=== PATIENT | female | born 1945 | race American Indian/Alaskan Native ===

== ENCOUNTER 2016-09-01 16:43 | Emergency (ER) | payer MEDICARE ==
[2016-09-01 17:04] VITALS: BP 150/70
--- NOTE | 2016-09-01 17:42 | Emergency Department Report ---
ED Extremity Problem HPI - General Chief complaint: Extremity Problem,Nontraumatic Stated complaint: BLEEDING FROM FISTULA Time Seen by Provider: 09/01/16 17:26 Source: patient, EMS Mode of arrival: Stretcher Limitations: Other - History of Present Illness Initial comments: Pt is a 71 yr old F with ESRD presenting from dialysis for bleeding RUE fistula for > 1 hr. As per dialysis sheet, patient had full dialysis treatment today with 3L taken off, but had prolonged bleeding thereafter. Pt sent to the ED for further evaluation. Currently patient has a dry gauze over the RUE. Otherwise no other complaints. Pt gets dialysed MWF - Related Data Allergies Allergy/AdvReac Type Severity Reaction Status Date / Time No Known Allergies Allergy Unverified 09/01/16 17:05 ED Review of Systems ROS: Stated complaint: BLEEDING FROM FISTULA Other details as noted in HPI Comment: All other systems reviewed and negative ED Past Medical Hx - Past Medical History Previous Medical History?: Yes Hx Hypertension: Yes Hx Renal Disease: Yes (Dialysis M/W/F) - Surgical History Additional Surgical History: ALESIA - Social History Smoking Status: Never Smoker Substance Use Type: None ED Physical Exam - General Limitations: Other General appearance: alert, in no apparent distress - Head Head exam: Present: atraumatic, normocephalic - Eye Eye exam: Present: normal appearance - ENT ENT exam: Present: mucous membranes moist - Neck Neck exam: Present: normal inspection - Respiratory Respiratory exam: Present: normal lung sounds bilaterally. Absent: respiratory distress - Cardiovascular Cardiovascular Exam: Present: regular rate, normal rhythm. Absent: systolic murmur, diastolic murmur, rubs, gallop - GI/Abdominal GI/Abdominal exam: Present: soft, normal bowel sounds - Extremities Exam Extremities exam: Present: full ROM, other (RUE AV fistula, intact with palpable thrill, dry gauze with no bleeding over the AV fistula). Absent: tenderness - Back Exam Back exam: Present: normal inspection - Neurological Exam Neurological exam: Present: alert, oriented X3 - Psychiatric Psychiatric exam: Present: normal affect, normal mood - Skin Skin exam: Present: warm, dry, intact, normal color. Absent: rash ED Course Vital Signs 09/01/16 16:52 Temperature 98 F Pulse Rate 66 Respiratory 22 Rate Blood Pressure 150/70 O2 Sat by Pulse 100 Oximetry ED Medical Decision Making - Medical Decision Making After evaluation, patient has dry gauze and no bleeding of her RUE AV fistula Pt stable for d/c home Critical care attestation.: If time is entered above; I have spent that time in minutes in the direct care of this critically ill patient, excluding procedure time. ED Disposition Clinical Impression: Hemorrhage of arteriovenous fistula Disposition: - TO HOME OR SELFCARE Is pt being admited?: No Condition: Stable Instructions: Acute Wound Care (ED) Additional Instructions: Bleeding AV fistula has hemostased
== END 2016-09-01 19:30 | disposition home or self-care (01) ==
LOC: ED 16:43
DX: T82.838A Hemorrhage due to vascular prosthetic devices, implants and grafts, initial encounter (principal); I12.0 Hypertensive chronic kidney disease with stage 5 chronic kidney disease or end stage renal disease; N18.6 End stage renal disease
CPT/HCPCS: 99283

== ENCOUNTER 2016-09-06 09:55 | Inpatient (IN) | payer MEDICARE ==
[~2016-09-06 09:55] MED LIST: SODIUM BICARBONATE IV ONE
[2016-09-06] MEDS ORDERED: NACL 0.9% 500 ML 500 ML IV ONE ×5 (10:34→20:11)
[2016-09-06] MEDS ORDERED: KETALAR IV ONE (10:35)
[2016-09-06] MEDS ORDERED: D50W (25GM) IV ONE (10:36)
[2016-09-06] MEDS ORDERED: VASELINE LIP THERAPY TP PRN (10:37)
[2016-09-06] MEDS ORDERED: ARTIFICIAL TEARS OPHTH OINT OU PRN (10:37)
[2016-09-06] MEDS ORDERED: SODIUM BICARBONATE IV ONE ×3 (10:39→14:53)
[2016-09-06] MEDS ORDERED: DIPRIVAN 10 MG/ML 1,000 MG/100 ML BOTTLE IV ONE (10:39)
[2016-09-06] MEDS ORDERED: CALCIUM GLUCONATE 1,000 MG in NACL 0.9% 100 ML IV ONE ×2 (11:00→14:53)
[2016-09-06] MEDS ORDERED: NACL 0.9% 500 ML IV SCH (11:00)
[2016-09-06] MEDS ORDERED: ZOSYN/NS 4.5GM/100ML 4.5 GM/100 ML VIAL IV ONE ×2 (11:07→21:00)
[2016-09-06 11:10] LABS: Mean Corpuscular HGB Conc 30 % (30-34); Mean Corpuscular Hemoglobin 27 pg (28-32); Mean Corpuscular Volume 90 fl (79-97); Platelet Count 167 K/mm3 (140-440); Red Blood Count 1.66 M/mm3 (3.65-5.03); White Blood Count 15.1 K/mm3 (4.5-11.0)
[2016-09-06 11:18] LABS: Hematocrit 14.9 % (30.3-42.9); Hemoglobin 4.5 gm/dl (10.1-14.3); Red Cell Distribution Width 23.3 % (13.2-15.2)
--- NOTE | 2016-09-06 11:20 | Admit Criteria Form ---
Admission Criteria Documentation: GENERAL ADMISSION CRITERIA (Place 'X' for any and all applicable criteria): Admission is indicated for ANY ONE of the following: [X ]I. Hemodynamic instability as indicated by ANY ONE of the following(1)(2 )(3)(4)(5): [ ]a) Vital sign abnormality not readily corrected by appropriate treatment within 12 to 24 hours indicated by ANY ONE of the following: [ ]i) Hypotension [ ]ii) Symptomatic Tachycardia unresponsive to treatment (eg , analgesia, fluids, sedation as indicated) [ ]iii) Orthostatic vital sign changes unresponsive to treatment (eg, fluids) [ X]b) Vital sign abnormality that is severe indicated by ANY ONE of the following: [X ]i) Inadequate perfusion indicated by ANY ONE of the following: [ X]1) Lactic acidosis (greater than 2 mmol/L) [ ]2) New abnormal capillary refill (greater than 3 seconds) [ ]3) Other metabolic acidosis (arterial pH less than 7.35) not otherwise explained [ ]4) Reduced urine output [ X]5) Altered mental status [ ]6) Myocardial Ischemia [ ]v) Mean arterial pressure[A] less than 60 mm Hg [ ]vi) Mean arterial pressure[A] less than 70 mm Hg after 30 minutes of appropriate treatment (eg, fluid resuscitation) [ ]vii) IV inotropic or vasopressor medication required to maintain adequate blood pressure or perfusion [ ]viii) Sustained heart rate greater than 120 beats per minute in adult or child 6 years or older[B]] [ ]II. Hypertension requiring inpatient treatment as indicated by ANY ONE of the following(6)(7)(8): [ ]a) SBP greater than 220 mm Hg or DBP greater than 120 mm Hg despite treatment [ ]b) SBP greater than 140 mm Hg or DBP greater than 100 mm Hg with evidence of acute end organ damage as indicated by ANY ONE of the following: [ ]i) Encephalopathy [ ]ii) Acute renal failure as indicated by new onset of ANY ONE of the following(9)(10)(11)(12)(13): [ ]1) A 3-fold rise in serum creatinine from baseline [ ]2) Serum creatinine greater than 4 mg/dL ( 354 micromoles/L) with acute rise greater than 0.5 mg/dL (44.2 micromoles/L) [ ]3) Reduction of more than 75% in estimated glomerular filtration rate from baseline [ ]4) Estimated glomerular filtration rate less than 35 mL/min/1.73m2 (0.59 mL/sec/1.73m2) in child up to 18 years of age [ ]5) Cessation of urine output indicated by ALL of the following: [ ]A. Adequate volume status [ ]B. Inadequate urine output as indicated by ANY ONE of the following: [ ]a. Urine output less than 0.3 mL/kg/hr for 24 hours [ ]b. Anuria (urine output less than 0.1 mL/kg/hr) for 12 hours [ ]iii) Aortic dissection [ ]iv) Myocardial ischemia [ ]v) Left ventricular heart failure [ ]vi) Retinal hemorrhage [ ]vii) Other significant finding [ ]c) Hypertension in child requiring inpatient treatment as indicated by ALL of the following(14)(15)(16): [ ]i) Outpatient treatment not effective, not available, or not appropriate [ ]ii) SBP or DBP greater than 95th percentile for age [ ]iii) Evidence of acute end organ damage as indicated by ANY ONE of the following: [ ]1) Altered mental status [ ]2) Acute renal failure as indicated by new onset of ANY ONE of the following(9)(10)(11)(12)(13): [ ]A. A 3-fold rise in serum creatinine from baseline [ ]B. Serum creatinine greater than 4 mg/dL (354 micromoles/L) with acute rise greater than 0.5 mg/dL (44.2 micromoles/L) [ ]C. Reduction of more than 75% in estimated glomerular filtration rate from baseline [ ]D. Estimated glomerular filtration rate less than 35 mL/min/1.73m2 (0.59 mL/sec/1.73m2)in child up to 18 years of age [ ]E. Cessation of urine output indicated by ALL of the following: [ ]a. Adequate volume status [ ]b. Inadequate urine output as indicated by ANY ONE of the following: [ ]1) Urine output less than 0.3 mL/kg/hr for 24 hours [ ]2) Anuria (urine output less than 0.1 mL/kg/hr) for 12 hours [ ]3) Severe headache [ ]4) Visual disturbance [ ]5) Retinal hemorrhage [ ]6) Other significant finding [ ]III. Acute cardiac or peripheral ischemia as indicated by ANY ONE of the following: [ ]a) Acute coronary syndrome(17)(18) [ ]b) Acute peripheral ischemia (eg, pulseless, cool, mottled, or cyanotic extremity)(19) [ ]IV. Cardiac arrhythmias or findings of immediate concern indicated by ANY ONE of the following(20)(21): [ ]a) Heart rhythms that are inherently dangerous or unstable indicated by ANY ONE of the following(22)(23)(24): [ ]i) Resuscitated ventricular fibrillation or cardiac arrest [ ]ii) Ventricular escape rhythm [ ]iii) Sustained ventricular tachycardia (30 seconds or more of ventricular rhythm at greater than 100 beats per minute) [ ]iv) Nonsustained ventricular tachycardia and ANY ONE of the following: [ ]1) Suspected cardiac ischemia as cause or consequence of ventricular tachycardia [ ]2) In setting of acute myocarditis [ ]b) Unstable cardiac conduction defects indicated by ANY ONE of the following(24)(25)(26): [ ]i) Type II second-degree atrioventricular block [ ]ii) Third-degree atrioventricular block [ ]iii) New-onset left bundle branch block with suspected myocardial ischemia [ ]c) Any heart rhythm and ANY ONE of the following(22)(23)(27)(28)( 29): [ ] i) Continuous long-term ECG monitoring needed (eg, initiation of drug requiring monitoring for more than 24 hours) [ ] ii) Patient has automatic implanted cardioverter defibrillator that is repeatedly firing, malfunctioning, or in need of immediate adjustment of settings beyond the scope of ambulatory or observation care. [ ]d) Heart rhythms of concern due to ANY ONE of the following: [ ]i) Hypotension [ ]ii) Respiratory distress [ ]iii) Association with other significant symptoms (eg, bradycardia with syncope or ongoing dizziness, supraventricular tachycardia with chest pain) (27)(28) (30) [ ] V. Severe heart failure as indicated by ANY ONE of the following ( 31)(32): [ ]a) Respiratory distress [ ]b) Hypotension [ ]c) Anasarca (refractory to outpatient therapy) [ ]d) Cardiac arrhythmias of immediate concern [ ]e) Myocardial ischemia [ ]. Respiratory abnormalities, including ANY ONE of the following(33)(34) (35)(36): [ ]a) Respiratory rate greater than 30 breaths per minute unresponsive to treatment [A] [ ]b) New saturation of arterial oxygen less than 90% [ ]c) New partial pressure of carbon dioxide greater than 44 mm Hg ( 5.9 kPa) [ ]d) Supplemental oxygen or respiratory treatments needed that are new or not performable at other levels of care [ ]e) New-onset cyanosis [ ]f) Inability to protect airway [ ]g) Chronic lung disease with severe deterioration (not responsive to emergency and observation care treatment as appropriate) as indicated by ANY ONE of the following(34)(36 ): [ ]i) SaO2 5% below baseline in patient with chronic hypoxemia [ ]ii) New requirement for supplemental oxygen to keep SaO2 at baseline or acceptable level [ ]iii) Required supplemental oxygen performable only in acute inpatient setting [ ]iv) Severe airflow or ventilation abnormalities [ ]v) Previously mobile patient unable to walk between rooms [ ]vi Inability to eat or sleep due to dyspnea [ ]vii) Rapid rate of exacerbation onset [ ]viii) Altered mental status ]VII. Severe airflow or ventilation abnormalities (not responsive to emergency and observation care treatment as appropriate) as indicated by ANY ONE of the following(33)(34)(35)(37): [ ]a) PCO2 greater than 42 mm Hg (5.6 kPa) and pH less than 7.35 (new ) [ ]b) Documented PCO2 increased more than 5 mm Hg (0.7 kPa) from disease baseline [ ]c) Airflow measurements [B] less than 60% of previous best or predicted (eg, peak expiratory flow rate less than 300 L/minute) despite intensive emergent treatment [C] [ ]d) Required respiratory treatments that are performable only in acute inpatient setting [ ]VIII. Impending or actual respiratory arrest ( Also use Respiratory Failure GRG for severe respiratory disease and long-term mechanical ventilation patients) [ ]IX. Neurologic abnormalities, including ANY ONE of the following: [ ]a) New findings that suggest ANY ONE of the following: [ ]i) HELP DESK INTERN infection(38) [ ]ii) Cerebral bleeding, ischemia, or vasospasm(39)(40) [ ]iii) Increased intracranial pressure, hydrocephalus, or cerebral edema(41)(42)(43) [ ]iv) Spinal cord injury(44) [ ]b) Uncontrolled seizures(45) [ ]c) New-onset coma (eg, Maggie coma scale score less than 9) or unexplained abnormal mental status (eg, [place] coma scale score less than 14) [D](41)(46)(47) [ ]X. New-onset severe neurologic findings requiring inpatient care; examples include(42)(48)(49): [ ]a) Papilledema [ ]b) Cerebral edema [ ]c) Mass effect on CT scan [ ]XI. Suspected acute intra-abdominal process with peritoneal signs, abdominal mass, or similar findings (50)(51)(52) [ ]XII. Severe physiologic disorder remaining after emergency or observation level care (as appropriate) as indicated by ANY ONE of the following (53): [ ]a) Significant dehydration [ ]b) Diabetic ketoacidosis [ ]c) Hyperglycemic hyperosmolar state (eg, osmolality greater than 320 mOsm/kg (mmol/kg) [ ]d) Hypoglycemia [ ]e) Other (new) acid-base disorder with pH less than 7.35 or greater than 7.5(54) [ ]f) Thyroid storm (55) [ ]g) Myxedema coma (55) [ ]XIII. Abdominal abnormalities with ANY ONE of the following(56)(57): [ ]a) Absent bowel sounds with complete ileus [ ]b) Signs of intestinal obstruction or peritonitis [E] [ ]c) Nausea and vomiting that cannot be controlled with outpatient or observation care [ ]XIV. Acute renal failure as indicated by new onset of ANY ONE of the following(9)(10)(11)(12)(13): [ ]a) A 3-fold rise in serum creatinine from baseline [ ]b) Serum creatinine greater than 4 mg/dL (354 micromoles/L) with acute rise greater than 0.5 mg/dL (44.2 micromoles/L) [ ]c) Reduction of more than 75% in estimated glomerular filtration rate from baseline [ ]d) Estimated glomerular filtration rate less than 35 mL/min/ 1.73m2 (0.59 mL/sec/1.73m2) in child up to 18 years of age [ ]e) Cessation of urine output indicated by ALL of the following: [ ]i) Adequate volume status [ ]ii) Inadequate urine output as indicated by ANY ONE of the following: [ ]1) Urine output less than 0.3 mL/kg/hr for 24 hours [ ]2) Anuria (urine output less than 0.1 mL/kg/hr) for 12 hours [ ]XV. Significant uremic complications as indicated by ANY ONE of the following(58)(59)(60): [ ]a) Outpatient therapy is ineffective or not feasible for ANY ONE of the following: [ ]i) Severe heart failure [ ]ii) Severehypertension [ ]iii) Pleural effusion [ ]iv) Pericarditis or pericardial effusion [ ]b) Cardiac arrhythmias of immediate concern [ ]c) Intractable nausea or vomiting [ ]d) Recurrent seizures [ ]e) Encephalopathy [ ]f) Bleeding abnormalities (eg, platelet dysfunction) with active (eg, gastrointestinal) bleeding [ ]g) Dialysis indicated before long-term access or ambulatory arrangements can be made [ ]h) Significant metabolic or electrolyte abnormalities (eg, severe acidosis or hyperkalemia) [ ]XVI. High fever or other high-risk infection situation as indicated by ANY ONE of the following(61)(62)(63)(64): [ ]a) Outpatient and observation care antimicrobial treatment unavailable, not effective, or not appropriate [ ]b) Documented bacteremia [ ]c) Temperature greater than 40.5 degrees C (104.9 degrees F) ( oral) [ ]d) Temperature greater than 39.5 degrees C (103.1 degrees F) ( oral) or less than 36 degrees C (96.8 degrees F) (rectal) that does not respond to e treatment and observation care [ ] XVII. Temperature less than 95 degrees F (35 degrees C)(rectal)(65) [ ] XVIII. Severe nutritional abnormalities as indicated by ALL of the following (66)(67): [ ]a) Inability to tolerate or establish sufficient oral or other enteral nutrition in outpatient setting [ ]b) Parenteral nutrition regimen need that must be implemented on inpatient basis [ ] XIX. Severe electrolyte abnormalities indicated by ALL of the following(68) (69)(70): [ ]a) Electrolytes and associated findings are not as expected for patient baseline or acceptable treatment effects. [ ]b) Severe abnormalities indicated by ANY ONE of the following: [ ]i) Sodium less than 130 mEq/L (mmol/L) (new) [ ]ii)Sodium less than 135 mEq/L (mmol/L) with ANY ONE of the following: [ ]1) Uncorrectable (to near normal or chronic baseline) after trial of outpatient and emergency treatment [ ]2) Altered mental status [ ]3) Seizures [ ]4) Severe medical etiology requiring inpatient management (eg, heart failure, hypovolemia) [ ]iii) Sodium greater than 155 mEq/L (mmol/L) [ ]iv) Sodium greater than 150 mEq/L (mmol/L) with ANY ONE of the following: [ ]1) Uncorrectable (to near normal or chronic baseline) with outpatient and emergency treatment [ ]2) Altered mental status [ ]3) Seizures [ ]4) Severe medical etiology (eg, hypovolemia, diabetes insipidus) [ ]v) Potassium less than 2.5 mEq/L (mmol/L) despite outpatient and emergency treatment [ ]vi) Potassium less than 3 mEq/L (mmol/L) with ANY ONE of the following: [ ]1) Weakness [ ]2) Cardiac abnormality (eg, arrhythmia, conduction disturbance) [ ]3) Cardiac ischemia [ ]4) Ileus [ ]5) Ongoing medical cause requiring inpatient management (eg, acute renal wasting or SIADH) [ ]6) Other severe symptoms [ ]vii) Potassium greater than 6.5 mEq/L (mmol/L) [ ]viii) Potassium greater than 5 mEq/L (mmol/L) with ANY ONE of the following: [ ]1) Uncorrectable (to near normal or chronic baseline) with outpatient and emergency treatment [ ]2) Severe ECG findings [F] [ ]3) Acute worsening of renal failure (creatinine greater than 2.5 mg/dL (221 micromoles/L) or significant elevation for age and size) [ ]4) Severe weakness [ ]5) Severe medical etiology (eg, hemolysis, infection, drug overdose) [ ]ix) Calcium less than 7 mg/dL (1.75 mmol/L) despite outpatient and emergency treatment (72) [ ]x) Calcium less than 8 mg/dL (2 mmol/L) with significant symptoms or findings; examples include(72): [ ]1) Altered mental status [ ]2) Muscle spasms [ ]3) Seizures [ ]4) Breathing difficulty [ ]5) Cardiac abnormality (eg, arrhythmia or conduction disturbance) [ ]xi) Calcium greater than 14 mg/dL (3.5 mmol/L)(72) [ ]xii) Calcium greater than 12 mg/dL (3 mmol/L) with ANY ONE of the following(72): [ ]1) Uncorrectable (to near normal or chronic baseline) with outpatient and emergency treatment [ ]2) Significant dehydration or hypovolemia as indicated by ALL of the following(70)(73)(74): [ ]A. Not resolved with initial treatments [ ]B. Clinically significant dehydration as indicated by ANY ONE of the following: [ ]a. Vomiting refractory to outpatient treatment (ie, precluding oral rehydration) [ ]b. Inability to drink [ ]c. Hypernatremia or other electrolyte abnormality unable to be corrected with outpatient and emergency treatment [ ]d. Failure to remain hydrated with outpatient therapy [ ]e. Reduced urine output [ ]f. Hypotension [ ]g. Serious cause for dehydration requiring acute hospitalization (eg, bowel obstruction, increased intracranial pressure, infectious cause) [ ]h. Child with ANY ONE of the following(75): [ ]1) Severe abdominal tenderness [ ]2) Adequate care not available at home [ ]3) Severe dehydration ( greater than 9% loss of body weight) [ ]4) Significant symptoms or findings; examples include: [ ]A. Altered mental status [ ]B. Cardiac abnormality (eg, arrhythmia, conduction disturbance) [ ]C. Malignant etiology requiring inpatient treatment [ ]xiii) Phosphorus less than 1 mg/dL (0.32 mmol/L) [ ]xiv) Phosphorus less than 1.5 mg/dL (0.48 mmol/L) with ANY ONE of the following: [ ]1) Patient unresponsive to outpatient and emergency treatment [ ]2) Significant symptoms or findings; examples include: [ ]A. Weakness [ ]B. Altered mental status [ ]C. Breathing difficulty [ ]D. Seizures [ ]E. Rhabdomyolysis [ ]xv) Phosphorus greater than 10 mg/dL (3.2 mmol/L) [ ]xvi) Phosphorus greater than 4.5 mg/dL (1.45 mmol/L) (new) with ANY ONE of the following: [ ]1) Severe medical etiology (eg, crush injury, acute renal failure) [ ]2) Associated hypocalcemia with significant findings; examples include: [ ]A. Neurologic symptoms [ ]B. Altered mental status [ ]C. Muscle spasms [ ]D. Seizures [ ]E. Breathing difficulty [ ]F. Cardiac abnormality (eg, arrhythmia, conduction disturbance) [ ]xvii) Magnesium less than 1 mg/dL (0.41 mmol/L) [ ]xviii) Magnesium less than 1.5 mg/dL (0.62 mmol/L) with ANY ONE of the following: [ ]1) Patient unresponsive to outpatient and emergency treatment [ ]2) Associated hypocalcemia with significant findings; examples include: [ ]A. Altered mental status [ ]B. Muscle spasms [ ]C. Seizures [ ]D. Breathing difficulty [ ]E. Cardiac abnormality (eg, arrhythmia , conduction disturbance) [ ]3) Associated hypokalemia (potassium less than 3 mEq/L (mmol/L)) with risk of arrhythmia [ ]xix) Magnesium greater than 4 mEq/L (2 mmol/L) [ ]xx) Magnesium greater than 2.5 mEq/L (1.25 mmol/L) with significant symptoms or findings; examples include: [ ]1) Weakness [ ]2) Altered mental status [ ]3) Cardiac abnormality (eg, arrhythmia, conduction disturbance) [ ]4) Breathing difficulty [ ]5) Severe medical etiology (eg, renal failure, hypovolemia) [ ]xxi) Uric acid greater than 20 mg/dL (1190 micromoles/L)(76) [ ]xxii) Uric acid greater than 8 mg/dL (476 micromoles/L) with significant symptoms or findings of tumor lysis syndrome; examples include(76): [ ]1) Creatinine greater than 1.5 times upper limit of normal [ ]2) Cardiac abnormality (eg, arrhythmia, conduction disturbance) [ ]3) Seizure [ ]XX. Acute blood loss causing significant abnormality as indicated by ANY ONE of the following(77)(78): [ ]a) Hemoglobin less than 10 g/dL (100 g/L) (not baseline) [ ]b) Hematocrit less than 30% (0.30) (not baseline) [ ]c) Repeat hematocrit decreased more than 2% (0.02) [ ]d) Uncontrolled bleeding [X ]XXI. Severe anemia indicated by ANY ONE of the following(78)(79): [ X]a) Altered mental status [ ]b) Chest pain [ ]c) Exertional dyspnea [ ]d) Syncope [ ]e) Other findings suggesting inadequate perfusion [ ]f) Treatment with transfusion or volume replacement is ineffective at resolving ANY ONE of the following [G]: [ ]i) Tachycardia for age [ ]ii) Orthostatic vital sign changes as indicated by ANY ONE of the following(80): [ ]1) Fall in SBP of 20 mm Hg or more 1 to 3 minutes after patient sits or stands from recumbent position [ ]2) Fall in DBP of 10 mm Hg or more 1 to 3 minutes after patient sits or stands from recumbent position [ ]XXII. High-risk low platelet count as indicated by ANY ONE of the following( 81)(82): [ ]a) Severe or life-threatening bleeding (eg, intracranial, major gastrointestinal, or extensive mucosal bleeding), with any reduced platelet count [ ]b) Platelet count less than 20,000/mm3 (20 x109/L) with any active bleeding [ ]c) Platelet count less than 10,000/mm3 (10 x109/L) with minor purpura or petechiae [ ]d) Platelet count less than 5000/mm3 (5 x109/L) [ ]e) Low platelet count with hemolytic anemia [ ]XXIII. Disseminated intravascular coagulation(77)(83) [ ]XXIV. Severe adverse drug or systemic toxin reaction requiring inpatient treatment; examples include(84)(85): [ ]a) Serotonin syndrome(86) [ ]b) Neuroleptic malignant syndrome(86) [ ]c) Cholinergic syndrome with severe symptoms (eg, bronchorrhea, weakness, mental status changes, seizures) [ ]d) Sympathetic syndrome with severe symptoms (eg, seizures, mental status changes, cardiac dysrhythmias) [ ]e) Anticholinergic syndrome [ ]XXV. Severe pain requiring acute inpatient management as indicated by ALL of the following (87)(88)(89): [ ]a) Continuous or frequent (eg, every 2 to 4 hours) parenteral analgesics required [H] [ ]b) Rapid improvement expected from treatment or acute intervention (eg, surgery, anesthesia procedure) [ ]XXVI.Severe behavioral health issues judged unmanageable at a lower level of care (eg, residential) in a patient who is ANY ONE of the following(91) [ ]a) Acutely suicidal [ ]b) A danger to self (eg, self-mutilating or suicidal behavior) [ ]c) A danger to others (eg, assaultive or homicidal behavior) [ ]d) Incapacitated because of grave disability (eg, inability to provide for self at lower level of care) (92) [ ]XXVII. Inpatient monitoring needed; examples include(1)(3)(87)(93)(94)(95)(96 ): [ ]a) Vital signs, neurologic signs, or vascular checks more frequently than every 4 hours [ ]b) Cardiac or respiratory monitoring beyond the scope (eg, over 24 hours) of observation care [ ]c) Pulmonary artery catheter monitoring [ ]d) Suspected compartment syndrome(97) (98) [ ]e) Cerebral bleeding, hydrocephalus, or vasospasm monitoring [ ]f) Increased intracranial pressure or cerebral edema monitoring [ ]g) monitoring [ ]XXVIII. Treatment requiring inpatient care; examples include: [ ]a) IV fluid to replace significant ongoing losses (greater than 3 L/m2 per day)(53) [ ]b) High concentration oxygen (greater than 40%)(33)(99)(100) [ ]c) Frequent respiratory therapy (more frequently than every 4 hours) to maintain airflow rates greater than 60% of baseline(33)(99)(100) [ ]d) Epidural analgesia(87) [ ]e) IV anticoagulation, vasoactive, or antiarrhythmic medication(19 )(23) [ ]f) Acute thrombolytics (generally require 24 hours of observation )(101)(102) [ ]XXIX. Emergency procedures needed; examples include: [ ]a) Emergency inpatient surgery [ ]b) Temporary pacemaker placement(103) [ ]c) Chest tube placement with active evacuation (eg, suction, drainage)(104) [ ]d) Emergent cardioversion(105) [ ]e) Emergent cardiac or vascular procedures (eg, cardiac catheterization, angioplasty) (17)(18) [ ]f) Emergent dialysis access placement and institution(10)(106) [ ]g) Emergent pericardiocentesis(107) [ ]h) Emergent plasmapheresis or leukapheresis(83) [ ]i) Emergent tracheostomy The original [employer] content created by [employer] has been revised. The portions of the content which have been revised are identified through the use of italic text or in bold, and [employer] has neither reviewed nor approved the modified material. All other unmodified content is copyright [employer]. Please see references footnoted in the original [employer] edition 2016 Admission Criteria Met: Yes
[2016-09-06] MEDS ORDERED: VANCOMYCIN 1,500 MG in NACL 0.9% 500 ML 500 ML IV ONE (11:30)
[2016-09-06 11:32] LABS: Magnesium 2.2 mg/dL (1.7-2.3); Phosphorous 5.2 mg/dL (2.5-4.5)
[2016-09-06 11:33] LABS: Albumin 2.8 g/dL (3.9-5); Albumin/Globulin Ratio 1.1 %; BUN/Creatinine Ratio 10.48; Bilirubin,Total 0.8 mg/dL (0.1-1.2); Calcium 8.7 mg/dL (8.4-10.2); Potassium 6.4 mmol/L (3.6-5.0); Total Protein 5.3 g/dL (6.3-8.2)
--- NOTE | 2016-09-06 11:44 | XRay Report ---
Supine chest: Tube placement. An endotracheal tube tip is located approximately 2 cm above the doe. The heart is questionably enlarged it could be accentuated by positioning. A bipolar pacemaker is present with intact wires. Sternotomy wires are present. There is no vascular congestion. The left hemidiaphragm is now well-visualized. No prior exams for comparison. Impression: Well-positioned endotracheal tube. Poorly visualized left hemidiaphragm. The possibility of a process of the left base cannot be excluded.
[2016-09-06 11:45] LABS: INR 5.24 (0.87-1.13)
[2016-09-06] MEDS ORDERED: PROTONIX IV ONE (11:53)
[2016-09-06 11:59] LABS: Anisocytosis 2+; Basophils % (Manual) 0 % (0.0-1.8); Blastocytes % (Manual) 0 %; Eosinophils % (Manual) 0 % (0.0-4.3)
[2016-09-06 12:00] LABS: Elliptocytes 1+; Ovalocytes 1+; Polychromasia Few
[2016-09-06] MEDS ORDERED: VANCOMYCIN PHARMACY TO DOSE IV SCH (12:00)
[2016-09-06 12:01] LABS: Diff Status Complete; Poikilocytosis Few; Tear Drop Cells Few
[2016-09-06 12:29] LABS: ISTAT Base Excess 2; ISTAT HCO3 25.7; ISTAT PCO2 33.9 (35-45); ISTAT PH 7.488 (7.35-7.45); ISTAT PO2 408 (80-105); ISTAT SO2 100; ISTAT TCO2 27
[2016-09-06] MEDS ORDERED: NACL 0.9% 500 ML 500 ML ONE ×2 (12:50→13:13)
--- NOTE | 2016-09-06 13:02 | Emergency Department Report ---
ED General Adult HPI - General Chief complaint: Altered Mental Status Stated complaint: AMS Time Seen by Provider: 09/06/16 11:05 Source: patient, EMS Mode of arrival: Stretcher Limitations: Altered Mental Status - History of Present Illness Initial comments: Patient presents to the emergency department obtunded with shallow respirations. Her pulse oximetry on a nonrebreather mask is 100%. However she does not really respond much to a sternal rub. She requires elective intubation. A 12-lead EKG was performed which showed a paced rhythm with an extremely wide QRS complex (paced). The patient was sent from [facility] who told the medics that they "do not know when the last time the patient was dialyzed". After speaking with Dr. Felix her last dialysis was on 09/03 successfully accomplished at that time. In any case little information is available from the [facility]. The young man arrived to I presume may be a sign or grandson who states he sees the patient every day. He told me that the patient appeared very weak yesterday. There is some question as to whether GI bleeding was observed at the [facility]. We did not receive notification of this however. Shortly after intubation, it was noted that the patient had a melanotic stool. -: unknown Severity scale (0 -10): 0 - Related Data Allergies Allergy/AdvReac Type Severity Reaction Status Date / Time No Known Allergies Allergy Verified 09/06/16 10:32 ED Review of Systems ROS: Stated complaint: AMS Other details as noted in HPI Comment: Unobtainable due to pts medical conditions ED Past Medical Hx - Past Medical History Previous Medical History?: Yes Hx Hypertension: Yes Hx Renal Disease: Yes (Dialysis M/W/F) Additional medical history: peripheral vascular disease. dementia. pacepaker. +ppd - Surgical History Additional Surgical History: pacemaker - Social History Smoking Status: Unknown if ever smoked Substance Use Type: None Other Social History: long term resident ED Physical Exam - General Limitations: Altered Mental Status General appearance: obtunded, other (shallow respirations) - Head Head exam: Present: atraumatic - Eye Eye exam: Present: PERRL. Absent: scleral icterus - ENT ENT exam: Present: mucous membranes dry - Neck Neck exam: Present: normal inspection, other (distended EJ on the left). Absent : tenderness, meningismus - Respiratory Respiratory exam: Present: decreased breath sounds - Cardiovascular Cardiovascular Exam: Present: regular rate, tachycardia - GI/Abdominal GI/Abdominal exam: Present: soft. Absent: distended, tenderness, guarding, rebound, rigid - Rectal Rectal exam: Present: black stool (/melanotic stool) - Extremities Exam Extremities exam: Present: normal inspection - Back Exam Back exam: Present: normal inspection - Neurological Exam Neurological exam: Present: altered, other (Limited exam secondary to obtunded state) - Skin Skin exam: Present: warm, dry, intact, normal color. Absent: rash ED Course Vital Signs 09/06/16 09/06/16 09/06/16 09:55 10:00 10:10 Temperature Pulse Rate 112 H 110 H Respiratory 19 20 Rate Blood Pressure 166/87 166/87 153/95 O2 Sat by Pulse 100 100 Oximetry 09/06/16 09/06/16 09/06/16 10:20 10:30 10:33 Temperature Pulse Rate 83 78 72 Respiratory 20 21 Rate Blood Pressure 153/95 152/47 159/54 O2 Sat by Pulse 91 100 100 Oximetry 09/06/16 09/06/16 09/06/16 10:40 10:50 11:00 Temperature Pulse Rate 72 71 71 Respiratory 27 H 14 16 Rate Blood Pressure 107/49 107/49 107/49 O2 Sat by Pulse 100 100 100 Oximetry 09/06/16 09/06/16 09/06/16 11:10 11:20 11:30 Temperature Pulse Rate 82 69 70 Respiratory 18 22 18 Rate Blood Pressure 159/54 159/54 159/54 O2 Sat by Pulse 85 100 Oximetry 09/06/16 09/06/16 09/06/16 11:42 11:51 12:00 Temperature Pulse Rate 72 72 72 Respiratory 22 20 22 Rate Blood Pressure 107/49 159/54 140/62 O2 Sat by Pulse Oximetry 09/06/16 09/06/16 09/06/16 12:02 12:11 12:21 Temperature Pulse Rate 71 71 Respiratory 18 20 18 Rate Blood Pressure 140/62 138/54 O2 Sat by Pulse 96 Oximetry 09/06/16 09/06/16 09/06/16 12:30 12:41 12:44 Temperature 97.6 F Pulse Rate 69 70 Respiratory 18 19 Rate Blood Pressure 122/51 122/51 O2 Sat by Pulse Oximetry 09/06/16 12:51 Temperature Pulse Rate 75 Respiratory 18 Rate Blood Pressure 129/56 O2 Sat by Pulse Oximetry - Reevaluation(s) Reevaluation #1: RSI and elective intubation was performed. The patient was given 2 A of bicarbonate 1 amp of D50 for of insulin one of calcium gluconate empirically as above as described. He did appear that her QRS complex was diminishing in duration. Her blood pressure was well maintained. Her pulse oximetry was well maintained throughout. The long line sheath was placed in her left EJ with a double Y adapter. Patient was found to have a coagulopathy and low hemoglobin. Blood products and FFP were ordered. A PICC line consult was ordered. I spoke to Dr. Field who will be the hospitalist in charge of this patient. I did give a brief report to Dr. Barrett. I spoke to Dr. Felix inflated pad buffer in detail about her plan of care. She stated that she would dialyze the patient when it was clinically safe. She recommended that we transfuse the patient first and not during dialysis. She is also aware of the coagulopathy and a metabolic profile. Dr. Field has seen the patient and assumed care. I'm told the ICU as a ready bed. 09/06/16 13:23 Reevaluation #2: Patient with significant lactic acidosis was given Zosyn and vancomycin. No obvious source yet. 09/06/16 13:27 - EJ/Peripheral Line Neck L Time Out Performed: No Indications: nurses unable to establis Size: 18 Dressing Placed: Tegaderm, tape Patient Tolerated Procedure: well Additional Comments: Blood drawn and sent to the lab. - Intubation Time Out Performed: Yes Sedative: Ketamine Paralytic: Rocuronium Laryngoscope: Cara Size: 4 ET Tube Size: 7.5 Tube Secured Depth (cm): 24 Tube Secured Location: lips Tube Placement Confirmation: visualized tube passing t, equal breath sounds bilat, no breath sounds over epi, confirmation by capnometr Patient Tolerated Procedure: well Intubation Complications: none ED Medical Decision Making - Lab Data Result diagrams: 09/06/16 10:34 09/06/16 Unknown Laboratory Results - last 24 hr 09/06/16 09/06/16 09/06/16 10:34 10:34 12:05 WBC 15.1 H RBC 1.66 L Hgb 4.5 L* Hct 14.9 L* MCV 90 MCH 27 L MCHC 30 RDW 23.3 H Plt Count 167 Add Manual Diff Complete Total Counted 100 Seg Neuts % (Manual) 95.0 H Band Neutrophils % 0 Lymphocytes % (Manual) 2.0 L Reactive Lymphs % (Man) 0 Monocytes % (Manual) 3.0 Eosinophils % (Manual) 0 Basophils % (Manual) 0 Metamyelocytes % 0 Myelocytes % 0 Promyelocytes % 0 Blast Cells % 0 Nucleated RBC % Not Reportable Seg Neutrophils # Man 14.3 H Band Neutrophils # 0.0 Lymphocytes # (Manual) 0.3 L Abs React Lymphs (Man) 0.0 Monocytes # (Manual) 0.5 Eosinophils # (Manual) 0.0 Basophils # (Manual) 0.0 Metamyelocytes # 0.0 Myelocytes # 0.0 Promyelocytes # 0.0 Blast Cells # 0.0 WBC Morphology Not Reportable Hypersegmented Neuts Not Reportable Hyposegmented Neuts Not Reportable Hypogranular Neuts Not Reportable Smudge Cells Not Reportable Toxic Granulation Not Reportable Toxic Vacuolation Not Reportable Dohle Bodies Not Reportable Pelger-Huet Anomaly Not Reportable Juan Rods Not Reportable Platelet Estimate Appears normal Clumped Platelets Not Reportable Plt Clumps, EDTA Not Reportable Large Platelets Not Reportable Giant Platelets Not Reportable Platelet Satelliting Not Reportable Plt Morphology Comment Not Reportable RBC Morphology Not Reportable Dimorphic RBCs Not Reportable Polychromasia Few Hypochromasia Not Reportable Poikilocytosis Few Anisocytosis 2+ Microcytosis Not Reportable Macrocytosis Not Reportable Spherocytes Not Reportable Pappenheimer Bodies Not Reportable Sickle Cells Not Reportable Target Cells Not Reportable Tear Drop Cells Few Ovalocytes 1+ Helmet Cells Not Reportable Dominguez-White Shield Bodies Not Reportable Silva Rings Not Reportable Bernabe Cells Not Reportable Bite Cells Not Reportable Crenated Cell Not Reportable Elliptocytes 1+ Acanthocytes (Spur) Not Reportable Rouleaux Not Reportable Hemoglobin C Crystals Not Reportable Schistocytes Not Reportable Malaria parasites Not Reportable Yair Bodies Not Reportable Hem Pathologist Commnt No PT 48.8 H INR 5.24 H* POC ABG pH 7.488 H POC ABG pCO2 33.9 L POC ABG pO2 408 H POC ABG HCO3 25.7 POC ABG Total CO2 27 POC ABG O2 Sat 100 POC ABG Base Excess 2 VBG pH FiO2 100 Sodium Potassium Chloride Carbon Dioxide Anion Gap BUN Creatinine Estimated GFR BUN/Creatinine Ratio Glucose Lactic Acid Calcium Phosphorus Magnesium Total Bilirubin AST ALT Alkaline Phosphatase Ammonia Total Creatine Kinase CK-MB (CK-2) CK-MB (CK-2) Rel Index Troponin T NT-Pro-B Natriuret Pep Total Protein Albumin Albumin/Globulin Ratio Triglycerides Cholesterol LDL Cholesterol Direct HDL Cholesterol Cholesterol/HDL Ratio Blood Type Antibody Screen JOSEFA Antibody Screen Crossmatch 09/06/16 09/06/16 09/06/16 12:08 Unknown Unknown WBC RBC Hgb Hct MCV MCH MCHC RDW Plt Count Add Manual Diff Total Counted Seg Neuts % (Manual) Band Neutrophils % Lymphocytes % (Manual) Reactive Lymphs % (Man) Monocytes % (Manual) Eosinophils % (Manual) Basophils % (Manual) Metamyelocytes % Myelocytes % Promyelocytes % Blast Cells % Nucleated RBC % Seg Neutrophils # Man Band Neutrophils # Lymphocytes # (Manual) Abs React Lymphs (Man) Monocytes # (Manual) Eosinophils # (Manual) Basophils # (Manual) Metamyelocytes # Myelocytes # Promyelocytes # Blast Cells # WBC Morphology Hypersegmented Neuts Hyposegmented Neuts Hypogranular Neuts Smudge Cells Toxic Granulation Toxic Vacuolation Dohle Bodies Pelger-Huet Anomaly Juan Rods Platelet Estimate Clumped Platelets Plt Clumps, EDTA Large Platelets Giant Platelets Platelet Satelliting Plt Morphology Comment RBC Morphology Dimorphic RBCs Polychromasia Hypochromasia Poikilocytosis Anisocytosis Microcytosis Macrocytosis Spherocytes Pappenheimer Bodies Sickle Cells Target Cells Tear Drop Cells Ovalocytes Helmet Cells Dominguez-White Shield Bodies Silva Rings [place] Cells Bite Cells Crenated Cell Elliptocytes Acanthocytes (Spur) Rouleaux Hemoglobin C Crystals Schistocytes Malaria parasites Yair Bodies Hem Pathologist Commnt PT INR POC ABG pH POC ABG pCO2 POC ABG pO2 POC ABG HCO3 POC ABG Total CO2 POC ABG O2 Sat POC ABG Base Excess VBG pH FiO2 Sodium 140 Potassium 6.4 H* Chloride 93.0 L Carbon Dioxide 21 L Anion Gap 32 BUN 109 H Creatinine 10.4 H Estimated GFR 4 BUN/Creatinine Ratio 10.48 Glucose 197 H Lactic Acid 6.20 H* Calcium 8.7 Phosphorus Magnesium Total Bilirubin 0.80 AST 26 ALT 14 Alkaline Phosphatase 102 Ammonia Total Creatine Kinase CK-MB (CK-2) CK-MB (CK-2) Rel Index Troponin T NT-Pro-B Natriuret Pep Total Protein 5.3 L Albumin 2.8 L Albumin/Globulin Ratio 1.1 Triglycerides Cholesterol LDL Cholesterol Direct HDL Cholesterol Cholesterol/HDL Ratio Blood Type A POSITIVE Antibody Screen TNR JOSEFA Antibody Screen Negative Crossmatch See Detail 09/06/16 09/06/16 09/06/16 Unknown Unknown Unknown WBC RBC Hgb Hct MCV MCH MCHC RDW Plt Count Add Manual Diff Total Counted Seg Neuts % (Manual) Band Neutrophils % Lymphocytes % (Manual) Reactive Lymphs % (Man) Monocytes % (Manual) Eosinophils % (Manual) Basophils % (Manual) Metamyelocytes % Myelocytes % Promyelocytes % Blast Cells % Nucleated RBC % Seg Neutrophils # Man Band Neutrophils # Lymphocytes # (Manual) Abs React Lymphs (Man) Monocytes # (Manual) Eosinophils # (Manual) Basophils # (Manual) Metamyelocytes # Myelocytes # Promyelocytes # Blast Cells # WBC Morphology Hypersegmented Neuts Hyposegmented Neuts Hypogranular Neuts Smudge Cells Toxic Granulation Toxic Vacuolation Dohle Bodies Pelger-Huet Anomaly Juan Rods Platelet Estimate Clumped Platelets Plt Clumps, EDTA Large Platelets Giant Platelets Platelet Satelliting Plt Morphology Comment RBC Morphology Dimorphic RBCs Polychromasia Hypochromasia Poikilocytosis Anisocytosis Microcytosis Macrocytosis Spherocytes Pappenheimer Bodies Sickle Cells Target Cells Tear Drop Cells Ovalocytes Helmet Cells Dominguez-White Shield Bodies Silva Rings [place] Cells Bite Cells Crenated Cell Elliptocytes Acanthocytes (Spur) Rouleaux Hemoglobin C Crystals Schistocytes Malaria parasites Yair Bodies Hem Pathologist Commnt PT INR POC ABG pH POC ABG pCO2 POC ABG pO2 POC ABG HCO3 POC ABG Total CO2 POC ABG O2 Sat POC ABG Base Excess VBG pH 7.418 FiO2 Sodium Potassium Chloride Carbon Dioxide Anion Gap BUN Creatinine Estimated GFR BUN/Creatinine Ratio Glucose Lactic Acid Calcium Phosphorus 5.20 H Magnesium 2.20 Total Bilirubin AST ALT Alkaline Phosphatase Ammonia 102.0 H Total Creatine Kinase 40 CK-MB (CK-2) 3.0 CK-MB (CK-2) Rel Index 7.5 H Troponin T 0.210 H* NT-Pro-B Natriuret Pep 73103 H Total Protein Albumin Albumin/Globulin Ratio Triglycerides 38 Cholesterol 37 L LDL Cholesterol Direct 14 L HDL Cholesterol 16 L Cholesterol/HDL Ratio 2.31 Blood Type Antibody Screen JOSEFA Antibody Screen Crossmatch - EKG Data -: EKG Interpreted by Me - EKG Data Paced rhythm at more than 100. Wide complex suggest effects of hyperkalemia. 09/06/16 13:26 - Radiology Data interpreted by me: Cardiomegaly and venous congestion. Critical Care Time: Yes Critical care time in (mins) excluding proc time.: 60 Critical care attestation.: If time is entered above; I have spent that time in minutes in the direct care of this critically ill patient, excluding procedure time. ED Disposition Clinical Impression: Lactic acidosis, Uremia, End stage renal disease on dialysis, Hyperkalemia, Severe anemia Sepsis Qualifiers: Sepsis type: sepsis due to unspecified organism Qualified Code(s): A41.9 - Sepsis, unspecified organism GI bleeding Qualifiers: GI bleed type/associated pathology: melena Qualified Code(s): K92.1 - Melena Disposition: -09 OP ADMIT IP TO THIS HOSP Is pt being admited?: Yes Does the pt Need Aspirin: No (medically contraindicated) Condition: Stable Time of Disposition: 13:29
[2016-09-06 13:45] LABS: BUN/Creatinine Ratio 10.38; Calcium 8.7 mg/dL (8.4-10.2); Chloride 95.6 mmol/L (98-107)
[2016-09-06 13:48] LABS: Magnesium 2.3 mg/dL (1.7-2.3); Potassium 6.4 mmol/L (3.6-5.0)
[2016-09-06] MEDS ORDERED: ZEMURON IV ONE (13:58)
[2016-09-06] MEDS ORDERED: KETALAR ONE (13:58)
[2016-09-06] MEDS ORDERED: ATROPINE 0.1% (CARDIAC) ONE (13:58)
[2016-09-06] MEDS ORDERED: NACL 0.9% 100 ML IV PRN (15:21)
[2016-09-06 16:33] LABS: BUN/Creatinine Ratio 10.99; Calcium 8.8 mg/dL (8.4-10.2); Chloride 95.9 mmol/L (98-107)
[2016-09-06 16:36] LABS: Potassium 6.7 mmol/L (3.6-5.0)
--- NOTE | 2016-09-06 18:57 | Consultation ---
History of Present Illness - Reason for Consult Consult date: 09/06/16 end stage renal disease, hyperkalemia - History of Present Illness History obtained from medical records. Family members are not present at bedside. Patient presented to the emergency department obtunded with shallow respirations. Her pulse oximetry on a nonrebreather mask was 100%. However she did not respond much to a sternal rub. She was intubated in the ED. A 12-lead EKG was performed which showed a paced rhythm with an extremely wide QRS complex (paced). The patient was sent from [facility] who told the medics that they "do not know when the last time the patient was dialyzed". Per family, the patient appeared very weak yesterday. There is some question as to whether GI bleeding was observed at the correction. Patient was noted to have a melanotic stool in the ED. Past History Past Medical History: atrial fib, ESRD, hyperlipidemia Past Surgical History: Other (AV access placement) Social history: other (Resides in SNF) Family history: other (Noncontributory) Medications and Allergies Allergies Allergy/AdvReac Type Severity Reaction Status Date / Time No Known Allergies Allergy Verified 09/06/16 10:32 Home Medications Medication Instructions Recorded Confirmed Last Taken Type Acetaminophen [Tylenol] 650 mg PO Q6HR PRN 09/06/16 09/06/16 Unknown History Amiodarone [Cordarone 200 MG TAB] 200 mg PO BID 09/06/16 09/06/16 Unknown History Apixaban [Eliquis] 5 mg PO Q12H 09/06/16 09/06/16 Unknown History Ascorbic Acid [Vitamin C] 500 mg PO QDAY 09/06/16 09/06/16 Unknown History AtorvaSTATin [Lipitor] 40 mg PO QHS 09/06/16 09/06/16 Unknown History Docusate Sodium [Colace] 100 mg PO DAILY 09/06/16 09/06/16 Unknown History Fluticasone/Vilanterol [Breo 1 each IH DAILY 09/06/16 09/06/16 Unknown History Ellipta 100-25 Mcg INH] HYDROcodone/APAP 5-325 [[place] 1 each PO Q6HR PRN 09/06/16 09/06/16 Unknown History 5/325] Midodrine [Proamatine] 10 mg PO 3XW 09/06/16 09/06/16 Unknown History Sevelamer Carbonate [Renvela] 1,600 mg PO TIDWM 09/06/16 09/06/16 Unknown History Vit B Cmplx 3/FA/Vit C/Biotin 1 each PO DAILY 09/06/16 09/06/16 Unknown History [Nephro-Isaac Rx Tablet] Active Meds: Active Medications Hydrophilic Ointment (Vaseline Lip Therapy) 1 applic TP Q2HR PRN PRN Reason: Dry Lips Sodium Chloride (Nacl 0.9%) 100 mls @ 999 mls/hr IV BHUMI PRN PRN Reason: Hypotension Multi-Ingred Cream/Lotion/Oil/Oint (Artificial Tears Ophth Oint) 1 applic OU Q4HR PRN PRN Reason: Dry Eye(s) Sodium Chloride (Nacl 0.9% 500 Ml) 1 ml IV DIRECT YFN Vancomycin HCl (Vancomycin Pharmacy To Dose) 1 each IV PKCONSULT YFN PRN Reason: Protocol Review of Systems ROS unobtainable: due to endotracheal tube Exam - Vital Signs Vital signs: Vital Signs BP 166/87 09/06/16 09:55 - General Appearance General appearance: sedated on ventilator, intubated EENT: ATNC Respiratory: Other (coarse anterior breath sounds) Heart: regular, S1S2 Gastrointestinal: Present: other (soft). Absent: distended Integumentary: no rash Musculoskeletal: Present: other (no edema) Results - Lab Results 09/06/16 10:34 09/06/16 Unknown Most recent lab results Calcium 8.7 mg/dL (8.4-10.2) 09/06/16 Unknown Phosphorus 5.20 mg/dL (2.5-4.5) H 09/06/16 Unknown Magnesium 2.20 mg/dL (1.7-2.3) 09/06/16 Unknown Assessment and Plan Impression: * End stage renal disease on HD MWF * Severe anemia secondary to ABL * GI bleed * Hyperkalemia * Lactic acidosis * Acute respiratory failure - on mechanical ventilation * Coagulopathy * Chronic anticoagulation - Eliquis 5mg BID * Atrial fibrillation Plan: * Hemodialysis today - dialysis coordinated with pRBC/FFP transfusion due to severe anemia * UF as tolerated * Will repeat lactic acid, BMP and Hb and INR * Will consult GI waiter/waitress second class * Vent management per critical care/pulmonary * Pressors prn MAP>64 * Dose medications for renal function
[2016-09-06 19:25] LABS: Hemoglobin 6.3 gm/dl (10.1-14.3)
[2016-09-06 19:30] LABS: Hematocrit 19.3 % (30.3-42.9)
[2016-09-06 19:48] LABS: BUN/Creatinine Ratio 10.71; Calcium 8.4 mg/dL (8.4-10.2); Potassium 3.3 mmol/L (3.6-5.0)
[2016-09-06] MEDS ORDERED: PROTONIX 80 MG in NACL 0.9% 100 ML IV SCH (21:00)
[2016-09-06] MEDS ORDERED: SUBLIMAZE IV PRN (23:38)
[2016-09-07 00:50] LABS: INR 2.96 (0.87-1.13)
--- NOTE | 2016-09-07 01:55 | History and Physical Report ---
History of Present Illness Date of examination: 09/06/16 Date of admission: 09/06/16 12:19 Chief complaint: 09/06/16 History of present illness: [place]AMP[place]: 71 year old AAF sent from [facility] for resp distress.Shallow resp at the time of arrival in ED.Last known HD not known.Melanotic stools in ED.No fever or chills.Family unable to tell when the last HD was there.Patient was intubated in the ED by Dr Arauz. Review of Systems ROS: Stated complaint: AMS Other details as noted in HPI Comment: Unobtainable due to pts medical conditions Past Medical Hx - Past Medical History Previous Medical History?: Yes Hx Hypertension: Yes Hx Renal Disease: Yes (Dialysis M/W/F) Additional medical history: peripheral vascular disease. dementia. pacemaker. +ppd - Surgical History Additional Surgical History: pacemaker - Social History Smoking Status: Unknown if ever smoked Substance Use Type: None Other Social History: detention resident Fam Hx HTN Past History Past Medical History: atrial fib, ESRD, hyperlipidemia Past Surgical History: Other (AV access placement) Social history: other (Resides in SNF) Family history: other (Noncontributory) Medications and Allergies Allergies Allergy/AdvReac Type Severity Reaction Status Date / Time No Known Allergies Allergy Verified 09/06/16 10:32 Home Medications Medication Instructions Recorded Confirmed Last Taken Type Acetaminophen [Tylenol] 650 mg PO Q6HR PRN 09/06/16 09/06/16 Unknown History Amiodarone [Cordarone 200 MG TAB] 200 mg PO BID 09/06/16 09/06/16 Unknown History Apixaban [Eliquis] 5 mg PO Q12H 09/06/16 09/06/16 Unknown History Ascorbic Acid [Vitamin C] 500 mg PO QDAY 09/06/16 09/06/16 Unknown History AtorvaSTATin [Lipitor] 40 mg PO QHS 09/06/16 09/06/16 Unknown History Docusate Sodium [Colace] 100 mg PO DAILY 09/06/16 09/06/16 Unknown History Fluticasone/Vilanterol [Breo 1 each IH DAILY 09/06/16 09/06/16 Unknown History Ellipta 100-25 Mcg INH] HYDROcodone/APAP 5-325 [[place] 1 each PO Q6HR PRN 09/06/16 09/06/16 Unknown History 5/325] Midodrine [Proamatine] 10 mg PO 3XW 09/06/16 09/06/16 Unknown History Sevelamer Carbonate [Renvela] 1,600 mg PO TIDWM 09/06/16 09/06/16 Unknown History Vit B Cmplx 3/FA/Vit C/Biotin 1 each PO DAILY 09/06/16 09/06/16 Unknown History [Nephro-Isaac Rx Tablet] Active Meds: Active Medications Fentanyl (Sublimaze) 50 mcg IV Q2H PRN PRN Reason: Analgesia Hydrophilic Ointment (Vaseline Lip Therapy) 1 applic TP Q2HR PRN PRN Reason: Dry Lips Sodium Chloride (Nacl 0.9%) 100 mls @ 999 mls/hr IV BHUMI PRN PRN Reason: Hypotension Pantoprazole Sodium 80 mg/ (Sodium Chloride) 100 mls @ 10 mls/hr IV DIRECT YFN PRN Reason: 8 MG/HR Last Admin: 09/07/16 00:47 Dose: 8 mg/hr, 10 mls/hr Multi-Ingred Cream/Lotion/Oil/Oint (Artificial Tears Ophth Oint) 1 applic OU Q4HR PRN PRN Reason: Dry Eye(s) Sodium Chloride (Nacl 0.9% 500 Ml) 1 ml IV DIRECT YFN Vancomycin HCl (Vancomycin Pharmacy To Dose) 1 each IV PKCONSULT YFN PRN Reason: Protocol Review of Systems All systems: negative Exam - Physical Exam Narrative exam: Intubated and on Vent - Constitutional Vitals: Temp Pulse Resp BP Pulse Ox 98.4 F 70 18 119/51 100 09/07/16 01:00 09/07/16 01:00 09/07/16 01:00 09/07/16 01:00 09/07/16 01:00 General appearance: Present: severe distress - EENT Eyes: Present: PERRL - Neck Neck: Present: supple, normal ROM - Respiratory Respiratory effort: labored Respiratory: negative: diminished, rhonchi - Cardiovascular Heart rate: 80 Rhythm: other (P) - Extremities Extremities: no ischemia, pulses intact - Neurologic Neurologic: other - Allied Health Allied health notes reviewed: nursing Results - Labs CBC & Chem 7: 09/06/16 19:06 09/06/16 Unknown Labs: Laboratory Last Values WBC 15.1 K/mm3 (4.5-11.0) H 09/06/16 10:34 RBC 1.66 M/mm3 (3.65-5.03) L 09/06/16 10:34 Hgb 6.3 gm/dl (10.1-14.3) L 09/06/16 19:06 Hct 19.3 % (30.3-42.9) L* 09/06/16 19:06 MCV 90 fl (79-97) 09/06/16 10:34 MCH 27 pg (28-32) L 09/06/16 10:34 MCHC 30 % (30-34) 09/06/16 10:34 RDW 23.3 % (13.2-15.2) H 09/06/16 10:34 Plt Count 167 K/mm3 (140-440) 09/06/16 10:34 Add Manual Diff Complete 09/06/16 10:34 Total Counted 100 09/06/16 10:34 Seg Neuts % (Manual) 95.0 % (40.0-70.0) H 09/06/16 10:34 Band Neutrophils % 0 % 09/06/16 10:34 Lymphocytes % (Manual) 2.0 % (13.4-35.0) L 09/06/16 10:34 Reactive Lymphs % (Man) 0 % 09/06/16 10:34 Monocytes % (Manual) 3.0 % (0.0-7.3) 09/06/16 10:34 Eosinophils % (Manual) 0 % (0.0-4.3) 09/06/16 10:34 Basophils % (Manual) 0 % (0.0-1.8) 09/06/16 10:34 Metamyelocytes % 0 % 09/06/16 10:34 Myelocytes % 0 % 09/06/16 10:34 Promyelocytes % 0 % 09/06/16 10:34 Blast Cells % 0 % 09/06/16 10:34 Nucleated RBC % Not Reportable 09/06/16 10:34 Seg Neutrophils # Man 14.3 K/mm3 (1.8-7.7) H 09/06/16 10:34 Band Neutrophils # 0.0 K/mm3 09/06/16 10:34 Lymphocytes # (Manual) 0.3 K/mm3 (1.2-5.4) L 09/06/16 10:34 Abs React Lymphs (Man) 0.0 K/mm3 09/06/16 10:34 Monocytes # (Manual) 0.5 K/mm3 (0.0-0.8) 09/06/16 10:34 Eosinophils # (Manual) 0.0 K/mm3 (0.0-0.4) 09/06/16 10:34 Basophils # (Manual) 0.0 K/mm3 (0.0-0.1) 09/06/16 10:34 Metamyelocytes # 0.0 K/mm3 09/06/16 10:34 Myelocytes # 0.0 K/mm3 09/06/16 10:34 Promyelocytes # 0.0 K/mm3 09/06/16 10:34 Blast Cells # 0.0 K/mm3 09/06/16 10:34 WBC Morphology Not Reportable 09/06/16 10:34 Hypersegmented Neuts Not Reportable 09/06/16 10:34 Hyposegmented Neuts Not Reportable 09/06/16 10:34 Hypogranular Neuts Not Reportable 09/06/16 10:34 Smudge Cells Not Reportable 09/06/16 10:34 Toxic Granulation Not Reportable 09/06/16 10:34 Toxic Vacuolation Not Reportable 09/06/16 10:34 Dohle Bodies Not Reportable 09/06/16 10:34 Pelger-Huet Anomaly Not Reportable 09/06/16 10:34 Juan Rods Not Reportable 09/06/16 10:34 Platelet Estimate Appears normal 09/06/16 10:34 Clumped Platelets Not Reportable 09/06/16 10:34 Plt Clumps, EDTA Not Reportable 09/06/16 10:34 Large Platelets Not Reportable 09/06/16 10:34 Giant Platelets Not Reportable 09/06/16 10:34 Platelet Satelliting Not Reportable 09/06/16 10:34 Plt Morphology Comment Not Reportable 09/06/16 10:34 RBC Morphology Not Reportable 09/06/16 10:34 Dimorphic RBCs Not Reportable 09/06/16 10:34 Polychromasia Few 09/06/16 10:34 Hypochromasia Not Reportable 09/06/16 10:34 Poikilocytosis Few 09/06/16 10:34 Anisocytosis 2+ 09/06/16 10:34 Microcytosis Not Reportable 09/06/16 10:34 Macrocytosis Not Reportable 09/06/16 10:34 Spherocytes Not Reportable 09/06/16 10:34 Pappenheimer Bodies Not Reportable 09/06/16 10:34 Sickle Cells Not Reportable 09/06/16 10:34 Target Cells Not Reportable 09/06/16 10:34 Tear Drop Cells Few 09/06/16 10:34 Ovalocytes 1+ 09/06/16 10:34 Helmet Cells Not Reportable 09/06/16 10:34 [place] Bodies Not Reportable 09/06/16 10:34 [place] Rings Not Reportable 09/06/16 10:34 Bernabe Cells Not Reportable 09/06/16 10:34 Bite Cells Not Reportable 09/06/16 10:34 Crenated Cell Not Reportable 09/06/16 10:34 Elliptocytes 1+ 09/06/16 10:34 Acanthocytes (Spur) Not Reportable 09/06/16 10:34 Rouleaux Not Reportable 09/06/16 10:34 Hemoglobin C Crystals Not Reportable 09/06/16 10:34 Schistocytes Not Reportable 09/06/16 10:34 Malaria parasites Not Reportable 09/06/16 10:34 Yair Bodies Not Reportable 09/06/16 10:34 Hem Pathologist Commnt No 09/06/16 10:34 PT 31.0 Sec. (12.2-14.9) H 09/07/16 00:13 INR 2.96 (0.87-1.13) H 09/07/16 00:13 POC ABG pH 7.488 (7.35-7.45) H 09/06/16 12:05 POC ABG pCO2 33.9 (35-45) L 09/06/16 12:05 POC ABG pO2 408 (80-105) H 09/06/16 12:05 POC ABG HCO3 25.7 09/06/16 12:05 POC ABG Total CO2 27 09/06/16 12:05 POC ABG O2 Sat 100 09/06/16 12:05 POC ABG Base Excess 2 09/06/16 12:05 VBG pH 7.418 (7.320-7.420) 09/06/16 Unknown FiO2 100 % 09/06/16 12:05 Sodium 140 mmol/L (137-145) 09/06/16 Unknown Potassium 6.4 mmol/L (3.6-5.0) H* 09/06/16 Unknown Chloride 93.0 mmol/L (98-107) L 09/06/16 Unknown Carbon Dioxide 21 mmol/L (22-30) L 09/06/16 Unknown Anion Gap 32 mmol/L 09/06/16 Unknown BUN 109 mg/dL (7-17) H 09/06/16 Unknown Creatinine 10.4 mg/dL (0.7-1.2) H 09/06/16 Unknown Estimated GFR 4 ml/min 09/06/16 Unknown BUN/Creatinine Ratio 10.48 % 09/06/16 Unknown Glucose 197 mg/dL (65-100) H 09/06/16 Unknown Lactic Acid 6.20 mmol/L (0.7-2.0) H* 09/06/16 Unknown Calcium 8.7 mg/dL (8.4-10.2) 09/06/16 Unknown Phosphorus 5.20 mg/dL (2.5-4.5) H 09/06/16 Unknown Magnesium 2.20 mg/dL (1.7-2.3) 09/06/16 Unknown Total Bilirubin 0.80 mg/dL (0.1-1.2) 09/06/16 Unknown AST 26 units/L (5-40) 09/06/16 Unknown ALT 14 units/L (7-56) 09/06/16 Unknown Alkaline Phosphatase 102 units/L (35-129) 09/06/16 Unknown Ammonia 102.0 umol/L (25-60) H 09/06/16 Unknown Total Creatine Kinase 40 units/L (30-135) 09/06/16 Unknown CK-MB (CK-2) 3.0 ng/mL (0.0-4.0) 09/06/16 Unknown CK-MB (CK-2) Rel Index 7.5 (0-4) H 09/06/16 Unknown Troponin T 0.210 ng/mL (0.00-0.029) H* 09/06/16 Unknown NT-Pro-B Natriuret Pep 46178 pg/mL (0-900) H 09/06/16 Unknown Total Protein 5.3 g/dL (6.3-8.2) L 09/06/16 Unknown Albumin 2.8 g/dL (3.9-5) L 09/06/16 Unknown Albumin/Globulin Ratio 1.1 % 09/06/16 Unknown Triglycerides 38 mg/dL (2-149) 09/06/16 Unknown Cholesterol 37 mg/dL (50-199) L 09/06/16 Unknown LDL Cholesterol Direct 14 mg/dL (50-130) L 09/06/16 Unknown HDL Cholesterol 16 mg/dL (40-59) L 09/06/16 Unknown Cholesterol/HDL Ratio 2.31 % 09/06/16 Unknown Blood Type A POSITIVE 09/06/16 12:08 Antibody Screen TNR 09/06/16 12:08 JOSEFA Antibody Screen Negative 09/06/16 12:08 Crossmatch See Detail 09/06/16 12:08 - Imaging and Cardiology EKG: report reviewed (Paced rhythm) Chest x-ray: report reviewed Assessment and Plan Assessment and plan: Critical care statement:The high probability of a clinically significant sudden or life threatening deterioration of cardio resp system reqquired my full and direct attention ,intervention and personal management.The aggregatecritical care time was 40 minutes.The time is in addition time spent performing reported procedures,but includes the following ! Data interpretation and review 2 Patienr assessment and monitoring of vital signs 3 Documentation 4 Medication orders and management Advance Directives: Yes (Full code) VTE prophylaxis?: Chemical Plan of care discussed with patient/family: Yes - Patient Problems (1) Acute respiratory failure Current Visit: Yes Status: Acute Qualifiers: Respiratory failure complication: hypoxia Qualified Code(s): J96.01 - Acute respiratory failure with hypoxia Plan to address problem: Cont vent support.Duonebs and broad spectrum abx for sepsis in the form of Zosyn (2) Sepsis Current Visit: Yes Status: Acute Qualifiers: Sepsis type: sepsis due to unspecified organism Qualified Code(s): A41.9 - Sepsis, unspecified organism Plan to address problem: On IV Zosyn and IV vancomycin (3) Hyperkalemia Current Visit: Yes Status: Acute Plan to address problem: Needs emergent HD for low k [place] (4) Lactic acidosis Current Visit: Yes Status: Acute Plan to address problem: Poss sec to Sepsis.Started on Zosyn (5) Severe anemia Current Visit: Yes Status: Acute Plan to address problem: Sec to GI bleed Transfuse 2 units of PRBC (6) Metabolic acidosis Current Visit: Yes Status: Acute (7) End stage renal disease on dialysis Current Visit: Yes Status: Chronic Plan to address problem: Needs reg HD and emergent HD now (8) HTN (hypertension) Current Visit: Yes Status: Chronic Qualifiers: Hypertension type: H Plan to address problem: Anti hypertensives as necessary (9) T2DM (type 2 diabetes mellitus) Current Visit: Yes Status: Chronic Qualifiers: Diabetes mellitus complication status: D Diabetes mellitus complication detail: with chronic kidney disease Diabetic retinopathy severity: D Proliferative retinopathy type: P Diabetes mellitus macular edema: D Diabetes mellitus buttermaker insulin use: D Laterality: L Chronic kidney disease stage: C Plan to address problem: Coverage for now (10) DVT prophylaxis Current Visit: Yes Status: Acute Plan to address problem: SCD"s for now
[2016-09-07] MEDS ORDERED: ZOSYN/NS 2.25 GM/50ML 2.25 GM/50 ML BAG IV SCH (06:00)
[2016-09-07] MEDS: NOVOLOG SUB-Q SCH ×4 (06:06→18:09)
[2016-09-07 06:31] LABS: ISTAT Base Excess 7; ISTAT HCO3 29.1; ISTAT PCO2 31.7 (35-45); ISTAT PO2 183 (80-105); ISTAT SO2 100; ISTAT TCO2 30
[2016-09-07] MEDS ORDERED: VERSED ONE (07:51)
[2016-09-07] MEDS ORDERED: AMIDATE IV ONE (07:51)
--- NOTE | 2016-09-07 07:53 | Anesthesia Consultation ---
Anesthesia Consult and Med Hx Date of service: 09/07/16 - Pulmonary Exam CTA: Yes - Cardiac Exam Cardiac Exam: RRR Anesthetic Concerns: Paced rhythm - Cardiovascular System Hx Hypertension: Yes Hx Heart Attack/AMI: Yes Hx Cardia Arrhythmia: Yes Hx Pacemaker: Yes Hx Peripheral Vascular Disease: Yes - Central Nervous System CVA: Yes - Endocrine Hx Renal Disease: Yes (Dialysis M/W/F) - Hematic Hx Anemia: Yes (GI bleed)
--- NOTE | 2016-09-07 07:53 | Anesthesia Day of Surgery ---
Anesthesia Day of Surgery - Day of Surgery Patient Examined: Yes Patient H&P Reviewed: Yes Patient is NPO: Yes
[2016-09-07] MEDS ORDERED: NACL 0.9% 1000 ML 1,000 ML ONE (07:56)
--- NOTE | 2016-09-07 08:08 | Consultation ---
History of Present Illness - Reason for Consult Consult date: 09/07/16 GI bleed - History of Present Illness 71 yo BF admitted from [place] with change in mental status. Found to be profoundly anemic, and was intubated for obtundation. After intubation, pt apparently had a melenic BM, and since then, has passed maroon stool several times. Pt currently intubated and unable to give hx. This is obtained from chart and from pt's son, Eleazar Graff. Pt has CABG/CHF, arrhythmia, and is on Plavix per son, but Eliquis per [place] medication records. Pt has DM, HTN, ESRD and has been on HD x 5 yrs. She moved here from [place] 1 month ago because she was not feeling well, and was taken to [place]. Son states she was on too many abx and these were stopped at [place], and she was sent to [place]. He is unaware of abd pain, N/V. He is unaware of any hx of GI bleed, but seems to recall possible ulcer in stomach. No known hx of liver disease or malignancy. Pt has been given pRBC here, as well as FFP for elevated INR. Past History Past Medical History: atrial fib, arrhythmia (on Eliquis or Plavix), diabetes, ESRD (x 5 yrs on HD), hypertension, hyperlipidemia Past Surgical History: CABG, Other (AV access placement, pacemaker) Social history: other (Resides in SNF). denies: smoking, alcohol abuse Family history: other (Noncontributory) Medications and Allergies Allergies Allergy/AdvReac Type Severity Reaction Status Date / Time No Known Allergies Allergy Verified 09/06/16 10:32 Home Medications Medication Instructions Recorded Confirmed Last Taken Type Acetaminophen [Tylenol] 650 mg PO Q6HR PRN 09/06/16 09/06/16 Unknown History Amiodarone [Cordarone 200 MG TAB] 200 mg PO BID 09/06/16 09/06/16 Unknown History Apixaban [Eliquis] 5 mg PO Q12H 09/06/16 09/06/16 Unknown History Ascorbic Acid [Vitamin C] 500 mg PO QDAY 09/06/16 09/06/16 Unknown History AtorvaSTATin [Lipitor] 40 mg PO QHS 09/06/16 09/06/16 Unknown History Docusate Sodium [Colace] 100 mg PO DAILY 09/06/16 09/06/16 Unknown History Fluticasone/Vilanterol [Breo 1 each IH DAILY 09/06/16 09/06/16 Unknown History Ellipta 100-25 Mcg INH] HYDROcodone/APAP 5-325 [[place] 1 each PO Q6HR PRN 09/06/16 09/06/16 Unknown History 5/325] Midodrine [Proamatine] 10 mg PO 3XW 09/06/16 09/06/16 Unknown History Sevelamer Carbonate [Renvela] 1,600 mg PO TIDWM 09/06/16 09/06/16 Unknown History Vit B Cmplx 3/FA/Vit C/Biotin 1 each PO DAILY 09/06/16 09/06/16 Unknown History [Nephro-Isaac Rx Tablet] Active Meds: Active Medications Fentanyl (Sublimaze) 50 mcg IV Q2H PRN PRN Reason: Analgesia Hydrophilic Ointment (Vaseline Lip Therapy) 1 applic TP Q2HR PRN PRN Reason: Dry Lips Sodium Chloride (Nacl 0.9%) 100 mls @ 999 mls/hr IV BHUMI PRN PRN Reason: Hypotension Pantoprazole Sodium 80 mg/ (Sodium Chloride) 100 mls @ 10 mls/hr IV DIRECT YFN PRN Reason: 8 MG/HR Last Admin: 09/07/16 00:47 Dose: 8 mg/hr, 10 mls/hr Piperacillin Sod/Tazobactam Sod (Zosyn/Ns 2.25 Gm/50ml) 2.25 gm in 50 mls @ 100 mls/hr IV Q8HR YFN PRN Reason: Protocol Last Admin: 09/07/16 06:07 Dose: 100 mls/hr Insulin Aspart (Novolog) 0 units SUB-Q Q6HR YFN PRN Reason: Protocol Last Admin: 09/07/16 06:07 Dose: Not Given Multi-Ingred Cream/Lotion/Oil/Oint (Artificial Tears Ophth Oint) 1 applic OU Q4HR PRN PRN Reason: Dry Eye(s) Sodium Chloride (Nacl 0.9% 500 Ml) 1 ml IV DIRECT YFN Vancomycin HCl (Vancomycin Pharmacy To Dose) 1 each IV PKCONSULT YFN PRN Reason: Protocol Exam - Constitutional Vitals: Temp Pulse Resp BP Pulse Ox 98.5 F 70 18 111/44 100 09/07/16 05:30 09/07/16 07:00 09/07/16 07:00 09/07/16 07:00 09/07/16 07:00 General appearance: Present: no acute distress, other (intubated) - EENT Eyes: Present: PERRL, EOM intact - Respiratory Respiratory: bilateral: CTA (Anteriorly) - Cardiovascular Rhythm: other (paced rhythm) - Extremities Extremities: No edema Extremity abnormal: other (diabetic foot ulcers with blackening of areas on feet ) - Abdominal General gastrointestinal: Present: soft, non-tender, normal bowel sounds Results - Labs CBC & Chem 7: 09/06/16 19:06 09/06/16 Unknown Labs: Abnormal lab results 09/06/16 09/06/16 09/06/16 Range/Units 12:51 12:51 15:57 Hgb (10.1-14.3) gm/dl Hct (30.3-42.9) % PT (12.2-14.9) Sec. INR (0.87-1.13) POC ABG pH (7.35-7.45) POC ABG pCO2 (35-45) POC ABG pO2 (80-105) Potassium 6.4 H* 6.7 H* (3.6-5.0) mmol/L Chloride 95.9 L (98-107) mmol/L Carbon Dioxide 21 L 19 L (22-30) mmol/L BUN 109 H 111 H (7-17) mg/dL Creatinine 10.5 H 10.1 H (0.7-1.2) mg/dL Glucose 133 H 178 H (65-100) mg/dL POC Glucose (70-105) Lactic Acid (0.7-2.0) mmol/L Phosphorus (2.5-4.5) mg/dL Ammonia (25-60) umol/L CK-MB (CK-2) Rel Index (0-4) Troponin T (0.00-0.029) ng/mL NT-Pro-B Natriuret Pep 89956 H (0-900) pg/mL Total Protein (6.3-8.2) g/dL Albumin (3.9-5) g/dL Cholesterol (50-199) mg/dL LDL Cholesterol Direct (50-130) mg/dL HDL Cholesterol (40-59) mg/dL 09/06/16 09/06/16 09/06/16 Range/Units 15:57 19:06 19:06 Hgb 6.3 L (10.1-14.3) gm/dl Hct 19.3 L* (30.3-42.9) % PT (12.2-14.9) Sec. INR (0.87-1.13) POC ABG pH (7.35-7.45) POC ABG pCO2 (35-45) POC ABG pO2 (80-105) Potassium 3.3 L D (3.6-5.0) mmol/L Chloride 96.0 L (98-107) mmol/L Carbon Dioxide (22-30) mmol/L BUN 30 H (7-17) mg/dL Creatinine 2.8 H D (0.7-1.2) mg/dL Glucose 154 H (65-100) mg/dL POC Glucose (70-105) Lactic Acid 2.80 H* (0.7-2.0) mmol/L Phosphorus (2.5-4.5) mg/dL Ammonia (25-60) umol/L CK-MB (CK-2) Rel Index (0-4) Troponin T (0.00-0.029) ng/mL NT-Pro-B Natriuret Pep (0-900) pg/mL Total Protein (6.3-8.2) g/dL Albumin (3.9-5) g/dL Cholesterol (50-199) mg/dL LDL Cholesterol Direct (50-130) mg/dL HDL Cholesterol (40-59) mg/dL 09/06/16 09/06/16 09/06/16 Range/Units Unknown Unknown Unknown Hgb (10.1-14.3) gm/dl Hct (30.3-42.9) % PT (12.2-14.9) Sec. INR (0.87-1.13) POC ABG pH (7.35-7.45) POC ABG pCO2 (35-45) POC ABG pO2 (80-105) Potassium 6.4 H* (3.6-5.0) mmol/L Chloride 93.0 L (98-107) mmol/L Carbon Dioxide 21 L (22-30) mmol/L BUN 109 H (7-17) mg/dL Creatinine 10.4 H (0.7-1.2) mg/dL Glucose 197 H (65-100) mg/dL POC Glucose (70-105) Lactic Acid 6.20 H* (0.7-2.0) mmol/L Phosphorus 5.20 H (2.5-4.5) mg/dL Ammonia (25-60) umol/L CK-MB (CK-2) Rel Index 7.5 H (0-4) Troponin T 0.210 H* (0.00-0.029) ng/mL NT-Pro-B Natriuret Pep 40294 H (0-900) pg/mL Total Protein 5.3 L (6.3-8.2) g/dL Albumin 2.8 L (3.9-5) g/dL Cholesterol 37 L (50-199) mg/dL LDL Cholesterol Direct 14 L (50-130) mg/dL HDL Cholesterol 16 L (40-59) mg/dL 09/06/16 09/07/16 09/07/16 Range/Units Unknown 00:13 05:30 Hgb (10.1-14.3) gm/dl Hct (30.3-42.9) % PT 31.0 H (12.2-14.9) Sec. INR 2.96 H (0.87-1.13) POC ABG pH 7.570 H (7.35-7.45) POC ABG pCO2 31.7 L (35-45) POC ABG pO2 183 H (80-105) Potassium (3.6-5.0) mmol/L Chloride (98-107) mmol/L Carbon Dioxide (22-30) mmol/L BUN (7-17) mg/dL Creatinine (0.7-1.2) mg/dL Glucose (65-100) mg/dL POC Glucose (70-105) Lactic Acid (0.7-2.0) mmol/L Phosphorus (2.5-4.5) mg/dL Ammonia 102.0 H (25-60) umol/L CK-MB (CK-2) Rel Index (0-4) Troponin T (0.00-0.029) ng/mL NT-Pro-B Natriuret Pep (0-900) pg/mL Total Protein (6.3-8.2) g/dL Albumin (3.9-5) g/dL Cholesterol (50-199) mg/dL LDL Cholesterol Direct (50-130) mg/dL HDL Cholesterol (40-59) mg/dL 09/07/16 Range/Units 05:50 Hgb (10.1-14.3) gm/dl Hct (30.3-42.9) % PT (12.2-14.9) Sec. INR (0.87-1.13) POC ABG pH (7.35-7.45) POC ABG pCO2 (35-45) POC ABG pO2 (80-105) Potassium (3.6-5.0) mmol/L Chloride (98-107) mmol/L Carbon Dioxide (22-30) mmol/L BUN (7-17) mg/dL Creatinine (0.7-1.2) mg/dL Glucose (65-100) mg/dL POC Glucose 149 H (70-105) Lactic Acid (0.7-2.0) mmol/L Phosphorus (2.5-4.5) mg/dL Ammonia (25-60) umol/L CK-MB (CK-2) Rel Index (0-4) Troponin T (0.00-0.029) ng/mL NT-Pro-B Natriuret Pep (0-900) pg/mL Total Protein (6.3-8.2) g/dL Albumin (3.9-5) g/dL Cholesterol (50-199) mg/dL LDL Cholesterol Direct (50-130) mg/dL HDL Cholesterol (40-59) mg/dL Assessment and Plan 1. GI bleed - etiology unclear. Pt came in profoundly anemic. She is on anticoagulation of some sort, likely Eliquis, which was probably last taken 09/06. However, will do EGD now to look for UGI source of bleeding, and if present , will clip or treat. If this is negative, depending on frequency of BM and aggressiveness of bleed, will consider CTA, IR evaluation, or colonoscopy. - empiric PPI - hematologic support with blood products - urgent EGD.
--- NOTE | 2016-09-07 08:30 | Post Operative Note ---
Pre-op diagnosis: GI Bleed Post-op diagnosis: other (Normal EGD, no bleeding source) Findings: 1. Normal EGD, no bleeding source identified. Procedure: EGD Anesthesia: MAC Surgeon: JENNI LAURA Estimated blood loss: none Pathology: none Condition: stable Disposition: ICU (Support with hematologic products, and stay off Eliquis and other blood thinners. Will monitor for further studies.)
--- NOTE | 2016-09-07 08:54 | XRay Report ---
AP CHEST: HISTORY: Followup respiratory failure The endotracheal tube remains in good position. There is mild cardiomegaly, borderline pulmonary venous congestion and small left pleural effusion. There is poor aeration of the left lung base which probably represents atelectatic changes. The remainder the lungs are clear. Thoracic surgery changes and pacemaker device are noted. IMPRESSION: Mild CHF. No significant change since yesterday's exam.
--- NOTE | 2016-09-07 09:51 | Consultation ---
History of Present Illness Consult date: 09/07/16 Requesting physician: CHING BASILIO Reason for consult: hypoxemia History of present illness: 71 y/o female, altered in ED and electively intubated, found to be severely anemic with HgB of 4.5. patient also found to be in renal failure with elevated lactic acid and elevated BNP. Patient is currently intubated, not on sedation so not able to provide any further information. Scoped by PELON this am. Normal so PPI drip stopped and started on IV pepcid. Patient also had coagulopathy on admission with INR of greater than 5. Patient underwent HD on yesterday. Miminal volume removed and electrolytes did improve, however K is elevated again this am and BUN is back greater than 100. Past History Past Medical History: atrial fib, arrhythmia (on Eliquis or Plavix), diabetes, ESRD (x 5 yrs on HD), hypertension, hyperlipidemia Past Surgical History: CABG, Other (AV access placement, pacemaker) Social history: other (Resides in SNF). denies: smoking, alcohol abuse Family history: other (Noncontributory) Medications and Allergies Allergies Allergy/AdvReac Type Severity Reaction Status Date / Time No Known Allergies Allergy Verified 09/06/16 10:32 Home Medications Medication Instructions Recorded Confirmed Last Taken Type Acetaminophen [Tylenol] 650 mg PO Q6HR PRN 09/06/16 09/06/16 Unknown History Amiodarone [Cordarone 200 MG TAB] 200 mg PO BID 09/06/16 09/06/16 Unknown History Apixaban [Eliquis] 5 mg PO Q12H 09/06/16 09/06/16 Unknown History Ascorbic Acid [Vitamin C] 500 mg PO QDAY 09/06/16 09/06/16 Unknown History AtorvaSTATin [Lipitor] 40 mg PO QHS 09/06/16 09/06/16 Unknown History Docusate Sodium [Colace] 100 mg PO DAILY 09/06/16 09/06/16 Unknown History Fluticasone/Vilanterol [Breo 1 each IH DAILY 09/06/16 09/06/16 Unknown History Ellipta 100-25 Mcg INH] HYDROcodone/APAP 5-325 [[place] 1 each PO Q6HR PRN 09/06/16 09/06/16 Unknown History 5/325] Midodrine [Proamatine] 10 mg PO 3XW 09/06/16 09/06/16 Unknown History Sevelamer Carbonate [Renvela] 1,600 mg PO TIDWM 09/06/16 09/06/16 Unknown History Vit B Cmplx 3/FA/Vit C/Biotin 1 each PO DAILY 09/06/16 09/06/16 Unknown History [Nephro-Isaac Rx Tablet] Active Meds: Active Medications Famotidine (Pepcid) 20 mg IV DAILY YFN Fentanyl (Sublimaze) 50 mcg IV Q2H PRN PRN Reason: Analgesia Hydrophilic Ointment (Vaseline Lip Therapy) 1 applic TP Q2HR PRN PRN Reason: Dry Lips Sodium Chloride (Nacl 0.9%) 100 mls @ 999 mls/hr IV BHUMI PRN PRN Reason: Hypotension Insulin Aspart (Novolog) 0 units SUB-Q Q6HR YFN PRN Reason: Protocol Last Admin: 09/07/16 06:07 Dose: Not Given Multi-Ingred Cream/Lotion/Oil/Oint (Artificial Tears Ophth Oint) 1 applic OU Q4HR PRN PRN Reason: Dry Eye(s) Sodium Chloride (Nacl 0.9% 500 Ml) 1 ml IV DIRECT YFN Vancomycin HCl (Vancomycin Pharmacy To Dose) 1 each IV PKCONSULT YFN PRN Reason: Protocol Review of Systems ROS unobtainable: due to endotracheal tube, due to mental status Physical Examination Vital signs: Vital Signs BP 166/87 09/06/16 09:55 General appearance: comatose, other (orally intubated and critically ill on vent ) ENT: other (orally intubated) Neck: supple Ascultation: Bilateral: clear (anteriorly) Percussion: Bilateral: not dull Cardiovascular: regular rate and rhythm Gastrointestinal: normoactive bowel sounds unable to assess Results - Laboratory Findings CBC and BMP: 09/06/16 19:06 09/06/16 Unknown ABG POC ABG pH 7.570 (7.35-7.45) H 09/07/16 05:30 POC ABG pCO2 31.7 (35-45) L 09/07/16 05:30 POC ABG pO2 183 (80-105) H 09/07/16 05:30 POC ABG HCO3 29.1 09/07/16 05:30 POC ABG Total CO2 30 09/07/16 05:30 POC ABG O2 Sat 100 09/07/16 05:30 PT/INR, D-dimer PT 31.0 Sec. (12.2-14.9) H 09/07/16 00:13 INR 2.96 (0.87-1.13) H 09/07/16 00:13 Abnormal lab findings: Abnormal Labs 09/06/16 09/06/16 09/06/16 12:51 12:51 15:57 Hgb Hct PT INR POC ABG pH POC ABG pCO2 POC ABG pO2 Potassium 6.4 H* 6.7 H* Chloride 95.9 L Carbon Dioxide 21 L 19 L BUN 109 H 111 H Creatinine 10.5 H 10.1 H Glucose 133 H 178 H POC Glucose Lactic Acid Phosphorus Ammonia CK-MB (CK-2) Rel Index Troponin T NT-Pro-B Natriuret Pep 53467 H Total Protein Albumin Cholesterol LDL Cholesterol Direct HDL Cholesterol 09/06/16 09/06/16 09/06/16 15:57 19:06 19:06 Hgb 6.3 L Hct 19.3 L* PT INR POC ABG pH POC ABG pCO2 POC ABG pO2 Potassium 3.3 L D Chloride 96.0 L Carbon Dioxide BUN 30 H Creatinine 2.8 H D Glucose 154 H POC Glucose Lactic Acid 2.80 H* Phosphorus Ammonia CK-MB (CK-2) Rel Index Troponin T NT-Pro-B Natriuret Pep Total Protein Albumin Cholesterol LDL Cholesterol Direct HDL Cholesterol 09/06/16 09/06/16 09/06/16 Unknown Unknown Unknown Hgb Hct PT INR POC ABG pH POC ABG pCO2 POC ABG pO2 Potassium 6.4 H* Chloride 93.0 L Carbon Dioxide 21 L BUN 109 H Creatinine 10.4 H Glucose 197 H POC Glucose Lactic Acid 6.20 H* Phosphorus 5.20 H Ammonia CK-MB (CK-2) Rel Index 7.5 H Troponin T 0.210 H* NT-Pro-B Natriuret Pep 52263 H Total Protein 5.3 L Albumin 2.8 L Cholesterol 37 L LDL Cholesterol Direct 14 L HDL Cholesterol 16 L 09/06/16 09/07/16 09/07/16 Unknown 00:13 05:30 Hgb Hct PT 31.0 H INR 2.96 H POC ABG pH 7.570 H POC ABG pCO2 31.7 L POC ABG pO2 183 H Potassium Chloride Carbon Dioxide BUN Creatinine Glucose POC Glucose Lactic Acid Phosphorus Ammonia 102.0 H CK-MB (CK-2) Rel Index Troponin T NT-Pro-B Natriuret Pep Total Protein Albumin Cholesterol LDL Cholesterol Direct HDL Cholesterol 09/07/16 05:50 Hgb Hct PT INR POC ABG pH POC ABG pCO2 POC ABG pO2 Potassium Chloride Carbon Dioxide BUN Creatinine Glucose POC Glucose 149 H Lactic Acid Phosphorus Ammonia CK-MB (CK-2) Rel Index Troponin T NT-Pro-B Natriuret Pep Total Protein Albumin Cholesterol LDL Cholesterol Direct HDL Cholesterol - Diagnostic Findings Chest x-ray: image reviewed (cardiomegaly with atelectasis vs infiltrate in the left base. Mild pulmonary edema/venous congestion) Assessment and Plan 71 y/o female with severe anemia, etiology unknown, coagulopathy, renal failure and acute respiratory failure with altered sensorium and GPC's in pairs. 1. Follow up repeat H/H 2. Suggest checking repeat CBC to follow up white blood cell count 3. Continue vancomycin for now given recent blood culture results. Will stop zosyn 4. HD per renal, follow up BMP for this am. Lab having a hard time with blood draws. 5. Likely will need more blood, maybe this can be given with HD 6. If possible, repeat INR, may need more FFP 7. Will give cryo after 6th unit of blood 8. Decreased RR to 14. Patient with respiratory alkalosis. Also pulling very small tidal volumes. Will have RT check cuff on ET tube 9. Overall prognosis is guarded. Stopped all sedative medications. CCT 31 minutes.
[2016-09-07] MEDS: PEPCID IV SCH (10:47)
[2016-09-07 11:06] LABS: Hemoglobin 8.5 gm/dl (10.1-14.3); Mean Corpuscular HGB Conc 33 % (30-34); Mean Corpuscular Hemoglobin 30 pg (28-32); Mean Corpuscular Volume 92 fl (79-97); Platelet Count 148 K/mm3 (140-440); Red Blood Count 2.83 M/mm3 (3.65-5.03); Red Cell Distribution Width 17.5 % (13.2-15.2); White Blood Count 25.7 K/mm3 (4.5-11.0)
[2016-09-07 11:19] LABS: INR 1.69 (0.87-1.13)
[2016-09-07 11:30] LABS: BUN/Creatinine Ratio 9.64; Calcium 8.5 mg/dL (8.4-10.2); Chloride 98.4 mmol/L (98-107); Potassium 4.2 mmol/L (3.6-5.0)
[2016-09-07 11:46] LABS: Basophils % (Manual) 0 % (0.0-1.8); Blastocytes % (Manual) 0 %; Eosinophils % (Manual) 0 % (0.0-4.3)
[2016-09-07 11:47] LABS: Anisocytosis 2+; Elliptocytes 1+; Ovalocytes 1+; Poikilocytosis Few; Polychromasia Few; Tear Drop Cells Few
[2016-09-07 11:48] LABS: Microcytosis Few
[2016-09-07 11:51] LABS: Diff Status Complete; Platelet Estimate Consistent w Auto
--- NOTE | 2016-09-07 12:20 | Procedure Note ---
Date of procedure: 09/07/16 (Emergent) Pre-op diagnosis: Sepsis Post-op diagnosis: same Procedure: Right IJ Central Line placement. Surgeon: ELVIN GARZA (Requested to place central line for hypotension. Reviewed chart and labs. INR 1.69, Plts 143. Safe site Right IJ. Discussed emergent need with family. ) Pathology: none Condition: critical
--- NOTE | 2016-09-07 13:09 | Progress Note ---
Assessment and Plan Impression: * End stage renal disease on HD MWF * Severe anemia secondary to ABL * GI bleed * Hyperkalemia - resolved * Lactic acidosis - resolved * Acute respiratory failure - on mechanical ventilation * Coagulopathy * Chronic anticoagulation - Eliquis 5mg BID * Atrial fibrillation Plan: * Hemodialysis MWF. UF as tolerated * GI findings/recommendations noted * Transfuse pRBC prn * Vent management per critical care/pulmonary * Pressors prn MAP>64 * Dose medications for renal function Subjective Date of service: 09/07/16 Interval history: Patient is s/p EGD this am Objective - Vital Signs Vital signs: Vital Signs - 12hr 09/07/16 09/07/16 09/07/16 01:11 01:21 01:30 Temperature 98.5 F Pulse Rate 70 70 70 Pulse Rate [ From Monitor] Respiratory 21 17 17 Rate Blood Pressure 119/51 119/51 127/53 O2 Sat by Pulse 100 100 Oximetry 09/07/16 09/07/16 09/07/16 01:41 01:50 02:00 Temperature Pulse Rate 70 70 70 Pulse Rate [ From Monitor] Respiratory 14 11 L 16 Rate Blood Pressure 127/53 132/60 O2 Sat by Pulse 100 100 100 Oximetry 09/07/16 09/07/16 09/07/16 02:10 02:20 02:28 Temperature 98.6 F Pulse Rate 70 70 70 Pulse Rate [ From Monitor] Respiratory 15 22 20 Rate Blood Pressure 132/60 127/53 115/56 O2 Sat by Pulse 100 98 Oximetry 09/07/16 09/07/16 09/07/16 02:30 02:40 02:45 Temperature 98.5 F Pulse Rate 70 70 70 Pulse Rate [ From Monitor] Respiratory 18 18 20 Rate Blood Pressure 111/46 111/46 111/46 O2 Sat by Pulse Oximetry 09/07/16 09/07/16 09/07/16 02:50 03:00 03:10 Temperature Pulse Rate 70 70 70 Pulse Rate [ From Monitor] Respiratory 17 18 16 Rate Blood Pressure 111/46 115/48 115/48 O2 Sat by Pulse Oximetry 09/07/16 09/07/16 09/07/16 03:20 03:30 03:40 Temperature 98.5 F Pulse Rate 70 70 70 Pulse Rate [ From Monitor] Respiratory 17 18 18 Rate Blood Pressure 115/48 111/45 111/45 O2 Sat by Pulse 100 99 100 Oximetry 09/07/16 09/07/16 09/07/16 03:46 03:50 04:00 Temperature 98.4 F 98.6 F Pulse Rate 70 70 Pulse Rate [ From Monitor] Respiratory 18 19 Rate Blood Pressure 111/45 104/47 O2 Sat by Pulse 100 99 Oximetry 09/07/16 09/07/16 09/07/16 04:10 04:20 04:30 Temperature 98.4 F Pulse Rate 70 70 70 Pulse Rate [ From Monitor] Respiratory 17 18 18 Rate Blood Pressure 104/47 104/47 116/50 O2 Sat by Pulse 100 100 100 Oximetry 09/07/16 09/07/16 09/07/16 04:40 04:49 04:50 Temperature Pulse Rate 70 70 Pulse Rate [ From Monitor] Respiratory 17 16 18 Rate Blood Pressure 116/50 116/50 O2 Sat by Pulse 99 100 99 Oximetry 09/07/16 09/07/16 09/07/16 05:00 05:10 05:20 Temperature 98.5 F Pulse Rate 70 70 70 Pulse Rate [ From Monitor] Respiratory 19 19 20 Rate Blood Pressure 116/50 119/49 119/49 O2 Sat by Pulse 100 98 100 Oximetry 09/07/16 09/07/16 09/07/16 05:24 05:30 05:40 Temperature 98.5 F Pulse Rate 70 70 70 Pulse Rate [ From Monitor] Respiratory 19 22 Rate Blood Pressure 119/49 126/53 126/53 O2 Sat by Pulse 100 100 100 Oximetry 09/07/16 09/07/16 09/07/16 05:50 06:00 06:10 Temperature Pulse Rate 70 70 70 Pulse Rate [ From Monitor] Respiratory 19 18 18 Rate Blood Pressure 126/53 116/48 116/48 O2 Sat by Pulse Oximetry 09/07/16 09/07/16 09/07/16 06:20 06:30 06:40 Temperature Pulse Rate 70 70 70 Pulse Rate [ From Monitor] Respiratory 16 19 20 Rate Blood Pressure 116/48 116/48 111/44 O2 Sat by Pulse 98 Oximetry 09/07/16 09/07/16 09/07/16 06:50 07:00 07:10 Temperature Pulse Rate 70 70 70 Pulse Rate [ From Monitor] Respiratory 12 18 18 Rate Blood Pressure 111/44 111/44 130/66 O2 Sat by Pulse 100 100 Oximetry 09/07/16 09/07/16 09/07/16 07:20 07:30 07:40 Temperature Pulse Rate 70 70 69 Pulse Rate [ From Monitor] Respiratory 20 18 18 Rate Blood Pressure 130/66 130/66 135/61 O2 Sat by Pulse 100 100 95 Oximetry 09/07/16 09/07/16 09/07/16 07:50 08:00 08:05 Temperature 98.0 F 98.0 F Pulse Rate 70 70 70 Pulse Rate [ 70 From Monitor] Respiratory 18 19 19 Rate Blood Pressure 135/61 135/61 134/59 O2 Sat by Pulse 99 100 Oximetry 09/07/16 09/07/16 09/07/16 08:10 08:20 08:30 Temperature Pulse Rate 70 69 70 Pulse Rate [ From Monitor] Respiratory 21 18 17 Rate Blood Pressure 137/64 143/61 142/57 O2 Sat by Pulse 100 100 100 Oximetry 09/07/16 09/07/16 09/07/16 08:40 08:41 08:50 Temperature Pulse Rate 70 70 70 Pulse Rate [ From Monitor] Respiratory 18 18 19 Rate Blood Pressure 137/58 137/58 126/60 O2 Sat by Pulse 99 99 Oximetry 09/07/16 09/07/16 09/07/16 08:56 09:00 09:10 Temperature 97.6 F Pulse Rate 70 77 73 Pulse Rate [ From Monitor] Respiratory 18 17 18 Rate Blood Pressure 126/60 126/60 132/63 O2 Sat by Pulse 99 91 Oximetry 09/07/16 09/07/16 09/07/16 09:14 09:20 09:30 Temperature 98.0 F Pulse Rate 70 70 70 Pulse Rate [ From Monitor] Respiratory 17 17 18 Rate Blood Pressure 142/57 104/43 104/49 O2 Sat by Pulse 100 100 Oximetry 09/07/16 09/07/16 09/07/16 09:40 09:50 10:00 Temperature Pulse Rate 70 70 70 Pulse Rate [ From Monitor] Respiratory 18 14 14 Rate Blood Pressure 104/49 96/47 109/44 O2 Sat by Pulse 100 96 Oximetry 09/07/16 09/07/16 09/07/16 10:10 10:20 10:30 Temperature Pulse Rate 70 70 70 Pulse Rate [ From Monitor] Respiratory 17 16 15 Rate Blood Pressure 109/44 118/46 108/43 O2 Sat by Pulse 99 99 99 Oximetry 09/07/16 09/07/16 09/07/16 10:39 10:40 10:50 Temperature Pulse Rate 72 70 70 Pulse Rate [ From Monitor] Respiratory 14 14 Rate Blood Pressure 108/43 96/47 103/47 O2 Sat by Pulse 100 98 100 Oximetry - General Appearance General appearance: well-developed, intubated EENT: ATNC Respiratory: Present: Clear to Ascultation Cardiology: regular, S1S2 Gastrointestinal: normal (soft), no distended Integumentary: no rash Musculoskeletal: other (no edema) Psychiatric: cooperative - Lab 09/07/16 11:02 09/07/16 11:02 Most recent lab results Calcium 8.5 mg/dL (8.4-10.2) 09/07/16 11:02 Phosphorus 5.20 mg/dL (2.5-4.5) H 09/06/16 Unknown Magnesium 2.20 mg/dL (1.7-2.3) 09/06/16 Unknown
--- NOTE | 2016-09-07 13:56 | XRay Report ---
AP CHEST: HISTORY: Central line placement A right IJ venous catheter has been inserted which terminates near the cavoatrial junction. No pneumothorax is demonstrated. The remainder of the examination is unchanged since earlier today at 0216 hours. IMPRESSION: Right IJ central line as described. No pneumothorax.
[2016-09-07] MEDS: LEVOPHED DRIP 4 MG/NS 250 ML 4 MG/250 ML BAG IV SCH ×3 (14:30→22:00)
--- NOTE | 2016-09-07 15:22 | Progress Note ---
Assessment and Plan Assessment and plan: Acute respiratory failure Septic shock Severe anemia secondary GI bleed Hyperkalemia Lactic acidosis End-stage around is on hemodialysis Diabetes mellitus type 2 - Patient is intubated and on mechanical ventilation - Patient is on pressors - She was transfused with 4 units of blood and last hemoglobin is 8.2 - EGD was done, no active bleeding - Nephrology consulted and patient gets hemodialysis - Hyperkalemia resolved - Sliding-scale insulin - INR is 1.69 Prognosis is very poor DVT Prophylaxis - SCD Disposition - Continue inpatient care. History Interval history: Patient was seen and evaluated this morning, comatose, intubated and on mechanical ventilation, on pressors. Hospitalist Physical - Physical exam Narrative exam: patient is comatose, intubated on mechanical ventilation. The patient appeared well nourished and normally developed. Vital signs as documented. Head exam is unremarkable. No scleral icterus . Neck is without jugular venous distension, thyromegaly, or carotid bruits. Lungs are clear to auscultation. Cardiac exam reveals regular rate and Rhythm. Abdominal exam reveals normal bowel sounds, no masses, no organomegaly and no aortic enlargement. Extremities are nonedematous and both femoral and pedal pulses are normal. [employer]OTECTION PROFESSIONAL: comatose. - Constitutional Vitals: Temp Pulse Resp BP Pulse Ox 98.0 F 70 14 90/48 100 09/07/16 09:14 09/07/16 14:00 09/07/16 10:50 09/07/16 14:00 09/07/16 14:00 General appearance: Present: no acute distress, other (intubated) Results - Labs CBC & Chem 7: 09/07/16 11:02 09/07/16 11:02 Labs: Laboratory Last Values WBC 25.7 K/mm3 (4.5-11.0) H 09/07/16 11:02 RBC 2.83 M/mm3 (3.65-5.03) L 09/07/16 11:02 Hgb 8.5 gm/dl (10.1-14.3) L 09/07/16 11:02 Hct 26.0 % (30.3-42.9) L D 09/07/16 11:02 MCV 92 fl (79-97) 09/07/16 11:02 MCH 30 pg (28-32) 09/07/16 11:02 MCHC 33 % (30-34) 09/07/16 11:02 RDW 17.5 % (13.2-15.2) H 09/07/16 11:02 Plt Count 148 K/mm3 (140-440) 09/07/16 11:02 Add Manual Diff Complete 09/07/16 11:02 Total Counted 200 09/07/16 11:02 Seg Neutrophils % Pipe Fitter 09/07/16 11:02 Seg Neuts % (Manual) 96.0 % (40.0-70.0) H 09/07/16 11:02 Band Neutrophils % 1.0 % 09/07/16 11:02 Lymphocytes % (Manual) 2.0 % (13.4-35.0) L 09/07/16 11:02 Reactive Lymphs % (Man) 0 % 09/07/16 11:02 Monocytes % (Manual) 1.0 % (0.0-7.3) 09/07/16 11:02 Eosinophils % (Manual) 0 % (0.0-4.3) 09/07/16 11:02 Basophils % (Manual) 0 % (0.0-1.8) 09/07/16 11:02 Metamyelocytes % 0 % 09/07/16 11:02 Myelocytes % 0 % 09/07/16 11:02 Promyelocytes % 0 % 09/07/16 11:02 Blast Cells % 0 % 09/07/16 11:02 Nucleated RBC % 1.0 % (0.0-0.9) H 09/07/16 11:02 Seg Neutrophils # Man 24.7 K/mm3 (1.8-7.7) H 09/07/16 11:02 Band Neutrophils # 0.3 K/mm3 09/07/16 11:02 Lymphocytes # (Manual) 0.5 K/mm3 (1.2-5.4) L 09/07/16 11:02 Abs React Lymphs (Man) 0.0 K/mm3 09/07/16 11:02 Monocytes # (Manual) 0.3 K/mm3 (0.0-0.8) 09/07/16 11:02 Eosinophils # (Manual) 0.0 K/mm3 (0.0-0.4) 09/07/16 11:02 Basophils # (Manual) 0.0 K/mm3 (0.0-0.1) 09/07/16 11:02 Metamyelocytes # 0.0 K/mm3 09/07/16 11:02 Myelocytes # 0.0 K/mm3 09/07/16 11:02 Promyelocytes # 0.0 K/mm3 09/07/16 11:02 Blast Cells # 0.0 K/mm3 09/07/16 11:02 WBC Morphology Not Reportable 09/07/16 11:02 Hypersegmented Neuts Not Reportable 09/07/16 11:02 Hyposegmented Neuts Not Reportable 09/07/16 11:02 Hypogranular Neuts Not Reportable 09/07/16 11:02 Smudge Cells Not Reportable 09/07/16 11:02 Toxic Granulation Not Reportable 09/07/16 11:02 Toxic Vacuolation Not Reportable 09/07/16 11:02 Dohle Bodies Not Reportable 09/07/16 11:02 Pelger-Huet Anomaly Not Reportable 09/07/16 11:02 Juan Rods Not Reportable 09/07/16 11:02 Platelet Estimate Consistent w auto 09/07/16 11:02 Clumped Platelets Not Reportable 09/07/16 11:02 Plt Clumps, EDTA Not Reportable 09/07/16 11:02 Large Platelets Not Reportable 09/07/16 11:02 Giant Platelets Not Reportable 09/07/16 11:02 Platelet Satelliting Not Reportable 09/07/16 11:02 Plt Morphology Comment Not Reportable 09/07/16 11:02 RBC Morphology Not Reportable 09/07/16 11:02 Dimorphic RBCs Not Reportable 09/07/16 11:02 Polychromasia Few 09/07/16 11:02 Hypochromasia Not Reportable 09/07/16 11:02 Poikilocytosis Few 09/07/16 11:02 Anisocytosis 2+ 09/07/16 11:02 Microcytosis Few 09/07/16 11:02 Macrocytosis Not Reportable 09/07/16 11:02 Spherocytes Not Reportable 09/07/16 11:02 Pappenheimer Bodies Not Reportable 09/07/16 11:02 Sickle Cells Not Reportable 09/07/16 11:02 Target Cells Not Reportable 09/07/16 11:02 Tear Drop Cells Few 09/07/16 11:02 Ovalocytes 1+ 09/07/16 11:02 Helmet Cells Not Reportable 09/07/16 11:02 [place] Bodies Not Reportable 09/07/16 11:02 Mooers Rings Not Reportable 09/07/16 11:02 Gipsy Cells Not Reportable 09/07/16 11:02 Bite Cells Not Reportable 09/07/16 11:02 Crenated Cell Not Reportable 09/07/16 11:02 Elliptocytes 1+ 09/07/16 11:02 Acanthocytes (Spur) Not Reportable 09/07/16 11:02 Rouleaux Not Reportable 09/07/16 11:02 Hemoglobin C Crystals Not Reportable 09/07/16 11:02 Schistocytes Not Reportable 09/07/16 11:02 Malaria parasites Not Reportable 09/07/16 11:02 Yair Bodies Not Reportable 09/07/16 11:02 Hem Pathologist Commnt No 09/07/16 11:02 PT 19.9 Sec. (12.2-14.9) H 09/07/16 11:02 INR 1.69 (0.87-1.13) H 09/07/16 11:02 POC ABG pH 7.570 (7.35-7.45) H 09/07/16 05:30 POC ABG pCO2 31.7 (35-45) L 09/07/16 05:30 POC ABG pO2 183 (80-105) H 09/07/16 05:30 POC ABG HCO3 29.1 09/07/16 05:30 POC ABG Total CO2 30 09/07/16 05:30 POC ABG O2 Sat 100 09/07/16 05:30 POC ABG Base Excess 7 09/07/16 05:30 VBG pH 7.418 (7.320-7.420) 09/06/16 Unknown FiO2 35 % 09/07/16 05:30 Sodium 142 mmol/L (137-145) 09/07/16 11:02 Potassium 4.2 mmol/L (3.6-5.0) D 09/07/16 11:02 Chloride 98.4 mmol/L (98-107) 09/07/16 11:02 Carbon Dioxide 26 mmol/L (22-30) 09/07/16 11:02 Anion Gap 22 mmol/L 09/07/16 11:02 BUN 54 mg/dL (7-17) H 09/07/16 11:02 Creatinine 5.6 mg/dL (0.7-1.2) H D 09/07/16 11:02 Estimated GFR 9 ml/min 09/07/16 11:02 BUN/Creatinine Ratio 9.64 % 09/07/16 11:02 Glucose 138 mg/dL (65-100) H 09/07/16 11:02 POC Glucose 149 (70-105) H 09/07/16 14:02 Lactic Acid 6.20 mmol/L (0.7-2.0) H* 09/06/16 Unknown Calcium 8.5 mg/dL (8.4-10.2) 09/07/16 11:02 Phosphorus 5.20 mg/dL (2.5-4.5) H 09/06/16 Unknown Magnesium 2.20 mg/dL (1.7-2.3) 09/06/16 Unknown Total Bilirubin 0.80 mg/dL (0.1-1.2) 09/06/16 Unknown AST 26 units/L (5-40) 09/06/16 Unknown ALT 14 units/L (7-56) 09/06/16 Unknown Alkaline Phosphatase 102 units/L (35-129) 09/06/16 Unknown Ammonia 102.0 umol/L (25-60) H 09/06/16 Unknown Total Creatine Kinase 40 units/L (30-135) 09/06/16 Unknown CK-MB (CK-2) 3.0 ng/mL (0.0-4.0) 09/06/16 Unknown CK-MB (CK-2) Rel Index 7.5 (0-4) H 09/06/16 Unknown Troponin T 0.210 ng/mL (0.00-0.029) H* 09/06/16 Unknown NT-Pro-B Natriuret Pep 99892 pg/mL (0-900) H 09/06/16 Unknown Total Protein 5.3 g/dL (6.3-8.2) L 09/06/16 Unknown Albumin 2.8 g/dL (3.9-5) L 09/06/16 Unknown Albumin/Globulin Ratio 1.1 % 09/06/16 Unknown Triglycerides 38 mg/dL (2-149) 09/06/16 Unknown Cholesterol 37 mg/dL (50-199) L 09/06/16 Unknown LDL Cholesterol Direct 14 mg/dL (50-130) L 09/06/16 Unknown HDL Cholesterol 16 mg/dL (40-59) L 09/06/16 Unknown Cholesterol/HDL Ratio 2.31 % 09/06/16 Unknown Blood Type A POSITIVE 09/06/16 12:08 Antibody Screen TNR 09/06/16 12:08 JOSEFA Antibody Screen Negative 09/06/16 12:08 Crossmatch See Detail 09/06/16 12:08
--- NOTE | 2016-09-07 16:22 | Post Anesthesia Evaluation ---
- Post Anesthesia Evaluation Patient Participated: No Airway Patent: Yes Stable Respiratory Function: Yes Nausea/Vomiting: No Temp > 96.8F: Yes Pain Manageable: Yes Adequeate Hydration: Yes Anesthesia Complications: No Block Receding Appropriately: Not Applicable Patient on Ventilator: Yes
[2016-09-08] MEDS: NOVOLOG SUB-Q SCH ×3 (00:44→18:41)
[2016-09-08 06:27] LABS: ISTAT Base Excess 4; ISTAT HCO3 26.9; ISTAT PCO2 32.2 (35-45); ISTAT PO2 105 (80-105); ISTAT SO2 99; ISTAT TCO2 28
[2016-09-08 08:01] LABS: Hematocrit 25.9 % (30.3-42.9); Hemoglobin 8.3 gm/dl (10.1-14.3); Mean Corpuscular HGB Conc 32 % (30-34); Mean Corpuscular Hemoglobin 30 pg (28-32); Mean Corpuscular Volume 93 fl (79-97); Platelet Count 139 K/mm3 (140-440); Red Blood Count 2.79 M/mm3 (3.65-5.03)
[2016-09-08 08:11] LABS: White Blood Count 26.6 K/mm3 (4.5-11.0)
--- NOTE | 2016-09-08 08:17 | XRay Report ---
AP CHEST :09/08/16 CLINICAL: Intubated.Follow up respiratory failure. COMPARISON:The previous day. FINDINGS: The endotracheal tube is in satisfactory position. Right IJ catheter tip remains in the distal SVC. The heart is large and remains shifted to the left. Mild central vascular congestion. Some clearing of the left lung base since the last exam. The upper lung gifford and right base are clear. Median sternotomy wires. No pneumothorax. IMPRESSION: Left lower lobe atelectasis with slight improvement.Cardiomegaly but no cardiac decompensation.
[2016-09-08 08:30] LABS: Albumin 2.7 g/dL (3.9-5); Albumin/Globulin Ratio 1.1 %; BUN/Creatinine Ratio 9.7; Bilirubin,Total 1.1 mg/dL (0.1-1.2); Calcium 8.6 mg/dL (8.4-10.2); Chloride 100.4 mmol/L (98-107); Potassium 4.3 mmol/L (3.6-5.0); Total Protein 5.2 g/dL (6.3-8.2)
--- NOTE | 2016-09-08 08:33 | Progress Note ---
Assessment and Plan Impression: * End stage renal disease on HD MWF * Severe anemia secondary to ABL * GI bleed * Hyperkalemia - resolved * Lactic acidosis - resolved * Acute respiratory failure - on mechanical ventilation * Coagulopathy * Chronic anticoagulation - Eliquis 5mg BID as outpatient * Atrial fibrillation Plan: * Hemodialysis MWF. UF as tolerated * GI findings/recommendations noted * Transfuse pRBC prn * Vent management per critical care/pulmonary * Pressors prn MAP>64 * Dose medications for renal function Subjective Date of service: 09/08/16 Interval history: No acute events overnight. Objective - Vital Signs Vital signs: Vital Signs - 12hr 09/07/16 09/07/16 09/07/16 20:40 20:50 21:00 Temperature Pulse Rate 70 70 70 Pulse Rate [ From Monitor] Respiratory 15 14 14 Rate Blood Pressure 114/46 107/45 108/45 O2 Sat by Pulse 100 100 100 Oximetry 09/07/16 09/07/16 09/07/16 21:10 21:20 21:30 Temperature Pulse Rate 70 70 70 Pulse Rate [ From Monitor] Respiratory 19 15 15 Rate Blood Pressure 108/45 105/43 105/43 O2 Sat by Pulse 98 100 100 Oximetry 09/07/16 09/07/16 09/07/16 21:40 21:50 22:00 Temperature Pulse Rate 70 70 77 Pulse Rate [ From Monitor] Respiratory 14 16 16 Rate Blood Pressure 103/42 102/42 116/50 O2 Sat by Pulse 98 100 100 Oximetry 09/07/16 09/07/16 09/07/16 22:10 22:20 22:30 Temperature Pulse Rate 70 70 70 Pulse Rate [ From Monitor] Respiratory 16 12 11 L Rate Blood Pressure 116/50 112/44 113/45 O2 Sat by Pulse 100 100 100 Oximetry 09/07/16 09/07/16 09/07/16 22:40 22:50 23:00 Temperature Pulse Rate 69 70 70 Pulse Rate [ From Monitor] Respiratory 11 L 18 11 L Rate Blood Pressure 113/45 113/45 113/45 O2 Sat by Pulse 100 100 100 Oximetry 09/07/16 09/07/16 09/07/16 23:10 23:20 23:30 Temperature Pulse Rate 70 70 70 Pulse Rate [ From Monitor] Respiratory 15 9 L 22 Rate Blood Pressure 107/44 112/41 107/43 O2 Sat by Pulse 100 100 100 Oximetry 09/07/16 09/07/16 09/07/16 23:40 23:50 23:54 Temperature Pulse Rate 70 70 70 Pulse Rate [ From Monitor] Respiratory 15 11 L 14 Rate Blood Pressure 107/43 114/44 114/44 O2 Sat by Pulse 100 100 100 Oximetry 09/08/16 09/08/16 09/08/16 00:00 00:10 00:20 Temperature 99.3 F Pulse Rate 70 70 70 Pulse Rate [ 70 From Monitor] Respiratory 14 17 14 Rate Blood Pressure 114/44 106/43 116/47 O2 Sat by Pulse 100 100 100 Oximetry 09/08/16 09/08/16 09/08/16 00:21 00:30 00:40 Temperature Pulse Rate 70 70 70 Pulse Rate [ From Monitor] Respiratory 14 14 Rate Blood Pressure 106/43 116/47 116/45 O2 Sat by Pulse 100 100 100 Oximetry 09/08/16 09/08/16 09/08/16 00:50 01:00 01:10 Temperature Pulse Rate 71 70 70 Pulse Rate [ From Monitor] Respiratory 14 14 15 Rate Blood Pressure 109/46 109/46 109/45 O2 Sat by Pulse 100 100 100 Oximetry 09/08/16 09/08/16 09/08/16 01:20 01:30 01:40 Temperature Pulse Rate 70 71 70 Pulse Rate [ From Monitor] Respiratory 14 14 15 Rate Blood Pressure 102/45 95/44 95/44 O2 Sat by Pulse 100 100 100 Oximetry 09/08/16 09/08/16 09/08/16 01:50 02:00 02:10 Temperature Pulse Rate 70 70 70 Pulse Rate [ From Monitor] Respiratory 15 16 17 Rate Blood Pressure 117/48 117/48 120/54 O2 Sat by Pulse 100 99 100 Oximetry 09/08/16 09/08/16 09/08/16 02:20 02:30 02:40 Temperature Pulse Rate 70 71 70 Pulse Rate [ From Monitor] Respiratory 17 20 14 Rate Blood Pressure 134/56 134/56 130/51 O2 Sat by Pulse 97 99 96 Oximetry 09/08/16 09/08/16 09/08/16 02:50 03:00 03:10 Temperature Pulse Rate 70 70 71 Pulse Rate [ From Monitor] Respiratory 14 14 14 Rate Blood Pressure 131/53 131/53 134/52 O2 Sat by Pulse 96 94 92 Oximetry 09/08/16 09/08/16 09/08/16 03:20 03:30 03:40 Temperature Pulse Rate 70 70 70 Pulse Rate [ From Monitor] Respiratory 14 17 17 Rate Blood Pressure 138/54 138/54 136/56 O2 Sat by Pulse 95 97 97 Oximetry 09/08/16 09/08/16 09/08/16 03:50 04:00 04:10 Temperature 98.4 F Pulse Rate 70 69 70 Pulse Rate [ 70 From Monitor] Respiratory 14 15 15 Rate Blood Pressure 136/57 136/57 135/58 O2 Sat by Pulse 97 95 99 Oximetry 09/08/16 09/08/16 09/08/16 04:20 04:30 04:40 Temperature Pulse Rate 70 70 70 Pulse Rate [ From Monitor] Respiratory 14 14 14 Rate Blood Pressure 126/53 136/57 128/52 O2 Sat by Pulse 99 98 99 Oximetry 09/08/16 09/08/16 09/08/16 04:50 05:00 05:10 Temperature Pulse Rate 70 70 70 Pulse Rate [ From Monitor] Respiratory 21 17 14 Rate Blood Pressure 112/61 137/62 137/62 O2 Sat by Pulse 100 100 100 Oximetry 09/08/16 09/08/16 09/08/16 05:20 05:30 05:38 Temperature 130 F H Pulse Rate 70 70 Pulse Rate [ From Monitor] Respiratory 15 14 Rate Blood Pressure 142/58 142/58 O2 Sat by Pulse 100 100 Oximetry 09/08/16 09/08/16 09/08/16 05:40 05:50 06:00 Temperature Pulse Rate 70 72 70 Pulse Rate [ From Monitor] Respiratory 14 14 17 Rate Blood Pressure 146/64 152/58 146/64 O2 Sat by Pulse 97 99 100 Oximetry 09/08/16 09/08/16 09/08/16 06:10 06:20 06:30 Temperature Pulse Rate 70 71 69 Pulse Rate [ From Monitor] Respiratory 17 11 L 16 Rate Blood Pressure 142/58 146/65 146/65 O2 Sat by Pulse 100 90 99 Oximetry 09/08/16 08:00 Temperature 97.4 F L Pulse Rate Pulse Rate [ From Monitor] Respiratory Rate Blood Pressure O2 Sat by Pulse Oximetry - General Appearance General appearance: sedated on ventilator, intubated EENT: ATNC Respiratory: Present: Clear to Ascultation Cardiology: regular, S1S2 Gastrointestinal: no distended Integumentary: no rash Psychiatric: cooperative - Lab 09/08/16 07:35 09/08/16 07:35 Most recent lab results Calcium 8.6 mg/dL (8.4-10.2) 09/08/16 07:35 Phosphorus 5.20 mg/dL (2.5-4.5) H 09/06/16 Unknown Magnesium 2.20 mg/dL (1.7-2.3) 09/06/16 Unknown
[2016-09-08 09:17] LABS: Basophils % (Manual) 0 % (0.0-1.8); Blastocytes % (Manual) 0 %; Eosinophils % (Manual) 0 % (0.0-4.3)
[2016-09-08 09:18] LABS: Acanthocytes 1+; Anisocytosis 2+; Elliptocytes 1+; Hypochromasia 1+; Ovalocytes 1+; Poikilocytosis 1+; Polychromasia 1+; Stomatocytes Few
[2016-09-08 09:21] LABS: Diff Status Complete; Schistocytes Rare
--- NOTE | 2016-09-08 09:26 | Progress Note ---
Assessment and Plan 71 y/o female with severe anemia, etiology unknown, coagulopathy, renal failure and acute respiratory failure with altered sensorium and GPC's in pairs. 1. H/H appears stable now. 2. WBC elevated, no fever. Currently on abx. 3. Coag negative staph, still on Vanc, however given this result, will likely stop this as well. 4. HD per renal 5. Hold on any further transfusions for now. Transfuse if less than 7 6. INR is better, no further ffp needed 7. no cryo needed 8. Still alkalotic, will decrease TV as patient is breathing over the decrease rate from yesterday. 9. Overall prognosis is guarded. More alert today, will attempt PSV trial later. CCT 31 minutes. Subjective Date of service: 09/08/16 Interval history: No acute events overnight. NO family at bedside. More awake today. Follows some commands. Objective Vital Signs - 12hr 09/07/16 09/07/16 09/07/16 21:20 21:30 21:40 Temperature Pulse Rate 70 70 70 Pulse Rate [ From Monitor] Respiratory 15 15 14 Rate Blood Pressure 105/43 105/43 103/42 O2 Sat by Pulse 100 100 98 Oximetry 09/07/16 09/07/16 09/07/16 21:50 22:00 22:10 Temperature Pulse Rate 70 77 70 Pulse Rate [ From Monitor] Respiratory 16 16 16 Rate Blood Pressure 102/42 116/50 116/50 O2 Sat by Pulse 100 100 100 Oximetry 09/07/16 09/07/16 09/07/16 22:20 22:30 22:40 Temperature Pulse Rate 70 70 69 Pulse Rate [ From Monitor] Respiratory 12 11 L 11 L Rate Blood Pressure 112/44 113/45 113/45 O2 Sat by Pulse 100 100 100 Oximetry 09/07/16 09/07/16 09/07/16 22:50 23:00 23:10 Temperature Pulse Rate 70 70 70 Pulse Rate [ From Monitor] Respiratory 18 11 L 15 Rate Blood Pressure 113/45 113/45 107/44 O2 Sat by Pulse 100 100 100 Oximetry 09/07/16 09/07/16 09/07/16 23:20 23:30 23:40 Temperature Pulse Rate 70 70 70 Pulse Rate [ From Monitor] Respiratory 9 L 22 15 Rate Blood Pressure 112/41 107/43 107/43 O2 Sat by Pulse 100 100 100 Oximetry 09/07/16 09/07/16 09/08/16 23:50 23:54 00:00 Temperature 99.3 F Pulse Rate 70 70 70 Pulse Rate [ From Monitor] Respiratory 11 L 14 14 Rate Blood Pressure 114/44 114/44 114/44 O2 Sat by Pulse 100 100 100 Oximetry 09/08/16 09/08/16 09/08/16 00:10 00:20 00:21 Temperature Pulse Rate 70 70 70 Pulse Rate [ 70 From Monitor] Respiratory 17 14 Rate Blood Pressure 106/43 116/47 106/43 O2 Sat by Pulse 100 100 100 Oximetry 09/08/16 09/08/16 09/08/16 00:30 00:40 00:50 Temperature Pulse Rate 70 70 71 Pulse Rate [ From Monitor] Respiratory 14 14 14 Rate Blood Pressure 116/47 116/45 109/46 O2 Sat by Pulse 100 100 100 Oximetry 09/08/16 09/08/16 09/08/16 01:00 01:10 01:20 Temperature Pulse Rate 70 70 70 Pulse Rate [ From Monitor] Respiratory 14 15 14 Rate Blood Pressure 109/46 109/45 102/45 O2 Sat by Pulse 100 100 100 Oximetry 09/08/16 09/08/16 09/08/16 01:30 01:40 01:50 Temperature Pulse Rate 71 70 70 Pulse Rate [ From Monitor] Respiratory 14 15 15 Rate Blood Pressure 95/44 95/44 117/48 O2 Sat by Pulse 100 100 100 Oximetry 09/08/16 09/08/16 09/08/16 02:00 02:10 02:20 Temperature Pulse Rate 70 70 70 Pulse Rate [ From Monitor] Respiratory 16 17 17 Rate Blood Pressure 117/48 120/54 134/56 O2 Sat by Pulse 99 100 97 Oximetry 09/08/16 09/08/16 09/08/16 02:30 02:40 02:50 Temperature Pulse Rate 71 70 70 Pulse Rate [ From Monitor] Respiratory 20 14 14 Rate Blood Pressure 134/56 130/51 131/53 O2 Sat by Pulse 99 96 96 Oximetry 09/08/16 09/08/16 09/08/16 03:00 03:10 03:20 Temperature Pulse Rate 70 71 70 Pulse Rate [ From Monitor] Respiratory 14 14 14 Rate Blood Pressure 131/53 134/52 138/54 O2 Sat by Pulse 94 92 95 Oximetry 09/08/16 09/08/16 09/08/16 03:30 03:40 03:50 Temperature Pulse Rate 70 70 70 Pulse Rate [ From Monitor] Respiratory 17 17 14 Rate Blood Pressure 138/54 136/56 136/57 O2 Sat by Pulse 97 97 97 Oximetry 09/08/16 09/08/16 09/08/16 04:00 04:10 04:20 Temperature 98.4 F Pulse Rate 69 70 70 Pulse Rate [ 70 From Monitor] Respiratory 15 15 14 Rate Blood Pressure 136/57 135/58 126/53 O2 Sat by Pulse 95 99 99 Oximetry 09/08/16 09/08/16 09/08/16 04:30 04:40 04:50 Temperature Pulse Rate 70 70 70 Pulse Rate [ From Monitor] Respiratory 14 14 21 Rate Blood Pressure 136/57 128/52 112/61 O2 Sat by Pulse 98 99 100 Oximetry 09/08/16 09/08/16 09/08/16 05:00 05:10 05:20 Temperature Pulse Rate 70 70 70 Pulse Rate [ From Monitor] Respiratory 17 14 15 Rate Blood Pressure 137/62 137/62 142/58 O2 Sat by Pulse 100 100 100 Oximetry 09/08/16 09/08/16 09/08/16 05:30 05:38 05:40 Temperature 130 F H Pulse Rate 70 70 Pulse Rate [ From Monitor] Respiratory 14 14 Rate Blood Pressure 142/58 146/64 O2 Sat by Pulse 100 97 Oximetry 09/08/16 09/08/16 09/08/16 05:50 06:00 06:10 Temperature Pulse Rate 72 70 70 Pulse Rate [ From Monitor] Respiratory 14 17 17 Rate Blood Pressure 152/58 146/64 142/58 O2 Sat by Pulse 99 100 100 Oximetry 09/08/16 09/08/16 09/08/16 06:20 06:30 06:45 Temperature Pulse Rate 71 69 70 Pulse Rate [ From Monitor] Respiratory 11 L 16 14 Rate Blood Pressure 146/65 146/65 133/54 O2 Sat by Pulse 90 99 100 Oximetry 09/08/16 09/08/16 09/08/16 07:00 07:15 07:30 Temperature Pulse Rate 70 70 70 Pulse Rate [ From Monitor] Respiratory 16 16 16 Rate Blood Pressure 133/54 127/52 127/52 O2 Sat by Pulse 97 100 98 Oximetry 09/08/16 09/08/16 09/08/16 07:45 08:00 08:15 Temperature 97.4 F L Pulse Rate 70 70 70 Pulse Rate [ From Monitor] Respiratory 15 14 15 Rate Blood Pressure 124/51 124/51 132/56 O2 Sat by Pulse 100 97 98 Oximetry 09/08/16 09/08/16 09/08/16 08:30 08:45 09:00 Temperature Pulse Rate 70 70 70 Pulse Rate [ From Monitor] Respiratory 14 14 15 Rate Blood Pressure 132/56 138/56 138/56 O2 Sat by Pulse 100 98 100 Oximetry Constitutional: alert, other (orally intubated and critically ill on vent) ENT: other (orally intubated) Neck: supple Ascultation: Bilateral: clear (anteriorly) Percussion: Bilateral: not dull Cardiovascular: regular rate and rhythm Gastrointestinal: normoactive bowel sounds Neurologic: unable to assess CBC and BMP: 09/08/16 07:35 09/08/16 07:35 ABG, PT/INR, D-dimer: ABG POC ABG pH 7.530 (7.35-7.45) H 09/08/16 05:19 POC ABG pCO2 32.2 (35-45) L 09/08/16 05:19 POC ABG pO2 105 (80-105) 09/08/16 05:19 POC ABG HCO3 26.9 09/08/16 05:19 POC ABG Total CO2 28 09/08/16 05:19 POC ABG O2 Sat 99 09/08/16 05:19 PT/INR, D-dimer PT 19.9 Sec. (12.2-14.9) H 09/07/16 11:02 INR 1.69 (0.87-1.13) H 09/07/16 11:02 Abnormal lab findings: Abnormal Labs 09/06/16 09/06/16 09/06/16 12:51 12:51 15:57 WBC RBC Hgb Hct RDW Plt Count Seg Neuts % (Manual) Lymphocytes % (Manual) Nucleated RBC % Seg Neutrophils # Man Lymphocytes # (Manual) PT INR POC ABG pH POC ABG pCO2 POC ABG pO2 Potassium 6.4 H* 6.7 H* Chloride 95.9 L Carbon Dioxide 21 L 19 L BUN 109 H 111 H Creatinine 10.5 H 10.1 H Glucose 133 H 178 H POC Glucose Lactic Acid Phosphorus Ammonia CK-MB (CK-2) Rel Index Troponin T NT-Pro-B Natriuret Pep 53650 H Total Protein Albumin Cholesterol LDL Cholesterol Direct HDL Cholesterol 09/06/16 09/06/16 09/06/16 15:57 19:06 19:06 WBC RBC Hgb 6.3 L Hct 19.3 L* RDW Plt Count Seg Neuts % (Manual) Lymphocytes % (Manual) Nucleated RBC % Seg Neutrophils # Man Lymphocytes # (Manual) PT INR POC ABG pH POC ABG pCO2 POC ABG pO2 Potassium 3.3 L D Chloride 96.0 L Carbon Dioxide BUN 30 H Creatinine 2.8 H D Glucose 154 H POC Glucose Lactic Acid 2.80 H* Phosphorus Ammonia CK-MB (CK-2) Rel Index Troponin T NT-Pro-B Natriuret Pep Total Protein Albumin Cholesterol LDL Cholesterol Direct HDL Cholesterol 09/06/16 09/06/16 09/06/16 Unknown Unknown Unknown WBC RBC Hgb Hct RDW Plt Count Seg Neuts % (Manual) Lymphocytes % (Manual) Nucleated RBC % Seg Neutrophils # Man Lymphocytes # (Manual) PT INR POC ABG pH POC ABG pCO2 POC ABG pO2 Potassium 6.4 H* Chloride 93.0 L Carbon Dioxide 21 L BUN 109 H Creatinine 10.4 H Glucose 197 H POC Glucose Lactic Acid 6.20 H* Phosphorus 5.20 H Ammonia CK-MB (CK-2) Rel Index 7.5 H Troponin T 0.210 H* NT-Pro-B Natriuret Pep 93167 H Total Protein 5.3 L Albumin 2.8 L Cholesterol 37 L LDL Cholesterol Direct 14 L HDL Cholesterol 16 L 09/06/16 09/07/16 09/07/16 Unknown 00:13 05:30 WBC RBC Hgb Hct RDW Plt Count Seg Neuts % (Manual) Lymphocytes % (Manual) Nucleated RBC % Seg Neutrophils # Man Lymphocytes # (Manual) PT 31.0 H INR 2.96 H POC ABG pH 7.570 H POC ABG pCO2 31.7 L POC ABG pO2 183 H Potassium Chloride Carbon Dioxide BUN Creatinine Glucose POC Glucose Lactic Acid Phosphorus Ammonia 102.0 H CK-MB (CK-2) Rel Index Troponin T NT-Pro-B Natriuret Pep Total Protein Albumin Cholesterol LDL Cholesterol Direct HDL Cholesterol 09/07/16 09/07/16 09/07/16 05:50 11:02 11:02 WBC 25.7 H RBC 2.83 L Hgb 8.5 L Hct 26.0 L D RDW 17.5 H Plt Count Seg Neuts % (Manual) 96.0 H Lymphocytes % (Manual) 2.0 L Nucleated RBC % 1.0 H Seg Neutrophils # Man 24.7 H Lymphocytes # (Manual) 0.5 L PT INR POC ABG pH POC ABG pCO2 POC ABG pO2 Potassium Chloride Carbon Dioxide BUN 54 H Creatinine 5.6 H D Glucose 138 H POC Glucose 149 H Lactic Acid Phosphorus Ammonia CK-MB (CK-2) Rel Index Troponin T NT-Pro-B Natriuret Pep Total Protein Albumin Cholesterol LDL Cholesterol Direct HDL Cholesterol 09/07/16 09/07/16 09/07/16 11:02 14:02 17:01 WBC RBC Hgb Hct RDW Plt Count Seg Neuts % (Manual) Lymphocytes % (Manual) Nucleated RBC % Seg Neutrophils # Man Lymphocytes # (Manual) PT 19.9 H INR 1.69 H POC ABG pH POC ABG pCO2 POC ABG pO2 Potassium Chloride Carbon Dioxide BUN Creatinine Glucose POC Glucose 149 H Lactic Acid Phosphorus Ammonia CK-MB (CK-2) Rel Index Troponin T 0.190 H* NT-Pro-B Natriuret Pep Total Protein Albumin Cholesterol LDL Cholesterol Direct HDL Cholesterol 09/07/16 09/07/16 09/08/16 17:50 23:50 05:19 WBC RBC Hgb Hct RDW Plt Count Seg Neuts % (Manual) Lymphocytes % (Manual) Nucleated RBC % Seg Neutrophils # Man Lymphocytes # (Manual) PT INR POC ABG pH 7.530 H POC ABG pCO2 32.2 L POC ABG pO2 Potassium Chloride Carbon Dioxide BUN Creatinine Glucose POC Glucose 126 H 128 H Lactic Acid Phosphorus Ammonia CK-MB (CK-2) Rel Index Troponin T NT-Pro-B Natriuret Pep Total Protein Albumin Cholesterol LDL Cholesterol Direct HDL Cholesterol 09/08/16 09/08/16 09/08/16 05:25 07:35 07:35 WBC 26.6 H RBC 2.79 L Hgb 8.3 L Hct 25.9 L RDW 18.0 H Plt Count 139 L Seg Neuts % (Manual) Lymphocytes % (Manual) Nucleated RBC % Seg Neutrophils # Man Lymphocytes # (Manual) PT INR POC ABG pH POC ABG pCO2 POC ABG pO2 Potassium Chloride Carbon Dioxide BUN 65 H Creatinine 6.7 H Glucose 120 H POC Glucose 130 H Lactic Acid Phosphorus Ammonia CK-MB (CK-2) Rel Index Troponin T NT-Pro-B Natriuret Pep Total Protein 5.2 L Albumin 2.7 L Cholesterol LDL Cholesterol Direct HDL Cholesterol
--- NOTE | 2016-09-08 10:15 | Gastroenterology Progress Note ---
Assessment and Plan 1. GI bleed -etiology unclear, pt profoundly anemic on admission, was on anticoagulation at home -s/p EGD- negative for source of bleeding -HGB 8.3 today- stable -no active signs of bleeding overnight or this morning per nursing -continue to monitor H&H and transfuse as needed -hold blood thinning medications -continue PPI -no recommendations for a colonoscopy at this time until pt is clinically stable , currently on levophed and intubated, unless overt bleeding develops -will follow Subjective Date of service: 09/08/16 Principal diagnosis: GI bleed Interval history: Patient intubated. No acute distress. No signs of active bleeding overnight or this morning per nursing. Objective - Constitutional Vitals: Temp Pulse Resp BP Pulse Ox 97.4 F L 70 16 112/46 98 09/08/16 08:00 09/08/16 10:00 09/08/16 10:00 09/08/16 09:47 09/08/16 09:47 General appearance: mild distress, other (intubated) - Neck Neck: supple - Respiratory Respiratory: bilateral: CTA (anterior) - Cardiovascular Rhythm: regular Heart Sounds: Present: S1 & S2 - Extremities Extremities: No edema - Gastrointestinal General gastrointestinal: Present: soft, non-distended, normal bowel sounds - Integumentary Integumentary: Present: warm, dry - Labs CBC & Chem 7: 09/08/16 07:35 09/08/16 07:35 Labs: Laboratory Results - last 24 hr 09/07/16 09/07/16 09/07/16 11:02 11:02 11:02 WBC 25.7 H RBC 2.83 L Hgb 8.5 L Hct 26.0 L D MCV 92 MCH 30 MCHC 33 RDW 17.5 H Plt Count 148 Add Manual Diff Complete Total Counted 200 Seg Neutrophils % Director Of Grants Seg Neuts % (Manual) 96.0 H Band Neutrophils % 1.0 Lymphocytes % (Manual) 2.0 L Reactive Lymphs % (Man) 0 Monocytes % (Manual) 1.0 Eosinophils % (Manual) 0 Basophils % (Manual) 0 Metamyelocytes % 0 Myelocytes % 0 Promyelocytes % 0 Blast Cells % 0 Nucleated RBC % 1.0 H Seg Neutrophils # Man 24.7 H Band Neutrophils # 0.3 Lymphocytes # (Manual) 0.5 L Abs React Lymphs (Man) 0.0 Monocytes # (Manual) 0.3 Eosinophils # (Manual) 0.0 Basophils # (Manual) 0.0 Metamyelocytes # 0.0 Myelocytes # 0.0 Promyelocytes # 0.0 Blast Cells # 0.0 WBC Morphology Not Reportable Hypersegmented Neuts Not Reportable Hyposegmented Neuts Not Reportable Hypogranular Neuts Not Reportable Smudge Cells Not Reportable Toxic Granulation Not Reportable Toxic Vacuolation Not Reportable Dohle Bodies Not Reportable Pelger-Huet Anomaly Not Reportable Juan Rods Not Reportable Platelet Estimate Consistent w auto Clumped Platelets Not Reportable Plt Clumps, EDTA Not Reportable Large Platelets Not Reportable Giant Platelets Not Reportable Platelet Satelliting Not Reportable Plt Morphology Comment Not Reportable RBC Morphology Not Reportable Dimorphic RBCs Not Reportable Polychromasia Few Hypochromasia Not Reportable Poikilocytosis Few Anisocytosis 2+ Microcytosis Few Macrocytosis Not Reportable Spherocytes Not Reportable Pappenheimer Bodies Not Reportable Sickle Cells Not Reportable Target Cells Not Reportable Tear Drop Cells Few Ovalocytes 1+ Stomatocytes Helmet Cells Not Reportable Dominguez-Fidelis Bodies Not Reportable Zearing Rings Not Reportable [place] Cells Not Reportable Bite Cells Not Reportable Crenated Cell Not Reportable Elliptocytes 1+ Acanthocytes (Spur) Not Reportable Rouleaux Not Reportable Hemoglobin C Crystals Not Reportable Schistocytes Not Reportable Malaria parasites Not Reportable Yair Bodies Not Reportable Hem Pathologist Commnt No PT 19.9 H INR 1.69 H POC ABG pH POC ABG pCO2 POC ABG pO2 POC ABG HCO3 POC ABG Total CO2 POC ABG O2 Sat POC ABG Base Excess FiO2 Sodium 142 Potassium 4.2 D Chloride 98.4 Carbon Dioxide 26 Anion Gap 22 BUN 54 H Creatinine 5.6 H D Estimated GFR 9 BUN/Creatinine Ratio 9.64 Glucose 138 H POC Glucose Lactic Acid Calcium 8.5 Total Bilirubin AST ALT Alkaline Phosphatase Troponin T Total Protein Albumin Albumin/Globulin Ratio Random Vancomycin 09/07/16 09/07/16 09/07/16 14:02 17:01 17:01 WBC RBC Hgb Hct MCV MCH MCHC RDW Plt Count Add Manual Diff Total Counted Seg Neutrophils % Seg Neuts % (Manual) Band Neutrophils % Lymphocytes % (Manual) Reactive Lymphs % (Man) Monocytes % (Manual) Eosinophils % (Manual) Basophils % (Manual) Metamyelocytes % Myelocytes % Promyelocytes % Blast Cells % Nucleated RBC % Seg Neutrophils # Man Band Neutrophils # Lymphocytes # (Manual) Abs React Lymphs (Man) Monocytes # (Manual) Eosinophils # (Manual) Basophils # (Manual) Metamyelocytes # Myelocytes # Promyelocytes # Blast Cells # WBC Morphology Hypersegmented Neuts Hyposegmented Neuts Hypogranular Neuts Smudge Cells Toxic Granulation Toxic Vacuolation Dohle Bodies Pelger-Huet Anomaly Juan Rods Platelet Estimate Clumped Platelets Plt Clumps, EDTA Large Platelets Giant Platelets Platelet Satelliting Plt Morphology Comment RBC Morphology Dimorphic RBCs Polychromasia Hypochromasia Poikilocytosis Anisocytosis Microcytosis Macrocytosis Spherocytes Pappenheimer Bodies Sickle Cells Target Cells Tear Drop Cells Ovalocytes Stomatocytes Helmet Cells Dominguez-Fidelis Bodies Zearing Rings [place] Cells Bite Cells Crenated Cell Elliptocytes Acanthocytes (Spur) Rouleaux Hemoglobin C Crystals Schistocytes Malaria parasites Yair Bodies Hem Pathologist Commnt PT INR POC ABG pH POC ABG pCO2 POC ABG pO2 POC ABG HCO3 POC ABG Total CO2 POC ABG O2 Sat POC ABG Base Excess FiO2 Sodium Potassium Chloride Carbon Dioxide Anion Gap BUN Creatinine Estimated GFR BUN/Creatinine Ratio Glucose POC Glucose 149 H Lactic Acid 1.00 Calcium Total Bilirubin AST ALT Alkaline Phosphatase Troponin T 0.190 H* Total Protein Albumin Albumin/Globulin Ratio Random Vancomycin 09/07/16 09/07/16 09/08/16 17:50 23:50 05:19 WBC RBC Hgb Hct MCV MCH MCHC RDW Plt Count Add Manual Diff Total Counted Seg Neutrophils % Seg Neuts % (Manual) Band Neutrophils % Lymphocytes % (Manual) Reactive Lymphs % (Man) Monocytes % (Manual) Eosinophils % (Manual) Basophils % (Manual) Metamyelocytes % Myelocytes % Promyelocytes % Blast Cells % Nucleated RBC % Seg Neutrophils # Man Band Neutrophils # Lymphocytes # (Manual) Abs React Lymphs (Man) Monocytes # (Manual) Eosinophils # (Manual) Basophils # (Manual) Metamyelocytes # Myelocytes # Promyelocytes # Blast Cells # WBC Morphology Hypersegmented Neuts Hyposegmented Neuts Hypogranular Neuts Smudge Cells Toxic Granulation Toxic Vacuolation Dohle Bodies Pelger-Huet Anomaly Juan Rods Platelet Estimate Clumped Platelets Plt Clumps, EDTA Large Platelets Giant Platelets Platelet Satelliting Plt Morphology Comment RBC Morphology Dimorphic RBCs Polychromasia Hypochromasia Poikilocytosis Anisocytosis Microcytosis Macrocytosis Spherocytes Pappenheimer Bodies Sickle Cells Target Cells Tear Drop Cells Ovalocytes Stomatocytes Helmet Cells Dominguez-Fidelis Bodies Zearing Rings [place] Cells Bite Cells Crenated Cell Elliptocytes Acanthocytes (Spur) Rouleaux Hemoglobin C Crystals Schistocytes Malaria parasites Yair Bodies Hem Pathologist Commnt PT INR POC ABG pH 7.530 H POC ABG pCO2 32.2 L POC ABG pO2 105 POC ABG HCO3 26.9 POC ABG Total CO2 28 POC ABG O2 Sat 99 POC ABG Base Excess 4 FiO2 25 Sodium Potassium Chloride Carbon Dioxide Anion Gap BUN Creatinine Estimated GFR BUN/Creatinine Ratio Glucose POC Glucose 126 H 128 H Lactic Acid Calcium Total Bilirubin AST ALT Alkaline Phosphatase Troponin T Total Protein Albumin Albumin/Globulin Ratio Random Vancomycin 09/08/16 09/08/16 09/08/16 05:25 07:35 07:35 WBC 26.6 H RBC 2.79 L Hgb 8.3 L Hct 25.9 L MCV 93 MCH 30 MCHC 32 RDW 18.0 H Plt Count 139 L Add Manual Diff Complete Total Counted 100 Seg Neutrophils % Director Of [employer] Seg Neuts % (Manual) 93.0 H Band Neutrophils % 0 Lymphocytes % (Manual) 5.0 L Reactive Lymphs % (Man) 0 Monocytes % (Manual) 2.0 Eosinophils % (Manual) 0 Basophils % (Manual) 0 Metamyelocytes % 0 Myelocytes % 0 Promyelocytes % 0 Blast Cells % 0 Nucleated RBC % Not Reportable Seg Neutrophils # Man 24.7 H Band Neutrophils # 0.0 Lymphocytes # (Manual) 1.3 Abs React Lymphs (Man) 0.0 Monocytes # (Manual) 0.5 Eosinophils # (Manual) 0.0 Basophils # (Manual) 0.0 Metamyelocytes # 0.0 Myelocytes # 0.0 Promyelocytes # 0.0 Blast Cells # 0.0 WBC Morphology Not Reportable Hypersegmented Neuts Not Reportable Hyposegmented Neuts Not Reportable Hypogranular Neuts Not Reportable Smudge Cells Not Reportable Toxic Granulation Not Reportable Toxic Vacuolation Not Reportable Dohle Bodies Not Reportable Pelger-Huet Anomaly Not Reportable Juan Rods Not Reportable Platelet Estimate Appears normal Clumped Platelets Not Reportable Plt Clumps, EDTA Not Reportable Large Platelets Not Reportable Giant Platelets Not Reportable Platelet Satelliting Not Reportable Plt Morphology Comment Not Reportable RBC Morphology Not Reportable Dimorphic RBCs Not Reportable Polychromasia 1+ Hypochromasia 1+ Poikilocytosis 1+ Anisocytosis 2+ Microcytosis Not Reportable Macrocytosis Not Reportable Spherocytes Not Reportable Pappenheimer Bodies Not Reportable Sickle Cells Not Reportable Target Cells Not Reportable Tear Drop Cells Not Reportable Ovalocytes 1+ Stomatocytes Few Helmet Cells Not Reportable Dominguez-Fidelis Bodies Not Reportable Zearing Rings Not Reportable Bernabe Cells Not Reportable Bite Cells Not Reportable Crenated Cell Not Reportable Elliptocytes 1+ Acanthocytes (Spur) 1+ Rouleaux Not Reportable Hemoglobin C Crystals Not Reportable Schistocytes Rare Malaria parasites Not Reportable Yair Bodies Not Reportable Hem Pathologist Commnt No PT INR POC ABG pH POC ABG pCO2 POC ABG pO2 POC ABG HCO3 POC ABG Total CO2 POC ABG O2 Sat POC ABG Base Excess FiO2 Sodium Potassium Chloride Carbon Dioxide Anion Gap BUN Creatinine Estimated GFR BUN/Creatinine Ratio Glucose POC Glucose 130 H Lactic Acid Calcium Total Bilirubin AST ALT Alkaline Phosphatase Troponin T Total Protein Albumin Albumin/Globulin Ratio Random Vancomycin 10.9 09/08/16 07:35 WBC RBC Hgb Hct MCV MCH MCHC RDW Plt Count Add Manual Diff Total Counted Seg Neutrophils % Seg Neuts % (Manual) Band Neutrophils % Lymphocytes % (Manual) Reactive Lymphs % (Man) Monocytes % (Manual) Eosinophils % (Manual) Basophils % (Manual) Metamyelocytes % Myelocytes % Promyelocytes % Blast Cells % Nucleated RBC % Seg Neutrophils # Man Band Neutrophils # Lymphocytes # (Manual) Abs React Lymphs (Man) Monocytes # (Manual) Eosinophils # (Manual) Basophils # (Manual) Metamyelocytes # Myelocytes # Promyelocytes # Blast Cells # WBC Morphology Hypersegmented Neuts Hyposegmented Neuts Hypogranular Neuts Smudge Cells Toxic Granulation Toxic Vacuolation Dohle Bodies Pelger-Huet Anomaly Juan Rods Platelet Estimate Clumped Platelets Plt Clumps, EDTA Large Platelets Giant Platelets Platelet Satelliting Plt Morphology Comment RBC Morphology Dimorphic RBCs Polychromasia Hypochromasia Poikilocytosis Anisocytosis Microcytosis Macrocytosis Spherocytes Pappenheimer Bodies Sickle Cells Target Cells Tear Drop Cells Ovalocytes Stomatocytes Helmet Cells Dominguez-Fidelis Bodies Zearing Rings [place] Cells Bite Cells Crenated Cell Elliptocytes Acanthocytes (Spur) Rouleaux Hemoglobin C Crystals Schistocytes Malaria parasites Yair Bodies Hem Pathologist Commnt PT INR POC ABG pH POC ABG pCO2 POC ABG pO2 POC ABG HCO3 POC ABG Total CO2 POC ABG O2 Sat POC ABG Base Excess FiO2 Sodium 144 Potassium 4.3 Chloride 100.4 Carbon Dioxide 25 Anion Gap 23 BUN 65 H Creatinine 6.7 H Estimated GFR 7 BUN/Creatinine Ratio 9.70 Glucose 120 H POC Glucose Lactic Acid Calcium 8.6 Total Bilirubin 1.10 AST 25 ALT 15 Alkaline Phosphatase 77 Troponin T Total Protein 5.2 L Albumin 2.7 L Albumin/Globulin Ratio 1.1 Random Vancomycin
[2016-09-08] MEDS ORDERED: SODIUM BICARBONATE FEEDTUBE PRN (10:56)
[2016-09-08] MEDS ORDERED: PANCREAZE DR 10,500 UNIT FEEDTUBE PRN (10:56)
[2016-09-08] MEDS ORDERED: SIMPLE SYRUP FEEDTUBE PRN (10:56)
[2016-09-08] MEDS: PEPCID IV SCH (15:21)
--- NOTE | 2016-09-08 15:42 | Progress Note ---
Assessment and Plan Assessment and plan: Acute respiratory failure Septic shock Severe anemia secondary GI bleed Hyperkalemia Lactic acidosis End-stage around is on hemodialysis Diabetes mellitus type 2 - Patient is intubated and on mechanical ventilation - Patient is on pressors - She was transfused with 4 units of blood and last hemoglobin is 8.3 - EGD was done, no active bleeding - Nephrology consulted and patient gets hemodialysis - Hyperkalemia resolved - Sliding-scale insulin - INR trended down Prognosis: improving Likely will be extubated tomorrow DVT Prophylaxis - SCD Disposition - ContinueICU care The high probability of a clinically significant, sudden or life threatening deterioration of the [CV, Neurology, reneal] system(s) required my full and direct attention, intervention and personal management. The aggregate critical care time was [31] minutes. This time is in addition to time spent performing reported procedures but includes the following: [x] Data Review and interpretation [x] Patient assessment and monitoring of vital signs [x] Documentation [x] Medication orders and management. History Interval history: Patient was seen and evaluated this morning, she is awake and open her eyes, intubated and on mechanical ventilation. Hospitalist Physical - Physical exam Narrative exam: patient is awake and able to open her eyes, Intubated. The patient appeared well nourished and normally developed. Vital signs as documented. Head exam is unremarkable. No scleral icterus . Neck is without jugular venous distension, thyromegaly, or carotid bruits. Lungs are clear to auscultation. Cardiac exam reveals regular rate and Rhythm. Abdominal exam reveals normal bowel sounds, no masses, no organomegaly and no aortic enlargement. Extremities are nonedematous and both femoral and pedal pulses are normal. CLAIMS ADJUSTER: Alert. - Constitutional Vitals: Temp Pulse Resp BP Pulse Ox 98.2 F 70 16 93/38 99 09/08/16 14:32 09/08/16 14:32 09/08/16 14:32 09/08/16 14:32 09/08/16 14:32 General appearance: Present: no acute distress, other (intubated) Results - Labs CBC & Chem 7: 09/08/16 07:35 09/08/16 07:35 Labs: Laboratory Last Values WBC 26.6 K/mm3 (4.5-11.0) H 09/08/16 07:35 RBC 2.79 M/mm3 (3.65-5.03) L 09/08/16 07:35 Hgb 8.3 gm/dl (10.1-14.3) L 09/08/16 07:35 Hct 25.9 % (30.3-42.9) L 09/08/16 07:35 MCV 93 fl (79-97) 09/08/16 07:35 MCH 30 pg (28-32) 09/08/16 07:35 MCHC 32 % (30-34) 09/08/16 07:35 RDW 18.0 % (13.2-15.2) H 09/08/16 07:35 Plt Count 139 K/mm3 (140-440) L 09/08/16 07:35 Add Manual Diff Complete 09/08/16 07:35 Total Counted 100 09/08/16 07:35 Seg Neutrophils % Liturgical Music Director 09/08/16 07:35 Seg Neuts % (Manual) 93.0 % (40.0-70.0) H 09/08/16 07:35 Band Neutrophils % 0 % 09/08/16 07:35 Lymphocytes % (Manual) 5.0 % (13.4-35.0) L 09/08/16 07:35 Reactive Lymphs % (Man) 0 % 09/08/16 07:35 Monocytes % (Manual) 2.0 % (0.0-7.3) 09/08/16 07:35 Eosinophils % (Manual) 0 % (0.0-4.3) 09/08/16 07:35 Basophils % (Manual) 0 % (0.0-1.8) 09/08/16 07:35 Metamyelocytes % 0 % 09/08/16 07:35 Myelocytes % 0 % 09/08/16 07:35 Promyelocytes % 0 % 09/08/16 07:35 Blast Cells % 0 % 09/08/16 07:35 Nucleated RBC % Not Reportable 09/08/16 07:35 Seg Neutrophils # Man 24.7 K/mm3 (1.8-7.7) H 09/08/16 07:35 Band Neutrophils # 0.0 K/mm3 09/08/16 07:35 Lymphocytes # (Manual) 1.3 K/mm3 (1.2-5.4) 09/08/16 07:35 Abs React Lymphs (Man) 0.0 K/mm3 09/08/16 07:35 Monocytes # (Manual) 0.5 K/mm3 (0.0-0.8) 09/08/16 07:35 Eosinophils # (Manual) 0.0 K/mm3 (0.0-0.4) 09/08/16 07:35 Basophils # (Manual) 0.0 K/mm3 (0.0-0.1) 09/08/16 07:35 Metamyelocytes # 0.0 K/mm3 09/08/16 07:35 Myelocytes # 0.0 K/mm3 09/08/16 07:35 Promyelocytes # 0.0 K/mm3 09/08/16 07:35 Blast Cells # 0.0 K/mm3 09/08/16 07:35 WBC Morphology Not Reportable 09/08/16 07:35 Hypersegmented Neuts Not Reportable 09/08/16 07:35 Hyposegmented Neuts Not Reportable 09/08/16 07:35 Hypogranular Neuts Not Reportable 09/08/16 07:35 Smudge Cells Not Reportable 09/08/16 07:35 Toxic Granulation Not Reportable 09/08/16 07:35 Toxic Vacuolation Not Reportable 09/08/16 07:35 Dohle Bodies Not Reportable 09/08/16 07:35 Pelger-Huet Anomaly Not Reportable 09/08/16 07:35 Juan Rods Not Reportable 09/08/16 07:35 Platelet Estimate Appears normal 09/08/16 07:35 Clumped Platelets Not Reportable 09/08/16 07:35 Plt Clumps, EDTA Not Reportable 09/08/16 07:35 Large Platelets Not Reportable 09/08/16 07:35 Giant Platelets Not Reportable 09/08/16 07:35 Platelet Satelliting Not Reportable 09/08/16 07:35 Plt Morphology Comment Not Reportable 09/08/16 07:35 RBC Morphology Not Reportable 09/08/16 07:35 Dimorphic RBCs Not Reportable 09/08/16 07:35 Polychromasia 1+ 09/08/16 07:35 Hypochromasia 1+ 09/08/16 07:35 Poikilocytosis 1+ 09/08/16 07:35 Anisocytosis 2+ 09/08/16 07:35 Microcytosis Not Reportable 09/08/16 07:35 Macrocytosis Not Reportable 09/08/16 07:35 Spherocytes Not Reportable 09/08/16 07:35 Pappenheimer Bodies Not Reportable 09/08/16 07:35 Sickle Cells Not Reportable 09/08/16 07:35 Target Cells Not Reportable 09/08/16 07:35 Tear Drop Cells Not Reportable 09/08/16 07:35 Ovalocytes 1+ 09/08/16 07:35 Stomatocytes Few 09/08/16 07:35 Helmet Cells Not Reportable 09/08/16 07:35 Dominguez-[place]cher-[place] Bodies Not Reportable 09/08/16 07:35 [place] Rings Not Reportable 09/08/16 07:35 Bernabe Cells Not Reportable 09/08/16 07:35 Bite Cells Not Reportable 09/08/16 07:35 Crenated Cell Not Reportable 09/08/16 07:35 Elliptocytes 1+ 09/08/16 07:35 Acanthocytes (Spur) 1+ 09/08/16 07:35 Rouleaux Not Reportable 09/08/16 07:35 Hemoglobin C Crystals Not Reportable 09/08/16 07:35 Schistocytes Rare 09/08/16 07:35 Malaria parasites Not Reportable 09/08/16 07:35 Yair Bodies Not Reportable 09/08/16 07:35 Hem Pathologist Commnt No 09/08/16 07:35 PT 19.9 Sec. (12.2-14.9) H 09/07/16 11:02 INR 1.69 (0.87-1.13) H 09/07/16 11:02 POC ABG pH 7.530 (7.35-7.45) H 09/08/16 05:19 POC ABG pCO2 32.2 (35-45) L 09/08/16 05:19 POC ABG pO2 105 (80-105) 09/08/16 05:19 POC ABG HCO3 26.9 09/08/16 05:19 POC ABG Total CO2 28 09/08/16 05:19 POC ABG O2 Sat 99 09/08/16 05:19 POC ABG Base Excess 4 09/08/16 05:19 VBG pH 7.418 (7.320-7.420) 09/06/16 Unknown FiO2 25 % 09/08/16 05:19 Sodium 144 mmol/L (137-145) 09/08/16 07:35 Potassium 4.3 mmol/L (3.6-5.0) 09/08/16 07:35 Chloride 100.4 mmol/L (98-107) 09/08/16 07:35 Carbon Dioxide 25 mmol/L (22-30) 09/08/16 07:35 Anion Gap 23 mmol/L 09/08/16 07:35 BUN 65 mg/dL (7-17) H 09/08/16 07:35 Creatinine 6.7 mg/dL (0.7-1.2) H 09/08/16 07:35 Estimated GFR 7 ml/min 09/08/16 07:35 BUN/Creatinine Ratio 9.70 % 09/08/16 07:35 Glucose 120 mg/dL (65-100) H 09/08/16 07:35 POC Glucose 130 (70-105) H 09/08/16 05:25 Lactic Acid 1.00 mmol/L (0.7-2.0) 09/07/16 17:01 Calcium 8.6 mg/dL (8.4-10.2) 09/08/16 07:35 Phosphorus 5.20 mg/dL (2.5-4.5) H 09/06/16 Unknown Magnesium 2.20 mg/dL (1.7-2.3) 09/06/16 Unknown Total Bilirubin 1.10 mg/dL (0.1-1.2) 09/08/16 07:35 AST 25 units/L (5-40) 09/08/16 07:35 ALT 15 units/L (7-56) 09/08/16 07:35 Alkaline Phosphatase 77 units/L (35-129) 09/08/16 07:35 Ammonia 102.0 umol/L (25-60) H 09/06/16 Unknown Total Creatine Kinase 40 units/L (30-135) 09/06/16 Unknown CK-MB (CK-2) 3.0 ng/mL (0.0-4.0) 09/06/16 Unknown CK-MB (CK-2) Rel Index 7.5 (0-4) H 09/06/16 Unknown Troponin T 0.190 ng/mL (0.00-0.029) H* 09/07/16 17:01 NT-Pro-B Natriuret Pep 43951 pg/mL (0-900) H 09/06/16 Unknown Total Protein 5.2 g/dL (6.3-8.2) L 09/08/16 07:35 Albumin 2.7 g/dL (3.9-5) L 09/08/16 07:35 Albumin/Globulin Ratio 1.1 % 09/08/16 07:35 Triglycerides 38 mg/dL (2-149) 09/06/16 Unknown Cholesterol 37 mg/dL (50-199) L 09/06/16 Unknown LDL Cholesterol Direct 14 mg/dL (50-130) L 09/06/16 Unknown HDL Cholesterol 16 mg/dL (40-59) L 09/06/16 Unknown Cholesterol/HDL Ratio 2.31 % 09/06/16 Unknown Random Vancomycin 10.9 ug/mL (0-40.0) 09/08/16 07:35 Blood Type A POSITIVE 09/06/16 12:08 Antibody Screen TNR 09/06/16 12:08 JOSEFA Antibody Screen Negative 09/06/16 12:08 Crossmatch See Detail 09/06/16 12:08
--- NOTE | 2016-09-08 17:22 | XRay Report ---
FINAL REPORT PROCEDURE: XR ABDOMEN 1V AP TECHNIQUE: AP supine portable radiograph of the abdomen was obtained at 09/08/2016 20:35 (T) . HISTORY: Dobhoff placement. COMPARISON: No prior studies are available for comparison. FINDINGS: Bowel gas pattern: Mildly prominent scattered loops of bowel, not well evaluated on this exam. Masses or calcifications: Moderate mitral annular calcification. Bony structures: Mild degenerative changes of the spine. Other: Enteric tube tip overlies expected location of the distal stomach. Presumed central venous catheter tip in the SVC. Cardiomegaly. Dual-chamber pacer. Epicardial pacing wires. Sternotomy. Mild perihilar and left retrocardiac opacity and possible small left pleural effusion. Atherosclerosis, best seen in the left upper quadrant. IMPRESSION: Enteric tube tip overlies expected location of the distal stomach. Mildly prominent scattered loops of bowel, consider ileus. Limited evaluation on this examination. Consider attention on followup radiographs if there is continued clinical concern. Cardiomegaly. Dual-chamber pacer. Presumed central venous catheter. Perihilar and left retrocardiac opacity with small left pleural effusion, consider correlation with recent chest radiograph.
[2016-09-08] MEDS: NORCO 5/325 PO PRN (18:40)
[2016-09-09] MEDS: LEVOPHED DRIP 4 MG/NS 250 ML 4 MG/250 ML BAG IV SCH (01:34)
[2016-09-09 05:49] LABS: ISTAT Base Excess 8; ISTAT HCO3 30.7; ISTAT PCO2 34.2 (35-45); ISTAT PO2 91 (80-105); ISTAT SO2 98; ISTAT TCO2 32
[2016-09-09] MEDS: NOVOLOG SUB-Q SCH ×5 (06:05→18:12)
[2016-09-09 06:07] LABS: Hematocrit 24.6 % (30.3-42.9); Hemoglobin 7.8 gm/dl (10.1-14.3); Mean Corpuscular HGB Conc 32 % (30-34); Mean Corpuscular Hemoglobin 29 pg (28-32); Mean Corpuscular Volume 92 fl (79-97); Platelet Count 118 K/mm3 (140-440); Red Blood Count 2.66 M/mm3 (3.65-5.03); Red Cell Distribution Width 19.1 % (13.2-15.2)
[2016-09-09 06:08] LABS: White Blood Count 22.3 K/mm3 (4.5-11.0)
[2016-09-09 06:21] LABS: BUN/Creatinine Ratio 7.9; Chloride 98.2 mmol/L (98-107); Potassium 3.2 mmol/L (3.6-5.0)
[2016-09-09 06:49] LABS: Basophils % (Manual) 0 % (0.0-1.8); Blastocytes % (Manual) 0 %; Eosinophils % (Manual) 0 % (0.0-4.3)
[2016-09-09 06:50] LABS: Anisocytosis 1+; Diff Status Complete; Hypochromasia 1+; Platelet Estimate Consistent w Auto; Polychromasia 1+; Schistocytes Rare
--- NOTE | 2016-09-09 07:36 | XRay Report ---
Single view chest: Compared to 09/08/16. History: Followup of respiratory failure. Findings: Cardiomegaly. Stable support system. Stable pacemaker. Mild pulmonary venous congestion predominantly right lung. Right CP angle normal. Left CP angle obscured by heart. Impression: Probable early CHF cannot be excluded
[2016-09-09] MEDS: PEPCID PO SCH (10:26)
--- NOTE | 2016-09-09 10:30 | Progress Note ---
Subjective Principal diagnosis: GI bleed Interval history: Patient was seen today for follow-up on multiple renal related issues Events noted,she is currently on maintenance hemodialysis Tuesday and Tuesday No acute distress Vitals labs intake output medications reviewed Social history: Reviewed Family history: Reviewed Physical examination Vitals: Reviewed HEENT: Oral mucosa moist Neck: Supple no JVD Chest: Clear to auscultation no crackles Heart: Regular rate and rhythm S1 and S2 heard Abdomen: Soft nontender bowel sounds present Extremity: Mild edema dry skin Dermatology; dry skin Psychiatry: No evidence of agitation or aggression Assessment and plan; End-stage renal disease patient is currently on maintenance hemodialysis, p currently being dialyzed on Tuesday and Tuesday she will receive her hemodialysis treatment tomorrow Hyperkalemia appears to have corrected patient may require higher dialysis bath Secondary hyperparathyroidism to follow Severe anemia resulting from blood loss due to GI bleed to monitor and follow, no active signs of bleeding per GI on proton pump inhibitor Current hemoglobin 7.8 She is hemodynamically stable Respiratory failure currently on mechanical ventilation Coagulopathy in a patient who has been on anticoagulation Atrial fibrillation, being followed by primary team Elevated white cell count/currently being followed by ICU team Periodically monitor renal related labs We'll continue to follow and make recommendation from renal standpoin Objective - Vital Signs Vital signs: Vital Signs - 12hr 09/08/16 09/08/16 09/08/16 22:30 22:45 23:00 Temperature Pulse Rate 70 70 70 Pulse Rate [ From Monitor] Respiratory 14 14 14 Rate Blood Pressure 112/47 115/48 119/49 O2 Sat by Pulse 100 100 100 Oximetry 09/08/16 09/08/16 09/08/16 23:15 23:30 23:45 Temperature Pulse Rate 69 70 70 Pulse Rate [ From Monitor] Respiratory 14 14 14 Rate Blood Pressure 119/51 122/49 114/48 O2 Sat by Pulse 100 100 100 Oximetry 09/08/16 09/08/16 09/09/16 23:48 23:59 00:00 Temperature 98.7 F Pulse Rate 70 70 Pulse Rate [ From Monitor] Respiratory 14 Rate Blood Pressure 122/49 111/49 O2 Sat by Pulse 100 100 Oximetry 09/09/16 09/09/16 09/09/16 00:15 00:30 00:45 Temperature Pulse Rate 70 70 70 Pulse Rate [ From Monitor] Respiratory 14 14 14 Rate Blood Pressure 118/48 118/48 120/50 O2 Sat by Pulse 100 100 100 Oximetry 09/09/16 09/09/16 09/09/16 01:00 01:15 01:31 Temperature Pulse Rate 70 70 70 Pulse Rate [ From Monitor] Respiratory 14 14 14 Rate Blood Pressure 113/46 123/51 112/58 O2 Sat by Pulse 100 100 97 Oximetry 09/09/16 09/09/16 09/09/16 01:45 02:00 02:15 Temperature Pulse Rate 70 70 70 Pulse Rate [ From Monitor] Respiratory 14 14 14 Rate Blood Pressure 122/50 123/53 122/49 O2 Sat by Pulse 100 100 100 Oximetry 09/09/16 09/09/16 09/09/16 02:30 02:45 03:00 Temperature Pulse Rate 69 70 70 Pulse Rate [ From Monitor] Respiratory 14 14 16 Rate Blood Pressure 122/47 125/48 127/49 O2 Sat by Pulse 100 100 100 Oximetry 09/09/16 09/09/16 09/09/16 03:15 03:30 03:45 Temperature Pulse Rate 69 69 70 Pulse Rate [ From Monitor] Respiratory 14 16 16 Rate Blood Pressure 106/49 104/50 124/48 O2 Sat by Pulse 100 100 100 Oximetry 09/09/16 09/09/16 09/09/16 03:47 04:00 04:01 Temperature 99.1 F Pulse Rate 70 70 Pulse Rate [ From Monitor] Respiratory 19 Rate Blood Pressure 104/50 124/48 O2 Sat by Pulse 100 100 Oximetry 09/09/16 09/09/16 09/09/16 04:15 04:31 04:45 Temperature Pulse Rate 69 69 70 Pulse Rate [ From Monitor] Respiratory 18 19 17 Rate Blood Pressure 124/48 124/48 153/37 O2 Sat by Pulse 100 100 Oximetry 09/09/16 09/09/16 09/09/16 05:00 05:01 05:15 Temperature Pulse Rate 70 70 70 Pulse Rate [ From Monitor] Respiratory 17 14 Rate Blood Pressure 144/81 144/81 O2 Sat by Pulse 94 98 Oximetry 09/09/16 09/09/16 09/09/16 05:31 05:45 06:01 Temperature Pulse Rate 70 70 70 Pulse Rate [ From Monitor] Respiratory 17 14 13 Rate Blood Pressure 149/41 149/41 130/44 O2 Sat by Pulse 100 100 100 Oximetry 09/09/16 09/09/16 09/09/16 06:15 06:30 06:45 Temperature Pulse Rate 70 70 70 Pulse Rate [ From Monitor] Respiratory 14 14 14 Rate Blood Pressure 130/44 132/43 126/48 O2 Sat by Pulse 100 100 100 Oximetry 09/09/16 09/09/16 09/09/16 07:01 07:15 07:30 Temperature Pulse Rate 70 70 70 Pulse Rate [ From Monitor] Respiratory 14 14 19 Rate Blood Pressure 129/54 129/54 111/40 O2 Sat by Pulse 99 100 100 Oximetry 09/09/16 09/09/16 09/09/16 07:45 08:00 08:15 Temperature 98.4 F Pulse Rate 70 70 70 Pulse Rate [ 70 From Monitor] Respiratory 14 14 14 Rate Blood Pressure 112/40 114/45 114/45 O2 Sat by Pulse 100 100 100 Oximetry 09/09/16 09/09/16 09/09/16 08:30 08:39 08:45 Temperature Pulse Rate 70 70 70 Pulse Rate [ From Monitor] Respiratory 14 16 17 Rate Blood Pressure 121/45 121/45 121/45 O2 Sat by Pulse 100 100 100 Oximetry 09/09/16 09/09/16 09/09/16 09:01 09:15 09:30 Temperature Pulse Rate 70 70 70 Pulse Rate [ From Monitor] Respiratory 16 17 19 Rate Blood Pressure 123/48 123/48 115/46 O2 Sat by Pulse 100 100 100 Oximetry 09/09/16 09/09/16 09:45 10:00 Temperature Pulse Rate 70 70 Pulse Rate [ From Monitor] Respiratory 19 19 Rate Blood Pressure 115/46 126/45 O2 Sat by Pulse 100 100 Oximetry - Lab 09/10/16 10:09 09/10/16 03:00 Most recent lab results Calcium 8.0 mg/dL (8.4-10.2) L 09/09/16 05:30 Phosphorus 5.20 mg/dL (2.5-4.5) H 09/06/16 Unknown Magnesium 2.20 mg/dL (1.7-2.3) 09/06/16 Unknown
--- NOTE | 2016-09-09 10:55 | Progress Note ---
Assessment and Plan 71 y/o female with severe anemia, etiology unknown, coagulopathy, renal failure and acute respiratory failure with altered sensorium and GPC's in pairs. 1. H/H appears stable now. Concern is about platelets. Recheck again tomorrow. No active signs of bleeding. If lower may need to check HIT. Likely getting heparin with HD 2. WBC elevated, trending down. Still no fever. Off all abx therapy. Will continue to monitor. May need differential on CBC 3. HD per renal, likely tomorrow 4. Hold on any further transfusions for now. Transfuse if less than 7 5. Still alkalotic, will decrease TV as patient is breathing over the decrease rate from yesterday. 6. Overall prognosis is guarded. More alert today, currently on PSV trial and tolerating. Will obtain blood gas and reevaluate. CCT 31 minutes. Subjective Date of service: 09/09/16 Principal diagnosis: GI bleed Interval history: More awake today. Able to lift head up off bed. No family currently at bedside. Currently on PSV 12/09 and tolerating. CXR is stable and clear. Platelets dropping but Hemoglobin is stable Objective Vital Signs - 12hr 09/08/16 09/08/16 09/08/16 23:00 23:15 23:30 Temperature Pulse Rate 70 69 70 Pulse Rate [ From Monitor] Respiratory 14 14 14 Rate Blood Pressure 119/49 119/51 122/49 O2 Sat by Pulse 100 100 100 Oximetry 09/08/16 09/08/16 09/08/16 23:45 23:48 23:59 Temperature 98.7 F Pulse Rate 70 70 Pulse Rate [ From Monitor] Respiratory 14 Rate Blood Pressure 114/48 122/49 O2 Sat by Pulse 100 100 Oximetry 09/09/16 09/09/16 09/09/16 00:00 00:15 00:30 Temperature Pulse Rate 70 70 70 Pulse Rate [ From Monitor] Respiratory 14 14 14 Rate Blood Pressure 111/49 118/48 118/48 O2 Sat by Pulse 100 100 100 Oximetry 09/09/16 09/09/16 09/09/16 00:45 01:00 01:15 Temperature Pulse Rate 70 70 70 Pulse Rate [ From Monitor] Respiratory 14 14 14 Rate Blood Pressure 120/50 113/46 123/51 O2 Sat by Pulse 100 100 100 Oximetry 09/09/16 09/09/16 09/09/16 01:31 01:45 02:00 Temperature Pulse Rate 70 70 70 Pulse Rate [ From Monitor] Respiratory 14 14 14 Rate Blood Pressure 112/58 122/50 123/53 O2 Sat by Pulse 97 100 100 Oximetry 09/09/16 09/09/16 09/09/16 02:15 02:30 02:45 Temperature Pulse Rate 70 69 70 Pulse Rate [ From Monitor] Respiratory 14 14 14 Rate Blood Pressure 122/49 122/47 125/48 O2 Sat by Pulse 100 100 100 Oximetry 09/09/16 09/09/16 09/09/16 03:00 03:15 03:30 Temperature Pulse Rate 70 69 69 Pulse Rate [ From Monitor] Respiratory 16 14 16 Rate Blood Pressure 127/49 106/49 104/50 O2 Sat by Pulse 100 100 100 Oximetry 09/09/16 09/09/16 09/09/16 03:45 03:47 04:00 Temperature 99.1 F Pulse Rate 70 70 Pulse Rate [ From Monitor] Respiratory 16 Rate Blood Pressure 124/48 104/50 O2 Sat by Pulse 100 100 100 Oximetry 09/09/16 09/09/16 09/09/16 04:01 04:15 04:31 Temperature Pulse Rate 70 69 69 Pulse Rate [ From Monitor] Respiratory 19 18 19 Rate Blood Pressure 124/48 124/48 124/48 O2 Sat by Pulse 100 Oximetry 09/09/16 09/09/16 09/09/16 04:45 05:00 05:01 Temperature Pulse Rate 70 70 70 Pulse Rate [ From Monitor] Respiratory 17 17 Rate Blood Pressure 153/37 144/81 O2 Sat by Pulse 100 94 Oximetry 09/09/16 09/09/16 09/09/16 05:15 05:31 05:45 Temperature Pulse Rate 70 70 70 Pulse Rate [ From Monitor] Respiratory 14 17 14 Rate Blood Pressure 144/81 149/41 149/41 O2 Sat by Pulse 98 100 100 Oximetry 09/09/16 09/09/16 09/09/16 06:01 06:15 06:30 Temperature Pulse Rate 70 70 70 Pulse Rate [ From Monitor] Respiratory 13 14 14 Rate Blood Pressure 130/44 130/44 132/43 O2 Sat by Pulse 100 100 100 Oximetry 09/09/16 09/09/16 09/09/16 06:45 07:01 07:15 Temperature Pulse Rate 70 70 70 Pulse Rate [ From Monitor] Respiratory 14 14 14 Rate Blood Pressure 126/48 129/54 129/54 O2 Sat by Pulse 100 99 100 Oximetry 09/09/16 09/09/16 09/09/16 07:30 07:45 08:00 Temperature 98.4 F Pulse Rate 70 70 70 Pulse Rate [ 70 From Monitor] Respiratory 19 14 14 Rate Blood Pressure 111/40 112/40 114/45 O2 Sat by Pulse 100 100 100 Oximetry 09/09/16 09/09/16 09/09/16 08:15 08:30 08:39 Temperature Pulse Rate 70 70 70 Pulse Rate [ From Monitor] Respiratory 14 14 16 Rate Blood Pressure 114/45 121/45 121/45 O2 Sat by Pulse 100 100 100 Oximetry 09/09/16 09/09/16 09/09/16 08:45 09:01 09:15 Temperature Pulse Rate 70 70 70 Pulse Rate [ From Monitor] Respiratory 17 16 17 Rate Blood Pressure 121/45 123/48 123/48 O2 Sat by Pulse 100 100 100 Oximetry 09/09/16 09/09/16 09/09/16 09:30 09:45 10:00 Temperature Pulse Rate 70 70 70 Pulse Rate [ From Monitor] Respiratory 19 19 19 Rate Blood Pressure 115/46 115/46 126/45 O2 Sat by Pulse 100 100 100 Oximetry Constitutional: alert, other (orally intubated and critically ill on vent) ENT: other (orally intubated) Neck: supple Ascultation: Bilateral: clear (anteriorly) Percussion: Bilateral: not dull Cardiovascular: regular rate and rhythm, other (100% paced at this moment ) Gastrointestinal: normoactive bowel sounds Neurologic: non-focal exam Psychiatric: mood appropriate CBC and BMP: 09/09/16 05:30 09/09/16 05:30 ABG, PT/INR, D-dimer: ABG POC ABG pH 7.560 (7.35-7.45) H 09/09/16 05:28 POC ABG pCO2 34.2 (35-45) L 09/09/16 05:28 POC ABG pO2 91 (80-105) 09/09/16 05:28 POC ABG HCO3 30.7 09/09/16 05:28 POC ABG Total CO2 32 09/09/16 05:28 POC ABG O2 Sat 98 09/09/16 05:28 PT/INR, D-dimer PT 19.9 Sec. (12.2-14.9) H 09/07/16 11:02 INR 1.69 (0.87-1.13) H 09/07/16 11:02 Abnormal lab findings: Abnormal Labs 09/06/16 09/06/16 09/06/16 12:51 12:51 15:57 WBC RBC Hgb Hct RDW Plt Count Seg Neuts % (Manual) Lymphocytes % (Manual) Nucleated RBC % Seg Neutrophils # Man Lymphocytes # (Manual) Monocytes # (Manual) PT INR POC ABG pH POC ABG pCO2 POC ABG pO2 Potassium 6.4 H* 6.7 H* Chloride 95.9 L Carbon Dioxide 21 L 19 L BUN 109 H 111 H Creatinine 10.5 H 10.1 H Glucose 133 H 178 H POC Glucose Lactic Acid Calcium Phosphorus Ammonia CK-MB (CK-2) Rel Index Troponin T NT-Pro-B Natriuret Pep 02301 H Total Protein Albumin Cholesterol LDL Cholesterol Direct HDL Cholesterol 09/06/16 09/06/16 09/06/16 15:57 19:06 19:06 WBC RBC Hgb 6.3 L Hct 19.3 L* RDW Plt Count Seg Neuts % (Manual) Lymphocytes % (Manual) Nucleated RBC % Seg Neutrophils # Man Lymphocytes # (Manual) Monocytes # (Manual) PT INR POC ABG pH POC ABG pCO2 POC ABG pO2 Potassium 3.3 L D Chloride 96.0 L Carbon Dioxide BUN 30 H Creatinine 2.8 H D Glucose 154 H POC Glucose Lactic Acid 2.80 H* Calcium Phosphorus Ammonia CK-MB (CK-2) Rel Index Troponin T NT-Pro-B Natriuret Pep Total Protein Albumin Cholesterol LDL Cholesterol Direct HDL Cholesterol 09/06/16 09/06/16 09/06/16 Unknown Unknown Unknown WBC RBC Hgb Hct RDW Plt Count Seg Neuts % (Manual) Lymphocytes % (Manual) Nucleated RBC % Seg Neutrophils # Man Lymphocytes # (Manual) Monocytes # (Manual) PT INR POC ABG pH POC ABG pCO2 POC ABG pO2 Potassium 6.4 H* Chloride 93.0 L Carbon Dioxide 21 L BUN 109 H Creatinine 10.4 H Glucose 197 H POC Glucose Lactic Acid 6.20 H* Calcium Phosphorus 5.20 H Ammonia CK-MB (CK-2) Rel Index 7.5 H Troponin T 0.210 H* NT-Pro-B Natriuret Pep 88811 H Total Protein 5.3 L Albumin 2.8 L Cholesterol 37 L LDL Cholesterol Direct 14 L HDL Cholesterol 16 L 09/06/16 09/07/16 09/07/16 Unknown 00:13 05:30 WBC RBC Hgb Hct RDW Plt Count Seg Neuts % (Manual) Lymphocytes % (Manual) Nucleated RBC % Seg Neutrophils # Man Lymphocytes # (Manual) Monocytes # (Manual) PT 31.0 H INR 2.96 H POC ABG pH 7.570 H POC ABG pCO2 31.7 L POC ABG pO2 183 H Potassium Chloride Carbon Dioxide BUN Creatinine Glucose POC Glucose Lactic Acid Calcium Phosphorus Ammonia 102.0 H CK-MB (CK-2) Rel Index Troponin T NT-Pro-B Natriuret Pep Total Protein Albumin Cholesterol LDL Cholesterol Direct HDL Cholesterol 09/07/16 09/07/16 09/07/16 05:50 11:02 11:02 WBC 25.7 H RBC 2.83 L Hgb 8.5 L Hct 26.0 L D RDW 17.5 H Plt Count Seg Neuts % (Manual) 96.0 H Lymphocytes % (Manual) 2.0 L Nucleated RBC % 1.0 H Seg Neutrophils # Man 24.7 H Lymphocytes # (Manual) 0.5 L Monocytes # (Manual) PT INR POC ABG pH POC ABG pCO2 POC ABG pO2 Potassium Chloride Carbon Dioxide BUN 54 H Creatinine 5.6 H D Glucose 138 H POC Glucose 149 H Lactic Acid Calcium Phosphorus Ammonia CK-MB (CK-2) Rel Index Troponin T NT-Pro-B Natriuret Pep Total Protein Albumin Cholesterol LDL Cholesterol Direct HDL Cholesterol 09/07/16 09/07/16 09/07/16 11:02 14:02 17:01 WBC RBC Hgb Hct RDW Plt Count Seg Neuts % (Manual) Lymphocytes % (Manual) Nucleated RBC % Seg Neutrophils # Man Lymphocytes # (Manual) Monocytes # (Manual) PT 19.9 H INR 1.69 H POC ABG pH POC ABG pCO2 POC ABG pO2 Potassium Chloride Carbon Dioxide BUN Creatinine Glucose POC Glucose 149 H Lactic Acid Calcium Phosphorus Ammonia CK-MB (CK-2) Rel Index Troponin T 0.190 H* NT-Pro-B Natriuret Pep Total Protein Albumin Cholesterol LDL Cholesterol Direct HDL Cholesterol 09/07/16 09/07/16 09/08/16 17:50 23:50 05:19 WBC RBC Hgb Hct RDW Plt Count Seg Neuts % (Manual) Lymphocytes % (Manual) Nucleated RBC % Seg Neutrophils # Man Lymphocytes # (Manual) Monocytes # (Manual) PT INR POC ABG pH 7.530 H POC ABG pCO2 32.2 L POC ABG pO2 Potassium Chloride Carbon Dioxide BUN Creatinine Glucose POC Glucose 126 H 128 H Lactic Acid Calcium Phosphorus Ammonia CK-MB (CK-2) Rel Index Troponin T NT-Pro-B Natriuret Pep Total Protein Albumin Cholesterol LDL Cholesterol Direct HDL Cholesterol 09/08/16 09/08/16 09/08/16 05:25 07:35 07:35 WBC 26.6 H RBC 2.79 L Hgb 8.3 L Hct 25.9 L RDW 18.0 H Plt Count 139 L Seg Neuts % (Manual) 93.0 H Lymphocytes % (Manual) 5.0 L Nucleated RBC % Seg Neutrophils # Man 24.7 H Lymphocytes # (Manual) Monocytes # (Manual) PT INR POC ABG pH POC ABG pCO2 POC ABG pO2 Potassium Chloride Carbon Dioxide BUN 65 H Creatinine 6.7 H Glucose 120 H POC Glucose 130 H Lactic Acid Calcium Phosphorus Ammonia CK-MB (CK-2) Rel Index Troponin T NT-Pro-B Natriuret Pep Total Protein 5.2 L Albumin 2.7 L Cholesterol LDL Cholesterol Direct HDL Cholesterol 09/08/16 09/08/16 09/09/16 11:47 18:10 05:27 WBC RBC Hgb Hct RDW Plt Count Seg Neuts % (Manual) Lymphocytes % (Manual) Nucleated RBC % Seg Neutrophils # Man Lymphocytes # (Manual) Monocytes # (Manual) PT INR POC ABG pH POC ABG pCO2 POC ABG pO2 Potassium Chloride Carbon Dioxide BUN Creatinine Glucose POC Glucose 141 H 139 H 152 H Lactic Acid Calcium Phosphorus Ammonia CK-MB (CK-2) Rel Index Troponin T NT-Pro-B Natriuret Pep Total Protein Albumin Cholesterol LDL Cholesterol Direct HDL Cholesterol 09/09/16 09/09/16 09/09/16 05:28 05:30 05:30 WBC 22.3 H RBC 2.66 L Hgb 7.8 L Hct 24.6 L RDW 19.1 H Plt Count 118 L Seg Neuts % (Manual) 89.0 H Lymphocytes % (Manual) 5.0 L Nucleated RBC % Seg Neutrophils # Man 19.8 H Lymphocytes # (Manual) 1.1 L Monocytes # (Manual) 1.3 H PT INR POC ABG pH 7.560 H POC ABG pCO2 34.2 L POC ABG pO2 Potassium 3.2 L D Chloride Carbon Dioxide BUN 34 H Creatinine 4.3 H Glucose 144 H POC Glucose Lactic Acid Calcium 8.0 L Phosphorus Ammonia CK-MB (CK-2) Rel Index Troponin T NT-Pro-B Natriuret Pep Total Protein Albumin Cholesterol LDL Cholesterol Direct HDL Cholesterol
[2016-09-09] MEDS: NORCO 5/325 PO PRN ×2 (12:17→15:54)
[2016-09-09 15:39] LABS: ISTAT Base Excess 8; ISTAT HCO3 30.2; ISTAT PCO2 32.1 (35-45); ISTAT PH 7.582 (7.35-7.45); ISTAT PO2 42 (80-105); ISTAT SO2 85; ISTAT TCO2 31
[2016-09-09 15:39] LABS: ISTAT Base Excess 9; ISTAT HCO3 31.9; ISTAT PCO2 37.1 (35-45); ISTAT PH 7.543 (7.35-7.45); ISTAT PO2 105 (80-105); ISTAT SO2 99; ISTAT TCO2 33
--- NOTE | 2016-09-09 15:42 | Consultation ---
History of Present Illness - Reason for Consult Consult date: 09/09/16 - History of Present Illness This patient is 71-year-old -Israeli female that was admitted via the from [facility] due to respiratory distress. She was noted to have melena with a H&H of 4.5/14.9. She was intubated and transferred to the vertical care unit. A GI consult was placed. EGD did not reveal active bleeding. She was hypotensive requiring blood pressure support with a levophed drip. During routine physical exam she was noted to have gangrenous changes to her right great toe, and a vascular surgery consult has been requested to further evaluate. The Patient is currently intubated in the intensive care unit. She is able to nod her head yes or no to questions, but unable to provide an adequate medical history. Therefore the history has been taken from the medical record and supplemented by family members at the bedside. She apparently has had wounds to her feet with some discomfort prior to this admission, but it's unclear how long and to what degree. Past History Past Medical History: atrial fib, arrhythmia (on Eliquis or Plavix), diabetes, ESRD (x 5 yrs on HD), hypertension, hyperlipidemia Past Surgical History: CABG, Other (right upper arm AV access placement, pacemaker) Social history: other (Resides in SNF). denies: smoking, alcohol abuse Family history: other (Noncontributory) Medications and Allergies Allergies Allergy/AdvReac Type Severity Reaction Status Date / Time No Known Allergies Allergy Verified 09/06/16 10:32 Home Medications Medication Instructions Recorded Confirmed Last Taken Type Acetaminophen [Tylenol] 650 mg PO Q6HR PRN 09/06/16 09/06/16 Unknown History Amiodarone [Cordarone 200 MG TAB] 200 mg PO BID 09/06/16 09/06/16 Unknown History Apixaban [Eliquis] 5 mg PO Q12H 09/06/16 09/06/16 Unknown History Ascorbic Acid [Vitamin C] 500 mg PO QDAY 09/06/16 09/06/16 Unknown History AtorvaSTATin [Lipitor] 40 mg PO QHS 09/06/16 09/06/16 Unknown History Docusate Sodium [Colace] 100 mg PO DAILY 09/06/16 09/06/16 Unknown History Fluticasone/Vilanterol [Breo 1 each IH DAILY 09/06/16 09/06/16 Unknown History Ellipta 100-25 Mcg INH] HYDROcodone/APAP 5-325 [Lindsey 1 each PO Q6HR PRN 09/06/16 09/06/16 Unknown History 5/325] Midodrine [Proamatine] 10 mg PO 3XW 09/06/16 09/06/16 Unknown History Sevelamer Carbonate [Renvela] 1,600 mg PO TIDWM 09/06/16 09/06/16 Unknown History Vit B Cmplx 3/FA/Vit C/Biotin 1 each PO DAILY 09/06/16 09/06/16 Unknown History [Nephro-Isaac Rx Tablet] Active Meds: Active Medications Acetaminophen/Hydrocodone Bitart (Lindsey 5/325) 1 each PO Q4H PRN PRN Reason: Pain, Moderate (4-6) Last Admin: 09/09/16 12:17 Dose: 1 each Lipase/Protease/Amylase (Pancreaze Dr 10,500 Unit) 1 each FEEDTUBE PRN PRN PRN Reason: For Clogged Feeding Tube Famotidine (Pepcid) 20 mg PO DAILY YFN Last Admin: 09/09/16 10:26 Dose: 20 mg Hydrophilic Ointment (Vaseline Lip Therapy) 1 applic TP Q2HR PRN PRN Reason: Dry Lips Sodium Chloride (Nacl 0.9%) 100 mls @ 999 mls/hr IV BHUMI PRN PRN Reason: Hypotension Norepinephrine (Levophed Drip 4 Mg/Ns 250 Ml) 4 mg in 250 mls @ 7.5 mls/hr IV TITR YFN; 2 MCG/MIN PRN Reason: Protocol Last Titration: 09/09/16 07:46 Dose: 0 mcg/min, 0 mls/hr Insulin Aspart (Novolog) 0 units SUB-Q Q6HR YFN PRN Reason: Protocol Last Admin: 09/09/16 12:16 Dose: 2 units Multi-Ingred Cream/Lotion/Oil/Oint (Artificial Tears Ophth Oint) 1 applic OU Q4HR PRN PRN Reason: Dry Eye(s) Simple Syrup (Simple Syrup) 15 ml FEEDTUBE PRN PRN PRN Reason: Hypoglycemia Simple Syrup (Simple Syrup) 30 ml FEEDTUBE PRN PRN PRN Reason: Hypoglycemia Sodium Bicarbonate (Sodium Bicarbonate) 325 mg FEEDTUBE PRN PRN PRN Reason: For Clogged Feeding Tube Sodium Chloride (Nacl 0.9% 500 Ml) 1 ml IV DIRECT YFN Review of Systems All systems: negative Exam - Constitutional Vitals: Temp Pulse Resp BP Pulse Ox 97.2 F L 70 20 106/39 100 09/09/16 12:00 09/09/16 14:00 09/09/16 14:00 09/09/16 14:00 09/09/16 14:00 General appearance: Present: no acute distress - EENT Eyes: Present: EOM intact ENT: hearing intact - Neck Neck: Present: supple - Respiratory Respiratory effort: normal - Extremities Extremities: abnormal (she clearly has a dry gangrenous right first toe with necrotic skin, the second and third toes are dark. The left foot has a small ulceration in the distal tip of the first and second toes there is no erythema or redness) Extremity abnormal: pulses diminished (nonpalpable pedal pulses bilaterally, monophasic dorsalis pedis pulse bilaterally, ) - Psychiatric Psychiatric: appropriate mood/affect, cooperative Results - Labs CBC & Chem 7: 09/09/16 05:30 09/09/16 05:30 Labs: Abnormal lab results 09/08/16 09/08/16 09/09/16 Range/Units 11:47 18:10 05:27 WBC (4.5-11.0) K/mm3 RBC (3.65-5.03) M/mm3 Hgb (10.1-14.3) gm/dl Hct (30.3-42.9) % RDW (13.2-15.2) % Plt Count (140-440) K/mm3 Seg Neuts % (Manual) (40.0-70.0) % Lymphocytes % (Manual) (13.4-35.0) % Seg Neutrophils # Man (1.8-7.7) K/mm3 Lymphocytes # (Manual) (1.2-5.4) K/mm3 Monocytes # (Manual) (0.0-0.8) K/mm3 POC ABG pH (7.35-7.45) POC ABG pCO2 (35-45) Potassium (3.6-5.0) mmol/L BUN (7-17) mg/dL Creatinine (0.7-1.2) mg/dL Glucose (65-100) mg/dL POC Glucose 141 H 139 H 152 H (70-105) Calcium (8.4-10.2) mg/dL 09/09/16 09/09/16 09/09/16 Range/Units 05:28 05:30 05:30 WBC 22.3 H (4.5-11.0) K/mm3 RBC 2.66 L (3.65-5.03) M/mm3 Hgb 7.8 L (10.1-14.3) gm/dl Hct 24.6 L (30.3-42.9) % RDW 19.1 H (13.2-15.2) % Plt Count 118 L (140-440) K/mm3 Seg Neuts % (Manual) 89.0 H (40.0-70.0) % Lymphocytes % (Manual) 5.0 L (13.4-35.0) % Seg Neutrophils # Man 19.8 H (1.8-7.7) K/mm3 Lymphocytes # (Manual) 1.1 L (1.2-5.4) K/mm3 Monocytes # (Manual) 1.3 H (0.0-0.8) K/mm3 POC ABG pH 7.560 H (7.35-7.45) POC ABG pCO2 34.2 L (35-45) Potassium 3.2 L D (3.6-5.0) mmol/L BUN 34 H (7-17) mg/dL Creatinine 4.3 H (0.7-1.2) mg/dL Glucose 144 H (65-100) mg/dL POC Glucose (70-105) Calcium 8.0 L (8.4-10.2) mg/dL 09/09/16 Range/Units 12:01 WBC (4.5-11.0) K/mm3 RBC (3.65-5.03) M/mm3 Hgb (10.1-14.3) gm/dl Hct (30.3-42.9) % RDW (13.2-15.2) % Plt Count (140-440) K/mm3 Seg Neuts % (Manual) (40.0-70.0) % Lymphocytes % (Manual) (13.4-35.0) % Seg Neutrophils # Man (1.8-7.7) K/mm3 Lymphocytes # (Manual) (1.2-5.4) K/mm3 Monocytes # (Manual) (0.0-0.8) K/mm3 POC ABG pH (7.35-7.45) POC ABG pCO2 (35-45) Potassium (3.6-5.0) mmol/L BUN (7-17) mg/dL Creatinine (0.7-1.2) mg/dL Glucose (65-100) mg/dL POC Glucose 178 H (70-105) Calcium (8.4-10.2) mg/dL Assessment and Plan This patient was admitted with respiratory arrest. She was subsequently intubated. She was noted to have melena. EGD was negative for active bleeding. She was hypotensive in the intensive care unit requiring vasopressor support. She appears to have underlying peripheral vascular disease and gangrenous changes to her right great toe. The digital arterial flow certainly to be compromised given the vasopressor use earlier in this admission. She is currently off Levophed with a systolic blood pressure reportedly 106. Agree with the ET nurse consultation. At this point I would paint the gangrenous toe and digital ulcerations with Betadine to decrease the chances of wound infection. Once her condition stabilizes, and she is extubated, we could consider angiography and possible revascularization to the right lower extremity (in preparation for toe amputation). The first toe does not appear to be salvageable. However, I suspect she does not have adequate blood flow to heal distal wounds. We will check an arterial duplex. - Patient Problems (1) Atherosclerosis of [place] arteries of the extremities with gangrene Current Visit: Yes Status: Acute Qualifiers: Peripheral atherosclerosis location: P Laterality: L (2) Acute blood loss anemia Current Visit: Yes Status: Acute (3) GI bleeding Current Visit: Yes Status: Acute Qualifiers: GI bleed type/associated pathology: melena Gastritis type: G Qualified Code(s): K92.1 - Melena (4) End stage renal disease on dialysis Current Visit: Yes Status: Chronic
--- NOTE | 2016-09-09 16:06 | Progress Note ---
Assessment and Plan Assessment and plan: Acute respiratory failure Septic shock Severe anemia secondary GI bleed Hyperkalemia Lactic acidosis End-stage around is on hemodialysis Diabetes mellitus type 2 Thrombocytopenia - Patient is intubated and on mechanical ventilation - Patient is off pressors now - She was transfused with 4 units of blood and last hemoglobin is stable - will check platelet and further drop will check for HIT antibody - EGD was done, no active bleeding - Nephrology consulted and patient gets hemodialysis - Hyperkalemia resolved - Sliding-scale insulin - INR trended down Prognosis: improving Likely will be extubated tomorrow DVT Prophylaxis - SCD Disposition - ContinueICU care The high probability of a clinically significant, sudden or life threatening deterioration of the [CV, Neurology, reneal] system(s) required my full and direct attention, intervention and personal management. The aggregate critical care time was [31] minutes. This time is in addition to time spent performing reported procedures but includes the following: [x] Data Review and interpretation [x] Patient assessment and monitoring of vital signs [x] Documentation [x] Medication orders and management. History Interval history: Patient was seen and evaluated this morning, she is awake and open her eyes, intubated and on mechanical ventilation. Hospitalist Physical - Physical exam Narrative exam: patient is awake and able to open her eyes, Intubated. The patient appeared well nourished and normally developed. Vital signs as documented. Head exam is unremarkable. No scleral icterus . Neck is without jugular venous distension, thyromegaly, or carotid bruits. Lungs are clear to auscultation. Cardiac exam reveals regular rate and Rhythm. Abdominal exam reveals normal bowel sounds, no masses, no organomegaly and no aortic enlargement. Extremities are nonedematous and both femoral and pedal pulses are normal. ATTORNEY LAW CLERK: Alert. - Constitutional Vitals: Temp Pulse Resp BP Pulse Ox 97.2 F L 70 20 106/39 100 09/09/16 12:00 09/09/16 14:00 09/09/16 14:00 09/09/16 14:09/09/16 14:00 General appearance: Present: no acute distress Results - Labs CBC & Chem 7: 09/09/16 05:30 09/09/16 05:30 Labs: Laboratory Last Values WBC 22.3 K/mm3 (4.5-11.0) H 09/09/16 05:30 RBC 2.66 M/mm3 (3.65-5.03) L 09/09/16 05:30 Hgb 7.8 gm/dl (10.1-14.3) L 09/09/16 05:30 Hct 24.6 % (30.3-42.9) L 09/09/16 05:30 MCV 92 fl (79-97) 09/09/16 05:30 MCH 29 pg (28-32) 09/09/16 05:30 MCHC 32 % (30-34) 09/09/16 05:30 RDW 19.1 % (13.2-15.2) H 09/09/16 05:30 Plt Count 118 K/mm3 (140-440) L 09/09/16 05:30 Add Manual Diff Complete 09/09/16 05:30 Total Counted 100 09/09/16 05:30 Seg Neutrophils % Crew Clerk 09/09/16 05:30 Seg Neuts % (Manual) 89.0 % (40.0-70.0) H 09/09/16 05:30 Band Neutrophils % 0 % 09/09/16 05:30 Lymphocytes % (Manual) 5.0 % (13.4-35.0) L 09/09/16 05:30 Reactive Lymphs % (Man) 0 % 09/09/16 05:30 Monocytes % (Manual) 6.0 % (0.0-7.3) 09/09/16 05:30 Eosinophils % (Manual) 0 % (0.0-4.3) 09/09/16 05:30 Basophils % (Manual) 0 % (0.0-1.8) 09/09/16 05:30 Metamyelocytes % 0 % 09/09/16 05:30 Myelocytes % 0 % 09/09/16 05:30 Promyelocytes % 0 % 09/09/16 05:30 Blast Cells % 0 % 09/09/16 05:30 Nucleated RBC % Not Reportable 09/09/16 05:30 Seg Neutrophils # Man 19.8 K/mm3 (1.8-7.7) H 09/09/16 05:30 Band Neutrophils # 0.0 K/mm3 09/09/16 05:30 Lymphocytes # (Manual) 1.1 K/mm3 (1.2-5.4) L 09/09/16 05:30 Abs React Lymphs (Man) 0.0 K/mm3 09/09/16 05:30 Monocytes # (Manual) 1.3 K/mm3 (0.0-0.8) H 09/09/16 05:30 Eosinophils # (Manual) 0.0 K/mm3 (0.0-0.4) 09/09/16 05:30 Basophils # (Manual) 0.0 K/mm3 (0.0-0.1) 09/09/16 05:30 Metamyelocytes # 0.0 K/mm3 09/09/16 05:30 Myelocytes # 0.0 K/mm3 09/09/16 05:30 Promyelocytes # 0.0 K/mm3 09/09/16 05:30 Blast Cells # 0.0 K/mm3 09/09/16 05:30 WBC Morphology Not Reportable 09/09/16 05:30 Hypersegmented Neuts Not Reportable 09/09/16 05:30 Hyposegmented Neuts Not Reportable 09/09/16 05:30 Hypogranular Neuts Not Reportable 09/09/16 05:30 Smudge Cells Not Reportable 09/09/16 05:30 Toxic Granulation Not Reportable 09/09/16 05:30 Toxic Vacuolation Not Reportable 09/09/16 05:30 Dohle Bodies Not Reportable 09/09/16 05:30 Pelger-Huet Anomaly Not Reportable 09/09/16 05:30 Juan Rods Not Reportable 09/09/16 05:30 Platelet Estimate Consistent w auto 09/09/16 05:30 Clumped Platelets Not Reportable 09/09/16 05:30 Plt Clumps, EDTA Not Reportable 09/09/16 05:30 Large Platelets Not Reportable 09/09/16 05:30 Giant Platelets Not Reportable 09/09/16 05:30 Platelet Satelliting Not Reportable 09/09/16 05:30 Plt Morphology Comment Not Reportable 09/09/16 05:30 RBC Morphology Not Reportable 09/09/16 05:30 Dimorphic RBCs Not Reportable 09/09/16 05:30 Polychromasia 1+ 09/09/16 05:30 Hypochromasia 1+ 09/09/16 05:30 Poikilocytosis Not Reportable 09/09/16 05:30 Anisocytosis 1+ 09/09/16 05:30 Microcytosis Not Reportable 09/09/16 05:30 Macrocytosis Not Reportable 09/09/16 05:30 Spherocytes Not Reportable 09/09/16 05:30 Pappenheimer Bodies Not Reportable 09/09/16 05:30 Sickle Cells Not Reportable 09/09/16 05:30 Target Cells Not Reportable 09/09/16 05:30 Tear Drop Cells Not Reportable 09/09/16 05:30 Ovalocytes Not Reportable 09/09/16 05:30 Stomatocytes Few 09/08/16 07:35 Helmet Cells Not Reportable 09/09/16 05:30 Domniguez-[place] Bodies Not Reportable 09/09/16 05:30 [place] Rings Not Reportable 09/09/16 05:30 Bernabe Cells Not Reportable 09/09/16 05:30 Bite Cells Not Reportable 09/09/16 05:30 Crenated Cell Not Reportable 09/09/16 05:30 Elliptocytes Not Reportable 09/09/16 05:30 Acanthocytes (Spur) Not Reportable 09/09/16 05:30 Rouleaux Not Reportable 09/09/16 05:30 Hemoglobin C Crystals Not Reportable 09/09/16 05:30 Schistocytes Rare 09/09/16 05:30 Malaria parasites Not Reportable 09/09/16 05:30 Yair Bodies Not Reportable 09/09/16 05:30 Hem Pathologist Commnt No 09/09/16 05:30 PT 19.9 Sec. (12.2-14.9) H 09/07/16 11:02 INR 1.69 (0.87-1.13) H 09/07/16 11:02 POC ABG pH 7.543 (7.35-7.45) H 09/09/16 15:30 POC ABG pCO2 37.1 (35-45) 09/09/16 15:30 POC ABG pO2 105 (80-105) 09/09/16 15:30 POC ABG HCO3 31.9 09/09/16 15:30 POC ABG Total CO2 33 09/09/16 15:30 POC ABG O2 Sat 99 09/09/16 15:30 POC ABG Base Excess 9 09/09/16 15:30 VBG pH 7.418 (7.320-7.420) 09/06/16 Unknown FiO2 25 % 09/09/16 15:30 Sodium 141 mmol/L (137-145) 09/09/16 05:30 Potassium 3.2 mmol/L (3.6-5.0) L D 09/09/16 05:30 Chloride 98.2 mmol/L (98-107) 09/09/16 05:30 Carbon Dioxide 30 mmol/L (22-30) 09/09/16 05:30 Anion Gap 16 mmol/L 09/09/16 05:30 BUN 34 mg/dL (7-17) H 09/09/16 05:30 Creatinine 4.3 mg/dL (0.7-1.2) H 09/09/16 05:30 Estimated GFR 12 ml/min 09/09/16 05:30 BUN/Creatinine Ratio 7.90 % 09/09/16 05:30 Glucose 144 mg/dL (65-100) H 09/09/16 05:30 POC Glucose 178 (70-105) H 09/09/16 12:01 Lactic Acid 1.00 mmol/L (0.7-2.0) 09/07/16 17:01 Calcium 8.0 mg/dL (8.4-10.2) L 09/09/16 05:30 Phosphorus 5.20 mg/dL (2.5-4.5) H 09/06/16 Unknown Magnesium 2.20 mg/dL (1.7-2.3) 09/06/16 Unknown Total Bilirubin 1.10 mg/dL (0.1-1.2) 09/08/16 07:35 AST 25 units/L (5-40) 09/08/16 07:35 ALT 15 units/L (7-56) 09/08/16 07:35 Alkaline Phosphatase 77 units/L (35-129) 09/08/16 07:35 Ammonia 102.0 umol/L (25-60) H 09/06/16 Unknown Total Creatine Kinase 40 units/L (30-135) 09/06/16 Unknown CK-MB (CK-2) 3.0 ng/mL (0.0-4.0) 09/06/16 Unknown CK-MB (CK-2) Rel Index 7.5 (0-4) H 09/06/16 Unknown Troponin T 0.190 ng/mL (0.00-0.029) H* 09/07/16 17:01 NT-Pro-B Natriuret Pep 51624 pg/mL (0-900) H 09/06/16 Unknown Total Protein 5.2 g/dL (6.3-8.2) L 09/08/16 07:35 Albumin 2.7 g/dL (3.9-5) L 09/08/16 07:35 Albumin/Globulin Ratio 1.1 % 09/08/16 07:35 Triglycerides 38 mg/dL (2-149) 09/06/16 Unknown Cholesterol 37 mg/dL (50-199) L 09/06/16 Unknown LDL Cholesterol Direct 14 mg/dL (50-130) L 09/06/16 Unknown HDL Cholesterol 16 mg/dL (40-59) L 09/06/16 Unknown Cholesterol/HDL Ratio 2.31 % 09/06/16 Unknown Random Vancomycin 10.9 ug/mL (0-40.0) 09/08/16 07:35 Blood Type A POSITIVE 09/06/16 12:08 Antibody Screen TNR 09/06/16 12:08 JOSEFA Antibody Screen Negative 09/06/16 12:08 Crossmatch See Detail 09/06/16 12:08 Thrombocytopenia
--- NOTE | 2016-09-09 18:50 | Progress Note ---
Assessment and Plan 1. GI bleed - etiology unclear. EGD negative. No further bleeding. She is now off Eliquis. Once off ventilator, will get more history, and then decide re : colonoscopy and timing. - empiric PPI - hematologic support with blood products Subjective Date of service: 09/09/16 Principal diagnosis: GI bleed Interval history: Pt intubated. Awake and alert. Denies abd pain. NO further GI bleed. Objective - Constitutional Vitals: Vital Signs - 12hr 09/09/16 09/09/16 09/09/16 07:01 07:15 07:30 Temperature Pulse Rate 70 70 70 Pulse Rate [ From Monitor] Respiratory 14 14 19 Rate Blood Pressure 129/54 129/54 111/40 O2 Sat by Pulse 99 100 100 Oximetry 09/09/16 09/09/16 09/09/16 07:45 08:00 08:15 Temperature 98.4 F Pulse Rate 70 70 70 Pulse Rate [ 70 From Monitor] Respiratory 14 14 14 Rate Blood Pressure 112/40 114/45 114/45 O2 Sat by Pulse 100 100 100 Oximetry 09/09/16 09/09/16 09/09/16 08:30 08:39 08:45 Temperature Pulse Rate 70 70 70 Pulse Rate [ From Monitor] Respiratory 14 16 17 Rate Blood Pressure 121/45 121/45 121/45 O2 Sat by Pulse 100 100 100 Oximetry 09/09/16 09/09/16 09/09/16 09:01 09:15 09:30 Temperature Pulse Rate 70 70 70 Pulse Rate [ From Monitor] Respiratory 16 17 19 Rate Blood Pressure 123/48 123/48 115/46 O2 Sat by Pulse 100 100 100 Oximetry 09/09/16 09/09/16 09/09/16 09:45 10:00 10:15 Temperature Pulse Rate 70 70 70 Pulse Rate [ From Monitor] Respiratory 19 19 20 Rate Blood Pressure 115/46 126/45 126/45 O2 Sat by Pulse 100 100 100 Oximetry 09/09/16 09/09/16 09/09/16 10:30 10:45 11:00 Temperature Pulse Rate 70 70 70 Pulse Rate [ From Monitor] Respiratory 17 18 16 Rate Blood Pressure 122/45 122/45 132/47 O2 Sat by Pulse 100 100 100 Oximetry 09/09/16 09/09/16 09/09/16 11:15 11:30 11:45 Temperature Pulse Rate 70 70 70 Pulse Rate [ From Monitor] Respiratory 16 14 19 Rate Blood Pressure 132/47 123/42 132/47 O2 Sat by Pulse 100 100 100 Oximetry 09/09/16 09/09/16 09/09/16 12:00 12:14 12:15 Temperature 97.2 F L Pulse Rate 70 70 70 Pulse Rate [ From Monitor] Respiratory 18 19 19 Rate Blood Pressure 118/43 118/43 123/42 O2 Sat by Pulse 100 97 100 Oximetry 09/09/16 09/09/16 09/09/16 12:30 12:45 13:01 Temperature Pulse Rate 70 70 70 Pulse Rate [ From Monitor] Respiratory 19 18 17 Rate Blood Pressure 123/43 123/43 105/36 O2 Sat by Pulse 100 100 100 Oximetry 09/09/16 09/09/16 09/09/16 13:15 13:30 13:45 Temperature Pulse Rate 70 70 70 Pulse Rate [ From Monitor] Respiratory 13 22 19 Rate Blood Pressure 105/36 104/39 104/39 O2 Sat by Pulse 100 100 100 Oximetry 09/09/16 09/09/16 09/09/16 14:00 14:15 14:30 Temperature Pulse Rate 70 70 70 Pulse Rate [ From Monitor] Respiratory 20 21 20 Rate Blood Pressure 106/39 106/39 105/41 O2 Sat by Pulse 100 100 100 Oximetry 09/09/16 09/09/16 09/09/16 14:45 15:00 15:15 Temperature Pulse Rate 70 70 70 Pulse Rate [ From Monitor] Respiratory 19 19 14 Rate Blood Pressure 105/41 119/50 119/50 O2 Sat by Pulse 100 98 99 Oximetry 09/09/16 09/09/16 09/09/16 15:31 15:45 16:00 Temperature 98.5 F Pulse Rate 72 70 70 Pulse Rate [ From Monitor] Respiratory 20 20 19 Rate Blood Pressure 84/41 84/41 110/44 O2 Sat by Pulse 100 100 Oximetry 09/09/16 09/09/16 09/09/16 16:15 16:30 16:45 Temperature Pulse Rate 70 70 70 Pulse Rate [ From Monitor] Respiratory 19 16 19 Rate Blood Pressure 110/44 121/48 110/44 O2 Sat by Pulse 99 99 Oximetry 09/09/16 09/09/16 09/09/16 17:01 17:15 17:30 Temperature Pulse Rate 69 70 70 Pulse Rate [ From Monitor] Respiratory 18 19 19 Rate Blood Pressure 103/38 103/38 121/47 O2 Sat by Pulse 99 98 100 Oximetry 09/09/16 09/09/16 17:45 18:00 Temperature Pulse Rate 70 70 Pulse Rate [ From Monitor] Respiratory 19 19 Rate Blood Pressure 121/47 108/41 O2 Sat by Pulse 100 100 Oximetry General appearance: Present: no acute distress, other (intubated) - EENT Eyes: PERRL, EOM intact ENT: hearing intact - Gastrointestinal General gastrointestinal: Present: soft, non-tender - Labs CBC & Chem 7: 09/09/16 05:30 09/09/16 05:30 Labs: Abnormal lab results 09/08/16 09/08/16 09/09/16 Range/Units 11:47 18:10 05:27 WBC (4.5-11.0) K/mm3 RBC (3.65-5.03) M/mm3 Hgb (10.1-14.3) gm/dl Hct (30.3-42.9) % RDW (13.2-15.2) % Plt Count (140-440) K/mm3 Seg Neuts % (Manual) (40.0-70.0) % Lymphocytes % (Manual) (13.4-35.0) % Seg Neutrophils # Man (1.8-7.7) K/mm3 Lymphocytes # (Manual) (1.2-5.4) K/mm3 Monocytes # (Manual) (0.0-0.8) K/mm3 POC ABG pH (7.35-7.45) POC ABG pCO2 (35-45) POC ABG pO2 (80-105) Potassium (3.6-5.0) mmol/L BUN (7-17) mg/dL Creatinine (0.7-1.2) mg/dL Glucose (65-100) mg/dL POC Glucose 141 H 139 H 152 H (70-105) Calcium (8.4-10.2) mg/dL 09/09/16 09/09/16 09/09/16 Range/Units 05:28 05:30 05:30 WBC 22.3 H (4.5-11.0) K/mm3 RBC 2.66 L (3.65-5.03) M/mm3 Hgb 7.8 L (10.1-14.3) gm/dl Hct 24.6 L (30.3-42.9) % RDW 19.1 H (13.2-15.2) % Plt Count 118 L (140-440) K/mm3 Seg Neuts % (Manual) 89.0 H (40.0-70.0) % Lymphocytes % (Manual) 5.0 L (13.4-35.0) % Seg Neutrophils # Man 19.8 H (1.8-7.7) K/mm3 Lymphocytes # (Manual) 1.1 L (1.2-5.4) K/mm3 Monocytes # (Manual) 1.3 H (0.0-0.8) K/mm3 POC ABG pH 7.560 H (7.35-7.45) POC ABG pCO2 34.2 L (35-45) POC ABG pO2 (80-105) Potassium 3.2 L D (3.6-5.0) mmol/L BUN 34 H (7-17) mg/dL Creatinine 4.3 H (0.7-1.2) mg/dL Glucose 144 H (65-100) mg/dL POC Glucose (70-105) Calcium 8.0 L (8.4-10.2) mg/dL 09/09/16 09/09/16 09/09/16 Range/Units 12:01 14:56 15:30 WBC (4.5-11.0) K/mm3 RBC (3.65-5.03) M/mm3 Hgb (10.1-14.3) gm/dl Hct (30.3-42.9) % RDW (13.2-15.2) % Plt Count (140-440) K/mm3 Seg Neuts % (Manual) (40.0-70.0) % Lymphocytes % (Manual) (13.4-35.0) % Seg Neutrophils # Man (1.8-7.7) K/mm3 Lymphocytes # (Manual) (1.2-5.4) K/mm3 Monocytes # (Manual) (0.0-0.8) K/mm3 POC ABG pH 7.582 H 7.543 H (7.35-7.45) POC ABG pCO2 32.1 L (35-45) POC ABG pO2 42 L (80-105) Potassium (3.6-5.0) mmol/L BUN (7-17) mg/dL Creatinine (0.7-1.2) mg/dL Glucose (65-100) mg/dL POC Glucose 178 H (70-105) Calcium (8.4-10.2) mg/dL 09/09/16 Range/Units 18:08 WBC (4.5-11.0) K/mm3 RBC (3.65-5.03) M/mm3 Hgb (10.1-14.3) gm/dl Hct (30.3-42.9) % RDW (13.2-15.2) % Plt Count (140-440) K/mm3 Seg Neuts % (Manual) (40.0-70.0) % Lymphocytes % (Manual) (13.4-35.0) % Seg Neutrophils # Man (1.8-7.7) K/mm3 Lymphocytes # (Manual) (1.2-5.4) K/mm3 Monocytes # (Manual) (0.0-0.8) K/mm3 POC ABG pH (7.35-7.45) POC ABG pCO2 (35-45) POC ABG pO2 (80-105) Potassium (3.6-5.0) mmol/L BUN (7-17) mg/dL Creatinine (0.7-1.2) mg/dL Glucose (65-100) mg/dL POC Glucose 147 H (70-105) Calcium (8.4-10.2) mg/dL
[2016-09-10] MEDS: NOVOLOG SUB-Q SCH ×4 (01:07→18:18)
[2016-09-10 03:25] LABS: Basophils % (Auto) 0.3 % (0.0-1.8); Eosinophils % (Auto) 0.4 % (0.0-4.3); Hematocrit 25.4 % (30.3-42.9); Mean Corpuscular HGB Conc 31 % (30-34); Mean Corpuscular Hemoglobin 29 pg (28-32); Mean Corpuscular Volume 93 fl (79-97); Red Blood Count 2.73 M/mm3 (3.65-5.03); White Blood Count 19.9 K/mm3 (4.5-11.0)
[2016-09-10 03:32] LABS: Platelet Count 89 K/mm3 (140-440)
[2016-09-10 03:40] LABS: BUN/Creatinine Ratio 7.79; Calcium 8.5 mg/dL (8.4-10.2); Chloride 95.9 mmol/L (98-107); Potassium 3.4 mmol/L (3.6-5.0)
[2016-09-10 04:55] LABS: ISTAT Base Excess 7; ISTAT HCO3 30.2; ISTAT PCO2 36.9 (35-45); ISTAT PH 7.521 (7.35-7.45); ISTAT PO2 101 (80-105); ISTAT SO2 98; ISTAT TCO2 31
--- NOTE | 2016-09-10 07:14 | Vascular Lab Report ---
LOWER EXTREMITY ARTERIAL DUPLEX: REASON FOR EXAM: Peripheral arterial disease with gangrene. COMMENTS ON THE RIGHT: Monophasic waveforms are seen proximally. Monophasic waveforms are seen distally. No significant velocity gradients are identified. No focal significant plaque is identified. Findings are consistent with abnormal perfusion COMMENTS ON THE LEFT: Monophasic waveforms are seen proximally. Monophasic waveforms are seen distally. No significant velocity gradients are identified. No focal significant plaque is identified. Findings are consistent with abnormal perfusion. IMPRESSION: RIGHT: The study is consistent with inflow disease.. LEFT:The study is consistent with inflow disease. Clinical correlation recommended.
--- NOTE | 2016-09-10 07:39 | XRay Report ---
Single view chest: Compared to 09/09/16. History: Followup of respiratory failure. Findings: Cardiomegaly. Stable support system. No consolidation, pneumothorax. Left lower lobe obscured by the large heart. Probable left pleural effusion. Impression: Cardiomegaly. Probable left pleural effusion.
--- NOTE | 2016-09-10 09:55 | Gastroenterology Progress Note ---
<BHARAT WASHBURN - Last Filed: 09/10/16 09:55> Assessment and Plan 1. GI bleed -etiology unclear, pt profoundly anemic on admission, was on anticoagulation at home -s/p EGD- negative for source of bleeding -HGB 8.0 today- stable -large BMx1 overnight with maroon stool per nursing- currently hemodynamically stable -continue to monitor H&H and transfuse as needed -continue to hold blood thinning medications -continue PPI -matt consider scheduling for a colonoscopy after discussing with hospitalist and family -will follow Subjective Date of service: 09/10/16 Principal diagnosis: GI bleed Interval history: Patient opens eyes to stimulation, intubated. No acute distress. Nursing reports large BM x 1 overnight with maroon stool. Objective - Constitutional Vitals: Temp Pulse Resp BP Pulse Ox 99.1 F 70 15 96/37 100 09/10/16 08:00 09/10/16 09:01 09/10/16 09:01 09/10/16 09:01 09/10/16 09:01 General appearance: no acute distress, other (intubated) - Respiratory Respiratory: bilateral: CTA (anterior) - Cardiovascular Rhythm: regular Heart Sounds: Present: S1 & S2 - Extremities Extremity abnormal: other (dressing and sequential hose on lazara lower ext) - Gastrointestinal General gastrointestinal: Present: soft, non-distended, normal bowel sounds - Integumentary Integumentary: Present: warm, dry - Labs CBC & Chem 7: 09/10/16 03:00 09/10/16 03:00 Labs: Laboratory Results - last 24 hr 09/09/16 09/09/16 09/09/16 12:01 14:56 15:30 WBC RBC Hgb Hct MCV MCH MCHC RDW Plt Count Lymph % (Auto) [place] % (Auto) Eos % (Auto) Baso % (Auto) Lymph # [place] # Eos # Baso # Seg Neutrophils % Seg Neutrophils # POC ABG pH 7.582 H 7.543 H POC ABG pCO2 32.1 L 37.1 POC ABG pO2 42 L 105 POC ABG HCO3 30.2 31.9 POC ABG Total CO2 31 33 POC ABG O2 Sat 85 99 POC ABG Base Excess 8 9 FiO2 25 25 Sodium Potassium Chloride Carbon Dioxide Anion Gap BUN Creatinine Estimated GFR BUN/Creatinine Ratio Glucose POC Glucose 178 H Calcium 09/09/16 09/09/16 09/10/16 18:08 23:36 03:00 WBC 19.9 H RBC 2.73 L Hgb 8.0 L Hct 25.4 L MCV 93 MCH 29 MCHC 31 RDW 19.0 H Plt Count 89 L Lymph % (Auto) 4.9 L [place] % (Auto) 5.5 Eos % (Auto) 0.4 Baso % (Auto) 0.3 Lymph # 1.0 L [place] # 1.1 H Eos # 0.1 Baso # 0.1 Seg Neutrophils % 88.9 H Seg Neutrophils # 17.7 H POC ABG pH POC ABG pCO2 POC ABG pO2 POC ABG HCO3 POC ABG Total CO2 POC ABG O2 Sat POC ABG Base Excess FiO2 Sodium Potassium Chloride Carbon Dioxide Anion Gap BUN Creatinine Estimated GFR BUN/Creatinine Ratio Glucose POC Glucose 147 H 173 H Calcium 09/10/16 09/10/16 09/10/16 03:00 04:29 05:47 WBC RBC Hgb Hct MCV MCH MCHC RDW Plt Count Lymph % (Auto) [place] % (Auto) Eos % (Auto) Baso % (Auto) Lymph # [place] # Eos # Baso # Seg Neutrophils % Seg Neutrophils # POC ABG pH 7.521 H POC ABG pCO2 36.9 POC ABG pO2 101 POC ABG HCO3 30.2 POC ABG Total CO2 31 POC ABG O2 Sat 98 POC ABG Base Excess 7 FiO2 35 Sodium 139 Potassium 3.4 L Chloride 95.9 L Carbon Dioxide 28 Anion Gap 19 BUN 46 H Creatinine 5.9 H Estimated GFR 9 BUN/Creatinine Ratio 7.79 Glucose 96 POC Glucose 72 Calcium 8.5 <JENNI LAURA R - Last Filed: 09/10/16 15:25> Assessment and Plan Rectal exam done by me shows light YELLOW stool, no evidence of dot GI bleed. Therefore, pt could NOT have had a recent maroon stool within the last 12 hrs. If more blood noted, look for /MICROBIOLOGY TECHNICIAN source, or possible ext hemorrhoids - though none appreciated. Objective - Constitutional Vitals: Temp Pulse Resp BP Pulse Ox 98.1 F 70 15 107/38 99 09/10/16 13:31 09/10/16 15:14 09/10/16 15:14 09/10/16 15:14 09/10/16 15:14 - Labs CBC & Chem 7: 09/10/16 10:09 09/10/16 03:00 Labs: Laboratory Results - last 24 hr 09/09/16 09/09/16 09/09/16 14:56 15:30 18:08 WBC RBC Hgb Hct MCV MCH MCHC RDW Plt Count Lymph % (Auto) [place] % (Auto) Eos % (Auto) Baso % (Auto) Lymph # [place] # Eos # Baso # Seg Neutrophils % Seg Neutrophils # POC ABG pH 7.582 H 7.543 H POC ABG pCO2 32.1 L 37.1 POC ABG pO2 42 L 105 POC ABG HCO3 30.2 31.9 POC ABG Total CO2 31 33 POC ABG O2 Sat 85 99 POC ABG Base Excess 8 9 FiO2 25 25 Sodium Potassium Chloride Carbon Dioxide Anion Gap BUN Creatinine Estimated GFR BUN/Creatinine Ratio Glucose POC Glucose 147 H Calcium 09/09/16 09/10/16 09/10/16 23:36 03:00 03:00 WBC 19.9 H RBC 2.73 L Hgb 8.0 L Hct 25.4 L MCV 93 MCH 29 MCHC 31 RDW 19.0 H Plt Count 89 L Lymph % (Auto) 4.9 L [place] % (Auto) 5.5 Eos % (Auto) 0.4 Baso % (Auto) 0.3 Lymph # 1.0 L [place] # 1.1 H Eos # 0.1 Baso # 0.1 Seg Neutrophils % 88.9 H Seg Neutrophils # 17.7 H POC ABG pH POC ABG pCO2 POC ABG pO2 POC ABG HCO3 POC ABG Total CO2 POC ABG O2 Sat POC ABG Base Excess FiO2 Sodium 139 Potassium 3.4 L Chloride 95.9 L Carbon Dioxide 28 Anion Gap 19 BUN 46 H Creatinine 5.9 H Estimated GFR 9 BUN/Creatinine Ratio 7.79 Glucose 96 POC Glucose 173 H Calcium 8.5 09/10/16 09/10/16 09/10/16 04:29 05:47 10:00 WBC 7.1 RBC 2.55 L Hgb 7.6 L Hct 23.7 L MCV 93 MCH 30 MCHC 32 RDW 18.9 H Plt Count 84 L Lymph % (Auto) [place] % (Auto) Eos % (Auto) Baso % (Auto) Lymph # [place] # Eos # Baso # Seg Neutrophils % Seg Neutrophils # POC ABG pH 7.521 H POC ABG pCO2 36.9 POC ABG pO2 101 POC ABG HCO3 30.2 POC ABG Total CO2 31 POC ABG O2 Sat 98 POC ABG Base Excess 7 FiO2 35 Sodium Potassium Chloride Carbon Dioxide Anion Gap BUN Creatinine Estimated GFR BUN/Creatinine Ratio Glucose POC Glucose 72 Calcium 09/10/16 09/10/16 10:09 12:06 WBC RBC Hgb 7.7 L Hct 23.4 L MCV MCH MCHC RDW Plt Count Lymph % (Auto) [place] % (Auto) Eos % (Auto) Baso % (Auto) Lymph # [place] # Eos # Baso # Seg Neutrophils % Seg Neutrophils # POC ABG pH POC ABG pCO2 POC ABG pO2 POC ABG HCO3 POC ABG Total CO2 POC ABG O2 Sat POC ABG Base Excess FiO2 Sodium Potassium Chloride Carbon Dioxide Anion Gap BUN Creatinine Estimated GFR BUN/Creatinine Ratio Glucose POC Glucose 112 H Calcium
--- NOTE | 2016-09-10 09:58 | Progress Note ---
Assessment and Plan 71 y/o female with severe anemia, etiology unknown, coagulopathy, renal failure and acute respiratory failure with altered sensorium and GPC's in pairs. 1. H/H appears stable now. Concern is about platelets. Recheck again tomorrow. No active signs of bleeding. If lower may need to check HIT. Likely getting heparin with HD 2. WBC elevated, trending down. Still no fever. Off all abx therapy. Will continue to monitor. May need differential on CBC 3. HD per renal, likely tomorrow 4. Hold on any further transfusions for now. Transfuse if less than 7 5. Still alkalotic, will decrease TV as patient is breathing over the decrease rate from yesterday. 6. Overall prognosis is guarded. More alert today, currently on PSV trial and tolerating. Will obtain blood gas and reevaluate. CCT 31 minutes. Subjective Date of service: 09/10/16 Principal diagnosis: GI bleed Interval history: No acute events overnight. Awake but still somewhat sleepy. I think the patient is scheduled for HD today. H/H is stable Objective Vital Signs - 12hr 09/09/16 09/09/16 09/09/16 22:00 22:31 23:01 Temperature Pulse Rate 70 70 70 Pulse Rate [ From Monitor] Respiratory 14 14 16 Rate Blood Pressure 120/51 155/52 115/49 O2 Sat by Pulse 97 96 Oximetry 09/09/16 09/09/16 09/10/16 23:30 23:57 00:00 Temperature 98.8 F Pulse Rate 70 70 Pulse Rate [ 70 From Monitor] Respiratory 15 14 Rate Blood Pressure 125/54 118/46 O2 Sat by Pulse 91 97 Oximetry 09/10/16 09/10/16 09/10/16 00:01 00:31 01:00 Temperature Pulse Rate 70 72 70 Pulse Rate [ From Monitor] Respiratory 16 15 21 Rate Blood Pressure 125/54 118/46 130/58 O2 Sat by Pulse 93 99 Oximetry 09/10/16 09/10/16 09/10/16 01:30 02:00 02:30 Temperature Pulse Rate 70 70 69 Pulse Rate [ From Monitor] Respiratory 16 14 17 Rate Blood Pressure 123/51 109/48 112/48 O2 Sat by Pulse 97 100 48 L Oximetry 09/10/16 09/10/16 09/10/16 03:01 03:30 04:00 Temperature 99.9 F H Pulse Rate 70 70 70 Pulse Rate [ 70 From Monitor] Respiratory 16 14 15 Rate Blood Pressure 98/53 111/45 104/41 O2 Sat by Pulse 100 92 100 Oximetry 09/10/16 09/10/16 09/10/16 04:29 04:30 05:00 Temperature Pulse Rate 70 72 69 Pulse Rate [ From Monitor] Respiratory 14 14 Rate Blood Pressure 111/45 97/44 105/58 O2 Sat by Pulse 100 98 100 Oximetry 09/10/16 09/10/16 09/10/16 05:30 06:00 06:30 Temperature Pulse Rate 69 70 71 Pulse Rate [ From Monitor] Respiratory 14 15 21 Rate Blood Pressure 93/37 93/41 105/48 O2 Sat by Pulse 100 100 100 Oximetry 09/10/16 09/10/16 09/10/16 07:00 07:30 07:51 Temperature Pulse Rate 70 70 70 Pulse Rate [ From Monitor] Respiratory 14 15 Rate Blood Pressure 108/42 104/37 104/37 O2 Sat by Pulse 100 100 100 Oximetry 09/10/16 09/10/16 09/10/16 07:56 08:00 08:31 Temperature 99.1 F Pulse Rate 70 70 70 Pulse Rate [ 70 From Monitor] Respiratory 17 21 Rate Blood Pressure 104/37 102/42 102/42 O2 Sat by Pulse 100 100 99 Oximetry 09/10/16 09:01 Temperature Pulse Rate 70 Pulse Rate [ From Monitor] Respiratory 15 Rate Blood Pressure 96/37 O2 Sat by Pulse 100 Oximetry Constitutional: alert, other (orally intubated and critically ill on vent) ENT: other (orally intubated) Neck: supple Ascultation: Bilateral: clear (anteriorly) Percussion: Bilateral: not dull Cardiovascular: regular rate and rhythm, other (100% paced at this moment ) Gastrointestinal: normoactive bowel sounds Neurologic: non-focal exam Psychiatric: mood appropriate CBC and BMP: 09/10/16 03:00 09/10/16 03:00 ABG, PT/INR, D-dimer: ABG POC ABG pH 7.521 (7.35-7.45) H 09/10/16 04:29 POC ABG pCO2 36.9 (35-45) 09/10/16 04:29 POC ABG pO2 101 (80-105) 09/10/16 04:29 POC ABG HCO3 30.2 09/10/16 04:29 POC ABG Total CO2 31 09/10/16 04:29 POC ABG O2 Sat 98 09/10/16 04:29 PT/INR, D-dimer PT 19.9 Sec. (12.2-14.9) H 09/07/16 11:02 INR 1.69 (0.87-1.13) H 09/07/16 11:02 Abnormal lab findings: Abnormal Labs 09/06/16 09/06/16 09/06/16 12:51 12:51 15:57 WBC RBC Hgb Hct RDW Plt Count Lymph % (Auto) Lymph # [place] # Seg Neutrophils % Seg Neuts % (Manual) Lymphocytes % (Manual) Nucleated RBC % Seg Neutrophils # Seg Neutrophils # Man Lymphocytes # (Manual) Monocytes # (Manual) PT INR POC ABG pH POC ABG pCO2 POC ABG pO2 Potassium 6.4 H* 6.7 H* Chloride 95.9 L Carbon Dioxide 21 L 19 L BUN 109 H 111 H Creatinine 10.5 H 10.1 H Glucose 133 H 178 H POC Glucose Lactic Acid Calcium Phosphorus Ammonia CK-MB (CK-2) Rel Index Troponin T NT-Pro-B Natriuret Pep 68852 H Total Protein Albumin Cholesterol LDL Cholesterol Direct HDL Cholesterol 09/06/16 09/06/16 09/06/16 15:57 19:06 19:06 WBC RBC Hgb 6.3 L Hct 19.3 L* RDW Plt Count Lymph % (Auto) Lymph # [place] # Seg Neutrophils % Seg Neuts % (Manual) Lymphocytes % (Manual) Nucleated RBC % Seg Neutrophils # Seg Neutrophils # Man Lymphocytes # (Manual) Monocytes # (Manual) PT INR POC ABG pH POC ABG pCO2 POC ABG pO2 Potassium 3.3 L D Chloride 96.0 L Carbon Dioxide BUN 30 H Creatinine 2.8 H D Glucose 154 H POC Glucose Lactic Acid 2.80 H* Calcium Phosphorus Ammonia CK-MB (CK-2) Rel Index Troponin T NT-Pro-B Natriuret Pep Total Protein Albumin Cholesterol LDL Cholesterol Direct HDL Cholesterol 09/06/16 09/06/16 09/06/16 Unknown Unknown Unknown WBC RBC Hgb Hct RDW Plt Count Lymph % (Auto) Lymph # [place] # Seg Neutrophils % Seg Neuts % (Manual) Lymphocytes % (Manual) Nucleated RBC % Seg Neutrophils # Seg Neutrophils # Man Lymphocytes # (Manual) Monocytes # (Manual) PT INR POC ABG pH POC ABG pCO2 POC ABG pO2 Potassium 6.4 H* Chloride 93.0 L Carbon Dioxide 21 L BUN 109 H Creatinine 10.4 H Glucose 197 H POC Glucose Lactic Acid 6.20 H* Calcium Phosphorus 5.20 H Ammonia CK-MB (CK-2) Rel Index 7.5 H Troponin T 0.210 H* NT-Pro-B Natriuret Pep 65291 H Total Protein 5.3 L Albumin 2.8 L Cholesterol 37 L LDL Cholesterol Direct 14 L HDL Cholesterol 16 L 09/06/16 09/07/16 09/07/16 Unknown 00:13 05:30 WBC RBC Hgb Hct RDW Plt Count Lymph % (Auto) Lymph # [place] # Seg Neutrophils % Seg Neuts % (Manual) Lymphocytes % (Manual) Nucleated RBC % Seg Neutrophils # Seg Neutrophils # Man Lymphocytes # (Manual) Monocytes # (Manual) PT 31.0 H INR 2.96 H POC ABG pH 7.570 H POC ABG pCO2 31.7 L POC ABG pO2 183 H Potassium Chloride Carbon Dioxide BUN Creatinine Glucose POC Glucose Lactic Acid Calcium Phosphorus Ammonia 102.0 H CK-MB (CK-2) Rel Index Troponin T NT-Pro-B Natriuret Pep Total Protein Albumin Cholesterol LDL Cholesterol Direct HDL Cholesterol 09/07/16 09/07/16 09/07/16 05:50 11:02 11:02 WBC 25.7 H RBC 2.83 L Hgb 8.5 L Hct 26.0 L D RDW 17.5 H Plt Count Lymph % (Auto) Lymph # [place] # Seg Neutrophils % Seg Neuts % (Manual) 96.0 H Lymphocytes % (Manual) 2.0 L Nucleated RBC % 1.0 H Seg Neutrophils # Seg Neutrophils # Man 24.7 H Lymphocytes # (Manual) 0.5 L Monocytes # (Manual) PT INR POC ABG pH POC ABG pCO2 POC ABG pO2 Potassium Chloride Carbon Dioxide BUN 54 H Creatinine 5.6 H D Glucose 138 H POC Glucose 149 H Lactic Acid Calcium Phosphorus Ammonia CK-MB (CK-2) Rel Index Troponin T NT-Pro-B Natriuret Pep Total Protein Albumin Cholesterol LDL Cholesterol Direct HDL Cholesterol 09/07/16 09/07/16 09/07/16 11:02 14:02 17:01 WBC RBC Hgb Hct RDW Plt Count Lymph % (Auto) Lymph # [place] # Seg Neutrophils % Seg Neuts % (Manual) Lymphocytes % (Manual) Nucleated RBC % Seg Neutrophils # Seg Neutrophils # Man Lymphocytes # (Manual) Monocytes # (Manual) PT 19.9 H INR 1.69 H POC ABG pH POC ABG pCO2 POC ABG pO2 Potassium Chloride Carbon Dioxide BUN Creatinine Glucose POC Glucose 149 H Lactic Acid Calcium Phosphorus Ammonia CK-MB (CK-2) Rel Index Troponin T 0.190 H* NT-Pro-B Natriuret Pep Total Protein Albumin Cholesterol LDL Cholesterol Direct HDL Cholesterol 09/07/16 09/07/16 09/08/16 17:50 23:50 05:19 WBC RBC Hgb Hct RDW Plt Count Lymph % (Auto) Lymph # [place] # Seg Neutrophils % Seg Neuts % (Manual) Lymphocytes % (Manual) Nucleated RBC % Seg Neutrophils # Seg Neutrophils # Man Lymphocytes # (Manual) Monocytes # (Manual) PT INR POC ABG pH 7.530 H POC ABG pCO2 32.2 L POC ABG pO2 Potassium Chloride Carbon Dioxide BUN Creatinine Glucose POC Glucose 126 H 128 H Lactic Acid Calcium Phosphorus Ammonia CK-MB (CK-2) Rel Index Troponin T NT-Pro-B Natriuret Pep Total Protein Albumin Cholesterol LDL Cholesterol Direct HDL Cholesterol 09/08/16 09/08/16 09/08/16 05:25 07:35 07:35 WBC 26.6 H RBC 2.79 L Hgb 8.3 L Hct 25.9 L RDW 18.0 H Plt Count 139 L Lymph % (Auto) Lymph # [place] # Seg Neutrophils % Seg Neuts % (Manual) 93.0 H Lymphocytes % (Manual) 5.0 L Nucleated RBC % Seg Neutrophils # Seg Neutrophils # Man 24.7 H Lymphocytes # (Manual) Monocytes # (Manual) PT INR POC ABG pH POC ABG pCO2 POC ABG pO2 Potassium Chloride Carbon Dioxide BUN 65 H Creatinine 6.7 H Glucose 120 H POC Glucose 130 H Lactic Acid Calcium Phosphorus Ammonia CK-MB (CK-2) Rel Index Troponin T NT-Pro-B Natriuret Pep Total Protein 5.2 L Albumin 2.7 L Cholesterol LDL Cholesterol Direct HDL Cholesterol 09/08/16 09/08/16 09/09/16 11:47 18:10 05:27 WBC RBC Hgb Hct RDW Plt Count Lymph % (Auto) Lymph # [place] # Seg Neutrophils % Seg Neuts % (Manual) Lymphocytes % (Manual) Nucleated RBC % Seg Neutrophils # Seg Neutrophils # Man Lymphocytes # (Manual) Monocytes # (Manual) PT INR POC ABG pH POC ABG pCO2 POC ABG pO2 Potassium Chloride Carbon Dioxide BUN Creatinine Glucose POC Glucose 141 H 139 H 152 H Lactic Acid Calcium Phosphorus Ammonia CK-MB (CK-2) Rel Index Troponin T NT-Pro-B Natriuret Pep Total Protein Albumin Cholesterol LDL Cholesterol Direct HDL Cholesterol 09/09/16 09/09/16 09/09/16 05:28 05:30 05:30 WBC 22.3 H RBC 2.66 L Hgb 7.8 L Hct 24.6 L RDW 19.1 H Plt Count 118 L Lymph % (Auto) Lymph # [place] # Seg Neutrophils % Seg Neuts % (Manual) 89.0 H Lymphocytes % (Manual) 5.0 L Nucleated RBC % Seg Neutrophils # Seg Neutrophils # Man 19.8 H Lymphocytes # (Manual) 1.1 L Monocytes # (Manual) 1.3 H PT INR POC ABG pH 7.560 H POC ABG pCO2 34.2 L POC ABG pO2 Potassium 3.2 L D Chloride Carbon Dioxide BUN 34 H Creatinine 4.3 H Glucose 144 H POC Glucose Lactic Acid Calcium 8.0 L Phosphorus Ammonia CK-MB (CK-2) Rel Index Troponin T NT-Pro-B Natriuret Pep Total Protein Albumin Cholesterol LDL Cholesterol Direct HDL Cholesterol 09/09/16 09/09/16 09/09/16 12:01 14:56 15:30 WBC RBC Hgb Hct RDW Plt Count Lymph % (Auto) Lymph # [place] # Seg Neutrophils % Seg Neuts % (Manual) Lymphocytes % (Manual) Nucleated RBC % Seg Neutrophils # Seg Neutrophils # Man Lymphocytes # (Manual) Monocytes # (Manual) PT INR POC ABG pH 7.582 H 7.543 H POC ABG pCO2 32.1 L POC ABG pO2 42 L Potassium Chloride Carbon Dioxide BUN Creatinine Glucose POC Glucose 178 H Lactic Acid Calcium Phosphorus Ammonia CK-MB (CK-2) Rel Index Troponin T NT-Pro-B Natriuret Pep Total Protein Albumin Cholesterol LDL Cholesterol Direct HDL Cholesterol 09/09/16 09/09/16 09/10/16 18:08 23:36 03:00 WBC 19.9 H RBC 2.73 L Hgb 8.0 L Hct 25.4 L RDW 19.0 H Plt Count 89 L Lymph % (Auto) 4.9 L Lymph # 1.0 L [place] # 1.1 H Seg Neutrophils % 88.9 H Seg Neuts % (Manual) Lymphocytes % (Manual) Nucleated RBC % Seg Neutrophils # 17.7 H Seg Neutrophils # Man Lymphocytes # (Manual) Monocytes # (Manual) PT INR POC ABG pH POC ABG pCO2 POC ABG pO2 Potassium Chloride Carbon Dioxide BUN Creatinine Glucose POC Glucose 147 H 173 H Lactic Acid Calcium Phosphorus Ammonia CK-MB (CK-2) Rel Index Troponin T NT-Pro-B Natriuret Pep Total Protein Albumin Cholesterol LDL Cholesterol Direct HDL Cholesterol 09/10/16 09/10/16 03:00 04:29 WBC RBC Hgb Hct RDW Plt Count Lymph % (Auto) Lymph # [place] # Seg Neutrophils % Seg Neuts % (Manual) Lymphocytes % (Manual) Nucleated RBC % Seg Neutrophils # Seg Neutrophils # Man Lymphocytes # (Manual) Monocytes # (Manual) PT INR POC ABG pH 7.521 H POC ABG pCO2 POC ABG pO2 Potassium 3.4 L Chloride 95.9 L Carbon Dioxide BUN 46 H Creatinine 5.9 H Glucose POC Glucose Lactic Acid Calcium Phosphorus Ammonia CK-MB (CK-2) Rel Index Troponin T NT-Pro-B Natriuret Pep Total Protein Albumin Cholesterol LDL Cholesterol Direct HDL Cholesterol Chest x-ray: image reviewed (cardiomegaly with possible small effusion)
[2016-09-10 10:42] LABS: Hematocrit 23.4 % (30.3-42.9); Hemoglobin 7.7 gm/dl (10.1-14.3)
[2016-09-10 11:33] LABS: Hematocrit 23.7 % (30.3-42.9); Hemoglobin 7.6 gm/dl (10.1-14.3); Mean Corpuscular HGB Conc 32 % (30-34); Mean Corpuscular Hemoglobin 30 pg (28-32); Mean Corpuscular Volume 93 fl (79-97); Platelet Count 84 K/mm3 (140-440); Red Blood Count 2.55 M/mm3 (3.65-5.03); Red Cell Distribution Width 18.9 % (13.2-15.2); White Blood Count 7.1 K/mm3 (4.5-11.0)
--- NOTE | 2016-09-10 11:44 | Progress Note ---
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 Diabetes mellitus type 2 Thrombocytopenia - Patient is intubated and on pressure support - Blood pressure is holding now - She was transfused with 4 units of blood and last hemoglobin is 7.7 - HIT workup, held heparin products - EGD was done, no active bleeding,Patient has maroon colored stool over night and GI may do colonoscopy - Nephrology consulted and patient gets hemodialysis - Hyperkalemia resolved - Sliding-scale insulin - INR trended down Prognosis: Guarded DVT Prophylaxis - SCD Disposition - Continue ICU care The high probability of a clinically significant, sudden or life threatening deterioration of the [CV, Neurology, reneal] system(s) required my full and direct attention, intervention and personal management. The aggregate critical care time was [31] minutes. This time is in addition to time spent performing reported procedures but includes the following: [x] Data Review and interpretation [x] Patient assessment and monitoring of vital signs [x] Documentation [x] Medication orders and management. History Interval history: Patient was seen and evaluated this morning, she is awake and open her eyes, intubated and on CPAP Hospitalist Physical - Physical exam Narrative exam: patient is awake and able to open her eyes, Intubated and on pressure support The patient appeared well nourished and normally developed. Vital signs as documented. Head exam is unremarkable. No scleral icterus . Neck is without jugular venous distension, thyromegaly, or carotid bruits. Lungs are clear to auscultation. Cardiac exam reveals regular rate and Rhythm. Abdominal exam reveals normal bowel sounds, no masses, no organomegaly and no aortic enlargement. 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 RHEOLOGIST: Alert. - Constitutional Vitals: Temp Pulse Resp BP Pulse Ox 99.1 F 70 19 101/44 100 09/10/16 09:45 09/10/16 11:30 09/10/16 11:00 09/10/16 11:30 09/10/16 11:00 General appearance: Present: no acute distress, other (intubated) Results - Labs CBC & Chem 7: 09/10/16 10:09 09/10/16 03:00 Labs: Laboratory Last Values WBC 7.1 K/mm3 (4.5-11.0) 09/10/16 10:00 RBC 2.55 M/mm3 (3.65-5.03) L 09/10/16 10:00 Hgb 7.7 gm/dl (10.1-14.3) L 09/10/16 10:09 Hct 23.4 % (30.3-42.9) L 09/10/16 10:09 MCV 93 fl (79-97) 09/10/16 10:00 MCH 30 pg (28-32) 09/10/16 10:00 MCHC 32 % (30-34) 09/10/16 10:00 RDW 18.9 % (13.2-15.2) H 09/10/16 10:00 Plt Count 84 K/mm3 (140-440) L 09/10/16 10:00 Lymph % (Auto) 4.9 % (13.4-35.0) L 09/10/16 03:00 [place] % (Auto) 5.5 % (0.0-7.3) 09/10/16 03:00 Eos % (Auto) 0.4 % (0.0-4.3) 09/10/16 03:00 Baso % (Auto) 0.3 % (0.0-1.8) 09/10/16 03:00 Lymph # 1.0 K/mm3 (1.2-5.4) L 09/10/16 03:00 [place] # 1.1 K/mm3 (0.0-0.8) H 09/10/16 03:00 Eos # 0.1 K/mm3 (0.0-0.4) 09/10/16 03:00 Baso # 0.1 K/mm3 (0.0-0.1) 09/10/16 03:00 Add Manual Diff Complete 09/09/16 05:30 Total Counted 100 09/09/16 05:30 Seg Neutrophils % 88.9 % (40.0-70.0) H 09/10/16 03:00 Seg Neuts % (Manual) 89.0 % (40.0-70.0) H 09/09/16 05:30 Band Neutrophils % 0 % 09/09/16 05:30 Lymphocytes % (Manual) 5.0 % (13.4-35.0) L 09/09/16 05:30 Reactive Lymphs % (Man) 0 % 09/09/16 05:30 Monocytes % (Manual) 6.0 % (0.0-7.3) 09/09/16 05:30 Eosinophils % (Manual) 0 % (0.0-4.3) 09/09/16 05:30 Basophils % (Manual) 0 % (0.0-1.8) 09/09/16 05:30 Metamyelocytes % 0 % 09/09/16 05:30 Myelocytes % 0 % 09/09/16 05:30 Promyelocytes % 0 % 09/09/16 05:30 Blast Cells % 0 % 09/09/16 05:30 Nucleated RBC % Not Reportable 09/09/16 05:30 Seg Neutrophils # 17.7 K/mm3 (1.8-7.7) H 09/10/16 03:00 Seg Neutrophils # Man 19.8 K/mm3 (1.8-7.7) H 09/09/16 05:30 Band Neutrophils # 0.0 K/mm3 09/09/16 05:30 Lymphocytes # (Manual) 1.1 K/mm3 (1.2-5.4) L 09/09/16 05:30 Abs React Lymphs (Man) 0.0 K/mm3 09/09/16 05:30 Monocytes # (Manual) 1.3 K/mm3 (0.0-0.8) H 09/09/16 05:30 Eosinophils # (Manual) 0.0 K/mm3 (0.0-0.4) 09/09/16 05:30 Basophils # (Manual) 0.0 K/mm3 (0.0-0.1) 09/09/16 05:30 Metamyelocytes # 0.0 K/mm3 09/09/16 05:30 Myelocytes # 0.0 K/mm3 09/09/16 05:30 Promyelocytes # 0.0 K/mm3 09/09/16 05:30 Blast Cells # 0.0 K/mm3 09/09/16 05:30 WBC Morphology Not Reportable 09/09/16 05:30 Hypersegmented Neuts Not Reportable 09/09/16 05:30 Hyposegmented Neuts Not Reportable 09/09/16 05:30 Hypogranular Neuts Not Reportable 09/09/16 05:30 Smudge Cells Not Reportable 09/09/16 05:30 Toxic Granulation Not Reportable 09/09/16 05:30 Toxic Vacuolation Not Reportable 09/09/16 05:30 Dohle Bodies Not Reportable 09/09/16 05:30 Pelger-Huet Anomaly Not Reportable 09/09/16 05:30 Juan Rods Not Reportable 09/09/16 05:30 Platelet Estimate Consistent w auto 09/09/16 05:30 Clumped Platelets Not Reportable 09/09/16 05:30 Plt Clumps, EDTA Not Reportable 09/09/16 05:30 Large Platelets Not Reportable 09/09/16 05:30 Giant Platelets Not Reportable 09/09/16 05:30 Platelet Satelliting Not Reportable 09/09/16 05:30 Plt Morphology Comment Not Reportable 09/09/16 05:30 RBC Morphology Not Reportable 09/09/16 05:30 Dimorphic RBCs Not Reportable 09/09/16 05:30 Polychromasia 1+ 09/09/16 05:30 Hypochromasia 1+ 09/09/16 05:30 Poikilocytosis Not Reportable 09/09/16 05:30 Anisocytosis 1+ 09/09/16 05:30 Microcytosis Not Reportable 09/09/16 05:30 Macrocytosis Not Reportable 09/09/16 05:30 Spherocytes Not Reportable 09/09/16 05:30 Pappenheimer Bodies Not Reportable 09/09/16 05:30 Sickle Cells Not Reportable 09/09/16 05:30 Target Cells Not Reportable 09/09/16 05:30 Tear Drop Cells Not Reportable 09/09/16 05:30 Ovalocytes Not Reportable 09/09/16 05:30 Stomatocytes Few 09/08/16 07:35 Helmet Cells Not Reportable 09/09/16 05:30 [place] Bodies Not Reportable 09/09/16 05:30 [place] Rings Not Reportable 09/09/16 05:30 [place] Cells Not Reportable 09/09/16 05:30 Bite Cells Not Reportable 09/09/16 05:30 Crenated Cell Not Reportable 09/09/16 05:30 Elliptocytes Not Reportable 09/09/16 05:30 Acanthocytes (Spur) Not Reportable 09/09/16 05:30 Rouleaux Not Reportable 09/09/16 05:30 Hemoglobin C Crystals Not Reportable 09/09/16 05:30 Schistocytes Rare 09/09/16 05:30 Malaria parasites Not Reportable 09/09/16 05:30 Yair Bodies Not Reportable 09/09/16 05:30 Hem Pathologist Commnt No 09/09/16 05:30 PT 19.9 Sec. (12.2-14.9) H 09/07/16 11:02 INR 1.69 (0.87-1.13) H 09/07/16 11:02 POC ABG pH 7.521 (7.35-7.45) H 09/10/16 04:29 POC ABG pCO2 36.9 (35-45) 09/10/16 04:29 POC ABG pO2 101 (80-105) 09/10/16 04:29 POC ABG HCO3 30.2 09/10/16 04:29 POC ABG Total CO2 31 09/10/16 04:29 POC ABG O2 Sat 98 09/10/16 04:29 POC ABG Base Excess 7 09/10/16 04:29 VBG pH 7.418 (7.320-7.420) 09/06/16 Unknown FiO2 35 % 09/10/16 04:29 Sodium 139 mmol/L (137-145) 09/10/16 03:00 Potassium 3.4 mmol/L (3.6-5.0) L 09/10/16 03:00 Chloride 95.9 mmol/L (98-107) L 09/10/16 03:00 Carbon Dioxide 28 mmol/L (22-30) 09/10/16 03:00 Anion Gap 19 mmol/L 09/10/16 03:00 BUN 46 mg/dL (7-17) H 09/10/16 03:00 Creatinine 5.9 mg/dL (0.7-1.2) H 09/10/16 03:00 Estimated GFR 9 ml/min 09/10/16 03:00 BUN/Creatinine Ratio 7.79 % 09/10/16 03:00 Glucose 96 mg/dL (65-100) 09/10/16 03:00 POC Glucose 72 (70-105) 09/10/16 05:47 Lactic Acid 1.00 mmol/L (0.7-2.0) 09/07/16 17:01 Calcium 8.5 mg/dL (8.4-10.2) 09/10/16 03:00 Phosphorus 5.20 mg/dL (2.5-4.5) H 09/06/16 Unknown Magnesium 2.20 mg/dL (1.7-2.3) 09/06/16 Unknown Total Bilirubin 1.10 mg/dL (0.1-1.2) 09/08/16 07:35 AST 25 units/L (5-40) 09/08/16 07:35 ALT 15 units/L (7-56) 09/08/16 07:35 Alkaline Phosphatase 77 units/L (35-129) 09/08/16 07:35 Ammonia 102.0 umol/L (25-60) H 09/06/16 Unknown Total Creatine Kinase 40 units/L (30-135) 09/06/16 Unknown CK-MB (CK-2) 3.0 ng/mL (0.0-4.0) 09/06/16 Unknown CK-MB (CK-2) Rel Index 7.5 (0-4) H 09/06/16 Unknown Troponin T 0.190 ng/mL (0.00-0.029) H* 09/07/16 17:01 NT-Pro-B Natriuret Pep 61184 pg/mL (0-900) H 09/06/16 Unknown Total Protein 5.2 g/dL (6.3-8.2) L 09/08/16 07:35 Albumin 2.7 g/dL (3.9-5) L 09/08/16 07:35 Albumin/Globulin Ratio 1.1 % 09/08/16 07:35 Triglycerides 38 mg/dL (2-149) 09/06/16 Unknown Cholesterol 37 mg/dL (50-199) L 09/06/16 Unknown LDL Cholesterol Direct 14 mg/dL (50-130) L 09/06/16 Unknown HDL Cholesterol 16 mg/dL (40-59) L 09/06/16 Unknown Cholesterol/HDL Ratio 2.31 % 09/06/16 Unknown Random Vancomycin 10.9 ug/mL (0-40.0) 09/08/16 07:35 Blood Type A POSITIVE 09/06/16 12:08 Antibody Screen TNR 09/06/16 12:08 JOSEFA Antibody Screen Negative 09/06/16 12:08 Crossmatch See Detail 09/06/16 12:08
[2016-09-10] MEDS: PEPCID PO SCH (13:38)
[2016-09-10] MEDS: NORCO 5/325 PO PRN (14:41)
--- NOTE | 2016-09-10 22:30 | Progress Note ---
Subjective Principal diagnosis: GI bleed Interval history: Patient was seen today for follow-up on multiple renal related issues she was seen for evaluation around 745 Events noted No acute distress Vitals labs intake output medications reviewed Social history: Reviewed Family history: Reviewed Physical examination Vitals: Reviewed HEENT: Oral mucosa moist Neck: Supple no JVD Chest: Clear to auscultation no crackles Heart: Regular rate and rhythm S1 and S2 heard Abdomen: Soft nontender bowel sounds present Extremity: Mild edema dry skin Dermatology; dry skin Psychiatry: No evidence of agitation or aggression Assessment and plan; End-stage renal disease patient is currently on maintenance hemodialysis she will continue to dialyze on Tuesday schedule hyperkalemia has been corrected Secondary hyperparathyroidism to follow Severe anemia resulting from blood loss due to GI bleed to monitor and follow, no active signs of bleeding per GI on proton pump inhibitor Current hemoglobin 7.8/noted to have abnormal troponin She is hemodynamically stableWill follow in the morning Respiratory failure currently on mechanical ventilation Coagulopathy in a patient who has been on anticoagulation Atrial fibrillation, being followed by primary team Elevated white cell count/currently being followed by ICU team Periodically monitor renal related labs We'll continue to follow and make recommendation from renal standpoin Objective - Vital Signs Vital signs: Vital Signs - 12hr 09/10/16 09/10/16 09/10/16 10:30 10:45 11:00 Temperature Pulse Rate 70 70 69 Respiratory 18 19 Rate Blood Pressure 115/42 115/42 109/49 O2 Sat by Pulse 100 100 Oximetry O2 Sat by Pulse Oximetry [ Anterior Bilateral Throughout] 09/10/16 09/10/16 09/10/16 11:16 11:30 11:40 Temperature Pulse Rate 70 70 70 Respiratory 18 20 Rate Blood Pressure 109/49 113/39 113/39 O2 Sat by Pulse 99 98 Oximetry O2 Sat by Pulse Oximetry [ Anterior Bilateral Throughout] 09/10/16 09/10/16 09/10/16 11:45 12:00 12:15 Temperature 98.1 F Pulse Rate 70 69 70 Respiratory 18 Rate Blood Pressure 103/36 101/43 100/40 O2 Sat by Pulse 97 Oximetry O2 Sat by Pulse Oximetry [ Anterior Bilateral Throughout] 09/10/16 09/10/16 09/10/16 12:30 12:45 13:00 Temperature Pulse Rate 70 70 70 Respiratory 19 Rate Blood Pressure 102/43 116/47 102/43 O2 Sat by Pulse 94 Oximetry O2 Sat by Pulse Oximetry [ Anterior Bilateral Throughout] 09/10/16 09/10/16 09/10/16 13:01 13:30 13:31 Temperature 98.1 F Pulse Rate 70 70 70 Respiratory 24 20 19 Rate Blood Pressure 125/49 114/40 107/47 O2 Sat by Pulse 90 98 Oximetry O2 Sat by Pulse 100 Oximetry [ Anterior Bilateral Throughout] 09/10/16 09/10/16 09/10/16 14:00 14:30 15:00 Temperature Pulse Rate 70 70 70 Respiratory 18 17 16 Rate Blood Pressure 128/46 120/42 107/38 O2 Sat by Pulse 100 94 96 Oximetry O2 Sat by Pulse Oximetry [ Anterior Bilateral Throughout] 09/10/16 09/10/16 09/10/16 15:14 15:30 16:00 Temperature 99.0 F Pulse Rate 70 70 Respiratory 15 17 Rate Blood Pressure 107/38 97/38 O2 Sat by Pulse 99 100 Oximetry O2 Sat by Pulse Oximetry [ Anterior Bilateral Throughout] 09/10/16 09/10/16 09/10/16 16:01 16:30 17:00 Temperature Pulse Rate 70 70 70 Respiratory 20 22 20 Rate Blood Pressure 104/44 93/40 106/41 O2 Sat by Pulse 100 97 100 Oximetry O2 Sat by Pulse Oximetry [ Anterior Bilateral Throughout] 09/10/16 09/10/16 09/10/16 17:21 17:30 18:00 Temperature Pulse Rate 70 70 70 Respiratory 14 15 Rate Blood Pressure 106/41 121/48 124/43 O2 Sat by Pulse 100 Oximetry O2 Sat by Pulse Oximetry [ Anterior Bilateral Throughout] 09/10/16 09/10/16 20:00 21:10 Temperature 99.5 F Pulse Rate 70 Respiratory Rate Blood Pressure 127/43 O2 Sat by Pulse 98 Oximetry O2 Sat by Pulse Oximetry [ Anterior Bilateral Throughout] - Lab 09/10/16 10:09 09/10/16 03:00 Most recent lab results Calcium 8.5 mg/dL (8.4-10.2) 09/10/16 03:00 Phosphorus 5.20 mg/dL (2.5-4.5) H 09/06/16 Unknown Magnesium 2.20 mg/dL (1.7-2.3) 09/06/16 Unknown
[2016-09-11 05:45] LABS: ISTAT Base Excess 7; ISTAT HCO3 29.4; ISTAT PCO2 32.4 (35-45); ISTAT PH 7.565 (7.35-7.45); ISTAT PO2 126 (80-105); ISTAT SO2 99; ISTAT TCO2 30
[2016-09-11 07:16] LABS: Basophils % (Auto) 0.2 % (0.0-1.8); Eosinophils % (Auto) 1.1 % (0.0-4.3); Hematocrit 24.4 % (30.3-42.9); Hemoglobin 7.6 gm/dl (10.1-14.3); Mean Corpuscular HGB Conc 31 % (30-34); Mean Corpuscular Hemoglobin 29 pg (28-32); Mean Corpuscular Volume 94 fl (79-97); Red Blood Count 2.61 M/mm3 (3.65-5.03); Red Cell Distribution Width 18.4 % (13.2-15.2); White Blood Count 19.9 K/mm3 (4.5-11.0)
[2016-09-11 07:18] LABS: Platelet Count 97 K/mm3 (140-440)
[2016-09-11 07:38] LABS: BUN/Creatinine Ratio 7.61; Chloride 98.1 mmol/L (98-107); Potassium 3.3 mmol/L (3.6-5.0)
--- NOTE | 2016-09-11 08:53 | Gastroenterology Progress Note ---
Assessment and Plan GI: no signs bleeding overnight, h/h stable - recent EGD benign - consider colonoscopy if signs active bleeding - no changes at this time, will follow Subjective Date of service: 09/11/16 Principal diagnosis: GI bleed Interval history: - no GI issues including bleeding overnight per staff Objective - Constitutional Vitals: Temp Pulse Resp BP Pulse Ox 99.4 F 70 21 111/44 100 09/11/16 03:26 09/11/16 08:11 09/11/16 08:11 09/11/16 08:11 09/11/16 08:11 General appearance: no acute distress - Respiratory Respiratory: bilateral: CTA - Cardiovascular Rhythm: regular Heart Sounds: Present: S1 & S2 - Gastrointestinal General gastrointestinal: Present: soft, non-tender - Labs CBC & Chem 7: 09/11/16 07:07 09/11/16 07:07 Labs: Laboratory Results - last 24 hr 09/10/16 09/10/16 09/10/16 10:00 10:09 12:06 WBC 7.1 RBC 2.55 L Hgb 7.6 L 7.7 L Hct 23.7 L 23.4 L MCV 93 MCH 30 MCHC 32 RDW 18.9 H Plt Count 84 L Lymph % (Auto) [place] % (Auto) Eos % (Auto) Baso % (Auto) Lymph # [place] # Eos # Baso # Seg Neutrophils % Seg Neutrophils # POC ABG pH POC ABG pCO2 POC ABG pO2 POC ABG HCO3 POC ABG Total CO2 POC ABG O2 Sat POC ABG Base Excess FiO2 Sodium Potassium Chloride Carbon Dioxide Anion Gap BUN Creatinine Estimated GFR BUN/Creatinine Ratio Glucose POC Glucose 112 H Calcium 09/10/16 09/11/16 09/11/16 17:58 00:01 05:13 WBC RBC Hgb Hct MCV MCH MCHC RDW Plt Count Lymph % (Auto) [place] % (Auto) Eos % (Auto) Baso % (Auto) Lymph # [place] # Eos # Baso # Seg Neutrophils % Seg Neutrophils # POC ABG pH POC ABG pCO2 POC ABG pO2 POC ABG HCO3 POC ABG Total CO2 POC ABG O2 Sat POC ABG Base Excess FiO2 Sodium Potassium Chloride Carbon Dioxide Anion Gap BUN Creatinine Estimated GFR BUN/Creatinine Ratio Glucose POC Glucose 165 H 196 H 187 H Calcium 09/11/16 09/11/16 09/11/16 05:28 07:07 07:07 WBC 19.9 H RBC 2.61 L Hgb 7.6 L Hct 24.4 L MCV 94 MCH 29 MCHC 31 RDW 18.4 H Plt Count 97 L Lymph % (Auto) 4.8 L [place] % (Auto) 6.5 Eos % (Auto) 1.1 Baso % (Auto) 0.2 Lymph # 0.9 L [place] # 1.3 H Eos # 0.2 Baso # 0.0 Seg Neutrophils % 87.4 H Seg Neutrophils # 17.4 H POC ABG pH 7.565 H POC ABG pCO2 32.4 L POC ABG pO2 126 H POC ABG HCO3 29.4 POC ABG Total CO2 30 POC ABG O2 Sat 99 POC ABG Base Excess 7 FiO2 30 Sodium 138 Potassium 3.3 L Chloride 98.1 Carbon Dioxide 27 Anion Gap 16 BUN 32 H Creatinine 4.2 H Estimated GFR 13 BUN/Creatinine Ratio 7.61 Glucose 196 H POC Glucose Calcium 8.0 L
[2016-09-11] MEDS: NORCO 5/325 PO PRN ×2 (08:56→15:30)
[2016-09-11] MEDS: PEPCID PO SCH (09:00)
--- NOTE | 2016-09-11 09:50 | XRay Report ---
AP CHEST :09/11/16 01:55 CLINICAL: Intubated.Follow up respiratory failure. COMPARISON:09/10/16 FINDINGS: The endotracheal tube is in satisfactory position. The feeding tube is satisfactory. A right IJ catheter tip is in the distal SVC. Stable cardiomegaly. Increased central vascular congestion and increased bilateral perihilar hazy opacities. The pulmonary vessels are indistinct. Continued opacification of the left costophrenic angle with silhouetting of the left heart border and the left hemidiaphragm. No pneumothorax. IMPRESSION: CHF with increased bilateral perihilar pulmonary edema. Left pleural effusion and left basal atelectasis or airspace disease.
[2016-09-11] MEDS ORDERED: NACL 0.9% 100 ML IV PRN (11:15)
--- NOTE | 2016-09-11 11:15 | Progress Note ---
Subjective Principal diagnosis: GI bleed Interval history: Patient was seen today for follow-up on multiple renal related issues Patient did receive her dialysis treatment yesterday Vent dependent She does not appear to be in acute distress Vitals labs intake output medications reviewed Social history: Reviewed Family history: Reviewed Physical examination Vitals: Reviewed HEENT: Oral mucosa moist intubated Neck: Supple no JVD Chest: Clear to auscultation no crackles Heart: Regular rate and rhythm S1 and S2 heard Abdomen: Soft nontender bowel sounds present Extremity: Mild edema dry skin Dermatology; dry skin Psychiatry: No evidence of agitation or aggression Assessment and plan; End-stage renal disease patient is currently on maintenance hemodialysis, Continue with hemodialysis on Tuesday and Tuesday Would like to change her dialysis prescription, erythropoietin with hemodialysis Monitor dialysis related labs and adjust the potassium in the dialysis bath Hyperkalemia appears to have resolved Secondary hyperparathyroidism to follow Severe anemia resulting from blood loss due to GI bleed to monitor and follow, no active signs of bleeding per GI on proton pump inhibitor Current hemoglobin 7.6 potassium is 3.3, She is hemodynamically stable Respiratory failure currently on mechanical ventilation Coagulopathy in a patient who has been on anticoagulation Atrial fibrillation, being followed by primary team Periodically monitor renal related labs We'll continue to follow and make recommendation from renal standpoint Objective - Vital Signs Vital signs: Vital Signs - 12hr 09/10/16 09/10/16 09/11/16 23:31 23:47 00:00 Temperature 99.9 F H Pulse Rate 69 70 Respiratory 22 18 Rate Respiratory Rate [ Generalized] Blood Pressure 126/51 125/47 O2 Sat by Pulse 99 100 Oximetry 09/11/16 09/11/16 09/11/16 00:31 01:00 01:31 Temperature Pulse Rate 70 70 70 Respiratory 23 22 14 Rate Respiratory Rate [ Generalized] Blood Pressure 125/47 127/51 127/51 O2 Sat by Pulse 100 100 100 Oximetry 09/11/16 09/11/16 09/11/16 02:00 02:31 03:00 Temperature Pulse Rate 70 70 70 Respiratory 20 17 14 Rate Respiratory Rate [ Generalized] Blood Pressure 123/48 123/48 134/48 O2 Sat by Pulse 100 100 100 Oximetry 09/11/16 09/11/16 09/11/16 03:26 03:31 03:50 Temperature 99.4 F Pulse Rate 70 70 Respiratory 14 Rate Respiratory 15 Rate [ Generalized] Blood Pressure 134/48 O2 Sat by Pulse 100 Oximetry 09/11/16 09/11/16 09/11/16 04:01 04:31 04:33 Temperature Pulse Rate 77 70 70 Respiratory 14 17 Rate Respiratory Rate [ Generalized] Blood Pressure 130/49 130/49 130/49 O2 Sat by Pulse 99 100 100 Oximetry 09/11/16 09/11/16 09/11/16 05:01 05:31 06:01 Temperature Pulse Rate 69 69 70 Respiratory 15 25 H 22 Rate Respiratory Rate [ Generalized] Blood Pressure 106/34 106/34 119/38 O2 Sat by Pulse 100 100 100 Oximetry 09/11/16 09/11/16 09/11/16 06:31 07:00 07:31 Temperature Pulse Rate 70 70 69 Respiratory 18 16 19 Rate Respiratory Rate [ Generalized] Blood Pressure 119/38 117/46 117/46 O2 Sat by Pulse 100 98 100 Oximetry 09/11/16 09/11/16 09/11/16 08:00 08:11 08:31 Temperature 98.0 F Pulse Rate 70 70 70 Respiratory 15 21 19 Rate Respiratory Rate [ Generalized] Blood Pressure 111/44 111/44 111/44 O2 Sat by Pulse 100 100 100 Oximetry 09/11/16 09/11/16 09/11/16 09:00 09:31 10:00 Temperature Pulse Rate 70 69 70 Respiratory 18 15 17 Rate Respiratory Rate [ Generalized] Blood Pressure 105/42 111/44 128/51 O2 Sat by Pulse 100 100 100 Oximetry - Lab 09/11/16 07:07 09/11/16 07:07 Most recent lab results Calcium 8.0 mg/dL (8.4-10.2) L 09/11/16 07:07 Phosphorus 5.20 mg/dL (2.5-4.5) H 09/06/16 Unknown Magnesium 2.20 mg/dL (1.7-2.3) 09/06/16 Unknown
[2016-09-11] MEDS ORDERED: POTASSIUM CHLORIDE FEEDTUBE ONE (11:53)
--- NOTE | 2016-09-11 11:56 | Progress Note ---
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 Diabetes mellitus type 2 Thrombocytopenia Gangrene of bilateral feet - Vascular surgery was consulted and will do angiography once the patient is extubated and patient may need amputation - Patient is intubated and on pressure support - Blood pressure is holding now - She was transfused with 4 units of blood and last hemoglobin is 7.6 - HIT workup, held heparin products - EGD was done, no active bleeding,Patient has maroon colored stool over night and GI may do colonoscopy once extubated - Nephrology consulted and patient gets hemodialysis - Hyperkalemia resolved - Sliding-scale insulin - INR trended down Prognosis: Guarded DVT Prophylaxis - SCD Disposition - Continue ICU care The high probability of a clinically significant, sudden or life threatening deterioration of the [CV, Neurology, reneal] system(s) required my full and direct attention, intervention and personal management. The aggregate critical care time was [31] minutes. This time is in addition to time spent performing reported procedures but includes the following: [x] Data Review and interpretation [x] Patient assessment and monitoring of vital signs [x] Documentation [x] Medication orders and management. History Interval history: Patient was seen and evaluated this morning, she is awake and open her eyes, intubated and on pressure support. Hospitalist Physical - Physical exam Narrative exam: patient is awake and able to open her eyes, Intubated and on pressure support The patient appeared well nourished and normally developed. Vital signs as documented. Head exam is unremarkable. No scleral icterus . Neck is without jugular venous distension, thyromegaly, or carotid bruits. Lungs are clear to auscultation. Cardiac exam reveals regular rate and Rhythm. Abdominal exam reveals normal bowel sounds, no masses, no organomegaly and no aortic enlargement. 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 SECURITY AGENT: Alert. - Constitutional Vitals: Temp Pulse Resp BP Pulse Ox 98.0 F 70 17 128/51 100 09/11/16 08:00 09/11/16 10:00 09/11/16 10:00 09/11/16 10:09/11/16 10:00 General appearance: Present: no acute distress, other (intubated) Results - Labs CBC & Chem 7: 09/11/16 07:07 09/11/16 07:07 Labs: Laboratory Last Values WBC 19.9 K/mm3 (4.5-11.0) H 09/11/16 07:07 RBC 2.61 M/mm3 (3.65-5.03) L 09/11/16 07:07 Hgb 7.6 gm/dl (10.1-14.3) L 09/11/16 07:07 Hct 24.4 % (30.3-42.9) L 09/11/16 07:07 MCV 94 fl (79-97) 09/11/16 07:07 MCH 29 pg (28-32) 09/11/16 07:07 MCHC 31 % (30-34) 09/11/16 07:07 RDW 18.4 % (13.2-15.2) H 09/11/16 07:07 Plt Count 97 K/mm3 (140-440) L 09/11/16 07:07 Lymph % (Auto) 4.8 % (13.4-35.0) L 09/11/16 07:07 Day % (Auto) 6.5 % (0.0-7.3) 09/11/16 07:07 Eos % (Auto) 1.1 % (0.0-4.3) 09/11/16 07:07 Baso % (Auto) 0.2 % (0.0-1.8) 09/11/16 07:07 Lymph # 0.9 K/mm3 (1.2-5.4) L 09/11/16 07:07 Day # 1.3 K/mm3 (0.0-0.8) H 09/11/16 07:07 Eos # 0.2 K/mm3 (0.0-0.4) 09/11/16 07:07 Baso # 0.0 K/mm3 (0.0-0.1) 09/11/16 07:07 Add Manual Diff Complete 09/09/16 05:30 Total Counted 100 09/09/16 05:30 Seg Neutrophils % 87.4 % (40.0-70.0) H 09/11/16 07:07 Seg Neuts % (Manual) 89.0 % (40.0-70.0) H 09/09/16 05:30 Band Neutrophils % 0 % 09/09/16 05:30 Lymphocytes % (Manual) 5.0 % (13.4-35.0) L 09/09/16 05:30 Reactive Lymphs % (Man) 0 % 09/09/16 05:30 Monocytes % (Manual) 6.0 % (0.0-7.3) 09/09/16 05:30 Eosinophils % (Manual) 0 % (0.0-4.3) 09/09/16 05:30 Basophils % (Manual) 0 % (0.0-1.8) 09/09/16 05:30 Metamyelocytes % 0 % 09/09/16 05:30 Myelocytes % 0 % 09/09/16 05:30 Promyelocytes % 0 % 09/09/16 05:30 Blast Cells % 0 % 09/09/16 05:30 Nucleated RBC % Not Reportable 09/09/16 05:30 Seg Neutrophils # 17.4 K/mm3 (1.8-7.7) H 09/11/16 07:07 Seg Neutrophils # Man 19.8 K/mm3 (1.8-7.7) H 09/09/16 05:30 Band Neutrophils # 0.0 K/mm3 09/09/16 05:30 Lymphocytes # (Manual) 1.1 K/mm3 (1.2-5.4) L 09/09/16 05:30 Abs React Lymphs (Man) 0.0 K/mm3 09/09/16 05:30 Monocytes # (Manual) 1.3 K/mm3 (0.0-0.8) H 09/09/16 05:30 Eosinophils # (Manual) 0.0 K/mm3 (0.0-0.4) 09/09/16 05:30 Basophils # (Manual) 0.0 K/mm3 (0.0-0.1) 09/09/16 05:30 Metamyelocytes # 0.0 K/mm3 09/09/16 05:30 Myelocytes # 0.0 K/mm3 09/09/16 05:30 Promyelocytes # 0.0 K/mm3 09/09/16 05:30 Blast Cells # 0.0 K/mm3 09/09/16 05:30 WBC Morphology Not Reportable 09/09/16 05:30 Hypersegmented Neuts Not Reportable 09/09/16 05:30 Hyposegmented Neuts Not Reportable 09/09/16 05:30 Hypogranular Neuts Not Reportable 09/09/16 05:30 Smudge Cells Not Reportable 09/09/16 05:30 Toxic Granulation Not Reportable 09/09/16 05:30 Toxic Vacuolation Not Reportable 09/09/16 05:30 Dohle Bodies Not Reportable 09/09/16 05:30 Pelger-Huet Anomaly Not Reportable 09/09/16 05:30 Juan Rods Not Reportable 09/09/16 05:30 Platelet Estimate Consistent w auto 09/09/16 05:30 Clumped Platelets Not Reportable 09/09/16 05:30 Plt Clumps, EDTA Not Reportable 09/09/16 05:30 Large Platelets Not Reportable 09/09/16 05:30 Giant Platelets Not Reportable 09/09/16 05:30 Platelet Satelliting Not Reportable 09/09/16 05:30 Plt Morphology Comment Not Reportable 09/09/16 05:30 RBC Morphology Not Reportable 09/09/16 05:30 Dimorphic RBCs Not Reportable 09/09/16 05:30 Polychromasia 1+ 09/09/16 05:30 Hypochromasia 1+ 09/09/16 05:30 Poikilocytosis Not Reportable 09/09/16 05:30 Anisocytosis 1+ 09/09/16 05:30 Microcytosis Not Reportable 09/09/16 05:30 Macrocytosis Not Reportable 09/09/16 05:30 Spherocytes Not Reportable 09/09/16 05:30 Pappenheimer Bodies Not Reportable 09/09/16 05:30 Sickle Cells Not Reportable 09/09/16 05:30 Target Cells Not Reportable 09/09/16 05:30 Tear Drop Cells Not Reportable 09/09/16 05:30 Ovalocytes Not Reportable 09/09/16 05:30 Stomatocytes Few 09/08/16 07:35 Helmet Cells Not Reportable 09/09/16 05:30 [place] Bodies Not Reportable 09/09/16 05:30 [place] Rings Not Reportable 09/09/16 05:30 Bernabe Cells Not Reportable 09/09/16 05:30 Bite Cells Not Reportable 09/09/16 05:30 Crenated Cell Not Reportable 09/09/16 05:30 Elliptocytes Not Reportable 09/09/16 05:30 Acanthocytes (Spur) Not Reportable 09/09/16 05:30 Rouleaux Not Reportable 09/09/16 05:30 Hemoglobin C Crystals Not Reportable 09/09/16 05:30 Schistocytes Rare 09/09/16 05:30 Malaria parasites Not Reportable 09/09/16 05:30 Yair Bodies Not Reportable 09/09/16 05:30 Hem Pathologist Commnt No 09/09/16 05:30 PT 19.9 Sec. (12.2-14.9) H 09/07/16 11:02 INR 1.69 (0.87-1.13) H 09/07/16 11:02 POC ABG pH 7.565 (7.35-7.45) H 09/11/16 05:28 POC ABG pCO2 32.4 (35-45) L 09/11/16 05:28 POC ABG pO2 126 (80-105) H 09/11/16 05:28 POC ABG HCO3 29.4 09/11/16 05:28 POC ABG Total CO2 30 09/11/16 05:28 POC ABG O2 Sat 99 09/11/16 05:28 POC ABG Base Excess 7 09/11/16 05:28 VBG pH 7.418 (7.320-7.420) 09/06/16 Unknown FiO2 30 % 09/11/16 05:28 Sodium 138 mmol/L (137-145) 09/11/16 07:07 Potassium 3.3 mmol/L (3.6-5.0) L 09/11/16 07:07 Chloride 98.1 mmol/L (98-107) 09/11/16 07:07 Carbon Dioxide 27 mmol/L (22-30) 09/11/16 07:07 Anion Gap 16 mmol/L 09/11/16 07:07 BUN 32 mg/dL (7-17) H 09/11/16 07:07 Creatinine 4.2 mg/dL (0.7-1.2) H 09/11/16 07:07 Estimated GFR 13 ml/min 09/11/16 07:07 BUN/Creatinine Ratio 7.61 % 09/11/16 07:07 Glucose 196 mg/dL (65-100) H 09/11/16 07:07 POC Glucose 187 (70-105) H 09/11/16 05:13 Lactic Acid 1.00 mmol/L (0.7-2.0) 09/07/16 17:01 Calcium 8.0 mg/dL (8.4-10.2) L 09/11/16 07:07 Phosphorus 5.20 mg/dL (2.5-4.5) H 09/06/16 Unknown Magnesium 2.20 mg/dL (1.7-2.3) 09/06/16 Unknown Total Bilirubin 1.10 mg/dL (0.1-1.2) 09/08/16 07:35 AST 25 units/L (5-40) 09/08/16 07:35 ALT 15 units/L (7-56) 09/08/16 07:35 Alkaline Phosphatase 77 units/L (35-129) 09/08/16 07:35 Ammonia 102.0 umol/L (25-60) H 09/06/16 Unknown Total Creatine Kinase 40 units/L (30-135) 09/06/16 Unknown CK-MB (CK-2) 3.0 ng/mL (0.0-4.0) 09/06/16 Unknown CK-MB (CK-2) Rel Index 7.5 (0-4) H 09/06/16 Unknown Troponin T 0.190 ng/mL (0.00-0.029) H* 09/07/16 17:01 NT-Pro-B Natriuret Pep 79080 pg/mL (0-900) H 09/06/16 Unknown Total Protein 5.2 g/dL (6.3-8.2) L 09/08/16 07:35 Albumin 2.7 g/dL (3.9-5) L 09/08/16 07:35 Albumin/Globulin Ratio 1.1 % 09/08/16 07:35 Triglycerides 38 mg/dL (2-149) 09/06/16 Unknown Cholesterol 37 mg/dL (50-199) L 09/06/16 Unknown LDL Cholesterol Direct 14 mg/dL (50-130) L 09/06/16 Unknown HDL Cholesterol 16 mg/dL (40-59) L 09/06/16 Unknown Cholesterol/HDL Ratio 2.31 % 09/06/16 Unknown Random Vancomycin 10.9 ug/mL (0-40.0) 09/08/16 07:35 Blood Type A POSITIVE 09/06/16 12:08 Antibody Screen TNR 09/06/16 12:08 JOSEFA Antibody Screen Negative 09/06/16 12:08 Crossmatch See Detail 09/06/16 12:08
[2016-09-11] MEDS: NOVOLOG SUB-Q SCH ×2 (12:03→18:24)
--- NOTE | 2016-09-11 12:27 | Progress Note ---
Assessment and Plan 71 y/o female with severe anemia, etiology unknown, coagulopathy, renal failure and acute respiratory failure with altered sensorium and GPC's in pairs. 1. Platelets up. Not sure if Heparin was not used. Antibody was sent. Will monitor. 2. Hold on extubation today given strength. Continue PSV trials. 3. HD per renal 4. Hold on any further transfusions for now. Transfuse if less than 7 5. Still alkalotic, will decrease TV as patient is breathing over the decrease rate from yesterday. Despite change still alkalotic but stable 6. Overall prognosis is guarded. More alert today, currently on PSV trial and tolerating. CCT 31 minutes. Subjective Date of service: 09/11/16 Principal diagnosis: GI bleed Interval history: No acute events. HD yesterday but still with some pulmonary edema on CXR. Awake. Tolerating PSV. Objective Vital Signs - 12hr 09/11/16 09/11/16 09/11/16 00:31 01:00 01:31 Temperature Pulse Rate 70 70 70 Respiratory 23 22 14 Rate Respiratory Rate [ Generalized] Blood Pressure 125/47 127/51 127/51 O2 Sat by Pulse 100 100 100 Oximetry 09/11/16 09/11/16 09/11/16 02:00 02:31 03:00 Temperature Pulse Rate 70 70 70 Respiratory 20 17 14 Rate Respiratory Rate [ Generalized] Blood Pressure 123/48 123/48 134/48 O2 Sat by Pulse 100 100 100 Oximetry 09/11/16 09/11/16 09/11/16 03:26 03:31 03:50 Temperature 99.4 F Pulse Rate 70 70 Respiratory 14 Rate Respiratory 15 Rate [ Generalized] Blood Pressure 134/48 O2 Sat by Pulse 100 Oximetry 09/11/16 09/11/16 09/11/16 04:01 04:31 04:33 Temperature Pulse Rate 77 70 70 Respiratory 14 17 Rate Respiratory Rate [ Generalized] Blood Pressure 130/49 130/49 130/49 O2 Sat by Pulse 99 100 100 Oximetry 09/11/16 09/11/16 09/11/16 05:01 05:31 06:01 Temperature Pulse Rate 69 69 70 Respiratory 15 25 H 22 Rate Respiratory Rate [ Generalized] Blood Pressure 106/34 106/34 119/38 O2 Sat by Pulse 100 100 100 Oximetry 09/11/16 09/11/16 09/11/16 06:31 07:00 07:31 Temperature Pulse Rate 70 70 69 Respiratory 18 16 19 Rate Respiratory Rate [ Generalized] Blood Pressure 119/38 117/46 117/46 O2 Sat by Pulse 100 98 100 Oximetry 09/11/16 09/11/16 09/11/16 08:00 08:11 08:31 Temperature 98.0 F Pulse Rate 70 70 70 Respiratory 15 21 19 Rate Respiratory Rate [ Generalized] Blood Pressure 111/44 111/44 111/44 O2 Sat by Pulse 100 100 100 Oximetry 09/11/16 09/11/16 09/11/16 09:00 09:31 10:00 Temperature Pulse Rate 70 69 70 Respiratory 18 15 17 Rate Respiratory Rate [ Generalized] Blood Pressure 105/42 111/44 128/51 O2 Sat by Pulse 100 100 100 Oximetry 09/11/16 09/11/16 09/11/16 10:31 11:00 11:31 Temperature Pulse Rate 70 70 70 Respiratory 18 19 20 Rate Respiratory Rate [ Generalized] Blood Pressure 128/51 119/50 119/50 O2 Sat by Pulse 100 100 100 Oximetry Constitutional: alert, other (orally intubated and critically ill on vent) ENT: other (orally intubated) Neck: supple Ascultation: Bilateral: clear (anteriorly) Percussion: Bilateral: not dull Cardiovascular: regular rate and rhythm, other (100% paced at this moment ) Gastrointestinal: normoactive bowel sounds Neurologic: non-focal exam Psychiatric: mood appropriate CBC and BMP: 09/11/16 07:07 09/11/16 07:07 ABG, PT/INR, D-dimer: ABG POC ABG pH 7.565 (7.35-7.45) H 09/11/16 05:28 POC ABG pCO2 32.4 (35-45) L 09/11/16 05:28 POC ABG pO2 126 (80-105) H 09/11/16 05:28 POC ABG HCO3 29.4 09/11/16 05:28 POC ABG Total CO2 30 09/11/16 05:28 POC ABG O2 Sat 99 09/11/16 05:28 PT/INR, D-dimer PT 19.9 Sec. (12.2-14.9) H 09/07/16 11:02 INR 1.69 (0.87-1.13) H 09/07/16 11:02 Abnormal lab findings: Abnormal Labs 09/06/16 09/06/16 09/06/16 12:51 12:51 15:57 WBC RBC Hgb Hct RDW Plt Count Lymph % (Auto) Lymph # [place] # Seg Neutrophils % Seg Neuts % (Manual) Lymphocytes % (Manual) Nucleated RBC % Seg Neutrophils # Seg Neutrophils # Man Lymphocytes # (Manual) Monocytes # (Manual) PT INR POC ABG pH POC ABG pCO2 POC ABG pO2 Potassium 6.4 H* 6.7 H* Chloride 95.9 L Carbon Dioxide 21 L 19 L BUN 109 H 111 H Creatinine 10.5 H 10.1 H Glucose 133 H 178 H POC Glucose Lactic Acid Calcium Phosphorus Ammonia CK-MB (CK-2) Rel Index Troponin T NT-Pro-B Natriuret Pep 58644 H Total Protein Albumin Cholesterol LDL Cholesterol Direct HDL Cholesterol 09/06/16 09/06/16 09/06/16 15:57 19:06 19:06 WBC RBC Hgb 6.3 L Hct 19.3 L* RDW Plt Count Lymph % (Auto) Lymph # [place] # Seg Neutrophils % Seg Neuts % (Manual) Lymphocytes % (Manual) Nucleated RBC % Seg Neutrophils # Seg Neutrophils # Man Lymphocytes # (Manual) Monocytes # (Manual) PT INR POC ABG pH POC ABG pCO2 POC ABG pO2 Potassium 3.3 L D Chloride 96.0 L Carbon Dioxide BUN 30 H Creatinine 2.8 H D Glucose 154 H POC Glucose Lactic Acid 2.80 H* Calcium Phosphorus Ammonia CK-MB (CK-2) Rel Index Troponin T NT-Pro-B Natriuret Pep Total Protein Albumin Cholesterol LDL Cholesterol Direct HDL Cholesterol 09/06/16 09/06/16 09/06/16 Unknown Unknown Unknown WBC RBC Hgb Hct RDW Plt Count Lymph % (Auto) Lymph # [place] # Seg Neutrophils % Seg Neuts % (Manual) Lymphocytes % (Manual) Nucleated RBC % Seg Neutrophils # Seg Neutrophils # Man Lymphocytes # (Manual) Monocytes # (Manual) PT INR POC ABG pH POC ABG pCO2 POC ABG pO2 Potassium 6.4 H* Chloride 93.0 L Carbon Dioxide 21 L BUN 109 H Creatinine 10.4 H Glucose 197 H POC Glucose Lactic Acid 6.20 H* Calcium Phosphorus 5.20 H Ammonia CK-MB (CK-2) Rel Index 7.5 H Troponin T 0.210 H* NT-Pro-B Natriuret Pep 18390 H Total Protein 5.3 L Albumin 2.8 L Cholesterol 37 L LDL Cholesterol Direct 14 L HDL Cholesterol 16 L 09/06/16 09/07/16 09/07/16 Unknown 00:13 05:30 WBC RBC Hgb Hct RDW Plt Count Lymph % (Auto) Lymph # [place] # Seg Neutrophils % Seg Neuts % (Manual) Lymphocytes % (Manual) Nucleated RBC % Seg Neutrophils # Seg Neutrophils # Man Lymphocytes # (Manual) Monocytes # (Manual) PT 31.0 H INR 2.96 H POC ABG pH 7.570 H POC ABG pCO2 31.7 L POC ABG pO2 183 H Potassium Chloride Carbon Dioxide BUN Creatinine Glucose POC Glucose Lactic Acid Calcium Phosphorus Ammonia 102.0 H CK-MB (CK-2) Rel Index Troponin T NT-Pro-B Natriuret Pep Total Protein Albumin Cholesterol LDL Cholesterol Direct HDL Cholesterol 09/07/16 09/07/16 09/07/16 05:50 11:02 11:02 WBC 25.7 H RBC 2.83 L Hgb 8.5 L Hct 26.0 L D RDW 17.5 H Plt Count Lymph % (Auto) Lymph # [place] # Seg Neutrophils % Seg Neuts % (Manual) 96.0 H Lymphocytes % (Manual) 2.0 L Nucleated RBC % 1.0 H Seg Neutrophils # Seg Neutrophils # Man 24.7 H Lymphocytes # (Manual) 0.5 L Monocytes # (Manual) PT INR POC ABG pH POC ABG pCO2 POC ABG pO2 Potassium Chloride Carbon Dioxide BUN 54 H Creatinine 5.6 H D Glucose 138 H POC Glucose 149 H Lactic Acid Calcium Phosphorus Ammonia CK-MB (CK-2) Rel Index Troponin T NT-Pro-B Natriuret Pep Total Protein Albumin Cholesterol LDL Cholesterol Direct HDL Cholesterol 09/07/16 09/07/16 09/07/16 11:02 14:02 17:01 WBC RBC Hgb Hct RDW Plt Count Lymph % (Auto) Lymph # [place] # Seg Neutrophils % Seg Neuts % (Manual) Lymphocytes % (Manual) Nucleated RBC % Seg Neutrophils # Seg Neutrophils # Man Lymphocytes # (Manual) Monocytes # (Manual) PT 19.9 H INR 1.69 H POC ABG pH POC ABG pCO2 POC ABG pO2 Potassium Chloride Carbon Dioxide BUN Creatinine Glucose POC Glucose 149 H Lactic Acid Calcium Phosphorus Ammonia CK-MB (CK-2) Rel Index Troponin T 0.190 H* NT-Pro-B Natriuret Pep Total Protein Albumin Cholesterol LDL Cholesterol Direct HDL Cholesterol 09/07/16 09/07/16 09/08/16 17:50 23:50 05:19 WBC RBC Hgb Hct RDW Plt Count Lymph % (Auto) Lymph # [place] # Seg Neutrophils % Seg Neuts % (Manual) Lymphocytes % (Manual) Nucleated RBC % Seg Neutrophils # Seg Neutrophils # Man Lymphocytes # (Manual) Monocytes # (Manual) PT INR POC ABG pH 7.530 H POC ABG pCO2 32.2 L POC ABG pO2 Potassium Chloride Carbon Dioxide BUN Creatinine Glucose POC Glucose 126 H 128 H Lactic Acid Calcium Phosphorus Ammonia CK-MB (CK-2) Rel Index Troponin T NT-Pro-B Natriuret Pep Total Protein Albumin Cholesterol LDL Cholesterol Direct HDL Cholesterol 09/08/16 09/08/16 09/08/16 05:25 07:35 07:35 WBC 26.6 H RBC 2.79 L Hgb 8.3 L Hct 25.9 L RDW 18.0 H Plt Count 139 L Lymph % (Auto) Lymph # [place] # Seg Neutrophils % Seg Neuts % (Manual) 93.0 H Lymphocytes % (Manual) 5.0 L Nucleated RBC % Seg Neutrophils # Seg Neutrophils # Man 24.7 H Lymphocytes # (Manual) Monocytes # (Manual) PT INR POC ABG pH POC ABG pCO2 POC ABG pO2 Potassium Chloride Carbon Dioxide BUN 65 H Creatinine 6.7 H Glucose 120 H POC Glucose 130 H Lactic Acid Calcium Phosphorus Ammonia CK-MB (CK-2) Rel Index Troponin T NT-Pro-B Natriuret Pep Total Protein 5.2 L Albumin 2.7 L Cholesterol LDL Cholesterol Direct HDL Cholesterol 09/08/16 09/08/16 09/09/16 11:47 18:10 05:27 WBC RBC Hgb Hct RDW Plt Count Lymph % (Auto) Lymph # [place] # Seg Neutrophils % Seg Neuts % (Manual) Lymphocytes % (Manual) Nucleated RBC % Seg Neutrophils # Seg Neutrophils # Man Lymphocytes # (Manual) Monocytes # (Manual) PT INR POC ABG pH POC ABG pCO2 POC ABG pO2 Potassium Chloride Carbon Dioxide BUN Creatinine Glucose POC Glucose 141 H 139 H 152 H Lactic Acid Calcium Phosphorus Ammonia CK-MB (CK-2) Rel Index Troponin T NT-Pro-B Natriuret Pep Total Protein Albumin Cholesterol LDL Cholesterol Direct HDL Cholesterol 09/09/16 09/09/16 09/09/16 05:28 05:30 05:30 WBC 22.3 H RBC 2.66 L Hgb 7.8 L Hct 24.6 L RDW 19.1 H Plt Count 118 L Lymph % (Auto) Lymph # [place] # Seg Neutrophils % Seg Neuts % (Manual) 89.0 H Lymphocytes % (Manual) 5.0 L Nucleated RBC % Seg Neutrophils # Seg Neutrophils # Man 19.8 H Lymphocytes # (Manual) 1.1 L Monocytes # (Manual) 1.3 H PT INR POC ABG pH 7.560 H POC ABG pCO2 34.2 L POC ABG pO2 Potassium 3.2 L D Chloride Carbon Dioxide BUN 34 H Creatinine 4.3 H Glucose 144 H POC Glucose Lactic Acid Calcium 8.0 L Phosphorus Ammonia CK-MB (CK-2) Rel Index Troponin T NT-Pro-B Natriuret Pep Total Protein Albumin Cholesterol LDL Cholesterol Direct HDL Cholesterol 09/09/16 09/09/16 09/09/16 12:01 14:56 15:30 WBC RBC Hgb Hct RDW Plt Count Lymph % (Auto) Lymph # [place] # Seg Neutrophils % Seg Neuts % (Manual) Lymphocytes % (Manual) Nucleated RBC % Seg Neutrophils # Seg Neutrophils # Man Lymphocytes # (Manual) Monocytes # (Manual) PT INR POC ABG pH 7.582 H 7.543 H POC ABG pCO2 32.1 L POC ABG pO2 42 L Potassium Chloride Carbon Dioxide BUN Creatinine Glucose POC Glucose 178 H Lactic Acid Calcium Phosphorus Ammonia CK-MB (CK-2) Rel Index Troponin T NT-Pro-B Natriuret Pep Total Protein Albumin Cholesterol LDL Cholesterol Direct HDL Cholesterol 09/09/16 09/09/16 09/10/16 18:08 23:36 03:00 WBC 19.9 H RBC 2.73 L Hgb 8.0 L Hct 25.4 L RDW 19.0 H Plt Count 89 L Lymph % (Auto) 4.9 L Lymph # 1.0 L [place] # 1.1 H Seg Neutrophils % 88.9 H Seg Neuts % (Manual) Lymphocytes % (Manual) Nucleated RBC % Seg Neutrophils # 17.7 H Seg Neutrophils # Man Lymphocytes # (Manual) Monocytes # (Manual) PT INR POC ABG pH POC ABG pCO2 POC ABG pO2 Potassium Chloride Carbon Dioxide BUN Creatinine Glucose POC Glucose 147 H 173 H Lactic Acid Calcium Phosphorus Ammonia CK-MB (CK-2) Rel Index Troponin T NT-Pro-B Natriuret Pep Total Protein Albumin Cholesterol LDL Cholesterol Direct HDL Cholesterol 09/10/16 09/10/16 09/10/16 03:00 04:29 10:00 WBC RBC 2.55 L Hgb 7.6 L Hct 23.7 L RDW 18.9 H Plt Count 84 L Lymph % (Auto) Lymph # [place] # Seg Neutrophils % Seg Neuts % (Manual) Lymphocytes % (Manual) Nucleated RBC % Seg Neutrophils # Seg Neutrophils # Man Lymphocytes # (Manual) Monocytes # (Manual) PT INR POC ABG pH 7.521 H POC ABG pCO2 POC ABG pO2 Potassium 3.4 L Chloride 95.9 L Carbon Dioxide BUN 46 H Creatinine 5.9 H Glucose POC Glucose Lactic Acid Calcium Phosphorus Ammonia CK-MB (CK-2) Rel Index Troponin T NT-Pro-B Natriuret Pep Total Protein Albumin Cholesterol LDL Cholesterol Direct HDL Cholesterol 09/10/16 09/10/16 09/10/16 10:09 12:06 17:58 WBC RBC Hgb 7.7 L Hct 23.4 L RDW Plt Count Lymph % (Auto) Lymph # [place] # Seg Neutrophils % Seg Neuts % (Manual) Lymphocytes % (Manual) Nucleated RBC % Seg Neutrophils # Seg Neutrophils # Man Lymphocytes # (Manual) Monocytes # (Manual) PT INR POC ABG pH POC ABG pCO2 POC ABG pO2 Potassium Chloride Carbon Dioxide BUN Creatinine Glucose POC Glucose 112 H 165 H Lactic Acid Calcium Phosphorus Ammonia CK-MB (CK-2) Rel Index Troponin T NT-Pro-B Natriuret Pep Total Protein Albumin Cholesterol LDL Cholesterol Direct HDL Cholesterol 09/11/16 09/11/16 09/11/16 00:01 05:13 05:28 WBC RBC Hgb Hct RDW Plt Count Lymph % (Auto) Lymph # [place] # Seg Neutrophils % Seg Neuts % (Manual) Lymphocytes % (Manual) Nucleated RBC % Seg Neutrophils # Seg Neutrophils # Man Lymphocytes # (Manual) Monocytes # (Manual) PT INR POC ABG pH 7.565 H POC ABG pCO2 32.4 L POC ABG pO2 126 H Potassium Chloride Carbon Dioxide BUN Creatinine Glucose POC Glucose 196 H 187 H Lactic Acid Calcium Phosphorus Ammonia CK-MB (CK-2) Rel Index Troponin T NT-Pro-B Natriuret Pep Total Protein Albumin Cholesterol LDL Cholesterol Direct HDL Cholesterol 09/11/16 09/11/16 07:07 07:07 WBC 19.9 H RBC 2.61 L Hgb 7.6 L Hct 24.4 L RDW 18.4 H Plt Count 97 L Lymph % (Auto) 4.8 L Lymph # 0.9 L [place] # 1.3 H Seg Neutrophils % 87.4 H Seg Neuts % (Manual) Lymphocytes % (Manual) Nucleated RBC % Seg Neutrophils # 17.4 H Seg Neutrophils # Man Lymphocytes # (Manual) Monocytes # (Manual) PT INR POC ABG pH POC ABG pCO2 POC ABG pO2 Potassium 3.3 L Chloride Carbon Dioxide BUN 32 H Creatinine 4.2 H Glucose 196 H POC Glucose Lactic Acid Calcium 8.0 L Phosphorus Ammonia CK-MB (CK-2) Rel Index Troponin T NT-Pro-B Natriuret Pep Total Protein Albumin Cholesterol LDL Cholesterol Direct HDL Cholesterol
[2016-09-12] MEDS: NOVOLOG SUB-Q SCH ×7 (03:38→23:56)
[2016-09-12 04:32] LABS: ISTAT Base Excess 5; ISTAT HCO3 27.9; ISTAT PCO2 33.6 (35-45); ISTAT PH 7.527 (7.35-7.45); ISTAT PO2 128 (80-105); ISTAT SO2 99; ISTAT TCO2 29
[2016-09-12 06:52] LABS: Basophils % (Auto) 0.2 % (0.0-1.8); Eosinophils % (Auto) 1.3 % (0.0-4.3); Hematocrit 21.5 % (30.3-42.9); Hemoglobin 6.8 gm/dl (10.1-14.3); Mean Corpuscular HGB Conc 32 % (30-34); Mean Corpuscular Hemoglobin 29 pg (28-32); Mean Corpuscular Volume 92 fl (79-97); Platelet Count 101 K/mm3 (140-440); Red Blood Count 2.34 M/mm3 (3.65-5.03); Red Cell Distribution Width 18.4 % (13.2-15.2); White Blood Count 15.9 K/mm3 (4.5-11.0)
[2016-09-12 07:18] LABS: BUN/Creatinine Ratio 8.51; Calcium 7.8 mg/dL (8.4-10.2); Chloride 97.5 mmol/L (98-107)
[2016-09-12 07:24] LABS: Potassium 4.1 mmol/L (3.6-5.0)
[2016-09-12] MEDS ORDERED: NACL 0.9% 500 ML 500 ML IV ONE (09:26)
--- NOTE | 2016-09-12 09:32 | XRay Report ---
AP CHEST :09/12/16 CLINICAL: Intubated.Follow up respiratory failure. COMPARISON:09/11/16 FINDINGS: The endotracheal tube is in satisfactory position. The feeding tube tip is below the diaphragm and not imaged. Right IJ catheter tip is in the distal SVC and unchanged. Continued cardiomegaly with pacer leads in heart. Central vascular congestion and increased bilateral perihilar alveolar lung opacities. More diffuse opacification of the lung [place]. No pneumothorax. IMPRESSION: Worsened congestive heart failure with bilateral alveolar pulmonary edema.
--- NOTE | 2016-09-12 09:50 | Gastroenterology Progress Note ---
Assessment and Plan GI: no signs active bleeding but noted decrease h/h - previous negative EGD - transfuse and follow h/h - would consider colonoscopy especially when extubated but will defer at this time unless signs active bleed - will follow Subjective Date of service: 09/12/16 Principal diagnosis: GI bleed Interval history: - no active signs bleeding per staff Objective - Constitutional Vitals: Temp Pulse Resp BP Pulse Ox 100.6 F H 70 25 H 97/39 100 09/12/16 08:00 09/12/16 09:00 09/12/16 09:00 09/12/16 09:00 09/12/16 09:00 General appearance: no acute distress - Respiratory Respiratory: bilateral: CTA - Cardiovascular Rhythm: regular Heart Sounds: Present: S1 & S2 - Gastrointestinal General gastrointestinal: Present: soft, non-tender - Labs CBC & Chem 7: 09/12/16 06:00 09/12/16 06:00 Labs: Laboratory Results - last 24 hr 09/11/16 09/11/16 09/11/16 11:50 18:13 23:48 WBC RBC Hgb Hct MCV MCH MCHC RDW Plt Count Lymph % (Auto) [place] % (Auto) Eos % (Auto) Baso % (Auto) Lymph # [place] # Eos # Baso # Seg Neutrophils % Seg Neutrophils # POC ABG pH POC ABG pCO2 POC ABG pO2 POC ABG HCO3 POC ABG Total CO2 POC ABG O2 Sat POC ABG Base Excess FiO2 Sodium Potassium Chloride Carbon Dioxide Anion Gap BUN Creatinine Estimated GFR BUN/Creatinine Ratio Glucose POC Glucose 229 H 216 H 135 H Calcium 09/12/16 09/12/16 09/12/16 04:22 06:00 06:00 WBC 15.9 H RBC 2.34 L Hgb 6.8 L Hct 21.5 L MCV 92 MCH 29 MCHC 32 RDW 18.4 H Plt Count 101 L Lymph % (Auto) 5.6 L [place] % (Auto) 8.4 H Eos % (Auto) 1.3 Baso % (Auto) 0.2 Lymph # 0.9 L [place] # 1.3 H Eos # 0.2 Baso # 0.0 Seg Neutrophils % 84.5 H Seg Neutrophils # 13.5 H POC ABG pH 7.527 H POC ABG pCO2 33.6 L POC ABG pO2 128 H POC ABG HCO3 27.9 POC ABG Total CO2 29 POC ABG O2 Sat 99 POC ABG Base Excess 5 FiO2 30 Sodium 139 Potassium 4.1 D Chloride 97.5 L Carbon Dioxide 26 Anion Gap 20 BUN 46 H Creatinine 5.4 H Estimated GFR 9 BUN/Creatinine Ratio 8.51 Glucose 192 H POC Glucose Calcium 7.8 L
[2016-09-12] MEDS ORDERED: TYLENOL FEEDTUBE PRN (10:12)
[2016-09-12] MEDS: PEPCID PO SCH (10:23)
--- NOTE | 2016-09-12 10:35 | Progress Note ---
Subjective Principal diagnosis: GI bleed Interval history: Patient was seen today for follow-up on multiple renal related issues Patient continues to be dependent on ventilator she is getting tube feeding FiO2 is at 30% Events noted,she is currently on maintenance hemodialysis Tuesday and Tuesday No acute distress Vitals labs intake output medications reviewed Social history: Reviewed Family history: Reviewed Physical examination Vitals: Reviewed HEENT: Oral mucosa moistorally intubated has 2 feeding Neck: Supple no JVD Chest: Clear to auscultation no crackles Heart: Regular rate and rhythm S1 and S2 heard Abdomen: Soft nontender bowel sounds present Extremity: Mild edema dry skin Dermatology; dry skin Psychiatry: No evidence of agitation or aggression Assessment and plan; End-stage renal disease patient is currently on maintenance hemodialysis, dependent currently on Tuesday and Tuesday Judicious ultrafiltration with hemodialysis Close monitoring of labs Was hyperkalemic currently doing better GI bleed currently being followed by gastroenterology service may require more packed red blood cell transfusion Respiratory failure currently ventilator dependent Respiratory failure currently on mechanical ventilation Coagulopathy in a patient who has been on anticoagulation Atrial fibrillation, being followed by primary team Overall prognosis appears to be poor due to multiorgan failure high mortality risk in mild Periodically monitor renal related labs We'll continue to follow and make recommendation from renal standpoin Objective - Vital Signs Vital signs: Vital Signs - 12hr 09/11/16 09/11/16 09/11/16 22:47 23:01 23:09 Temperature Pulse Rate 74 69 70 Pulse Rate [ From Monitor] Pulse Rate [ Left Dorsalis Pedis] Pulse Rate [ Left Radial] Pulse Rate [ Popliteal] Pulse Rate [ Right Dorsalis Pedis] Pulse Rate [ Right Radial] Respiratory 15 17 15 Rate Blood Pressure 117/46 112/50 112/50 O2 Sat by Pulse 99 100 98 Oximetry 09/11/16 09/11/16 09/11/16 23:10 23:17 23:31 Temperature Pulse Rate 70 70 Pulse Rate [ 70 From Monitor] Pulse Rate [ 70 Left Dorsalis Pedis] Pulse Rate [ 70 Left Radial] Pulse Rate [ Popliteal] Pulse Rate [ 70 Right Dorsalis Pedis] Pulse Rate [ 70 Right Radial] Respiratory 18 18 Rate Blood Pressure 112/50 117/46 O2 Sat by Pulse 98 96 Oximetry 09/12/16 09/12/16 09/12/16 00:00 00:01 00:31 Temperature 98.8 F Pulse Rate 70 69 Pulse Rate [ From Monitor] Pulse Rate [ Left Dorsalis Pedis] Pulse Rate [ Left Radial] Pulse Rate [ Popliteal] Pulse Rate [ Right Dorsalis Pedis] Pulse Rate [ Right Radial] Respiratory 16 14 Rate Blood Pressure 121/51 121/51 O2 Sat by Pulse 97 94 Oximetry 09/12/16 09/12/16 09/12/16 01:01 01:31 02:01 Temperature Pulse Rate 70 70 71 Pulse Rate [ From Monitor] Pulse Rate [ Left Dorsalis Pedis] Pulse Rate [ Left Radial] Pulse Rate [ Popliteal] Pulse Rate [ Right Dorsalis Pedis] Pulse Rate [ Right Radial] Respiratory 15 15 17 Rate Blood Pressure 105/53 105/53 105/51 O2 Sat by Pulse 95 94 98 Oximetry 09/12/16 09/12/16 09/12/16 02:31 03:01 03:24 Temperature Pulse Rate 70 70 Pulse Rate [ 69 From Monitor] Pulse Rate [ Left Dorsalis Pedis] Pulse Rate [ 69 Left Radial] Pulse Rate [ 69 Popliteal] Pulse Rate [ 69 Right Dorsalis Pedis] Pulse Rate [ 69 Right Radial] Respiratory 16 15 17 Rate Blood Pressure 105/51 97/44 O2 Sat by Pulse 100 100 100 Oximetry 09/12/16 09/12/16 09/12/16 03:31 03:35 03:59 Temperature 98.3 F Pulse Rate 69 70 Pulse Rate [ From Monitor] Pulse Rate [ Left Dorsalis Pedis] Pulse Rate [ Left Radial] Pulse Rate [ Popliteal] Pulse Rate [ Right Dorsalis Pedis] Pulse Rate [ Right Radial] Respiratory 17 Rate Blood Pressure 97/44 97/44 O2 Sat by Pulse 100 100 Oximetry 09/12/16 09/12/16 09/12/16 04:00 04:31 05:00 Temperature 97.8 F Pulse Rate 70 70 69 Pulse Rate [ From Monitor] Pulse Rate [ Left Dorsalis Pedis] Pulse Rate [ Left Radial] Pulse Rate [ Popliteal] Pulse Rate [ Right Dorsalis Pedis] Pulse Rate [ Right Radial] Respiratory 14 15 15 Rate Blood Pressure 103/43 103/43 101/38 O2 Sat by Pulse 100 100 100 Oximetry 09/12/16 09/12/16 09/12/16 05:31 06:00 06:31 Temperature Pulse Rate 70 70 70 Pulse Rate [ From Monitor] Pulse Rate [ Left Dorsalis Pedis] Pulse Rate [ Left Radial] Pulse Rate [ Popliteal] Pulse Rate [ Right Dorsalis Pedis] Pulse Rate [ Right Radial] Respiratory 18 16 17 Rate Blood Pressure 101/38 104/43 104/43 O2 Sat by Pulse 100 100 100 Oximetry 09/12/16 09/12/16 09/12/16 07:00 07:31 07:47 Temperature Pulse Rate 70 70 70 Pulse Rate [ From Monitor] Pulse Rate [ Left Dorsalis Pedis] Pulse Rate [ Left Radial] Pulse Rate [ Popliteal] Pulse Rate [ Right Dorsalis Pedis] Pulse Rate [ Right Radial] Respiratory 15 16 Rate Blood Pressure 91/46 91/46 91/46 O2 Sat by Pulse 100 100 100 Oximetry 09/12/16 09/12/16 09/12/16 08:00 08:31 09:00 Temperature 100.6 F H Pulse Rate 69 70 70 Pulse Rate [ From Monitor] Pulse Rate [ Left Dorsalis Pedis] Pulse Rate [ Left Radial] Pulse Rate [ Popliteal] Pulse Rate [ Right Dorsalis Pedis] Pulse Rate [ Right Radial] Respiratory 23 28 H 25 H Rate Blood Pressure 99/39 99/39 97/39 O2 Sat by Pulse 100 100 100 Oximetry - Lab 09/12/16 06:00 09/12/16 06:00 Most recent lab results Calcium 7.8 mg/dL (8.4-10.2) L 09/12/16 06:00 Phosphorus 5.20 mg/dL (2.5-4.5) H 09/06/16 Unknown Magnesium 2.20 mg/dL (1.7-2.3) 09/06/16 Unknown
--- NOTE | 2016-09-12 11:00 | Progress Note ---
Assessment and Plan 71 y/o female with severe anemia, etiology unknown, coagulopathy, renal failure and acute respiratory failure with altered sensorium and GPC's in pairs. 1. Platelets continue to increase. Heparin sub q stopped. HIT was sent on 09/10 2. Hold on extubation today given strength. Continue PSV trials. 3. HD per renal 4. IMS ordered one unit of blood to be transfused. GI has seen and agreed. Will ask nursing to heme occult stool. Will repeat H/H late this afternoon after transfusion. GI wants to wait until patient is exutbated for scope. Will attempt extubation tomorrow, likely after HD. 5. Still alkalotic, will decrease TV as patient is breathing over the decrease rate from yesterday. Despite change still alkalotic but stable 6. Overall prognosis is guarded. More alert today, currently on PSV trial and tolerating. CCT 31 minutes. Subjective Date of service: 09/12/16 Principal diagnosis: GI bleed Interval history: No acute events. HgB 6.8 this am but no active signs of bleeding. Had HD on Tuesday. Scheduled for tomorrow. Awake and alert. Just had a BM that smells as if there could be blood in it. Remainder is negative. Objective Vital Signs - 12hr 09/11/16 09/11/16 09/11/16 23:01 23:09 23:10 Temperature Pulse Rate 69 70 Pulse Rate [ 70 From Monitor] Pulse Rate [ 70 Left Dorsalis Pedis] Pulse Rate [ 70 Left Radial] Pulse Rate [ Popliteal] Pulse Rate [ 70 Right Dorsalis Pedis] Pulse Rate [ 70 Right Radial] Respiratory 17 15 18 Rate Blood Pressure 112/50 112/50 O2 Sat by Pulse 100 98 Oximetry 09/11/16 09/11/16 09/12/16 23:17 23:31 00:00 Temperature 98.8 F Pulse Rate 70 70 Pulse Rate [ From Monitor] Pulse Rate [ Left Dorsalis Pedis] Pulse Rate [ Left Radial] Pulse Rate [ Popliteal] Pulse Rate [ Right Dorsalis Pedis] Pulse Rate [ Right Radial] Respiratory 18 Rate Blood Pressure 112/50 117/46 O2 Sat by Pulse 98 96 Oximetry 09/12/16 09/12/16 09/12/16 00:01 00:31 01:01 Temperature Pulse Rate 70 69 70 Pulse Rate [ From Monitor] Pulse Rate [ Left Dorsalis Pedis] Pulse Rate [ Left Radial] Pulse Rate [ Popliteal] Pulse Rate [ Right Dorsalis Pedis] Pulse Rate [ Right Radial] Respiratory 16 14 15 Rate Blood Pressure 121/51 121/51 105/53 O2 Sat by Pulse 97 94 95 Oximetry 09/12/16 09/12/16 09/12/16 01:31 02:01 02:31 Temperature Pulse Rate 70 71 70 Pulse Rate [ From Monitor] Pulse Rate [ Left Dorsalis Pedis] Pulse Rate [ Left Radial] Pulse Rate [ Popliteal] Pulse Rate [ Right Dorsalis Pedis] Pulse Rate [ Right Radial] Respiratory 15 17 16 Rate Blood Pressure 105/53 105/51 105/51 O2 Sat by Pulse 94 98 100 Oximetry 09/12/16 09/12/16 09/12/16 03:01 03:24 03:31 Temperature Pulse Rate 70 69 Pulse Rate [ 69 From Monitor] Pulse Rate [ Left Dorsalis Pedis] Pulse Rate [ 69 Left Radial] Pulse Rate [ 69 Popliteal] Pulse Rate [ 69 Right Dorsalis Pedis] Pulse Rate [ 69 Right Radial] Respiratory 15 17 17 Rate Blood Pressure 97/44 97/44 O2 Sat by Pulse 100 100 100 Oximetry 09/12/16 09/12/16 09/12/16 03:35 03:59 04:00 Temperature 98.3 F Pulse Rate 70 70 Pulse Rate [ From Monitor] Pulse Rate [ Left Dorsalis Pedis] Pulse Rate [ Left Radial] Pulse Rate [ Popliteal] Pulse Rate [ Right Dorsalis Pedis] Pulse Rate [ Right Radial] Respiratory 14 Rate Blood Pressure 97/44 103/43 O2 Sat by Pulse 100 100 Oximetry 09/12/16 09/12/16 09/12/16 04:31 05:00 05:31 Temperature 97.8 F Pulse Rate 70 69 70 Pulse Rate [ From Monitor] Pulse Rate [ Left Dorsalis Pedis] Pulse Rate [ Left Radial] Pulse Rate [ Popliteal] Pulse Rate [ Right Dorsalis Pedis] Pulse Rate [ Right Radial] Respiratory 15 15 18 Rate Blood Pressure 103/43 101/38 101/38 O2 Sat by Pulse 100 100 100 Oximetry 09/12/16 09/12/16 09/12/16 06:00 06:31 07:00 Temperature Pulse Rate 70 70 70 Pulse Rate [ From Monitor] Pulse Rate [ Left Dorsalis Pedis] Pulse Rate [ Left Radial] Pulse Rate [ Popliteal] Pulse Rate [ Right Dorsalis Pedis] Pulse Rate [ Right Radial] Respiratory 16 17 15 Rate Blood Pressure 104/43 104/43 91/46 O2 Sat by Pulse 100 100 100 Oximetry 09/12/16 09/12/16 09/12/16 07:31 07:47 08:00 Temperature 100.6 F H Pulse Rate 70 70 69 Pulse Rate [ From Monitor] Pulse Rate [ Left Dorsalis Pedis] Pulse Rate [ Left Radial] Pulse Rate [ Popliteal] Pulse Rate [ Right Dorsalis Pedis] Pulse Rate [ Right Radial] Respiratory 16 23 Rate Blood Pressure 91/46 91/46 99/39 O2 Sat by Pulse 100 100 100 Oximetry 09/12/16 09/12/16 08:31 09:00 Temperature Pulse Rate 70 70 Pulse Rate [ From Monitor] Pulse Rate [ Left Dorsalis Pedis] Pulse Rate [ Left Radial] Pulse Rate [ Popliteal] Pulse Rate [ Right Dorsalis Pedis] Pulse Rate [ Right Radial] Respiratory 28 H 25 H Rate Blood Pressure 99/39 97/39 O2 Sat by Pulse 100 100 Oximetry Constitutional: alert, other (orally intubated and critically ill on vent) ENT: other (orally intubated) Neck: supple Ascultation: Bilateral: clear (anteriorly) Percussion: Bilateral: not dull Cardiovascular: regular rate and rhythm, other (100% paced at this moment ) Gastrointestinal: normoactive bowel sounds Neurologic: non-focal exam Psychiatric: mood appropriate CBC and BMP: 09/12/16 06:00 09/12/16 06:00 ABG, PT/INR, D-dimer: ABG POC ABG pH 7.527 (7.35-7.45) H 09/12/16 04:22 POC ABG pCO2 33.6 (35-45) L 09/12/16 04:22 POC ABG pO2 128 (80-105) H 09/12/16 04:22 POC ABG HCO3 27.9 09/12/16 04:22 POC ABG Total CO2 29 09/12/16 04:22 POC ABG O2 Sat 99 09/12/16 04:22 PT/INR, D-dimer PT 19.9 Sec. (12.2-14.9) H 09/07/16 11:02 INR 1.69 (0.87-1.13) H 09/07/16 11:02 Abnormal lab findings: Abnormal Labs 09/06/16 09/06/16 09/06/16 12:51 12:51 15:57 WBC RBC Hgb Hct RDW Plt Count Lymph % (Auto) [place] % (Auto) Lymph # [place] # Seg Neutrophils % Seg Neuts % (Manual) Lymphocytes % (Manual) Nucleated RBC % Seg Neutrophils # Seg Neutrophils # Man Lymphocytes # (Manual) Monocytes # (Manual) PT INR POC ABG pH POC ABG pCO2 POC ABG pO2 Potassium 6.4 H* 6.7 H* Chloride 95.9 L Carbon Dioxide 21 L 19 L BUN 109 H 111 H Creatinine 10.5 H 10.1 H Glucose 133 H 178 H POC Glucose Lactic Acid Calcium Phosphorus Ammonia CK-MB (CK-2) Rel Index Troponin T NT-Pro-B Natriuret Pep 54227 H Total Protein Albumin Cholesterol LDL Cholesterol Direct HDL Cholesterol 09/06/16 09/06/16 09/06/16 15:57 19:06 19:06 WBC RBC Hgb 6.3 L Hct 19.3 L* RDW Plt Count Lymph % (Auto) [place] % (Auto) Lymph # [place] # Seg Neutrophils % Seg Neuts % (Manual) Lymphocytes % (Manual) Nucleated RBC % Seg Neutrophils # Seg Neutrophils # Man Lymphocytes # (Manual) Monocytes # (Manual) PT INR POC ABG pH POC ABG pCO2 POC ABG pO2 Potassium 3.3 L D Chloride 96.0 L Carbon Dioxide BUN 30 H Creatinine 2.8 H D Glucose 154 H POC Glucose Lactic Acid 2.80 H* Calcium Phosphorus Ammonia CK-MB (CK-2) Rel Index Troponin T NT-Pro-B Natriuret Pep Total Protein Albumin Cholesterol LDL Cholesterol Direct HDL Cholesterol 09/06/16 09/06/16 09/06/16 Unknown Unknown Unknown WBC RBC Hgb Hct RDW Plt Count Lymph % (Auto) [place] % (Auto) Lymph # [place] # Seg Neutrophils % Seg Neuts % (Manual) Lymphocytes % (Manual) Nucleated RBC % Seg Neutrophils # Seg Neutrophils # Man Lymphocytes # (Manual) Monocytes # (Manual) PT INR POC ABG pH POC ABG pCO2 POC ABG pO2 Potassium 6.4 H* Chloride 93.0 L Carbon Dioxide 21 L BUN 109 H Creatinine 10.4 H Glucose 197 H POC Glucose Lactic Acid 6.20 H* Calcium Phosphorus 5.20 H Ammonia CK-MB (CK-2) Rel Index 7.5 H Troponin T 0.210 H* NT-Pro-B Natriuret Pep 95156 H Total Protein 5.3 L Albumin 2.8 L Cholesterol 37 L LDL Cholesterol Direct 14 L HDL Cholesterol 16 L 09/06/16 09/07/16 09/07/16 Unknown 00:13 05:30 WBC RBC Hgb Hct RDW Plt Count Lymph % (Auto) [place] % (Auto) Lymph # [place] # Seg Neutrophils % Seg Neuts % (Manual) Lymphocytes % (Manual) Nucleated RBC % Seg Neutrophils # Seg Neutrophils # Man Lymphocytes # (Manual) Monocytes # (Manual) PT 31.0 H INR 2.96 H POC ABG pH 7.570 H POC ABG pCO2 31.7 L POC ABG pO2 183 H Potassium Chloride Carbon Dioxide BUN Creatinine Glucose POC Glucose Lactic Acid Calcium Phosphorus Ammonia 102.0 H CK-MB (CK-2) Rel Index Troponin T NT-Pro-B Natriuret Pep Total Protein Albumin Cholesterol LDL Cholesterol Direct HDL Cholesterol 09/07/16 09/07/16 09/07/16 05:50 11:02 11:02 WBC 25.7 H RBC 2.83 L Hgb 8.5 L Hct 26.0 L D RDW 17.5 H Plt Count Lymph % (Auto) [place] % (Auto) Lymph # [place] # Seg Neutrophils % Seg Neuts % (Manual) 96.0 H Lymphocytes % (Manual) 2.0 L Nucleated RBC % 1.0 H Seg Neutrophils # Seg Neutrophils # Man 24.7 H Lymphocytes # (Manual) 0.5 L Monocytes # (Manual) PT INR POC ABG pH POC ABG pCO2 POC ABG pO2 Potassium Chloride Carbon Dioxide BUN 54 H Creatinine 5.6 H D Glucose 138 H POC Glucose 149 H Lactic Acid Calcium Phosphorus Ammonia CK-MB (CK-2) Rel Index Troponin T NT-Pro-B Natriuret Pep Total Protein Albumin Cholesterol LDL Cholesterol Direct HDL Cholesterol 09/07/16 09/07/16 09/07/16 11:02 14:02 17:01 WBC RBC Hgb Hct RDW Plt Count Lymph % (Auto) [place] % (Auto) Lymph # [place] # Seg Neutrophils % Seg Neuts % (Manual) Lymphocytes % (Manual) Nucleated RBC % Seg Neutrophils # Seg Neutrophils # Man Lymphocytes # (Manual) Monocytes # (Manual) PT 19.9 H INR 1.69 H POC ABG pH POC ABG pCO2 POC ABG pO2 Potassium Chloride Carbon Dioxide BUN Creatinine Glucose POC Glucose 149 H Lactic Acid Calcium Phosphorus Ammonia CK-MB (CK-2) Rel Index Troponin T 0.190 H* NT-Pro-B Natriuret Pep Total Protein Albumin Cholesterol LDL Cholesterol Direct HDL Cholesterol 09/07/16 09/07/16 09/08/16 17:50 23:50 05:19 WBC RBC Hgb Hct RDW Plt Count Lymph % (Auto) [place] % (Auto) Lymph # [place] # Seg Neutrophils % Seg Neuts % (Manual) Lymphocytes % (Manual) Nucleated RBC % Seg Neutrophils # Seg Neutrophils # Man Lymphocytes # (Manual) Monocytes # (Manual) PT INR POC ABG pH 7.530 H POC ABG pCO2 32.2 L POC ABG pO2 Potassium Chloride Carbon Dioxide BUN Creatinine Glucose POC Glucose 126 H 128 H Lactic Acid Calcium Phosphorus Ammonia CK-MB (CK-2) Rel Index Troponin T NT-Pro-B Natriuret Pep Total Protein Albumin Cholesterol LDL Cholesterol Direct HDL Cholesterol 09/08/16 09/08/16 09/08/16 05:25 07:35 07:35 WBC 26.6 H RBC 2.79 L Hgb 8.3 L Hct 25.9 L RDW 18.0 H Plt Count 139 L Lymph % (Auto) [place] % (Auto) Lymph # [place] # Seg Neutrophils % Seg Neuts % (Manual) 93.0 H Lymphocytes % (Manual) 5.0 L Nucleated RBC % Seg Neutrophils # Seg Neutrophils # Man 24.7 H Lymphocytes # (Manual) Monocytes # (Manual) PT INR POC ABG pH POC ABG pCO2 POC ABG pO2 Potassium Chloride Carbon Dioxide BUN 65 H Creatinine 6.7 H Glucose 120 H POC Glucose 130 H Lactic Acid Calcium Phosphorus Ammonia CK-MB (CK-2) Rel Index Troponin T NT-Pro-B Natriuret Pep Total Protein 5.2 L Albumin 2.7 L Cholesterol LDL Cholesterol Direct HDL Cholesterol 09/08/16 09/08/16 09/09/16 11:47 18:10 05:27 WBC RBC Hgb Hct RDW Plt Count Lymph % (Auto) [place] % (Auto) Lymph # [place] # Seg Neutrophils % Seg Neuts % (Manual) Lymphocytes % (Manual) Nucleated RBC % Seg Neutrophils # Seg Neutrophils # Man Lymphocytes # (Manual) Monocytes # (Manual) PT INR POC ABG pH POC ABG pCO2 POC ABG pO2 Potassium Chloride Carbon Dioxide BUN Creatinine Glucose POC Glucose 141 H 139 H 152 H Lactic Acid Calcium Phosphorus Ammonia CK-MB (CK-2) Rel Index Troponin T NT-Pro-B Natriuret Pep Total Protein Albumin Cholesterol LDL Cholesterol Direct HDL Cholesterol 09/09/16 09/09/16 09/09/16 05:28 05:30 05:30 WBC 22.3 H RBC 2.66 L Hgb 7.8 L Hct 24.6 L RDW 19.1 H Plt Count 118 L Lymph % (Auto) [place] % (Auto) Lymph # [place] # Seg Neutrophils % Seg Neuts % (Manual) 89.0 H Lymphocytes % (Manual) 5.0 L Nucleated RBC % Seg Neutrophils # Seg Neutrophils # Man 19.8 H Lymphocytes # (Manual) 1.1 L Monocytes # (Manual) 1.3 H PT INR POC ABG pH 7.560 H POC ABG pCO2 34.2 L POC ABG pO2 Potassium 3.2 L D Chloride Carbon Dioxide BUN 34 H Creatinine 4.3 H Glucose 144 H POC Glucose Lactic Acid Calcium 8.0 L Phosphorus Ammonia CK-MB (CK-2) Rel Index Troponin T NT-Pro-B Natriuret Pep Total Protein Albumin Cholesterol LDL Cholesterol Direct HDL Cholesterol 09/09/16 09/09/16 09/09/16 12:01 14:56 15:30 WBC RBC Hgb Hct RDW Plt Count Lymph % (Auto) [place] % (Auto) Lymph # [place] # Seg Neutrophils % Seg Neuts % (Manual) Lymphocytes % (Manual) Nucleated RBC % Seg Neutrophils # Seg Neutrophils # Man Lymphocytes # (Manual) Monocytes # (Manual) PT INR POC ABG pH 7.582 H 7.543 H POC ABG pCO2 32.1 L POC ABG pO2 42 L Potassium Chloride Carbon Dioxide BUN Creatinine Glucose POC Glucose 178 H Lactic Acid Calcium Phosphorus Ammonia CK-MB (CK-2) Rel Index Troponin T NT-Pro-B Natriuret Pep Total Protein Albumin Cholesterol LDL Cholesterol Direct HDL Cholesterol 09/09/16 09/09/16 09/10/16 18:08 23:36 03:00 WBC 19.9 H RBC 2.73 L Hgb 8.0 L Hct 25.4 L RDW 19.0 H Plt Count 89 L Lymph % (Auto) 4.9 L [place] % (Auto) Lymph # 1.0 L [place] # 1.1 H Seg Neutrophils % 88.9 H Seg Neuts % (Manual) Lymphocytes % (Manual) Nucleated RBC % Seg Neutrophils # 17.7 H Seg Neutrophils # Man Lymphocytes # (Manual) Monocytes # (Manual) PT INR POC ABG pH POC ABG pCO2 POC ABG pO2 Potassium Chloride Carbon Dioxide BUN Creatinine Glucose POC Glucose 147 H 173 H Lactic Acid Calcium Phosphorus Ammonia CK-MB (CK-2) Rel Index Troponin T NT-Pro-B Natriuret Pep Total Protein Albumin Cholesterol LDL Cholesterol Direct HDL Cholesterol 09/10/16 09/10/16 09/10/16 03:00 04:29 10:00 WBC RBC 2.55 L Hgb 7.6 L Hct 23.7 L RDW 18.9 H Plt Count 84 L Lymph % (Auto) [place] % (Auto) Lymph # [place] # Seg Neutrophils % Seg Neuts % (Manual) Lymphocytes % (Manual) Nucleated RBC % Seg Neutrophils # Seg Neutrophils # Man Lymphocytes # (Manual) Monocytes # (Manual) PT INR POC ABG pH 7.521 H POC ABG pCO2 POC ABG pO2 Potassium 3.4 L Chloride 95.9 L Carbon Dioxide BUN 46 H Creatinine 5.9 H Glucose POC Glucose Lactic Acid Calcium Phosphorus Ammonia CK-MB (CK-2) Rel Index Troponin T NT-Pro-B Natriuret Pep Total Protein Albumin Cholesterol LDL Cholesterol Direct HDL Cholesterol 09/10/16 09/10/16 09/10/16 10:09 12:06 17:58 WBC RBC Hgb 7.7 L Hct 23.4 L RDW Plt Count Lymph % (Auto) [place] % (Auto) Lymph # [place] # Seg Neutrophils % Seg Neuts % (Manual) Lymphocytes % (Manual) Nucleated RBC % Seg Neutrophils # Seg Neutrophils # Man Lymphocytes # (Manual) Monocytes # (Manual) PT INR POC ABG pH POC ABG pCO2 POC ABG pO2 Potassium Chloride Carbon Dioxide BUN Creatinine Glucose POC Glucose 112 H 165 H Lactic Acid Calcium Phosphorus Ammonia CK-MB (CK-2) Rel Index Troponin T NT-Pro-B Natriuret Pep Total Protein Albumin Cholesterol LDL Cholesterol Direct HDL Cholesterol 09/11/16 09/11/16 09/11/16 00:01 05:13 05:28 WBC RBC Hgb Hct RDW Plt Count Lymph % (Auto) [place] % (Auto) Lymph # [place] # Seg Neutrophils % Seg Neuts % (Manual) Lymphocytes % (Manual) Nucleated RBC % Seg Neutrophils # Seg Neutrophils # Man Lymphocytes # (Manual) Monocytes # (Manual) PT INR POC ABG pH 7.565 H POC ABG pCO2 32.4 L POC ABG pO2 126 H Potassium Chloride Carbon Dioxide BUN Creatinine Glucose POC Glucose 196 H 187 H Lactic Acid Calcium Phosphorus Ammonia CK-MB (CK-2) Rel Index Troponin T NT-Pro-B Natriuret Pep Total Protein Albumin Cholesterol LDL Cholesterol Direct HDL Cholesterol 09/11/16 09/11/16 09/11/16 07:07 07:07 11:50 WBC 19.9 H RBC 2.61 L Hgb 7.6 L Hct 24.4 L RDW 18.4 H Plt Count 97 L Lymph % (Auto) 4.8 L [place] % (Auto) Lymph # 0.9 L [place] # 1.3 H Seg Neutrophils % 87.4 H Seg Neuts % (Manual) Lymphocytes % (Manual) Nucleated RBC % Seg Neutrophils # 17.4 H Seg Neutrophils # Man Lymphocytes # (Manual) Monocytes # (Manual) PT INR POC ABG pH POC ABG pCO2 POC ABG pO2 Potassium 3.3 L Chloride Carbon Dioxide BUN 32 H Creatinine 4.2 H Glucose 196 H POC Glucose 229 H Lactic Acid Calcium 8.0 L Phosphorus Ammonia CK-MB (CK-2) Rel Index Troponin T NT-Pro-B Natriuret Pep Total Protein Albumin Cholesterol LDL Cholesterol Direct HDL Cholesterol 09/11/16 09/11/16 09/12/16 18:13 23:48 04:22 WBC RBC Hgb Hct RDW Plt Count Lymph % (Auto) [place] % (Auto) Lymph # [place] # Seg Neutrophils % Seg Neuts % (Manual) Lymphocytes % (Manual) Nucleated RBC % Seg Neutrophils # Seg Neutrophils # Man Lymphocytes # (Manual) Monocytes # (Manual) PT INR POC ABG pH 7.527 H POC ABG pCO2 33.6 L POC ABG pO2 128 H Potassium Chloride Carbon Dioxide BUN Creatinine Glucose POC Glucose 216 H 135 H Lactic Acid Calcium Phosphorus Ammonia CK-MB (CK-2) Rel Index Troponin T NT-Pro-B Natriuret Pep Total Protein Albumin Cholesterol LDL Cholesterol Direct HDL Cholesterol 09/12/16 09/12/16 06:00 06:00 WBC 15.9 H RBC 2.34 L Hgb 6.8 L Hct 21.5 L RDW 18.4 H Plt Count 101 L Lymph % (Auto) 5.6 L [place] % (Auto) 8.4 H Lymph # 0.9 L [place] # 1.3 H Seg Neutrophils % 84.5 H Seg Neuts % (Manual) Lymphocytes % (Manual) Nucleated RBC % Seg Neutrophils # 13.5 H Seg Neutrophils # Man Lymphocytes # (Manual) Monocytes # (Manual) PT INR POC ABG pH POC ABG pCO2 POC ABG pO2 Potassium Chloride 97.5 L Carbon Dioxide BUN 46 H Creatinine 5.4 H Glucose 192 H POC Glucose Lactic Acid Calcium 7.8 L Phosphorus Ammonia CK-MB (CK-2) Rel Index Troponin T NT-Pro-B Natriuret Pep Total Protein Albumin Cholesterol LDL Cholesterol Direct HDL Cholesterol
--- NOTE | 2016-09-12 13:49 | Progress Note ---
Assessment and Plan Assessment and plan: Patient has high probability of clinically significant sudden and life- threatening deterioration in the ICU with her cardiovascular neurologic and renal systems. This required more fluid direct attention intervention and personal management. The aggregate CC time for this patient was 35 minutes. Total Time Spent with Patient (Minutes): 35 - Patient Problems (1) Gangrene associated with diabetes mellitus Current Visit: Yes Status: Acute Plan to address problem: Gangrene bilateral lower extremity. If patient is able to improve we will have angiogram done to evaluate vascular status. At this particular time continue aggressive pain control for renal function. (2) Acute respiratory failure Current Visit: Yes Status: Acute Qualifiers: Respiratory failure complication: hypoxia Qualified Code(s): J96.01 - Acute respiratory failure with hypoxia Plan to address problem: At present patient remains intubated. Unable to wean at this particular time. Sepsis appears to be improving however. (3) Sepsis Current Visit: Yes Status: Acute Qualifiers: Sepsis type: sepsis due to unspecified organism Qualified Code(s): A41.9 - Sepsis, unspecified organism Plan to address problem: Improving sepsis continue present antibody coverage. Patient's fever curve is coming down and leukocytosis come down from 1915. Patient has however developed anemia Less than 7. (4) Severe anemia Current Visit: Yes Status: Acute Plan to address problem: Patient anemia exact etiology unknown at this particular time HIT workup still pending at this particular time. We'll transfuse patient 1 unit packed red blood cell. (5) End stage renal disease on dialysis Current Visit: Yes Status: Chronic Plan to address problem: Continue hemodialysis as per nephrology. (6) HTN (hypertension) Current Visit: Yes Status: Chronic Qualifiers: Hypertension type: H Plan to address problem: Hypertension has had an episode of hypertension otherwise has been low. Would not change any anti-hypertensive medications at this time. Especially patient about the get blood as well. (7) T2DM (type 2 diabetes mellitus) Current Visit: Yes Status: Chronic Qualifiers: Diabetes mellitus complication status: D Diabetes mellitus complication detail: with chronic kidney disease Diabetic retinopathy severity: D Proliferative retinopathy type: P Diabetes mellitus macular edema: D Diabetes mellitus intermodal customer service insulin use: D Laterality: L Chronic kidney disease stage: C Plan to address problem: She continues to have fair control of diabetes will follow-up blood work in a.m. History Interval history: Patient at bedside unable to really communicate because he is intubated. All questions and concerns answered to the who was at bedside. No new changes over p.m. He understands she is waiting on tracheostomy. Hospitalist Physical - Constitutional Vitals: Temp Pulse Resp BP Pulse Ox 101 F H 70 20 97/37 100 09/12/16 12:00 09/12/16 12:12 09/12/16 12:12 09/12/16 12:12 09/12/16 12:12 General appearance: Present: no acute distress, cachectic, other (intubated) - EENT Eyes: Present: PERRL, EOM intact ENT: hearing intact, other - Neck Neck: Present: supple (poor dentition), normal ROM - Respiratory Respiratory: bilateral: diminished, rales (. Few rails) - Cardiovascular Rhythm: regular Heart Sounds: Present: S1 & S2 - Extremities Extremities: no ischemia, pulses intact, pulses symmetrical, No edema, normal temperature, normal color Peripheral Pulses: within normal limits - Abdominal General gastrointestinal: soft, non-tender, normal bowel sounds - Psychiatric Psychiatric: appropriate mood/affect, other (unable to communicate but alert.) Results - Labs CBC & Chem 7: 09/12/16 06:00 09/12/16 06:00 Labs: Laboratory Last Values WBC 15.9 K/mm3 (4.5-11.0) H 09/12/16 06:00 RBC 2.34 M/mm3 (3.65-5.03) L 09/12/16 06:00 Hgb 6.8 gm/dl (10.1-14.3) L 09/12/16 06:00 Hct 21.5 % (30.3-42.9) L 09/12/16 06:00 MCV 92 fl (79-97) 09/12/16 06:00 MCH 29 pg (28-32) 09/12/16 06:00 MCHC 32 % (30-34) 09/12/16 06:00 RDW 18.4 % (13.2-15.2) H 09/12/16 06:00 Plt Count 101 K/mm3 (140-440) L 09/12/16 06:00 Lymph % (Auto) 5.6 % (13.4-35.0) L 09/12/16 06:00 Fleming % (Auto) 8.4 % (0.0-7.3) H 09/12/16 06:00 Eos % (Auto) 1.3 % (0.0-4.3) 09/12/16 06:00 Baso % (Auto) 0.2 % (0.0-1.8) 09/12/16 06:00 Lymph # 0.9 K/mm3 (1.2-5.4) L 09/12/16 06:00 Fleming # 1.3 K/mm3 (0.0-0.8) H 09/12/16 06:00 Eos # 0.2 K/mm3 (0.0-0.4) 09/12/16 06:00 Baso # 0.0 K/mm3 (0.0-0.1) 09/12/16 06:00 Add Manual Diff Complete 09/09/16 05:30 Total Counted 100 09/09/16 05:30 Seg Neutrophils % 84.5 % (40.0-70.0) H 09/12/16 06:00 Seg Neuts % (Manual) 89.0 % (40.0-70.0) H 09/09/16 05:30 Band Neutrophils % 0 % 09/09/16 05:30 Lymphocytes % (Manual) 5.0 % (13.4-35.0) L 09/09/16 05:30 Reactive Lymphs % (Man) 0 % 09/09/16 05:30 Monocytes % (Manual) 6.0 % (0.0-7.3) 09/09/16 05:30 Eosinophils % (Manual) 0 % (0.0-4.3) 09/09/16 05:30 Basophils % (Manual) 0 % (0.0-1.8) 09/09/16 05:30 Metamyelocytes % 0 % 09/09/16 05:30 Myelocytes % 0 % 09/09/16 05:30 Promyelocytes % 0 % 09/09/16 05:30 Blast Cells % 0 % 09/09/16 05:30 Nucleated RBC % Not Reportable 09/09/16 05:30 Seg Neutrophils # 13.5 K/mm3 (1.8-7.7) H 09/12/16 06:00 Seg Neutrophils # Man 19.8 K/mm3 (1.8-7.7) H 09/09/16 05:30 Band Neutrophils # 0.0 K/mm3 09/09/16 05:30 Lymphocytes # (Manual) 1.1 K/mm3 (1.2-5.4) L 09/09/16 05:30 Abs React Lymphs (Man) 0.0 K/mm3 09/09/16 05:30 Monocytes # (Manual) 1.3 K/mm3 (0.0-0.8) H 09/09/16 05:30 Eosinophils # (Manual) 0.0 K/mm3 (0.0-0.4) 09/09/16 05:30 Basophils # (Manual) 0.0 K/mm3 (0.0-0.1) 09/09/16 05:30 Metamyelocytes # 0.0 K/mm3 09/09/16 05:30 Myelocytes # 0.0 K/mm3 09/09/16 05:30 Promyelocytes # 0.0 K/mm3 09/09/16 05:30 Blast Cells # 0.0 K/mm3 09/09/16 05:30 WBC Morphology Not Reportable 09/09/16 05:30 Hypersegmented Neuts Not Reportable 09/09/16 05:30 Hyposegmented Neuts Not Reportable 09/09/16 05:30 Hypogranular Neuts Not Reportable 09/09/16 05:30 Smudge Cells Not Reportable 09/09/16 05:30 Toxic Granulation Not Reportable 09/09/16 05:30 Toxic Vacuolation Not Reportable 09/09/16 05:30 Dohle Bodies Not Reportable 09/09/16 05:30 Pelger-Huet Anomaly Not Reportable 09/09/16 05:30 Juan Rods Not Reportable 09/09/16 05:30 Platelet Estimate Consistent w auto 09/09/16 05:30 Clumped Platelets Not Reportable 09/09/16 05:30 Plt Clumps, EDTA Not Reportable 09/09/16 05:30 Large Platelets Not Reportable 09/09/16 05:30 Giant Platelets Not Reportable 09/09/16 05:30 Platelet Satelliting Not Reportable 09/09/16 05:30 Plt Morphology Comment Not Reportable 09/09/16 05:30 RBC Morphology Not Reportable 09/09/16 05:30 Dimorphic RBCs Not Reportable 09/09/16 05:30 Polychromasia 1+ 09/09/16 05:30 Hypochromasia 1+ 09/09/16 05:30 Poikilocytosis Not Reportable 09/09/16 05:30 Anisocytosis 1+ 09/09/16 05:30 Microcytosis Not Reportable 09/09/16 05:30 Macrocytosis Not Reportable 09/09/16 05:30 Spherocytes Not Reportable 09/09/16 05:30 Pappenheimer Bodies Not Reportable 09/09/16 05:30 Sickle Cells Not Reportable 09/09/16 05:30 Target Cells Not Reportable 09/09/16 05:30 Tear Drop Cells Not Reportable 09/09/16 05:30 Ovalocytes Not Reportable 09/09/16 05:30 Stomatocytes Few 09/08/16 07:35 Helmet Cells Not Reportable 09/09/16 05:30 [place] Bodies Not Reportable 09/09/16 05:30 [place] Rings Not Reportable 09/09/16 05:30 [place] Cells Not Reportable 09/09/16 05:30 Bite Cells Not Reportable 09/09/16 05:30 Crenated Cell Not Reportable 09/09/16 05:30 Elliptocytes Not Reportable 09/09/16 05:30 Acanthocytes (Spur) Not Reportable 09/09/16 05:30 Rouleaux Not Reportable 09/09/16 05:30 Hemoglobin C Crystals Not Reportable 09/09/16 05:30 Schistocytes Rare 09/09/16 05:30 Malaria parasites Not Reportable 09/09/16 05:30 Yair Bodies Not Reportable 09/09/16 05:30 Hem Pathologist Commnt No 09/09/16 05:30 PT 19.9 Sec. (12.2-14.9) H 09/07/16 11:02 INR 1.69 (0.87-1.13) H 09/07/16 11:02 POC ABG pH 7.527 (7.35-7.45) H 09/12/16 04:22 POC ABG pCO2 33.6 (35-45) L 09/12/16 04:22 POC ABG pO2 128 (80-105) H 09/12/16 04:22 POC ABG HCO3 27.9 09/12/16 04:22 POC ABG Total CO2 29 09/12/16 04:22 POC ABG O2 Sat 99 09/12/16 04:22 POC ABG Base Excess 5 09/12/16 04:22 VBG pH 7.418 (7.320-7.420) 09/06/16 Unknown FiO2 30 % 09/12/16 04:22 Sodium 139 mmol/L (137-145) 09/12/16 06:00 Potassium 4.1 mmol/L (3.6-5.0) D 09/12/16 06:00 Chloride 97.5 mmol/L (98-107) L 09/12/16 06:00 Carbon Dioxide 26 mmol/L (22-30) 09/12/16 06:00 Anion Gap 20 mmol/L 09/12/16 06:00 BUN 46 mg/dL (7-17) H 09/12/16 06:00 Creatinine 5.4 mg/dL (0.7-1.2) H 09/12/16 06:00 Estimated GFR 9 ml/min 09/12/16 06:00 BUN/Creatinine Ratio 8.51 % 09/12/16 06:00 Glucose 192 mg/dL (65-100) H 09/12/16 06:00 POC Glucose 135 (70-105) H 09/11/16 23:48 Lactic Acid 1.00 mmol/L (0.7-2.0) 09/07/16 17:01 Calcium 7.8 mg/dL (8.4-10.2) L 09/12/16 06:00 Phosphorus 5.20 mg/dL (2.5-4.5) H 09/06/16 Unknown Magnesium 2.20 mg/dL (1.7-2.3) 09/06/16 Unknown Total Bilirubin 1.10 mg/dL (0.1-1.2) 09/08/16 07:35 AST 25 units/L (5-40) 09/08/16 07:35 ALT 15 units/L (7-56) 09/08/16 07:35 Alkaline Phosphatase 77 units/L (35-129) 09/08/16 07:35 Ammonia 102.0 umol/L (25-60) H 09/06/16 Unknown Total Creatine Kinase 40 units/L (30-135) 09/06/16 Unknown CK-MB (CK-2) 3.0 ng/mL (0.0-4.0) 09/06/16 Unknown CK-MB (CK-2) Rel Index 7.5 (0-4) H 09/06/16 Unknown Troponin T 0.190 ng/mL (0.00-0.029) H* 09/07/16 17:01 NT-Pro-B Natriuret Pep 91714 pg/mL (0-900) H 09/06/16 Unknown Total Protein 5.2 g/dL (6.3-8.2) L 09/08/16 07:35 Albumin 2.7 g/dL (3.9-5) L 09/08/16 07:35 Albumin/Globulin Ratio 1.1 % 09/08/16 07:35 Triglycerides 38 mg/dL (2-149) 09/06/16 Unknown Cholesterol 37 mg/dL (50-199) L 09/06/16 Unknown LDL Cholesterol Direct 14 mg/dL (50-130) L 09/06/16 Unknown HDL Cholesterol 16 mg/dL (40-59) L 09/06/16 Unknown Cholesterol/HDL Ratio 2.31 % 09/06/16 Unknown Random Vancomycin 10.9 ug/mL (0-40.0) 09/08/16 07:35 Blood Type A POSITIVE 09/06/16 12:08 Antibody Screen TNR 09/06/16 12:08 JOSEFA Antibody Screen Negative 09/06/16 12:08 Crossmatch See Detail 09/06/16 12:08 - Imaging and Cardiology Chest x-ray: image reviewed
[2016-09-13 00:35] LABS: Basophils % (Auto) 0.2 % (0.0-1.8); Eosinophils % (Auto) 1.5 % (0.0-4.3); Hematocrit 25.6 % (30.3-42.9); Hemoglobin 8.4 gm/dl (10.1-14.3); Mean Corpuscular HGB Conc 33 % (30-34); Mean Corpuscular Hemoglobin 30 pg (28-32); Mean Corpuscular Volume 91 fl (79-97); Platelet Count 103 K/mm3 (140-440); Red Cell Distribution Width 17.1 % (13.2-15.2); White Blood Count 17.6 K/mm3 (4.5-11.0)
[2016-09-13 05:05] LABS: ISTAT Base Excess 3; ISTAT HCO3 25.7; ISTAT PCO2 32.7 (35-45); ISTAT PH 7.504 (7.35-7.45); ISTAT PO2 101 (80-105); ISTAT SO2 98; ISTAT TCO2 27
[2016-09-13] MEDS: NOVOLOG SUB-Q SCH ×4 (05:23→23:03)
--- NOTE | 2016-09-13 07:35 | XRay Report ---
AP CHEST: HISTORY: Follow up respiratory failure Lines and support devices remain in adequate position. Mild improvement in pulmonary venous congestion is demonstrated since yesterday's exam. Cardiomegaly and trace to small pleural effusions are relatively stable. No new acute process is appreciated. IMPRESSION: Mild improvement in pulmonary venous congestion since yesterday's exam.
[2016-09-13 08:00] LABS: BUN/Creatinine Ratio 9.42; Calcium 8.4 mg/dL (8.4-10.2); Chloride 93.8 mmol/L (98-107); Potassium 3.9 mmol/L (3.6-5.0)
--- NOTE | 2016-09-13 09:11 | Progress Note ---
Assessment and Plan - Patient Problems (1) End stage renal disease on dialysis Current Visit: Yes Status: Chronic Plan to address problem: HD as ordered, adjust meds per renal function. Nutrition support. (2) Acute respiratory failure Current Visit: Yes Status: Acute Qualifiers: Respiratory failure complication: hypoxia Qualified Code(s): J96.01 - Acute respiratory failure with hypoxia Plan to address problem: planning on extubation today (3) Gangrene associated with diabetes mellitus Current Visit: Yes Status: Acute (4) Anemia in CKD (chronic kidney disease) Current Visit: Yes Status: Chronic Qualifiers: Chronic kidney disease stage: C Plan to address problem: Epogen per protocol (5) Sepsis Current Visit: Yes Status: Acute Qualifiers: Sepsis type: sepsis due to unspecified organism Qualified Code(s): A41.9 - Sepsis, unspecified organism (6) T2DM (type 2 diabetes mellitus) Current Visit: Yes Status: Chronic Qualifiers: Diabetes mellitus complication status: D Diabetes mellitus complication detail: with chronic kidney disease Diabetic retinopathy severity: D Proliferative retinopathy type: P Diabetes mellitus macular edema: D Diabetes mellitus ferry terminal agent insulin use: D Laterality: L Chronic kidney disease stage: C (7) Thrombocytopenia Current Visit: Yes Status: Acute Subjective Date of service: 09/13/16 Principal diagnosis: GI bleed Interval history: pt is orally intubated, on ventilator, on CPAP,[id number]%. Chart was reviewed. Objective - Vital Signs Vital signs: Vital Signs - 12hr 09/12/16 09/12/16 09/12/16 21:30 22:00 22:20 Temperature Pulse Rate 69 69 70 Pulse Rate [ From Monitor] Pulse Rate [ Left Radial] Pulse Rate [ Popliteal] Pulse Rate [ Right Dorsalis Pedis] Pulse Rate [ Right Radial] Respiratory 20 16 17 Rate Respiratory 17 Rate [ Generalized] Blood Pressure 124/43 124/43 103/45 O2 Sat by Pulse 92 92 96 Oximetry 09/12/16 09/12/16 09/12/16 22:30 23:00 23:15 Temperature Pulse Rate 69 69 70 Pulse Rate [ From Monitor] Pulse Rate [ Left Radial] Pulse Rate [ Popliteal] Pulse Rate [ Right Dorsalis Pedis] Pulse Rate [ Right Radial] Respiratory 22 18 Rate Respiratory Rate [ Generalized] Blood Pressure 103/45 103/45 107/45 O2 Sat by Pulse 93 95 93 Oximetry 09/12/16 09/12/1609/13/17 23:25 23:30 00:00 Temperature 99.4 F Pulse Rate 70 81 Pulse Rate [ From Monitor] Pulse Rate [ 70 Left Radial] Pulse Rate [ Popliteal] Pulse Rate [ 70 Right Dorsalis Pedis] Pulse Rate [ 70 Right Radial] Respiratory 17 18 Rate Respiratory Rate [ Generalized] Blood Pressure 107/45 107/45 O2 Sat by Pulse 96 71 L Oximetry 09/13/16 09/13/16 09/13/16 00:30 01:00 01:30 Temperature Pulse Rate 70 70 70 Pulse Rate [ From Monitor] Pulse Rate [ Left Radial] Pulse Rate [ Popliteal] Pulse Rate [ Right Dorsalis Pedis] Pulse Rate [ Right Radial] Respiratory 18 18 18 Rate Respiratory Rate [ Generalized] Blood Pressure 163/60 163/60 101/41 O2 Sat by Pulse 100 100 100 Oximetry 09/13/16 09/13/16 09/13/16 02:00 02:30 03:00 Temperature Pulse Rate 69 70 70 Pulse Rate [ From Monitor] Pulse Rate [ Left Radial] Pulse Rate [ Popliteal] Pulse Rate [ Right Dorsalis Pedis] Pulse Rate [ Right Radial] Respiratory 18 17 17 Rate Respiratory Rate [ Generalized] Blood Pressure 101/41 114/48 114/48 O2 Sat by Pulse 100 100 100 Oximetry 09/13/16 09/13/16 09/13/16 03:30 03:34 03:36 Temperature 97.6 F Pulse Rate 70 70 Pulse Rate [ From Monitor] Pulse Rate [ Left Radial] Pulse Rate [ Popliteal] Pulse Rate [ Right Dorsalis Pedis] Pulse Rate [ Right Radial] Respiratory 14 Rate Respiratory Rate [ Generalized] Blood Pressure 114/48 114/48 O2 Sat by Pulse 100 100 Oximetry 09/13/16 09/13/16 09/13/16 04:00 04:30 05:00 Temperature Pulse Rate 69 70 70 Pulse Rate [ 70 From Monitor] Pulse Rate [ 70 Left Radial] Pulse Rate [ 70 Popliteal] Pulse Rate [ Right Dorsalis Pedis] Pulse Rate [ 70 Right Radial] Respiratory 22 14 15 Rate Respiratory Rate [ Generalized] Blood Pressure 121/47 137/50 137/50 O2 Sat by Pulse 100 100 100 Oximetry 09/13/16 09/13/16 09/13/16 05:30 06:00 06:30 Temperature Pulse Rate 70 70 70 Pulse Rate [ From Monitor] Pulse Rate [ Left Radial] Pulse Rate [ Popliteal] Pulse Rate [ Right Dorsalis Pedis] Pulse Rate [ Right Radial] Respiratory 16 16 17 Rate Respiratory Rate [ Generalized] Blood Pressure 130/51 130/51 135/51 O2 Sat by Pulse 100 100 99 Oximetry 09/13/16 09/13/16 09/13/16 07:00 07:25 07:30 Temperature Pulse Rate 70 70 70 Pulse Rate [ From Monitor] Pulse Rate [ Left Radial] Pulse Rate [ Popliteal] Pulse Rate [ Right Dorsalis Pedis] Pulse Rate [ Right Radial] Respiratory 20 23 Rate Respiratory Rate [ Generalized] Blood Pressure 135/51 111/38 111/38 O2 Sat by Pulse 100 99 100 Oximetry 09/13/16 09/13/16 09/13/16 07:37 08:00 08:30 Temperature 99.4 F Pulse Rate 70 70 70 Pulse Rate [ 70 From Monitor] Pulse Rate [ Left Radial] Pulse Rate [ Popliteal] Pulse Rate [ Right Dorsalis Pedis] Pulse Rate [ Right Radial] Respiratory 22 24 21 Rate Respiratory Rate [ Generalized] Blood Pressure 111/38 111/38 133/48 O2 Sat by Pulse 100 100 100 Oximetry - General Appearance General appearance: chronically ill, sedated on ventilator EENT: mucous membranes dry Neck: no JVD Respiratory: Present: Decreased Breath Sounds Cardiology: regular, systolic murmur Gastrointestinal: normoactive bowel sounds Musculoskeletal: other (ischemic toes, dressing over right LE) - Lab 09/13/16 00:01 09/13/16 06:45 Most recent lab results Calcium 8.4 mg/dL (8.4-10.2) 09/13/16 06:45 Phosphorus 5.20 mg/dL (2.5-4.5) H 09/06/16 Unknown Magnesium 2.20 mg/dL (1.7-2.3) 09/06/16 Unknown
[2016-09-13 09:43] LABS: ISTAT Base Excess 4; ISTAT HCO3 27.5; ISTAT PCO2 38.2 (35-45); ISTAT PH 7.466 (7.35-7.45); ISTAT PO2 93 (80-105); ISTAT SO2 98; ISTAT TCO2 29
[2016-09-13] MEDS: PEPCID PO SCH (09:45)
--- NOTE | 2016-09-13 12:01 | Progress Note ---
Assessment and Plan 71 y/o female with severe anemia, etiology unknown, coagulopathy, renal failure and acute respiratory failure with altered sensorium and GPC's in pairs. 1. Platelets continue to increase. Heparin sub q stopped. HIT was sent on 09/10 , still not back yet 2. A/C during HD, then back to PSV, if ABG good, will extubate 3. HD per renal 4. Follow up GI recs. 5. alkalemia is improving 6. Hopeful extubation today CCT 31 minutes. Subjective Date of service: 09/13/16 Principal diagnosis: GI bleed Interval history: No acute events. Awake and alert on PSV, tolerating. Scheduled for HD today. Objective Vital Signs - 12hr 09/13/16 09/13/16 09/13/16 00:00 00:30 01:00 Temperature Pulse Rate 81 70 70 Pulse Rate [ From Monitor] Pulse Rate [ 70 Left Radial] Pulse Rate [ Popliteal] Pulse Rate [ 70 Right Dorsalis Pedis] Pulse Rate [ 70 Right Radial] Respiratory 18 18 18 Rate Blood Pressure 107/45 163/60 163/60 O2 Sat by Pulse 71 L 100 100 Oximetry O2 Sat by Pulse Oximetry [ Anterior Bilateral Throughout] 09/13/16 09/13/16 09/13/16 01:30 02:00 02:30 Temperature Pulse Rate 70 69 70 Pulse Rate [ From Monitor] Pulse Rate [ Left Radial] Pulse Rate [ Popliteal] Pulse Rate [ Right Dorsalis Pedis] Pulse Rate [ Right Radial] Respiratory 18 18 17 Rate Blood Pressure 101/41 101/41 114/48 O2 Sat by Pulse 100 100 100 Oximetry O2 Sat by Pulse Oximetry [ Anterior Bilateral Throughout] 09/13/16 09/13/16 09/13/16 03:00 03:30 03:34 Temperature 97.6 F Pulse Rate 70 70 Pulse Rate [ From Monitor] Pulse Rate [ Left Radial] Pulse Rate [ Popliteal] Pulse Rate [ Right Dorsalis Pedis] Pulse Rate [ Right Radial] Respiratory 17 14 Rate Blood Pressure 114/48 114/48 O2 Sat by Pulse 100 100 Oximetry O2 Sat by Pulse Oximetry [ Anterior Bilateral Throughout] 09/13/16 09/13/16 09/13/16 03:36 04:00 04:30 Temperature Pulse Rate 70 69 70 Pulse Rate [ 70 From Monitor] Pulse Rate [ 70 Left Radial] Pulse Rate [ 70 Popliteal] Pulse Rate [ Right Dorsalis Pedis] Pulse Rate [ 70 Right Radial] Respiratory 22 14 Rate Blood Pressure 114/48 121/47 137/50 O2 Sat by Pulse 100 100 100 Oximetry O2 Sat by Pulse Oximetry [ Anterior Bilateral Throughout] 09/13/16 09/13/16 09/13/16 05:00 05:30 06:00 Temperature Pulse Rate 70 70 70 Pulse Rate [ From Monitor] Pulse Rate [ Left Radial] Pulse Rate [ Popliteal] Pulse Rate [ Right Dorsalis Pedis] Pulse Rate [ Right Radial] Respiratory 15 16 16 Rate Blood Pressure 137/50 130/51 130/51 O2 Sat by Pulse 100 100 100 Oximetry O2 Sat by Pulse Oximetry [ Anterior Bilateral Throughout] 09/13/16 09/13/16 09/13/16 06:30 07:00 07:25 Temperature Pulse Rate 70 70 70 Pulse Rate [ From Monitor] Pulse Rate [ Left Radial] Pulse Rate [ Popliteal] Pulse Rate [ Right Dorsalis Pedis] Pulse Rate [ Right Radial] Respiratory 17 20 Rate Blood Pressure 135/51 135/51 111/38 O2 Sat by Pulse 99 100 99 Oximetry O2 Sat by Pulse Oximetry [ Anterior Bilateral Throughout] 09/13/16 09/13/16 09/13/16 07:30 07:37 08:00 Temperature 99.4 F Pulse Rate 70 70 70 Pulse Rate [ 70 From Monitor] Pulse Rate [ Left Radial] Pulse Rate [ Popliteal] Pulse Rate [ Right Dorsalis Pedis] Pulse Rate [ Right Radial] Respiratory 23 22 24 Rate Blood Pressure 111/38 111/38 111/38 O2 Sat by Pulse 100 100 100 Oximetry O2 Sat by Pulse Oximetry [ Anterior Bilateral Throughout] 09/13/16 09/13/16 09/13/16 08:30 09:16 10:20 Temperature 99.4 F Pulse Rate 70 70 70 Pulse Rate [ From Monitor] Pulse Rate [ Left Radial] Pulse Rate [ Popliteal] Pulse Rate [ Right Dorsalis Pedis] Pulse Rate [ Right Radial] Respiratory 21 21 20 Rate Blood Pressure 133/48 129/47 151/54 O2 Sat by Pulse 100 100 Oximetry O2 Sat by Pulse 100 Oximetry [ Anterior Bilateral Throughout] 09/13/16 09/13/16 09/13/16 10:30 10:45 10:59 Temperature Pulse Rate 70 70 70 Pulse Rate [ From Monitor] Pulse Rate [ Left Radial] Pulse Rate [ Popliteal] Pulse Rate [ Right Dorsalis Pedis] Pulse Rate [ Right Radial] Respiratory Rate Blood Pressure 151/54 122/43 119/53 O2 Sat by Pulse Oximetry O2 Sat by Pulse Oximetry [ Anterior Bilateral Throughout] 09/13/16 09/13/16 09/13/16 11:15 11:27 11:30 Temperature Pulse Rate 70 70 70 Pulse Rate [ From Monitor] Pulse Rate [ Left Radial] Pulse Rate [ Popliteal] Pulse Rate [ Right Dorsalis Pedis] Pulse Rate [ Right Radial] Respiratory 21 Rate Blood Pressure 112/58 102/60 102/60 O2 Sat by Pulse 100 Oximetry O2 Sat by Pulse Oximetry [ Anterior Bilateral Throughout] 09/13/16 11:42 Temperature Pulse Rate 70 Pulse Rate [ From Monitor] Pulse Rate [ Left Radial] Pulse Rate [ Popliteal] Pulse Rate [ Right Dorsalis Pedis] Pulse Rate [ Right Radial] Respiratory Rate Blood Pressure 125/56 O2 Sat by Pulse Oximetry O2 Sat by Pulse Oximetry [ Anterior Bilateral Throughout] Constitutional: alert, other (orally intubated and critically ill on vent) ENT: other (orally intubated) Neck: supple Ascultation: Bilateral: clear (anteriorly) Percussion: Bilateral: not dull Cardiovascular: regular rate and rhythm, other (100% paced at this moment ) Gastrointestinal: normoactive bowel sounds Neurologic: non-focal exam Psychiatric: mood appropriate CBC and BMP: 09/13/16 00:01 09/13/16 06:45 ABG, PT/INR, D-dimer: ABG POC ABG pH 7.466 (7.35-7.45) H 09/13/16 09:31 POC ABG pCO2 38.2 (35-45) 09/13/16 09:31 POC ABG pO2 93 (80-105) 09/13/16 09:31 POC ABG HCO3 27.5 09/13/16 09:31 POC ABG Total CO2 29 09/13/16 09:31 POC ABG O2 Sat 98 09/13/16 09:31 PT/INR, D-dimer PT 19.9 Sec. (12.2-14.9) H 09/07/16 11:02 INR 1.69 (0.87-1.13) H 09/07/16 11:02 Abnormal lab findings: Abnormal Labs 09/06/16 09/06/1617 12:51 12:51 15:57 WBC RBC Hgb Hct RDW Plt Count Lymph % (Auto) [place] % (Auto) Lymph # [place] # Seg Neutrophils % Seg Neuts % (Manual) Lymphocytes % (Manual) Nucleated RBC % Seg Neutrophils # Seg Neutrophils # Man Lymphocytes # (Manual) Monocytes # (Manual) PT INR POC ABG pH POC ABG pCO2 POC ABG pO2 Sodium Potassium 6.4 H* 6.7 H* Chloride 95.9 L Carbon Dioxide 21 L 19 L BUN 109 H 111 H Creatinine 10.5 H 10.1 H Glucose 133 H 178 H POC Glucose Lactic Acid Calcium Phosphorus Ammonia CK-MB (CK-2) Rel Index Troponin T NT-Pro-B Natriuret Pep 61904 H Total Protein Albumin Cholesterol LDL Cholesterol Direct HDL Cholesterol Crossmatch 09/06/16 09/06/16 09/06/16 15:57 19:06 19:06 WBC RBC Hgb 6.3 L Hct 19.3 L* RDW Plt Count Lymph % (Auto) [place] % (Auto) Lymph # [place] # Seg Neutrophils % Seg Neuts % (Manual) Lymphocytes % (Manual) Nucleated RBC % Seg Neutrophils # Seg Neutrophils # Man Lymphocytes # (Manual) Monocytes # (Manual) PT INR POC ABG pH POC ABG pCO2 POC ABG pO2 Sodium Potassium 3.3 L D Chloride 96.0 L Carbon Dioxide BUN 30 H Creatinine 2.8 H D Glucose 154 H POC Glucose Lactic Acid 2.80 H* Calcium Phosphorus Ammonia CK-MB (CK-2) Rel Index Troponin T NT-Pro-B Natriuret Pep Total Protein Albumin Cholesterol LDL Cholesterol Direct HDL Cholesterol Crossmatch 09/06/16 09/06/16 09/06/16 Unknown Unknown Unknown WBC RBC Hgb Hct RDW Plt Count Lymph % (Auto) [place] % (Auto) Lymph # [place] # Seg Neutrophils % Seg Neuts % (Manual) Lymphocytes % (Manual) Nucleated RBC % Seg Neutrophils # Seg Neutrophils # Man Lymphocytes # (Manual) Monocytes # (Manual) PT INR POC ABG pH POC ABG pCO2 POC ABG pO2 Sodium Potassium 6.4 H* Chloride 93.0 L Carbon Dioxide 21 L BUN 109 H Creatinine 10.4 H Glucose 197 H POC Glucose Lactic Acid 6.20 H* Calcium Phosphorus 5.20 H Ammonia CK-MB (CK-2) Rel Index 7.5 H Troponin T 0.210 H* NT-Pro-B Natriuret Pep 62228 H Total Protein 5.3 L Albumin 2.8 L Cholesterol 37 L LDL Cholesterol Direct 14 L HDL Cholesterol 16 L Crossmatch 09/06/16 09/07/16 09/07/16 Unknown 00:13 05:30 WBC RBC Hgb Hct RDW Plt Count Lymph % (Auto) [place] % (Auto) Lymph # [place] # Seg Neutrophils % Seg Neuts % (Manual) Lymphocytes % (Manual) Nucleated RBC % Seg Neutrophils # Seg Neutrophils # Man Lymphocytes # (Manual) Monocytes # (Manual) PT 31.0 H INR 2.96 H POC ABG pH 7.570 H POC ABG pCO2 31.7 L POC ABG pO2 183 H Sodium Potassium Chloride Carbon Dioxide BUN Creatinine Glucose POC Glucose Lactic Acid Calcium Phosphorus Ammonia 102.0 H CK-MB (CK-2) Rel Index Troponin T NT-Pro-B Natriuret Pep Total Protein Albumin Cholesterol LDL Cholesterol Direct HDL Cholesterol Crossmatch 09/07/16 09/07/16 09/07/16 05:50 11:02 11:02 WBC 25.7 H RBC 2.83 L Hgb 8.5 L Hct 26.0 L D RDW 17.5 H Plt Count Lymph % (Auto) [place] % (Auto) Lymph # [place] # Seg Neutrophils % Seg Neuts % (Manual) 96.0 H Lymphocytes % (Manual) 2.0 L Nucleated RBC % 1.0 H Seg Neutrophils # Seg Neutrophils # Man 24.7 H Lymphocytes # (Manual) 0.5 L Monocytes # (Manual) PT INR POC ABG pH POC ABG pCO2 POC ABG pO2 Sodium Potassium Chloride Carbon Dioxide BUN 54 H Creatinine 5.6 H D Glucose 138 H POC Glucose 149 H Lactic Acid Calcium Phosphorus Ammonia CK-MB (CK-2) Rel Index Troponin T NT-Pro-B Natriuret Pep Total Protein Albumin Cholesterol LDL Cholesterol Direct HDL Cholesterol Crossmatch 09/07/16 09/07/16 09/07/16 11:02 14:02 17:01 WBC RBC Hgb Hct RDW Plt Count Lymph % (Auto) [place] % (Auto) Lymph # [place] # Seg Neutrophils % Seg Neuts % (Manual) Lymphocytes % (Manual) Nucleated RBC % Seg Neutrophils # Seg Neutrophils # Man Lymphocytes # (Manual) Monocytes # (Manual) PT 19.9 H INR 1.69 H POC ABG pH POC ABG pCO2 POC ABG pO2 Sodium Potassium Chloride Carbon Dioxide BUN Creatinine Glucose POC Glucose 149 H Lactic Acid Calcium Phosphorus Ammonia CK-MB (CK-2) Rel Index Troponin T 0.190 H* NT-Pro-B Natriuret Pep Total Protein Albumin Cholesterol LDL Cholesterol Direct HDL Cholesterol Crossmatch 09/07/16 09/07/16 09/08/16 17:50 23:50 05:19 WBC RBC Hgb Hct RDW Plt Count Lymph % (Auto) [place] % (Auto) Lymph # [place] # Seg Neutrophils % Seg Neuts % (Manual) Lymphocytes % (Manual) Nucleated RBC % Seg Neutrophils # Seg Neutrophils # Man Lymphocytes # (Manual) Monocytes # (Manual) PT INR POC ABG pH 7.530 H POC ABG pCO2 32.2 L POC ABG pO2 Sodium Potassium Chloride Carbon Dioxide BUN Creatinine Glucose POC Glucose 126 H 128 H Lactic Acid Calcium Phosphorus Ammonia CK-MB (CK-2) Rel Index Troponin T NT-Pro-B Natriuret Pep Total Protein Albumin Cholesterol LDL Cholesterol Direct HDL Cholesterol Crossmatch 09/08/16 09/08/16 09/08/16 05:25 07:35 07:35 WBC 26.6 H RBC 2.79 L Hgb 8.3 L Hct 25.9 L RDW 18.0 H Plt Count 139 L Lymph % (Auto) [place] % (Auto) Lymph # [place] # Seg Neutrophils % Seg Neuts % (Manual) 93.0 H Lymphocytes % (Manual) 5.0 L Nucleated RBC % Seg Neutrophils # Seg Neutrophils # Man 24.7 H Lymphocytes # (Manual) Monocytes # (Manual) PT INR POC ABG pH POC ABG pCO2 POC ABG pO2 Sodium Potassium Chloride Carbon Dioxide BUN 65 H Creatinine 6.7 H Glucose 120 H POC Glucose 130 H Lactic Acid Calcium Phosphorus Ammonia CK-MB (CK-2) Rel Index Troponin T NT-Pro-B Natriuret Pep Total Protein 5.2 L Albumin 2.7 L Cholesterol LDL Cholesterol Direct HDL Cholesterol Crossmatch 09/08/16 09/08/16 09/09/16 11:47 18:10 05:27 WBC RBC Hgb Hct RDW Plt Count Lymph % (Auto) [place] % (Auto) Lymph # [place] # Seg Neutrophils % Seg Neuts % (Manual) Lymphocytes % (Manual) Nucleated RBC % Seg Neutrophils # Seg Neutrophils # Man Lymphocytes # (Manual) Monocytes # (Manual) PT INR POC ABG pH POC ABG pCO2 POC ABG pO2 Sodium Potassium Chloride Carbon Dioxide BUN Creatinine Glucose POC Glucose 141 H 139 H 152 H Lactic Acid Calcium Phosphorus Ammonia CK-MB (CK-2) Rel Index Troponin T NT-Pro-B Natriuret Pep Total Protein Albumin Cholesterol LDL Cholesterol Direct HDL Cholesterol Crossmatch 09/09/16 09/09/16 09/09/16 05:28 05:30 05:30 WBC 22.3 H RBC 2.66 L Hgb 7.8 L Hct 24.6 L RDW 19.1 H Plt Count 118 L Lymph % (Auto) [place] % (Auto) Lymph # [place] # Seg Neutrophils % Seg Neuts % (Manual) 89.0 H Lymphocytes % (Manual) 5.0 L Nucleated RBC % Seg Neutrophils # Seg Neutrophils # Man 19.8 H Lymphocytes # (Manual) 1.1 L Monocytes # (Manual) 1.3 H PT INR POC ABG pH 7.560 H POC ABG pCO2 34.2 L POC ABG pO2 Sodium Potassium 3.2 L D Chloride Carbon Dioxide BUN 34 H Creatinine 4.3 H Glucose 144 H POC Glucose Lactic Acid Calcium 8.0 L Phosphorus Ammonia CK-MB (CK-2) Rel Index Troponin T NT-Pro-B Natriuret Pep Total Protein Albumin Cholesterol LDL Cholesterol Direct HDL Cholesterol Crossmatch 09/09/16 09/09/16 09/09/16 12:01 14:56 15:30 WBC RBC Hgb Hct RDW Plt Count Lymph % (Auto) [place] % (Auto) Lymph # [place] # Seg Neutrophils % Seg Neuts % (Manual) Lymphocytes % (Manual) Nucleated RBC % Seg Neutrophils # Seg Neutrophils # Man Lymphocytes # (Manual) Monocytes # (Manual) PT INR POC ABG pH 7.582 H 7.543 H POC ABG pCO2 32.1 L POC ABG pO2 42 L Sodium Potassium Chloride Carbon Dioxide BUN Creatinine Glucose POC Glucose 178 H Lactic Acid Calcium Phosphorus Ammonia CK-MB (CK-2) Rel Index Troponin T NT-Pro-B Natriuret Pep Total Protein Albumin Cholesterol LDL Cholesterol Direct HDL Cholesterol Crossmatch 09/09/16 09/09/16 09/10/16 18:08 23:36 03:00 WBC 19.9 H RBC 2.73 L Hgb 8.0 L Hct 25.4 L RDW 19.0 H Plt Count 89 L Lymph % (Auto) 4.9 L [place] % (Auto) Lymph # 1.0 L [place] # 1.1 H Seg Neutrophils % 88.9 H Seg Neuts % (Manual) Lymphocytes % (Manual) Nucleated RBC % Seg Neutrophils # 17.7 H Seg Neutrophils # Man Lymphocytes # (Manual) Monocytes # (Manual) PT INR POC ABG pH POC ABG pCO2 POC ABG pO2 Sodium Potassium Chloride Carbon Dioxide BUN Creatinine Glucose POC Glucose 147 H 173 H Lactic Acid Calcium Phosphorus Ammonia CK-MB (CK-2) Rel Index Troponin T NT-Pro-B Natriuret Pep Total Protein Albumin Cholesterol LDL Cholesterol Direct HDL Cholesterol Crossmatch 09/10/16 09/10/16 09/10/16 03:00 04:29 10:00 WBC RBC 2.55 L Hgb 7.6 L Hct 23.7 L RDW 18.9 H Plt Count 84 L Lymph % (Auto) [place] % (Auto) Lymph # [place] # Seg Neutrophils % Seg Neuts % (Manual) Lymphocytes % (Manual) Nucleated RBC % Seg Neutrophils # Seg Neutrophils # Man Lymphocytes # (Manual) Monocytes # (Manual) PT INR POC ABG pH 7.521 H POC ABG pCO2 POC ABG pO2 Sodium Potassium 3.4 L Chloride 95.9 L Carbon Dioxide BUN 46 H Creatinine 5.9 H Glucose POC Glucose Lactic Acid Calcium Phosphorus Ammonia CK-MB (CK-2) Rel Index Troponin T NT-Pro-B Natriuret Pep Total Protein Albumin Cholesterol LDL Cholesterol Direct HDL Cholesterol Crossmatch 09/10/16 09/10/16 09/10/16 10:09 12:06 17:58 WBC RBC Hgb 7.7 L Hct 23.4 L RDW Plt Count Lymph % (Auto) [place] % (Auto) Lymph # [place] # Seg Neutrophils % Seg Neuts % (Manual) Lymphocytes % (Manual) Nucleated RBC % Seg Neutrophils # Seg Neutrophils # Man Lymphocytes # (Manual) Monocytes # (Manual) PT INR POC ABG pH POC ABG pCO2 POC ABG pO2 Sodium Potassium Chloride Carbon Dioxide BUN Creatinine Glucose POC Glucose 112 H 165 H Lactic Acid Calcium Phosphorus Ammonia CK-MB (CK-2) Rel Index Troponin T NT-Pro-B Natriuret Pep Total Protein Albumin Cholesterol LDL Cholesterol Direct HDL Cholesterol Crossmatch 09/11/16 09/11/16 09/11/16 00:01 05:13 05:28 WBC RBC Hgb Hct RDW Plt Count Lymph % (Auto) [place] % (Auto) Lymph # [place] # Seg Neutrophils % Seg Neuts % (Manual) Lymphocytes % (Manual) Nucleated RBC % Seg Neutrophils # Seg Neutrophils # Man Lymphocytes # (Manual) Monocytes # (Manual) PT INR POC ABG pH 7.565 H POC ABG pCO2 32.4 L POC ABG pO2 126 H Sodium Potassium Chloride Carbon Dioxide BUN Creatinine Glucose POC Glucose 196 H 187 H Lactic Acid Calcium Phosphorus Ammonia CK-MB (CK-2) Rel Index Troponin T NT-Pro-B Natriuret Pep Total Protein Albumin Cholesterol LDL Cholesterol Direct HDL Cholesterol Crossmatch 09/11/16 09/11/16 09/11/16 07:07 07:07 11:50 WBC 19.9 H RBC 2.61 L Hgb 7.6 L Hct 24.4 L RDW 18.4 H Plt Count 97 L Lymph % (Auto) 4.8 L [place] % (Auto) Lymph # 0.9 L [place] # 1.3 H Seg Neutrophils % 87.4 H Seg Neuts % (Manual) Lymphocytes % (Manual) Nucleated RBC % Seg Neutrophils # 17.4 H Seg Neutrophils # Man Lymphocytes # (Manual) Monocytes # (Manual) PT INR POC ABG pH POC ABG pCO2 POC ABG pO2 Sodium Potassium 3.3 L Chloride Carbon Dioxide BUN 32 H Creatinine 4.2 H Glucose 196 H POC Glucose 229 H Lactic Acid Calcium 8.0 L Phosphorus Ammonia CK-MB (CK-2) Rel Index Troponin T NT-Pro-B Natriuret Pep Total Protein Albumin Cholesterol LDL Cholesterol Direct HDL Cholesterol Crossmatch 09/11/16 09/11/16 09/12/16 18:13 23:48 04:22 WBC RBC Hgb Hct RDW Plt Count Lymph % (Auto) [place] % (Auto) Lymph # [place] # Seg Neutrophils % Seg Neuts % (Manual) Lymphocytes % (Manual) Nucleated RBC % Seg Neutrophils # Seg Neutrophils # Man Lymphocytes # (Manual) Monocytes # (Manual) PT INR POC ABG pH 7.527 H POC ABG pCO2 33.6 L POC ABG pO2 128 H Sodium Potassium Chloride Carbon Dioxide BUN Creatinine Glucose POC Glucose 216 H 135 H Lactic Acid Calcium Phosphorus Ammonia CK-MB (CK-2) Rel Index Troponin T NT-Pro-B Natriuret Pep Total Protein Albumin Cholesterol LDL Cholesterol Direct HDL Cholesterol Crossmatch 09/12/16 09/12/16 09/12/16 06:00 06:00 11:53 WBC 15.9 H RBC 2.34 L Hgb 6.8 L Hct 21.5 L RDW 18.4 H Plt Count 101 L Lymph % (Auto) 5.6 L [place] % (Auto) 8.4 H Lymph # 0.9 L [place] # 1.3 H Seg Neutrophils % 84.5 H Seg Neuts % (Manual) Lymphocytes % (Manual) Nucleated RBC % Seg Neutrophils # 13.5 H Seg Neutrophils # Man Lymphocytes # (Manual) Monocytes # (Manual) PT INR POC ABG pH POC ABG pCO2 POC ABG pO2 Sodium Potassium Chloride 97.5 L Carbon Dioxide BUN 46 H Creatinine 5.4 H Glucose 192 H POC Glucose 181 H Lactic Acid Calcium 7.8 L Phosphorus Ammonia CK-MB (CK-2) Rel Index Troponin T NT-Pro-B Natriuret Pep Total Protein Albumin Cholesterol LDL Cholesterol Direct HDL Cholesterol Crossmatch 09/12/16 09/12/16 09/12/16 12:18 16:56 23:33 WBC RBC Hgb Hct RDW Plt Count Lymph % (Auto) [place] % (Auto) Lymph # [place] # Seg Neutrophils % Seg Neuts % (Manual) Lymphocytes % (Manual) Nucleated RBC % Seg Neutrophils # Seg Neutrophils # Man Lymphocytes # (Manual) Monocytes # (Manual) PT INR POC ABG pH POC ABG pCO2 POC ABG pO2 Sodium Potassium Chloride Carbon Dioxide BUN Creatinine Glucose POC Glucose 204 H 175 H Lactic Acid Calcium Phosphorus Ammonia CK-MB (CK-2) Rel Index Troponin T NT-Pro-B Natriuret Pep Total Protein Albumin Cholesterol LDL Cholesterol Direct HDL Cholesterol Crossmatch See Detail 09/13/16 09/13/16 09/13/16 00:01 04:06 04:59 WBC 17.6 H RBC 2.80 L Hgb 8.4 L Hct 25.6 L RDW 17.1 H Plt Count 103 L Lymph % (Auto) 6.2 L [place] % (Auto) 8.4 H Lymph # 1.1 L [place] # 1.5 H Seg Neutrophils % 83.7 H Seg Neuts % (Manual) Lymphocytes % (Manual) Nucleated RBC % Seg Neutrophils # 14.8 H Seg Neutrophils # Man Lymphocytes # (Manual) Monocytes # (Manual) PT INR POC ABG pH 7.504 H POC ABG pCO2 32.7 L POC ABG pO2 Sodium Potassium Chloride Carbon Dioxide BUN Creatinine Glucose POC Glucose 239 H Lactic Acid Calcium Phosphorus Ammonia CK-MB (CK-2) Rel Index Troponin T NT-Pro-B Natriuret Pep Total Protein Albumin Cholesterol LDL Cholesterol Direct HDL Cholesterol Crossmatch 09/13/16 09/13/16 09/13/16 06:45 09:31 11:39 WBC RBC Hgb Hct RDW Plt Count Lymph % (Auto) [place] % (Auto) Lymph # [place] # Seg Neutrophils % Seg Neuts % (Manual) Lymphocytes % (Manual) Nucleated RBC % Seg Neutrophils # Seg Neutrophils # Man Lymphocytes # (Manual) Monocytes # (Manual) PT INR POC ABG pH 7.466 H POC ABG pCO2 POC ABG pO2 Sodium 136 L Potassium Chloride 93.8 L Carbon Dioxide BUN 65 H Creatinine 6.9 H Glucose 205 H POC Glucose 218 H Lactic Acid Calcium Phosphorus Ammonia CK-MB (CK-2) Rel Index Troponin T NT-Pro-B Natriuret Pep Total Protein Albumin Cholesterol LDL Cholesterol Direct HDL Cholesterol Crossmatch
--- NOTE | 2016-09-13 14:19 | Progress Note ---
Assessment and Plan Assessment and plan: Patient is 71 y/o women with severe anemia, etiology unknown, coagulopathy, renal failure and acute respiratory failure presented with altered mental status. She was intubated. Coagulase Negative staph in 1-2 blood culture most likely contaminant -Acute hypoxic respiratory failure, Intubated: Weaning trials -End-stage renal disease on hemodialysis: Nephrology is following -Sepsis believed to be related to do various things states of gangrene bilateral feet: Consult infectious disease -Acute or chronic anemia of kidney disease status post blood transfusion: Continue to monitor -Thrombocytopenia: Pending HIT History Interval history: Patient seen and examined. Follow up on altered mental status patient is currently intubated. Imaging, old records, testing, labs, nursing notes reviewed. Hospitalist Physical - Physical exam Narrative exam: GEN: Intubated but awake HEENT: NCAT, PERRL, EOMI, OP CLEAR NECK: SUPPLE, NO THYROMEGALY, NO JVD, NO LAD CVS: RRR, NORMAL S1S2 LUNGS/CHEST: CTA B, NORMAL CHEST EXPANSION B, GOOD AIR ENTRY B ABD: SOFT, NTND, GBS, NO REBOUND OR GUARDING EXT/SKIN: Necrotic toes bilaterally MSK: FROM X 4 EXTREMITIES NEURO: CN 2-12 GROSSLY INTACT, NO FOCAL DEFICITS PSY: CALM - Constitutional Vitals: Temp Pulse Resp BP Pulse Ox 99.0 F 70 21 126/54 98 09/13/16 12:00 09/13/16 13:50 09/13/16 13:00 09/13/16 13:45 09/13/16 12:30 General appearance: Present: no acute distress, cachectic, other (intubated) Results - Labs CBC & Chem 7: 09/13/16 00:01 09/13/16 06:45 Labs: Laboratory Last Values WBC 17.6 K/mm3 (4.5-11.0) H 09/13/16 00:01 RBC 2.80 M/mm3 (3.65-5.03) L 09/13/16 00:01 Hgb 8.4 gm/dl (10.1-14.3) L 09/13/16 00:01 Hct 25.6 % (30.3-42.9) L 09/13/16 00:01 MCV 91 fl (79-97) 09/13/16 00:01 MCH 30 pg (28-32) 09/13/16 00:01 MCHC 33 % (30-34) 09/13/16 00:01 RDW 17.1 % (13.2-15.2) H 09/13/16 00:01 Plt Count 103 K/mm3 (140-440) L 09/13/16 00:01 Lymph % (Auto) 6.2 % (13.4-35.0) L 09/13/16 00:01 [place] % (Auto) 8.4 % (0.0-7.3) H 09/13/16 00:01 Eos % (Auto) 1.5 % (0.0-4.3) 09/13/16 00:01 Baso % (Auto) 0.2 % (0.0-1.8) 09/13/16 00:01 Lymph # 1.1 K/mm3 (1.2-5.4) L 09/13/16 00:01 [place] # 1.5 K/mm3 (0.0-0.8) H 09/13/16 00:01 Eos # 0.3 K/mm3 (0.0-0.4) 09/13/16 00:01 Baso # 0.0 K/mm3 (0.0-0.1) 09/13/16 00:01 Add Manual Diff Complete 09/09/16 05:30 Total Counted 100 09/09/16 05:30 Seg Neutrophils % 83.7 % (40.0-70.0) H 09/13/16 00:01 Seg Neuts % (Manual) 89.0 % (40.0-70.0) H 09/09/16 05:30 Band Neutrophils % 0 % 09/09/16 05:30 Lymphocytes % (Manual) 5.0 % (13.4-35.0) L 09/09/16 05:30 Reactive Lymphs % (Man) 0 % 09/09/16 05:30 Monocytes % (Manual) 6.0 % (0.0-7.3) 09/09/16 05:30 Eosinophils % (Manual) 0 % (0.0-4.3) 09/09/16 05:30 Basophils % (Manual) 0 % (0.0-1.8) 09/09/16 05:30 Metamyelocytes % 0 % 09/09/16 05:30 Myelocytes % 0 % 09/09/16 05:30 Promyelocytes % 0 % 09/09/16 05:30 Blast Cells % 0 % 09/09/16 05:30 Nucleated RBC % Not Reportable 09/09/16 05:30 Seg Neutrophils # 14.8 K/mm3 (1.8-7.7) H 09/13/16 00:01 Seg Neutrophils # Man 19.8 K/mm3 (1.8-7.7) H 09/09/16 05:30 Band Neutrophils # 0.0 K/mm3 09/09/16 05:30 Lymphocytes # (Manual) 1.1 K/mm3 (1.2-5.4) L 09/09/16 05:30 Abs React Lymphs (Man) 0.0 K/mm3 09/09/16 05:30 Monocytes # (Manual) 1.3 K/mm3 (0.0-0.8) H 09/09/16 05:30 Eosinophils # (Manual) 0.0 K/mm3 (0.0-0.4) 09/09/16 05:30 Basophils # (Manual) 0.0 K/mm3 (0.0-0.1) 09/09/16 05:30 Metamyelocytes # 0.0 K/mm3 09/09/16 05:30 Myelocytes # 0.0 K/mm3 09/09/16 05:30 Promyelocytes # 0.0 K/mm3 09/09/16 05:30 Blast Cells # 0.0 K/mm3 09/09/16 05:30 WBC Morphology Not Reportable 09/09/16 05:30 Hypersegmented Neuts Not Reportable 09/09/16 05:30 Hyposegmented Neuts Not Reportable 09/09/16 05:30 Hypogranular Neuts Not Reportable 09/09/16 05:30 Smudge Cells Not Reportable 09/09/16 05:30 Toxic Granulation Not Reportable 09/09/16 05:30 Toxic Vacuolation Not Reportable 09/09/16 05:30 Dohle Bodies Not Reportable 09/09/16 05:30 Pelger-Huet Anomaly Not Reportable 09/09/16 05:30 Juan Rods Not Reportable 09/09/16 05:30 Platelet Estimate Consistent w auto 09/09/16 05:30 Clumped Platelets Not Reportable 09/09/16 05:30 Plt Clumps, EDTA Not Reportable 09/09/16 05:30 Large Platelets Not Reportable 09/09/16 05:30 Giant Platelets Not Reportable 09/09/16 05:30 Platelet Satelliting Not Reportable 09/09/16 05:30 Plt Morphology Comment Not Reportable 09/09/16 05:30 RBC Morphology Not Reportable 09/09/16 05:30 Dimorphic RBCs Not Reportable 09/09/16 05:30 Polychromasia 1+ 09/09/16 05:30 Hypochromasia 1+ 09/09/16 05:30 Poikilocytosis Not Reportable 09/09/16 05:30 Anisocytosis 1+ 09/09/16 05:30 Microcytosis Not Reportable 09/09/16 05:30 Macrocytosis Not Reportable 09/09/16 05:30 Spherocytes Not Reportable 09/09/16 05:30 Pappenheimer Bodies Not Reportable 09/09/16 05:30 Sickle Cells Not Reportable 09/09/16 05:30 Target Cells Not Reportable 09/09/16 05:30 Tear Drop Cells Not Reportable 09/09/16 05:30 Ovalocytes Not Reportable 09/09/16 05:30 Stomatocytes Few 09/08/16 07:35 Helmet Cells Not Reportable 09/09/16 05:30 Dominguez-Judson Bodies Not Reportable 09/09/16 05:30 [place] Rings Not Reportable 09/09/16 05:30 [place] Cells Not Reportable 09/09/16 05:30 Bite Cells Not Reportable 09/09/16 05:30 Crenated Cell Not Reportable 09/09/16 05:30 Elliptocytes Not Reportable 09/09/16 05:30 Acanthocytes (Spur) Not Reportable 09/09/16 05:30 Rouleaux Not Reportable 09/09/16 05:30 Hemoglobin C Crystals Not Reportable 09/09/16 05:30 Schistocytes Rare 09/09/16 05:30 Malaria parasites Not Reportable 09/09/16 05:30 Yair Bodies Not Reportable 09/09/16 05:30 Hem Pathologist Commnt No 09/09/16 05:30 PT 19.9 Sec. (12.2-14.9) H 09/07/16 11:02 INR 1.69 (0.87-1.13) H 09/07/16 11:02 POC ABG pH 7.466 (7.35-7.45) H 09/13/16 09:31 POC ABG pCO2 38.2 (35-45) 09/13/16 09:31 POC ABG pO2 93 (80-105) 09/13/16 09:31 POC ABG HCO3 27.5 09/13/16 09:31 POC ABG Total CO2 29 09/13/16 09:31 POC ABG O2 Sat 98 09/13/16 09:31 POC ABG Base Excess 4 09/13/16 09:31 VBG pH 7.418 (7.320-7.420) 09/06/16 Unknown FiO2 28 % 09/13/16 09:31 Sodium 136 mmol/L (137-145) L 09/13/16 06:45 Potassium 3.9 mmol/L (3.6-5.0) 09/13/16 06:45 Chloride 93.8 mmol/L (98-107) L 09/13/16 06:45 Carbon Dioxide 25 mmol/L (22-30) 09/13/16 06:45 Anion Gap 21 mmol/L 09/13/16 06:45 BUN 65 mg/dL (7-17) H 09/13/16 06:45 Creatinine 6.9 mg/dL (0.7-1.2) H 09/13/16 06:45 Estimated GFR 7 ml/min 09/13/16 06:45 BUN/Creatinine Ratio 9.42 % 09/13/16 06:45 Glucose 205 mg/dL (65-100) H 09/13/16 06:45 POC Glucose 218 (70-105) H 09/13/16 11:39 Lactic Acid 1.00 mmol/L (0.7-2.0) 09/07/16 17:01 Calcium 8.4 mg/dL (8.4-10.2) 09/13/16 06:45 Phosphorus 5.20 mg/dL (2.5-4.5) H 09/06/16 Unknown Magnesium 2.20 mg/dL (1.7-2.3) 09/06/16 Unknown Total Bilirubin 1.10 mg/dL (0.1-1.2) 09/08/16 07:35 AST 25 units/L (5-40) 09/08/16 07:35 ALT 15 units/L (7-56) 09/08/16 07:35 Alkaline Phosphatase 77 units/L (35-129) 09/08/16 07:35 Ammonia 102.0 umol/L (25-60) H 09/06/16 Unknown Total Creatine Kinase 40 units/L (30-135) 09/06/16 Unknown CK-MB (CK-2) 3.0 ng/mL (0.0-4.0) 09/06/16 Unknown CK-MB (CK-2) Rel Index 7.5 (0-4) H 09/06/16 Unknown Troponin T 0.190 ng/mL (0.00-0.029) H* 09/07/16 17:01 NT-Pro-B Natriuret Pep 90937 pg/mL (0-900) H 09/06/16 Unknown Total Protein 5.2 g/dL (6.3-8.2) L 09/08/16 07:35 Albumin 2.7 g/dL (3.9-5) L 09/08/16 07:35 Albumin/Globulin Ratio 1.1 % 09/08/16 07:35 Triglycerides 38 mg/dL (2-149) 09/06/16 Unknown Cholesterol 37 mg/dL (50-199) L 09/06/16 Unknown LDL Cholesterol Direct 14 mg/dL (50-130) L 09/06/16 Unknown HDL Cholesterol 16 mg/dL (40-59) L 09/06/16 Unknown Cholesterol/HDL Ratio 2.31 % 09/06/16 Unknown Random Vancomycin 10.9 ug/mL (0-40.0) 09/08/16 07:35 Blood Type A POSITIVE 09/12/16 12:18 Antibody Screen TNR 09/12/16 12:18 JOSEFA Antibody Screen Negative 09/12/16 12:18 Crossmatch See Detail 09/12/16 12:18
--- NOTE | 2016-09-13 15:41 | Gastroenterology Progress Note ---
Assessment and Plan 1. GI bleed -etiology unclear, pt profoundly anemic on admission, was on anticoagulation at home -s/p EGD- negative for source of bleeding -HGB 8.4 today- stable -continue to monitor H&H and transfuse as needed -no active signs of bleeding overnight or today -would consider colonoscopy when extubated, but will defer at this time unless overt bleeding develops -no further GI recommendations at this time, will sign off -please re-consult if pt's condition changes Subjective Date of service: 09/13/16 Principal diagnosis: GI bleed Interval history: Patient intubated. No acute distress. No active signs of bleeding overnight or today per nursing. Objective - Constitutional Vitals: Temp Pulse Resp BP Pulse Ox 99.0 F 70 23 120/48 100 09/13/16 14:31 09/13/16 15:26 09/13/16 15:26 09/13/16 15:26 09/13/16 15:26 General appearance: no acute distress - Respiratory Respiratory: bilateral: CTA (anterior) - Cardiovascular Rhythm: regular Heart Sounds: Present: S1 & S2 - Gastrointestinal General gastrointestinal: Present: soft, non-distended, normal bowel sounds - Neurologic Neurological: other (intubated) - Labs CBC & Chem 7: 09/13/16 00:01 09/13/16 06:45 Labs: Laboratory Results - last 24 hr 09/12/16 09/12/16 09/12/16 11:53 12:18 16:56 WBC RBC Hgb Hct MCV MCH MCHC RDW Plt Count Lymph % (Auto) [place] % (Auto) Eos % (Auto) Baso % (Auto) Lymph # [place] # Eos # Baso # Seg Neutrophils % Seg Neutrophils # POC ABG pH POC ABG pCO2 POC ABG pO2 POC ABG HCO3 POC ABG Total CO2 POC ABG O2 Sat POC ABG Base Excess FiO2 Sodium Potassium Chloride Carbon Dioxide Anion Gap BUN Creatinine Estimated GFR BUN/Creatinine Ratio Glucose POC Glucose 181 H 204 H Calcium Blood Type A POSITIVE Antibody Screen TNR JOSEFA Antibody Screen Negative Crossmatch See Detail 09/12/16 09/13/16 09/13/16 23:33 00:01 04:06 WBC 17.6 H RBC 2.80 L Hgb 8.4 L Hct 25.6 L MCV 91 MCH 30 MCHC 33 RDW 17.1 H Plt Count 103 L Lymph % (Auto) 6.2 L [place] % (Auto) 8.4 H Eos % (Auto) 1.5 Baso % (Auto) 0.2 Lymph # 1.1 L [place] # 1.5 H Eos # 0.3 Baso # 0.0 Seg Neutrophils % 83.7 H Seg Neutrophils # 14.8 H POC ABG pH 7.504 H POC ABG pCO2 32.7 L POC ABG pO2 101 POC ABG HCO3 25.7 POC ABG Total CO2 27 POC ABG O2 Sat 98 POC ABG Base Excess 3 FiO2 30 Sodium Potassium Chloride Carbon Dioxide Anion Gap BUN Creatinine Estimated GFR BUN/Creatinine Ratio Glucose POC Glucose 175 H Calcium Blood Type Antibody Screen JOSEFA Antibody Screen Crossmatch 09/13/16 09/13/16 09/13/16 04:59 06:45 09:31 WBC RBC Hgb Hct MCV MCH MCHC RDW Plt Count Lymph % (Auto) [place] % (Auto) Eos % (Auto) Baso % (Auto) Lymph # [place] # Eos # Baso # Seg Neutrophils % Seg Neutrophils # POC ABG pH 7.466 H POC ABG pCO2 38.2 POC ABG pO2 93 POC ABG HCO3 27.5 POC ABG Total CO2 29 POC ABG O2 Sat 98 POC ABG Base Excess 4 FiO2 28 Sodium 136 L Potassium 3.9 Chloride 93.8 L Carbon Dioxide 25 Anion Gap 21 BUN 65 H Creatinine 6.9 H Estimated GFR 7 BUN/Creatinine Ratio 9.42 Glucose 205 H POC Glucose 239 H Calcium 8.4 Blood Type Antibody Screen JOSEFA Antibody Screen Crossmatch 09/13/16 11:39 WBC RBC Hgb Hct MCV MCH MCHC RDW Plt Count Lymph % (Auto) [place] % (Auto) Eos % (Auto) Baso % (Auto) Lymph # [place] # Eos # Baso # Seg Neutrophils % Seg Neutrophils # POC ABG pH POC ABG pCO2 POC ABG pO2 POC ABG HCO3 POC ABG Total CO2 POC ABG O2 Sat POC ABG Base Excess FiO2 Sodium Potassium Chloride Carbon Dioxide Anion Gap BUN Creatinine Estimated GFR BUN/Creatinine Ratio Glucose POC Glucose 218 H Calcium Blood Type Antibody Screen JOSEFA Antibody Screen Crossmatch
[2016-09-13 17:09] LABS: ISTAT Base Excess 7; ISTAT HCO3 29.8; ISTAT PCO2 33.8 (35-45); ISTAT PH 7.553 (7.35-7.45); ISTAT PO2 90 (80-105); ISTAT SO2 98; ISTAT TCO2 31
[2016-09-13 17:35] LABS: Heparin-Induced Platelet Antib Negative (Negative); Unfractionated Heparin Negative (Negative)
[2016-09-14 03:46] LABS: ISTAT Base Excess 5; ISTAT HCO3 27.8; ISTAT PCO2 35.3 (35-45); ISTAT PH 7.503 (7.35-7.45); ISTAT PO2 47 (80-105); ISTAT SO2 86; ISTAT TCO2 29
[2016-09-14 03:46] LABS: ISTAT Base Excess 6; ISTAT HCO3 28.5; ISTAT PCO2 34.5 (35-45); ISTAT PH 7.524 (7.35-7.45); ISTAT PO2 157 (80-105); ISTAT SO2 100; ISTAT TCO2 30
[2016-09-14 05:47] LABS: Hematocrit 24.3 % (30.3-42.9); Hemoglobin 7.9 gm/dl (10.1-14.3); Mean Corpuscular HGB Conc 33 % (30-34); Mean Corpuscular Hemoglobin 30 pg (28-32); Mean Corpuscular Volume 91 fl (79-97); Platelet Count 122 K/mm3 (140-440); Red Blood Count 2.67 M/mm3 (3.65-5.03); Red Cell Distribution Width 17.3 % (13.2-15.2); White Blood Count 17.5 K/mm3 (4.5-11.0)
[2016-09-14 06:12] LABS: BUN/Creatinine Ratio 8.26; Calcium 8.3 mg/dL (8.4-10.2); Chloride 96.9 mmol/L (98-107); Potassium 3.8 mmol/L (3.6-5.0)
[2016-09-14] MEDS: NOVOLOG SUB-Q SCH ×3 (06:30→17:43)
--- NOTE | 2016-09-14 09:10 | Progress Note ---
Assessment and Plan 71 y/o female with severe anemia, etiology unknown, coagulopathy, renal failure and acute respiratory failure with altered sensorium and GPC's in pairs. 1. Platelets still increasing. Continue to monitor. No evidence of acute bleeding. 2. Continue Bipap therapy for now. Will attempt trial from bipap therapy today. 3. HD per renal 4. Follow up GI recs. 5. Continue ICU monitoring for now. No step down unit available. Subjective Date of service: 09/14/16 Principal diagnosis: GI bleed Interval history: Extubated yesterday but last evening required bipap therapy. ABG was stable. Still on Bipap this am. Awake, 100% paced. No family at bedside. Objective Vital Signs - 12hr 09/13/16 09/13/16 09/13/16 21:30 22:00 22:30 Temperature Pulse Rate 70 71 73 Pulse Rate [ From Monitor] Pulse Rate [ Right Dorsalis Pedis] Respiratory 30 H 30 H 34 H Rate Blood Pressure 142/44 142/44 164/58 O2 Sat by Pulse 96 100 98 Oximetry 09/13/16 09/13/16 09/13/16 23:00 23:46 23:51 Temperature 99.9 F H Pulse Rate 70 70 Pulse Rate [ From Monitor] Pulse Rate [ Right Dorsalis Pedis] Respiratory 32 H 26 H Rate Blood Pressure 164/58 93/55 O2 Sat by Pulse 100 100 Oximetry 09/14/16 09/14/16 09/14/16 00:00 00:04 01:00 Temperature Pulse Rate 70 70 70 Pulse Rate [ 70 From Monitor] Pulse Rate [ Right Dorsalis Pedis] Respiratory 20 29 H 24 Rate Blood Pressure 93/55 85/33 98/44 O2 Sat by Pulse 100 100 100 Oximetry 09/14/16 09/14/16 09/14/16 02:00 03:00 03:50 Temperature 99.2 F Pulse Rate 74 70 Pulse Rate [ From Monitor] Pulse Rate [ Right Dorsalis Pedis] Respiratory 16 28 H Rate Blood Pressure 110/29 101/36 O2 Sat by Pulse 86 100 Oximetry 09/14/16 09/14/16 09/14/16 04:00 05:00 06:00 Temperature Pulse Rate 70 70 70 Pulse Rate [ 70 From Monitor] Pulse Rate [ Right Dorsalis Pedis] Respiratory 22 25 H 24 Rate Blood Pressure 115/36 103/29 116/29 O2 Sat by Pulse 100 100 100 Oximetry 09/14/16 09/14/16 09/14/16 07:00 08:00 08:28 Temperature 99.7 F H Pulse Rate 91 H 70 70 Pulse Rate [ From Monitor] Pulse Rate [ 70 Right Dorsalis Pedis] Respiratory 33 H 30 H 21 Rate Blood Pressure 116/29 148/113 119/59 O2 Sat by Pulse 99 100 100 Oximetry Constitutional: alert Neck: supple Ascultation: Bilateral: rhonchi (bilateral this am) Percussion: Bilateral: not dull Cardiovascular: regular rate and rhythm, other (100% paced at this moment ) Gastrointestinal: normoactive bowel sounds Neurologic: non-focal exam Psychiatric: mood appropriate CBC and BMP: 09/14/16 05:30 09/14/16 05:30 ABG, PT/INR, D-dimer: ABG POC ABG pH 7.524 (7.35-7.45) H 09/14/16 00:18 POC ABG pCO2 34.5 (35-45) L 09/14/16 00:18 POC ABG pO2 157 (80-105) H 09/14/16 00:18 POC ABG HCO3 28.5 09/14/16 00:18 POC ABG Total CO2 30 09/14/16 00:18 POC ABG O2 Sat 100 09/14/16 00:18 PT/INR, D-dimer PT 19.9 Sec. (12.2-14.9) H 09/07/16 11:02 INR 1.69 (0.87-1.13) H 09/07/16 11:02 Abnormal lab findings: Abnormal Labs 09/06/16 09/06/16 09/06/16 12:51 12:51 15:57 WBC RBC Hgb Hct RDW Plt Count Lymph % (Auto) Riley % (Auto) Lymph # Riley # Seg Neutrophils % Seg Neuts % (Manual) Lymphocytes % (Manual) Nucleated RBC % Seg Neutrophils # Seg Neutrophils # Man Lymphocytes # (Manual) Monocytes # (Manual) PT INR POC ABG pH POC ABG pCO2 POC ABG pO2 Sodium Potassium 6.4 H* 6.7 H* Chloride 95.9 L Carbon Dioxide 21 L 19 L BUN 109 H 111 H Creatinine 10.5 H 10.1 H Glucose 133 H 178 H POC Glucose Lactic Acid Calcium Phosphorus Ammonia CK-MB (CK-2) Rel Index Troponin T NT-Pro-B Natriuret Pep 20627 H Total Protein Albumin Cholesterol LDL Cholesterol Direct HDL Cholesterol Crossmatch 09/06/16 09/06/16 09/06/16 15:57 19:06 19:06 WBC RBC Hgb 6.3 L Hct 19.3 L* RDW Plt Count Lymph % (Auto) Riley % (Auto) Lymph # Riley # Seg Neutrophils % Seg Neuts % (Manual) Lymphocytes % (Manual) Nucleated RBC % Seg Neutrophils # Seg Neutrophils # Man Lymphocytes # (Manual) Monocytes # (Manual) PT INR POC ABG pH POC ABG pCO2 POC ABG pO2 Sodium Potassium 3.3 L D Chloride 96.0 L Carbon Dioxide BUN 30 H Creatinine 2.8 H D Glucose 154 H POC Glucose Lactic Acid 2.80 H* Calcium Phosphorus Ammonia CK-MB (CK-2) Rel Index Troponin T NT-Pro-B Natriuret Pep Total Protein Albumin Cholesterol LDL Cholesterol Direct HDL Cholesterol Crossmatch 09/06/16 09/06/16 09/06/16 Unknown Unknown Unknown WBC RBC Hgb Hct RDW Plt Count Lymph % (Auto) Riley % (Auto) Lymph # Riley # Seg Neutrophils % Seg Neuts % (Manual) Lymphocytes % (Manual) Nucleated RBC % Seg Neutrophils # Seg Neutrophils # Man Lymphocytes # (Manual) Monocytes # (Manual) PT INR POC ABG pH POC ABG pCO2 POC ABG pO2 Sodium Potassium 6.4 H* Chloride 93.0 L Carbon Dioxide 21 L BUN 109 H Creatinine 10.4 H Glucose 197 H POC Glucose Lactic Acid 6.20 H* Calcium Phosphorus 5.20 H Ammonia CK-MB (CK-2) Rel Index 7.5 H Troponin T 0.210 H* NT-Pro-B Natriuret Pep 14716 H Total Protein 5.3 L Albumin 2.8 L Cholesterol 37 L LDL Cholesterol Direct 14 L HDL Cholesterol 16 L Crossmatch 09/06/16 09/07/16 09/07/16 Unknown 00:13 05:30 WBC RBC Hgb Hct RDW Plt Count Lymph % (Auto) Riley % (Auto) Lymph # Riley # Seg Neutrophils % Seg Neuts % (Manual) Lymphocytes % (Manual) Nucleated RBC % Seg Neutrophils # Seg Neutrophils # Man Lymphocytes # (Manual) Monocytes # (Manual) PT 31.0 H INR 2.96 H POC ABG pH 7.570 H POC ABG pCO2 31.7 L POC ABG pO2 183 H Sodium Potassium Chloride Carbon Dioxide BUN Creatinine Glucose POC Glucose Lactic Acid Calcium Phosphorus Ammonia 102.0 H CK-MB (CK-2) Rel Index Troponin T NT-Pro-B Natriuret Pep Total Protein Albumin Cholesterol LDL Cholesterol Direct HDL Cholesterol Crossmatch 09/07/16 09/07/16 09/07/16 05:50 11:02 11:02 WBC 25.7 H RBC 2.83 L Hgb 8.5 L Hct 26.0 L D RDW 17.5 H Plt Count Lymph % (Auto) Riley % (Auto) Lymph # Riley # Seg Neutrophils % Seg Neuts % (Manual) 96.0 H Lymphocytes % (Manual) 2.0 L Nucleated RBC % 1.0 H Seg Neutrophils # Seg Neutrophils # Man 24.7 H Lymphocytes # (Manual) 0.5 L Monocytes # (Manual) PT INR POC ABG pH POC ABG pCO2 POC ABG pO2 Sodium Potassium Chloride Carbon Dioxide BUN 54 H Creatinine 5.6 H D Glucose 138 H POC Glucose 149 H Lactic Acid Calcium Phosphorus Ammonia CK-MB (CK-2) Rel Index Troponin T NT-Pro-B Natriuret Pep Total Protein Albumin Cholesterol LDL Cholesterol Direct HDL Cholesterol Crossmatch 09/07/16 09/07/16 09/07/16 11:02 14:02 17:01 WBC RBC Hgb Hct RDW Plt Count Lymph % (Auto) Riley % (Auto) Lymph # Riley # Seg Neutrophils % Seg Neuts % (Manual) Lymphocytes % (Manual) Nucleated RBC % Seg Neutrophils # Seg Neutrophils # Man Lymphocytes # (Manual) Monocytes # (Manual) PT 19.9 H INR 1.69 H POC ABG pH POC ABG pCO2 POC ABG pO2 Sodium Potassium Chloride Carbon Dioxide BUN Creatinine Glucose POC Glucose 149 H Lactic Acid Calcium Phosphorus Ammonia CK-MB (CK-2) Rel Index Troponin T 0.190 H* NT-Pro-B Natriuret Pep Total Protein Albumin Cholesterol LDL Cholesterol Direct HDL Cholesterol Crossmatch 09/07/16 09/07/16 09/08/16 17:50 23:50 05:19 WBC RBC Hgb Hct RDW Plt Count Lymph % (Auto) Riley % (Auto) Lymph # Riley # Seg Neutrophils % Seg Neuts % (Manual) Lymphocytes % (Manual) Nucleated RBC % Seg Neutrophils # Seg Neutrophils # Man Lymphocytes # (Manual) Monocytes # (Manual) PT INR POC ABG pH 7.530 H POC ABG pCO2 32.2 L POC ABG pO2 Sodium Potassium Chloride Carbon Dioxide BUN Creatinine Glucose POC Glucose 126 H 128 H Lactic Acid Calcium Phosphorus Ammonia CK-MB (CK-2) Rel Index Troponin T NT-Pro-B Natriuret Pep Total Protein Albumin Cholesterol LDL Cholesterol Direct HDL Cholesterol Crossmatch 09/08/16 09/08/16 09/08/16 05:25 07:35 07:35 WBC 26.6 H RBC 2.79 L Hgb 8.3 L Hct 25.9 L RDW 18.0 H Plt Count 139 L Lymph % (Auto) Riley % (Auto) Lymph # Riley # Seg Neutrophils % Seg Neuts % (Manual) 93.0 H Lymphocytes % (Manual) 5.0 L Nucleated RBC % Seg Neutrophils # Seg Neutrophils # Man 24.7 H Lymphocytes # (Manual) Monocytes # (Manual) PT INR POC ABG pH POC ABG pCO2 POC ABG pO2 Sodium Potassium Chloride Carbon Dioxide BUN 65 H Creatinine 6.7 H Glucose 120 H POC Glucose 130 H Lactic Acid Calcium Phosphorus Ammonia CK-MB (CK-2) Rel Index Troponin T NT-Pro-B Natriuret Pep Total Protein 5.2 L Albumin 2.7 L Cholesterol LDL Cholesterol Direct HDL Cholesterol Crossmatch 09/08/16 09/08/16 09/09/16 11:47 18:10 05:27 WBC RBC Hgb Hct RDW Plt Count Lymph % (Auto) Riley % (Auto) Lymph # Riley # Seg Neutrophils % Seg Neuts % (Manual) Lymphocytes % (Manual) Nucleated RBC % Seg Neutrophils # Seg Neutrophils # Man Lymphocytes # (Manual) Monocytes # (Manual) PT INR POC ABG pH POC ABG pCO2 POC ABG pO2 Sodium Potassium Chloride Carbon Dioxide BUN Creatinine Glucose POC Glucose 141 H 139 H 152 H Lactic Acid Calcium Phosphorus Ammonia CK-MB (CK-2) Rel Index Troponin T NT-Pro-B Natriuret Pep Total Protein Albumin Cholesterol LDL Cholesterol Direct HDL Cholesterol Crossmatch 09/09/16 09/09/16 09/09/16 05:28 05:30 05:30 WBC 22.3 H RBC 2.66 L Hgb 7.8 L Hct 24.6 L RDW 19.1 H Plt Count 118 L Lymph % (Auto) Riley % (Auto) Lymph # Riley # Seg Neutrophils % Seg Neuts % (Manual) 89.0 H Lymphocytes % (Manual) 5.0 L Nucleated RBC % Seg Neutrophils # Seg Neutrophils # Man 19.8 H Lymphocytes # (Manual) 1.1 L Monocytes # (Manual) 1.3 H PT INR POC ABG pH 7.560 H POC ABG pCO2 34.2 L POC ABG pO2 Sodium Potassium 3.2 L D Chloride Carbon Dioxide BUN 34 H Creatinine 4.3 H Glucose 144 H POC Glucose Lactic Acid Calcium 8.0 L Phosphorus Ammonia CK-MB (CK-2) Rel Index Troponin T NT-Pro-B Natriuret Pep Total Protein Albumin Cholesterol LDL Cholesterol Direct HDL Cholesterol Crossmatch 09/09/16 09/09/16 09/09/16 12:01 14:56 15:30 WBC RBC Hgb Hct RDW Plt Count Lymph % (Auto) Riley % (Auto) Lymph # Riley # Seg Neutrophils % Seg Neuts % (Manual) Lymphocytes % (Manual) Nucleated RBC % Seg Neutrophils # Seg Neutrophils # Man Lymphocytes # (Manual) Monocytes # (Manual) PT INR POC ABG pH 7.582 H 7.543 H POC ABG pCO2 32.1 L POC ABG pO2 42 L Sodium Potassium Chloride Carbon Dioxide BUN Creatinine Glucose POC Glucose 178 H Lactic Acid Calcium Phosphorus Ammonia CK-MB (CK-2) Rel Index Troponin T NT-Pro-B Natriuret Pep Total Protein Albumin Cholesterol LDL Cholesterol Direct HDL Cholesterol Crossmatch 09/09/16 09/09/16 09/10/16 18:08 23:36 03:00 WBC 19.9 H RBC 2.73 L Hgb 8.0 L Hct 25.4 L RDW 19.0 H Plt Count 89 L Lymph % (Auto) 4.9 L Riley % (Auto) Lymph # 1.0 L Riley # 1.1 H Seg Neutrophils % 88.9 H Seg Neuts % (Manual) Lymphocytes % (Manual) Nucleated RBC % Seg Neutrophils # 17.7 H Seg Neutrophils # Man Lymphocytes # (Manual) Monocytes # (Manual) PT INR POC ABG pH POC ABG pCO2 POC ABG pO2 Sodium Potassium Chloride Carbon Dioxide BUN Creatinine Glucose POC Glucose 147 H 173 H Lactic Acid Calcium Phosphorus Ammonia CK-MB (CK-2) Rel Index Troponin T NT-Pro-B Natriuret Pep Total Protein Albumin Cholesterol LDL Cholesterol Direct HDL Cholesterol Crossmatch 09/10/16 09/10/16 09/10/16 03:00 04:29 10:00 WBC RBC 2.55 L Hgb 7.6 L Hct 23.7 L RDW 18.9 H Plt Count 84 L Lymph % (Auto) Riley % (Auto) Lymph # Riley # Seg Neutrophils % Seg Neuts % (Manual) Lymphocytes % (Manual) Nucleated RBC % Seg Neutrophils # Seg Neutrophils # Man Lymphocytes # (Manual) Monocytes # (Manual) PT INR POC ABG pH 7.521 H POC ABG pCO2 POC ABG pO2 Sodium Potassium 3.4 L Chloride 95.9 L Carbon Dioxide BUN 46 H Creatinine 5.9 H Glucose POC Glucose Lactic Acid Calcium Phosphorus Ammonia CK-MB (CK-2) Rel Index Troponin T NT-Pro-B Natriuret Pep Total Protein Albumin Cholesterol LDL Cholesterol Direct HDL Cholesterol Crossmatch 09/10/16 09/10/16 09/10/16 10:09 12:06 17:58 WBC RBC Hgb 7.7 L Hct 23.4 L RDW Plt Count Lymph % (Auto) Riley % (Auto) Lymph # Riley # Seg Neutrophils % Seg Neuts % (Manual) Lymphocytes % (Manual) Nucleated RBC % Seg Neutrophils # Seg Neutrophils # Man Lymphocytes # (Manual) Monocytes # (Manual) PT INR POC ABG pH POC ABG pCO2 POC ABG pO2 Sodium Potassium Chloride Carbon Dioxide BUN Creatinine Glucose POC Glucose 112 H 165 H Lactic Acid Calcium Phosphorus Ammonia CK-MB (CK-2) Rel Index Troponin T NT-Pro-B Natriuret Pep Total Protein Albumin Cholesterol LDL Cholesterol Direct HDL Cholesterol Crossmatch 09/11/16 09/11/16 09/11/16 00:01 05:13 05:28 WBC RBC Hgb Hct RDW Plt Count Lymph % (Auto) Riley % (Auto) Lymph # Riley # Seg Neutrophils % Seg Neuts % (Manual) Lymphocytes % (Manual) Nucleated RBC % Seg Neutrophils # Seg Neutrophils # Man Lymphocytes # (Manual) Monocytes # (Manual) PT INR POC ABG pH 7.565 H POC ABG pCO2 32.4 L POC ABG pO2 126 H Sodium Potassium Chloride Carbon Dioxide BUN Creatinine Glucose POC Glucose 196 H 187 H Lactic Acid Calcium Phosphorus Ammonia CK-MB (CK-2) Rel Index Troponin T NT-Pro-B Natriuret Pep Total Protein Albumin Cholesterol LDL Cholesterol Direct HDL Cholesterol Crossmatch 09/11/16 09/11/16 09/11/16 07:07 07:07 11:50 WBC 19.9 H RBC 2.61 L Hgb 7.6 L Hct 24.4 L RDW 18.4 H Plt Count 97 L Lymph % (Auto) 4.8 L Riley % (Auto) Lymph # 0.9 L Riley # 1.3 H Seg Neutrophils % 87.4 H Seg Neuts % (Manual) Lymphocytes % (Manual) Nucleated RBC % Seg Neutrophils # 17.4 H Seg Neutrophils # Man Lymphocytes # (Manual) Monocytes # (Manual) PT INR POC ABG pH POC ABG pCO2 POC ABG pO2 Sodium Potassium 3.3 L Chloride Carbon Dioxide BUN 32 H Creatinine 4.2 H Glucose 196 H POC Glucose 229 H Lactic Acid Calcium 8.0 L Phosphorus Ammonia CK-MB (CK-2) Rel Index Troponin T NT-Pro-B Natriuret Pep Total Protein Albumin Cholesterol LDL Cholesterol Direct HDL Cholesterol Crossmatch 09/11/16 09/11/16 09/12/16 18:13 23:48 04:22 WBC RBC Hgb Hct RDW Plt Count Lymph % (Auto) Riley % (Auto) Lymph # Riley # Seg Neutrophils % Seg Neuts % (Manual) Lymphocytes % (Manual) Nucleated RBC % Seg Neutrophils # Seg Neutrophils # Man Lymphocytes # (Manual) Monocytes # (Manual) PT INR POC ABG pH 7.527 H POC ABG pCO2 33.6 L POC ABG pO2 128 H Sodium Potassium Chloride Carbon Dioxide BUN Creatinine Glucose POC Glucose 216 H 135 H Lactic Acid Calcium Phosphorus Ammonia CK-MB (CK-2) Rel Index Troponin T NT-Pro-B Natriuret Pep Total Protein Albumin Cholesterol LDL Cholesterol Direct HDL Cholesterol Crossmatch 09/12/16 09/12/16 09/12/16 06:00 06:00 11:53 WBC 15.9 H RBC 2.34 L Hgb 6.8 L Hct 21.5 L RDW 18.4 H Plt Count 101 L Lymph % (Auto) 5.6 L Riley % (Auto) 8.4 H Lymph # 0.9 L Riley # 1.3 H Seg Neutrophils % 84.5 H Seg Neuts % (Manual) Lymphocytes % (Manual) Nucleated RBC % Seg Neutrophils # 13.5 H Seg Neutrophils # Man Lymphocytes # (Manual) Monocytes # (Manual) PT INR POC ABG pH POC ABG pCO2 POC ABG pO2 Sodium Potassium Chloride 97.5 L Carbon Dioxide BUN 46 H Creatinine 5.4 H Glucose 192 H POC Glucose 181 H Lactic Acid Calcium 7.8 L Phosphorus Ammonia CK-MB (CK-2) Rel Index Troponin T NT-Pro-B Natriuret Pep Total Protein Albumin Cholesterol LDL Cholesterol Direct HDL Cholesterol Crossmatch 09/12/16 09/12/16 09/12/16 12:18 16:56 23:33 WBC RBC Hgb Hct RDW Plt Count Lymph % (Auto) Riley % (Auto) Lymph # Riley # Seg Neutrophils % Seg Neuts % (Manual) Lymphocytes % (Manual) Nucleated RBC % Seg Neutrophils # Seg Neutrophils # Man Lymphocytes # (Manual) Monocytes # (Manual) PT INR POC ABG pH POC ABG pCO2 POC ABG pO2 Sodium Potassium Chloride Carbon Dioxide BUN Creatinine Glucose POC Glucose 204 H 175 H Lactic Acid Calcium Phosphorus Ammonia CK-MB (CK-2) Rel Index Troponin T NT-Pro-B Natriuret Pep Total Protein Albumin Cholesterol LDL Cholesterol Direct HDL Cholesterol Crossmatch See Detail 09/13/16 09/13/16 09/13/16 00:01 04:06 04:59 WBC 17.6 H RBC 2.80 L Hgb 8.4 L Hct 25.6 L RDW 17.1 H Plt Count 103 L Lymph % (Auto) 6.2 L Riley % (Auto) 8.4 H Lymph # 1.1 L Riley # 1.5 H Seg Neutrophils % 83.7 H Seg Neuts % (Manual) Lymphocytes % (Manual) Nucleated RBC % Seg Neutrophils # 14.8 H Seg Neutrophils # Man Lymphocytes # (Manual) Monocytes # (Manual) PT INR POC ABG pH 7.504 H POC ABG pCO2 32.7 L POC ABG pO2 Sodium Potassium Chloride Carbon Dioxide BUN Creatinine Glucose POC Glucose 239 H Lactic Acid Calcium Phosphorus Ammonia CK-MB (CK-2) Rel Index Troponin T NT-Pro-B Natriuret Pep Total Protein Albumin Cholesterol LDL Cholesterol Direct HDL Cholesterol Crossmatch 09/13/16 09/13/16 09/13/16 06:45 09:31 11:39 WBC RBC Hgb Hct RDW Plt Count Lymph % (Auto) Riley % (Auto) Lymph # Riley # Seg Neutrophils % Seg Neuts % (Manual) Lymphocytes % (Manual) Nucleated RBC % Seg Neutrophils # Seg Neutrophils # Man Lymphocytes # (Manual) Monocytes # (Manual) PT INR POC ABG pH 7.466 H POC ABG pCO2 POC ABG pO2 Sodium 136 L Potassium Chloride 93.8 L Carbon Dioxide BUN 65 H Creatinine 6.9 H Glucose 205 H POC Glucose 218 H Lactic Acid Calcium Phosphorus Ammonia CK-MB (CK-2) Rel Index Troponin T NT-Pro-B Natriuret Pep Total Protein Albumin Cholesterol LDL Cholesterol Direct HDL Cholesterol Crossmatch 09/13/16 09/13/16 09/13/16 16:55 18:02 22:23 WBC RBC Hgb Hct RDW Plt Count Lymph % (Auto) Riley % (Auto) Lymph # Riley # Seg Neutrophils % Seg Neuts % (Manual) Lymphocytes % (Manual) Nucleated RBC % Seg Neutrophils # Seg Neutrophils # Man Lymphocytes # (Manual) Monocytes # (Manual) PT INR POC ABG pH 7.553 H POC ABG pCO2 33.8 L POC ABG pO2 Sodium Potassium Chloride Carbon Dioxide BUN Creatinine Glucose POC Glucose 178 H 204 H Lactic Acid Calcium Phosphorus Ammonia CK-MB (CK-2) Rel Index Troponin T NT-Pro-B Natriuret Pep Total Protein Albumin Cholesterol LDL Cholesterol Direct HDL Cholesterol Crossmatch 09/14/16 09/14/16 09/14/16 00:10 00:18 02:18 WBC RBC Hgb Hct RDW Plt Count Lymph % (Auto) Riley % (Auto) Lymph # Riley # Seg Neutrophils % Seg Neuts % (Manual) Lymphocytes % (Manual) Nucleated RBC % Seg Neutrophils # Seg Neutrophils # Man Lymphocytes # (Manual) Monocytes # (Manual) PT INR POC ABG pH 7.503 H 7.524 H POC ABG pCO2 34.5 L POC ABG pO2 47 L 157 H Sodium Potassium Chloride Carbon Dioxide BUN Creatinine Glucose POC Glucose 172 H Lactic Acid Calcium Phosphorus Ammonia CK-MB (CK-2) Rel Index Troponin T NT-Pro-B Natriuret Pep Total Protein Albumin Cholesterol LDL Cholesterol Direct HDL Cholesterol Crossmatch 09/14/16 09/14/16 09/14/16 05:30 05:30 06:00 WBC 17.5 H RBC 2.67 L Hgb 7.9 L Hct 24.3 L RDW 17.3 H Plt Count 122 L Lymph % (Auto) Riley % (Auto) Lymph # Riley # Seg Neutrophils % Seg Neuts % (Manual) Lymphocytes % (Manual) Nucleated RBC % Seg Neutrophils # Seg Neutrophils # Man Lymphocytes # (Manual) Monocytes # (Manual) PT INR POC ABG pH POC ABG pCO2 POC ABG pO2 Sodium Potassium Chloride 96.9 L Carbon Dioxide BUN 38 H Creatinine 4.6 H Glucose 200 H POC Glucose 212 H Lactic Acid Calcium 8.3 L Phosphorus Ammonia CK-MB (CK-2) Rel Index Troponin T NT-Pro-B Natriuret Pep Total Protein Albumin Cholesterol LDL Cholesterol Direct HDL Cholesterol Crossmatch 09/14/16 07:24 WBC RBC Hgb Hct RDW Plt Count Lymph % (Auto) Riley % (Auto) Lymph # Riley # Seg Neutrophils % Seg Neuts % (Manual) Lymphocytes % (Manual) Nucleated RBC % Seg Neutrophils # Seg Neutrophils # Man Lymphocytes # (Manual) Monocytes # (Manual) PT INR POC ABG pH POC ABG pCO2 POC ABG pO2 Sodium Potassium Chloride Carbon Dioxide BUN Creatinine Glucose POC Glucose 190 H Lactic Acid Calcium Phosphorus Ammonia CK-MB (CK-2) Rel Index Troponin T NT-Pro-B Natriuret Pep Total Protein Albumin Cholesterol LDL Cholesterol Direct HDL Cholesterol Crossmatch
--- NOTE | 2016-09-14 09:28 | Progress Note ---
Assessment and Plan - Patient Problems (1) End stage renal disease on dialysis Current Visit: Yes Status: Chronic Plan to address problem: HD on M/W/F. Nutrition support. (2) Acute respiratory failure Current Visit: Yes Status: Acute Qualifiers: Respiratory failure complication: hypoxia Qualified Code(s): J96.01 - Acute respiratory failure with hypoxia Plan to address problem: S/P extubation on 09/13/16 (3) Gangrene associated with diabetes mellitus Current Visit: Yes Status: Acute Plan to address problem: PVD (4) Anemia in CKD (chronic kidney disease) Current Visit: Yes Status: Chronic Qualifiers: Chronic kidney disease stage: C (5) Sepsis Current Visit: Yes Status: Acute Qualifiers: Sepsis type: sepsis due to unspecified organism Qualified Code(s): A41.9 - Sepsis, unspecified organism (6) C. difficile colitis Current Visit: Yes Status: Acute (7) T2DM (type 2 diabetes mellitus) Current Visit: Yes Status: Chronic Qualifiers: Diabetes mellitus complication status: D Diabetes mellitus complication detail: with chronic kidney disease Diabetic retinopathy severity: D Proliferative retinopathy type: P Diabetes mellitus macular edema: D Diabetes mellitus senior living insulin use: D Laterality: L Chronic kidney disease stage: C (8) Thrombocytopenia Current Visit: Yes Status: Acute (9) Malnutrition Current Visit: Yes Status: Chronic Subjective Date of service: 09/14/16 Principal diagnosis: GI bleed Interval history: Chart was reviewed. S/P extubation yesterday. Currently on nasal cannula. More alert today, able to talk Objective - Vital Signs Vital signs: Vital Signs - 12hr 09/13/16 09/13/16 09/13/16 21:30 22:00 22:30 Temperature Pulse Rate 70 71 73 Pulse Rate [ From Monitor] Pulse Rate [ Right Dorsalis Pedis] Respiratory 30 H 30 H 34 H Rate Blood Pressure 142/44 142/44 164/58 O2 Sat by Pulse 96 100 98 Oximetry 09/13/16 09/13/16 09/13/16 23:00 23:46 23:51 Temperature 99.9 F H Pulse Rate 70 70 Pulse Rate [ From Monitor] Pulse Rate [ Right Dorsalis Pedis] Respiratory 32 H 26 H Rate Blood Pressure 164/58 93/55 O2 Sat by Pulse 100 100 Oximetry 09/14/16 09/14/16 09/14/16 00:00 00:04 01:00 Temperature Pulse Rate 70 70 70 Pulse Rate [ 70 From Monitor] Pulse Rate [ Right Dorsalis Pedis] Respiratory 20 29 H 24 Rate Blood Pressure 93/55 85/33 98/44 O2 Sat by Pulse 100 100 100 Oximetry 09/14/16 09/14/16 09/14/16 02:00 03:00 03:50 Temperature 99.2 F Pulse Rate 74 70 Pulse Rate [ From Monitor] Pulse Rate [ Right Dorsalis Pedis] Respiratory 16 28 H Rate Blood Pressure 110/29 101/36 O2 Sat by Pulse 86 100 Oximetry 09/14/16 09/14/16 09/14/16 04:00 05:00 06:00 Temperature Pulse Rate 70 70 70 Pulse Rate [ 70 From Monitor] Pulse Rate [ Right Dorsalis Pedis] Respiratory 22 25 H 24 Rate Blood Pressure 115/36 103/29 116/29 O2 Sat by Pulse 100 100 100 Oximetry 09/14/16 09/14/16 09/14/16 07:00 08:00 08:28 Temperature 99.7 F H Pulse Rate 91 H 70 70 Pulse Rate [ From Monitor] Pulse Rate [ 70 Right Dorsalis Pedis] Respiratory 33 H 30 H 21 Rate Blood Pressure 116/29 148/113 119/59 O2 Sat by Pulse 99 100 100 Oximetry - General Appearance General appearance: chronically ill EENT: mucous membranes dry Neck: no JVD Respiratory: Present: Decreased Breath Sounds Cardiology: irregular Gastrointestinal: normoactive bowel sounds Psychiatric: cooperative - Lab 09/14/16 05:30 09/14/16 05:30 Most recent lab results Calcium 8.3 mg/dL (8.4-10.2) L 09/14/16 05:30 Phosphorus 5.20 mg/dL (2.5-4.5) H 09/06/16 Unknown Magnesium 2.20 mg/dL (1.7-2.3) 09/06/16 Unknown
[2016-09-14] MEDS: PEPCID PO SCH (10:48)
[2016-09-14] MEDS: FLAGYL PO SCH ×2 (10:48→13:28)
[2016-09-14] MEDS ORDERED: NACL 0.9% 100 ML IV PRN (11:47)
[2016-09-14] MEDS ORDERED: PROCRIT IV PRN (11:47)
[2016-09-14] MEDS: LEVOPHED DRIP 4 MG/NS 250 ML 4 MG/250 ML BAG IV SCH (13:28)
--- NOTE | 2016-09-14 15:25 | Consultation ---
History of Present Illness - Reason for Consult Consult date: 09/14/16 Sepsis Requesting physician: HOLGER BLANCHARD - History of Present Illness Ms. Graff is a 71-year-old woman who was brought to the ED from her custodial residence for evaluation of respiratory distress. A chest radiograph showed a possible process at the left lower lobe and mild CHF. She was intubated and was started empirically on Zosyn and Vancomycin. She spiked a fever to 101 deg F several days after admission. Chest imaging showed a possible retrocardiac opacity, but most recently showed improved pulmonary congestion. She is noted since being febrile to have watery stools sent for Cdiff testing. She is now extubated and is presently requiring BiPAP. She has been afebrile in the past >48 hours. ID consultation is requested for evaluation of fever. Past History Past Medical History: atrial fib, arrhythmia (on Eliquis or Plavix), diabetes, ESRD (x 5 yrs on HD), hypertension, hyperlipidemia Past Surgical History: CABG, Other (right upper arm AV access placement, pacemaker) Social history: other (Resides in SNF). denies: smoking, alcohol abuse Family history: other (Noncontributory) Medications and Allergies Allergies Allergy/AdvReac Type Severity Reaction Status Date / Time No Known Allergies Allergy Verified 09/06/16 10:32 Home Medications Medication Instructions Recorded Confirmed Last Taken Type Acetaminophen [Tylenol] 650 mg PO Q6HR PRN 09/06/16 09/06/16 Unknown History Amiodarone [Cordarone 200 MG TAB] 200 mg PO BID 09/06/16 09/06/16 Unknown History Apixaban [Eliquis] 5 mg PO Q12H 09/06/16 09/06/16 Unknown History Ascorbic Acid [Vitamin C] 500 mg PO QDAY 09/06/16 09/06/16 Unknown History AtorvaSTATin [Lipitor] 40 mg PO QHS 09/06/16 09/06/16 Unknown History Docusate Sodium [Colace] 100 mg PO DAILY 09/06/16 09/06/16 Unknown History Fluticasone/Vilanterol [Breo 1 each IH DAILY 09/06/16 09/06/16 Unknown History Ellipta 100-25 Mcg INH] HYDROcodone/APAP 5-325 [[place] 1 each PO Q6HR PRN 09/06/16 09/06/16 Unknown History 5/325] Midodrine [Proamatine] 10 mg PO 3XW 09/06/16 09/06/16 Unknown History Sevelamer Carbonate [Renvela] 1,600 mg PO TIDWM 09/06/16 09/06/16 Unknown History Vit B Cmplx 3/FA/Vit C/Biotin 1 each PO DAILY 09/06/16 09/06/16 Unknown History [Nephro-Isaac Rx Tablet] Active Meds: Active Medications Acetaminophen (Tylenol) 650 mg FEEDTUBE Q6H PRN PRN Reason: Pain, Mild (1-3) Last Admin: 09/12/16 10:23 Dose: 650 mg Acetaminophen/Hydrocodone Bitart ([place] 5/325) 1 each PO Q4H PRN PRN Reason: Pain, Moderate (4-6) Last Admin: 09/11/16 15:30 Dose: 1 each Lipase/Protease/Amylase (Pancreaze Dr 10,500 Unit) 1 each FEEDTUBE PRN PRN PRN Reason: For Clogged Feeding Tube Epoetin Thee (Procrit) 10,000 unit IV BHUMI PRN PRN Reason: hemodialysis Famotidine (Pepcid) 20 mg PO DAILY YFN Last Admin: 09/14/16 10:48 Dose: 20 mg Hydrophilic Ointment (Vaseline Lip Therapy) 1 applic TP Q2HR PRN PRN Reason: Dry Lips Sodium Chloride (Nacl 0.9%) 100 mls @ 999 mls/hr IV BHUMI PRN PRN Reason: Hypotension Sodium Chloride (Nacl 0.9%) 100 mls @ 999 mls/hr IV BHUMI PRN PRN Reason: Hypotension Sodium Chloride (Nacl 0.9%) 100 mls @ 999 mls/hr IV BHUMI PRN PRN Reason: Hypotension Norepinephrine (Levophed Drip 4 Mg/Ns 250 Ml) 4 mg in 250 mls @ 7.5 mls/hr IV TITR YFN; 2 MCG/MIN PRN Reason: Protocol Last Admin: 09/14/16 13:28 Dose: 2 mcg/min, 7.5 mls/hr Insulin Aspart (Novolog) 0 units SUB-Q Q6HR YFN PRN Reason: Protocol Last Admin: 09/14/16 12:46 Dose: 2 units Metronidazole (Flagyl) 500 mg PO Q8HR YFN Last Admin: 09/14/16 13:28 Dose: 500 mg Multi-Ingred Cream/Lotion/Oil/Oint (Artificial Tears Ophth Oint) 1 applic OU Q4HR PRN PRN Reason: Dry Eye(s) Simple Syrup (Simple Syrup) 15 ml FEEDTUBE PRN PRN PRN Reason: Hypoglycemia Simple Syrup (Simple Syrup) 30 ml FEEDTUBE PRN PRN PRN Reason: Hypoglycemia Sodium Bicarbonate (Sodium Bicarbonate) 325 mg FEEDTUBE PRN PRN PRN Reason: For Clogged Feeding Tube Sodium Chloride (Nacl 0.9% 500 Ml) 1 ml IV DIRECT YFN Review of Systems ROS unobtainable: due to endotracheal tube (not ET tube, but BiPAP) Physical Examination - Constitutional Vitals: Vital Signs Temp Pulse Resp BP Pulse Ox 99.0 F 70 30 H 92/39 100 09/14/16 12:00 09/14/16 13:00 09/14/16 13:00 09/14/16 13:00 09/14/16 13:00 Temperature -Last 24 Hours Temperature 99.0 F Temperature 99.7 F Temperature 99.2 F Temperature 99.9 F Temperature 100.2 F Temperature 99.3 F General appearance: Present: no acute distress - EENT Eyes: Absent: conjunctival injection ENT: other (BiPAP mask in place; Dobhoff feeding tube) - Neck Neck: Present: supple - Respiratory Respiratory effort: normal Respiratory: bilateral: rhonchi, negative: rales - Cardiovascular Rhythm: regular (paced rhythm) - Extremities Extremities: No edema - Abdominal General gastrointestinal: Present: soft, non-distended, normal bowel sounds - Rectal Rectal Exam: other (rectal tube with liquid brown stool) - Integumentary Integumentary: Present: clear. Absent: rash - Additional findings Additional findings: [facility] central line Results - Labs CBC & Chem 7: 09/14/16 05:30 09/14/16 05:30 Labs: Abnormal lab results 09/13/16 09/13/16 09/13/16 Range/Units 16:55 18:02 22:23 WBC (4.5-11.0) K/mm3 RBC (3.65-5.03) M/mm3 Hgb (10.1-14.3) gm/dl Hct (30.3-42.9) % RDW (13.2-15.2) % Plt Count (140-440) K/mm3 POC ABG pH 7.553 H (7.35-7.45) POC ABG pCO2 33.8 L (35-45) POC ABG pO2 (80-105) Chloride (98-107) mmol/L BUN (7-17) mg/dL Creatinine (0.7-1.2) mg/dL Glucose (65-100) mg/dL POC Glucose 178 H 204 H (70-105) Calcium (8.4-10.2) mg/dL 09/14/16 09/14/16 09/14/16 Range/Units 00:10 00:18 02:18 WBC (4.5-11.0) K/mm3 RBC (3.65-5.03) M/mm3 Hgb (10.1-14.3) gm/dl Hct (30.3-42.9) % RDW (13.2-15.2) % Plt Count (140-440) K/mm3 POC ABG pH 7.503 H 7.524 H (7.35-7.45) POC ABG pCO2 34.5 L (35-45) POC ABG pO2 47 L 157 H (80-105) Chloride (98-107) mmol/L BUN (7-17) mg/dL Creatinine (0.7-1.2) mg/dL Glucose (65-100) mg/dL POC Glucose 172 H (70-105) Calcium (8.4-10.2) mg/dL 09/14/16 09/14/16 09/14/16 Range/Units 05:30 05:30 06:00 WBC 17.5 H (4.5-11.0) K/mm3 RBC 2.67 L (3.65-5.03) M/mm3 Hgb 7.9 L (10.1-14.3) gm/dl Hct 24.3 L (30.3-42.9) % RDW 17.3 H (13.2-15.2) % Plt Count 122 L (140-440) K/mm3 POC ABG pH (7.35-7.45) POC ABG pCO2 (35-45) POC ABG pO2 (80-105) Chloride 96.9 L (98-107) mmol/L BUN 38 H (7-17) mg/dL Creatinine 4.6 H (0.7-1.2) mg/dL Glucose 200 H (65-100) mg/dL POC Glucose 212 H (70-105) Calcium 8.3 L (8.4-10.2) mg/dL 09/14/16 09/14/16 Range/Units 07:24 12:22 WBC (4.5-11.0) K/mm3 RBC (3.65-5.03) M/mm3 Hgb (10.1-14.3) gm/dl Hct (30.3-42.9) % RDW (13.2-15.2) % Plt Count (140-440) K/mm3 POC ABG pH (7.35-7.45) POC ABG pCO2 (35-45) POC ABG pO2 (80-105) Chloride (98-107) mmol/L BUN (7-17) mg/dL Creatinine (0.7-1.2) mg/dL Glucose (65-100) mg/dL POC Glucose 190 H 181 H (70-105) Calcium (8.4-10.2) mg/dL Microbiology 09/13/16 22:00 Stool C. difficile DNA Amplification - Final 09/12/16 11:45 Stool Stool Occult Blood (MOLLY) - Final 09/06/16 10:50 Peripheral/Venous Blood Culture - Final Coag Negative Staphylococcus 09/06/16 10:50 Peripheral/Venous Blood Culture - Final NO GROWTH AFTER 5 DAYS 09/06/16 Unknown Tracheal Aspirate Sputum Culture - Final - Imaging and Cardiology Chest x-ray: report reviewed Assessment and Plan - Patient Problems (1) Clostridium difficile infection Current Visit: Yes Status: Acute Plan to address problem: 1. Will treat with enteral Vancomycin for an anticipated 10-14-day course. 2. Contact isolation. 3. Limit unnecessary antibiotics. Patient is now off Vancomycin and Zosyn. (2) Fever Current Visit: Yes Status: Acute Qualifiers: Fever type: unspecified Encounter type: E Qualified Code(s): R50.9 - Fever, unspecified Plan to address problem: Monitor for new localizing issues.
--- NOTE | 2016-09-14 15:39 | Progress Note ---
Assessment and Plan Assessment and plan: Acute respiratory failure - Resolving patient is on nonrebreather mask Septic shock - Holding her blood pressure but patient has been spiking fever and still has leukocytosis - ID consulted Severe anemia secondary GI bleed/CKD - Hemoglobin this morning is 7.9, and follow closely - GI was consulted and doesn't want to do any intervention at this time Hyperkalemia (resolved) Lactic acidosis (resolved) End-stage around is on hemodialysis - Nephrology is on board and continue hemodialysis as needed Diabetes mellitus type 2 - Continue sliding scale, Accu-Chek Thrombocytopenia - Increasing and today platelet count is 122 Gangrene of bilateral feet - Vascular surgery was consulted and will do angiography once the patient is extubated and patient may need amputation Prognosis: Guarded DVT Prophylaxis - SCD Disposition - Continue ICU care The high probability of a clinically significant, sudden or life threatening deterioration of the [CV, Neurology, reneal] system(s) required my full and direct attention, intervention and personal management. The aggregate critical care time was [31] minutes. This time is in addition to time spent performing reported procedures but includes the following: [x] Data Review and interpretation [x] Patient assessment and monitoring of vital signs [x] Documentation [x] Medication orders and management. History Interval history: Patient was seen and evaluated this morning, she is awake and open her eyes, She id on Non rebreather mask. Hospitalist Physical - Physical exam Narrative exam: patient is awake and on non rebreather mask. The patient appeared well nourished and normally developed. Vital signs as documented. Head exam is unremarkable. No scleral icterus . Neck is without jugular venous distension, thyromegaly, or carotid bruits. Lungs are clear to auscultation. Cardiac exam reveals regular rate and Rhythm. Abdominal exam reveals normal bowel sounds, no masses, no organomegaly and no aortic enlargement. 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 TELECOMMUNICATION TOWER TECHNICIAN: Alert. - Constitutional Vitals: Temp Pulse Resp BP Pulse Ox 99.0 F 70 24 110/44 100 09/14/16 12:00 09/14/16 15:00 09/14/16 15:00 09/14/16 15:00 09/14/16 15:00 General appearance: Present: no acute distress, cachectic, other (intubated) Results - Labs CBC & Chem 7: 09/14/16 05:30 09/14/16 05:30 Labs: Laboratory Last Values WBC 17.5 K/mm3 (4.5-11.0) H 09/14/16 05:30 RBC 2.67 M/mm3 (3.65-5.03) L 09/14/16 05:30 Hgb 7.9 gm/dl (10.1-14.3) L 09/14/16 05:30 Hct 24.3 % (30.3-42.9) L 09/14/16 05:30 MCV 91 fl (79-97) 09/14/16 05:30 MCH 30 pg (28-32) 09/14/16 05:30 MCHC 33 % (30-34) 09/14/16 05:30 RDW 17.3 % (13.2-15.2) H 09/14/16 05:30 Plt Count 122 K/mm3 (140-440) L 09/14/16 05:30 Lymph % (Auto) 6.2 % (13.4-35.0) L 09/13/16 00:01 [place] % (Auto) 8.4 % (0.0-7.3) H 09/13/16 00:01 Eos % (Auto) 1.5 % (0.0-4.3) 09/13/16 00:01 Baso % (Auto) 0.2 % (0.0-1.8) 09/13/16 00:01 Lymph # 1.1 K/mm3 (1.2-5.4) L 09/13/16 00:01 [place] # 1.5 K/mm3 (0.0-0.8) H 09/13/16 00:01 Eos # 0.3 K/mm3 (0.0-0.4) 09/13/16 00:01 Baso # 0.0 K/mm3 (0.0-0.1) 09/13/16 00:01 Add Manual Diff Complete 09/09/16 05:30 Total Counted 100 09/09/16 05:30 Seg Neutrophils % 83.7 % (40.0-70.0) H 09/13/16 00:01 Seg Neuts % (Manual) 89.0 % (40.0-70.0) H 09/09/16 05:30 Band Neutrophils % 0 % 09/09/16 05:30 Lymphocytes % (Manual) 5.0 % (13.4-35.0) L 09/09/16 05:30 Reactive Lymphs % (Man) 0 % 09/09/16 05:30 Monocytes % (Manual) 6.0 % (0.0-7.3) 09/09/16 05:30 Eosinophils % (Manual) 0 % (0.0-4.3) 09/09/16 05:30 Basophils % (Manual) 0 % (0.0-1.8) 09/09/16 05:30 Metamyelocytes % 0 % 09/09/16 05:30 Myelocytes % 0 % 09/09/16 05:30 Promyelocytes % 0 % 09/09/16 05:30 Blast Cells % 0 % 09/09/16 05:30 Nucleated RBC % Not Reportable 09/09/16 05:30 Seg Neutrophils # 14.8 K/mm3 (1.8-7.7) H 09/13/16 00:01 Seg Neutrophils # Man 19.8 K/mm3 (1.8-7.7) H 09/09/16 05:30 Band Neutrophils # 0.0 K/mm3 09/09/16 05:30 Lymphocytes # (Manual) 1.1 K/mm3 (1.2-5.4) L 09/09/16 05:30 Abs React Lymphs (Man) 0.0 K/mm3 09/09/16 05:30 Monocytes # (Manual) 1.3 K/mm3 (0.0-0.8) H 09/09/16 05:30 Eosinophils # (Manual) 0.0 K/mm3 (0.0-0.4) 09/09/16 05:30 Basophils # (Manual) 0.0 K/mm3 (0.0-0.1) 09/09/16 05:30 Metamyelocytes # 0.0 K/mm3 09/09/16 05:30 Myelocytes # 0.0 K/mm3 09/09/16 05:30 Promyelocytes # 0.0 K/mm3 09/09/16 05:30 Blast Cells # 0.0 K/mm3 09/09/16 05:30 WBC Morphology Not Reportable 09/09/16 05:30 Hypersegmented Neuts Not Reportable 09/09/16 05:30 Hyposegmented Neuts Not Reportable 09/09/16 05:30 Hypogranular Neuts Not Reportable 09/09/16 05:30 Smudge Cells Not Reportable 09/09/16 05:30 Toxic Granulation Not Reportable 09/09/16 05:30 Toxic Vacuolation Not Reportable 09/09/16 05:30 Dohle Bodies Not Reportable 09/09/16 05:30 Pelger-Huet Anomaly Not Reportable 09/09/16 05:30 Juan Rods Not Reportable 09/09/16 05:30 Platelet Estimate Consistent w auto 09/09/16 05:30 Clumped Platelets Not Reportable 09/09/16 05:30 Plt Clumps, EDTA Not Reportable 09/09/16 05:30 Large Platelets Not Reportable 09/09/16 05:30 Giant Platelets Not Reportable 09/09/16 05:30 Platelet Satelliting Not Reportable 09/09/16 05:30 Plt Morphology Comment Not Reportable 09/09/16 05:30 RBC Morphology Not Reportable 09/09/16 05:30 Dimorphic RBCs Not Reportable 09/09/16 05:30 Polychromasia 1+ 09/09/16 05:30 Hypochromasia 1+ 09/09/16 05:30 Poikilocytosis Not Reportable 09/09/16 05:30 Anisocytosis 1+ 09/09/16 05:30 Microcytosis Not Reportable 09/09/16 05:30 Macrocytosis Not Reportable 09/09/16 05:30 Spherocytes Not Reportable 09/09/16 05:30 Pappenheimer Bodies Not Reportable 09/09/16 05:30 Sickle Cells Not Reportable 09/09/16 05:30 Target Cells Not Reportable 09/09/16 05:30 Tear Drop Cells Not Reportable 09/09/16 05:30 Ovalocytes Not Reportable 09/09/16 05:30 Stomatocytes Few 09/08/16 07:35 Helmet Cells Not Reportable 09/09/16 05:30 Dominguez-Boone Bodies Not Reportable 09/09/16 05:30 Wittman Rings Not Reportable 09/09/16 05:30 [place] Cells Not Reportable 09/09/16 05:30 Bite Cells Not Reportable 09/09/16 05:30 Crenated Cell Not Reportable 09/09/16 05:30 Elliptocytes Not Reportable 09/09/16 05:30 Acanthocytes (Spur) Not Reportable 09/09/16 05:30 Rouleaux Not Reportable 09/09/16 05:30 Hemoglobin C Crystals Not Reportable 09/09/16 05:30 Schistocytes Rare 09/09/16 05:30 Malaria parasites Not Reportable 09/09/16 05:30 Yair Bodies Not Reportable 09/09/16 05:30 Hem Pathologist Commnt No 09/09/16 05:30 PT 19.9 Sec. (12.2-14.9) H 09/07/16 11:02 INR 1.69 (0.87-1.13) H 09/07/16 11:02 Heparin Anti-Xa, Unfract Negative (Negative) 09/10/16 10:00 POC ABG pH 7.524 (7.35-7.45) H 09/14/16 00:18 POC ABG pCO2 34.5 (35-45) L 09/14/16 00:18 POC ABG pO2 157 (80-105) H 09/14/16 00:18 POC ABG HCO3 28.5 09/14/16 00:18 POC ABG Total CO2 30 09/14/16 00:18 POC ABG O2 Sat 100 09/14/16 00:18 POC ABG Base Excess 6 09/14/16 00:18 VBG pH 7.418 (7.320-7.420) 09/06/16 Unknown FiO2 40 % 09/14/16 00:18 Sodium 138 mmol/L (137-145) 09/14/16 05:30 Potassium 3.8 mmol/L (3.6-5.0) 09/14/16 05:30 Chloride 96.9 mmol/L (98-107) L 09/14/16 05:30 Carbon Dioxide 26 mmol/L (22-30) 09/14/16 05:30 Anion Gap 19 mmol/L 09/14/16 05:30 BUN 38 mg/dL (7-17) H 09/14/16 05:30 Creatinine 4.6 mg/dL (0.7-1.2) H 09/14/16 05:30 Estimated GFR 11 ml/min 09/14/16 05:30 BUN/Creatinine Ratio 8.26 % 09/14/16 05:30 Glucose 200 mg/dL (65-100) H 09/14/16 05:30 POC Glucose 181 (70-105) H 09/14/16 12:22 Lactic Acid 1.00 mmol/L (0.7-2.0) 09/07/16 17:01 Calcium 8.3 mg/dL (8.4-10.2) L 09/14/16 05:30 Phosphorus 5.20 mg/dL (2.5-4.5) H 09/06/16 Unknown Magnesium 2.20 mg/dL (1.7-2.3) 09/06/16 Unknown Total Bilirubin 1.10 mg/dL (0.1-1.2) 09/08/16 07:35 AST 25 units/L (5-40) 09/08/16 07:35 ALT 15 units/L (7-56) 09/08/16 07:35 Alkaline Phosphatase 77 units/L (35-129) 09/08/16 07:35 Ammonia 102.0 umol/L (25-60) H 09/06/16 Unknown Total Creatine Kinase 40 units/L (30-135) 09/06/16 Unknown CK-MB (CK-2) 3.0 ng/mL (0.0-4.0) 09/06/16 Unknown CK-MB (CK-2) Rel Index 7.5 (0-4) H 09/06/16 Unknown Troponin T 0.190 ng/mL (0.00-0.029) H* 09/07/16 17:01 NT-Pro-B Natriuret Pep 33528 pg/mL (0-900) H 09/06/16 Unknown Total Protein 5.2 g/dL (6.3-8.2) L 09/08/16 07:35 Albumin 2.7 g/dL (3.9-5) L 09/08/16 07:35 Albumin/Globulin Ratio 1.1 % 09/08/16 07:35 Triglycerides 38 mg/dL (2-149) 09/06/16 Unknown Cholesterol 37 mg/dL (50-199) L 09/06/16 Unknown LDL Cholesterol Direct 14 mg/dL (50-130) L 09/06/16 Unknown HDL Cholesterol 16 mg/dL (40-59) L 09/06/16 Unknown Cholesterol/HDL Ratio 2.31 % 09/06/16 Unknown Random Vancomycin 10.9 ug/mL (0-40.0) 09/08/16 07:35 Heparin-induced Plt Ab Negative (Negative) 09/10/16 10:00 UF Heparin High Dose 0 % Release 09/10/16 10:00 ANKUR UFH Low Dose 0.1 0 % Release 09/10/16 10:00 ANKUR UFH Low Dose 0.5 0 % Release 09/10/16 10:00 Blood Type A POSITIVE 09/12/16 12:18 Antibody Screen TNR 09/12/16 12:18 JOSEFA Antibody Screen Negative 09/12/16 12:18 Crossmatch See Detail 09/12/16 12:18 Leukocytosis persisted
[2016-09-14] MEDS: NORCO 5/325 PO PRN ×2 (17:13→23:34)
[2016-09-14] MEDS: VANCOMYCIN PO FEEDTUBE SCH ×2 (17:43→23:32)
[2016-09-15] MEDS: NORCO 5/325 PO PRN ×2 (06:01→14:43)
[2016-09-15] MEDS: VANCOMYCIN PO FEEDTUBE SCH ×3 (06:01→19:11)
[2016-09-15 06:20] LABS: Hematocrit 28.4 % (30.3-42.9); Hemoglobin 9.2 gm/dl (10.1-14.3); Mean Corpuscular HGB Conc 33 % (30-34); Mean Corpuscular Hemoglobin 30 pg (28-32); Mean Corpuscular Volume 91 fl (79-97); Platelet Count 205 K/mm3 (140-440); Red Blood Count 3.12 M/mm3 (3.65-5.03); Red Cell Distribution Width 17.8 % (13.2-15.2); White Blood Count 24.9 K/mm3 (4.5-11.0)
[2016-09-15] MEDS: NOVOLOG SUB-Q SCH ×4 (06:51→19:11)
--- NOTE | 2016-09-15 07:58 | Progress Note ---
Assessment and Plan 71 y/o female with severe anemia, etiology unknown, coagulopathy, renal failure and acute respiratory failure with altered sensorium and GPC's in pairs. 1. HIT negative, Platelets normal. Will continue to monitor. 2. Continue Bipap therapy. Will obtain ABG now. May require re-intubation 3. HD per renal, should be scheduled for today. 4. C.Diff, precautions and abx therapy per ID 5. Overal prognosis is guarded. CCT 31 minutes. Subjective Date of service: 09/15/16 Principal diagnosis: GI bleed Interval history: Had to start levophed drip on yesterday afternoon. Somnolent but arousable. Currently on bipap at 100%. 19/10. ID saw yesterday and switched to PO Vanc and discontinued the Flagyl. Objective Vital Signs - 12hr 09/14/16 09/14/16 09/14/16 20:00 20:01 21:00 Temperature 98.9 F Pulse Rate 69 70 Respiratory 30 H 28 H Rate Respiratory Rate [ Generalized] Blood Pressure 130/58 105/54 O2 Sat by Pulse 100 Oximetry 09/14/16 09/14/16 09/14/16 22:00 22:01 22:27 Temperature Pulse Rate 72 70 70 Respiratory 12 22 Rate Respiratory 27 H Rate [ Generalized] Blood Pressure 157/63 146/63 O2 Sat by Pulse 100 100 Oximetry 09/14/16 09/14/16 09/14/16 23:00 23:15 23:34 Temperature Pulse Rate 70 70 Respiratory 30 H 28 H 34 H Rate Respiratory Rate [ Generalized] Blood Pressure 143/61 160/63 O2 Sat by Pulse 100 98 Oximetry 09/15/16 09/15/16 09/15/16 00:00 00:01 00:34 Temperature 99.0 F Pulse Rate 70 Respiratory 31 H 19 Rate Respiratory Rate [ Generalized] Blood Pressure 154/58 O2 Sat by Pulse 100 Oximetry 09/15/16 09/15/16 09/15/16 01:00 02:01 03:01 Temperature Pulse Rate 70 70 70 Respiratory 29 H 33 H 35 H Rate Respiratory Rate [ Generalized] Blood Pressure 127/58 125/52 136/53 O2 Sat by Pulse 100 99 99 Oximetry 09/15/16 09/15/16 09/15/16 04:00 04:01 05:01 Temperature 99.3 F Pulse Rate 70 70 Respiratory 31 H 30 H Rate Respiratory Rate [ Generalized] Blood Pressure 132/54 129/60 O2 Sat by Pulse 97 90 Oximetry 09/15/16 06:01 Temperature Pulse Rate Respiratory 30 H Rate Respiratory Rate [ Generalized] Blood Pressure O2 Sat by Pulse Oximetry Constitutional: alert ENT: other (orally intubated) Neck: supple Ascultation: Bilateral: clear (anteriorly), rhonchi (bilateral this am) Percussion: Bilateral: not dull Cardiovascular: regular rate and rhythm, other (100% paced at this moment ) Gastrointestinal: normoactive bowel sounds Neurologic: non-focal exam Psychiatric: mood appropriate CBC and BMP: 09/15/16 06:00 09/14/16 05:30 ABG, PT/INR, D-dimer: ABG POC ABG pH 7.524 (7.35-7.45) H 09/14/16 00:18 POC ABG pCO2 34.5 (35-45) L 09/14/16 00:18 POC ABG pO2 157 (80-105) H 09/14/16 00:18 POC ABG HCO3 28.5 09/14/16 00:18 POC ABG Total CO2 30 09/14/16 00:18 POC ABG O2 Sat 100 09/14/16 00:18 PT/INR, D-dimer PT 19.9 Sec. (12.2-14.9) H 09/07/16 11:02 INR 1.69 (0.87-1.13) H 09/07/16 11:02 Abnormal lab findings: Abnormal Labs 09/06/16 09/06/16 09/06/16 12:51 12:51 15:57 WBC RBC Hgb Hct RDW Plt Count Lymph % (Auto) [place] % (Auto) Lymph # [place] # Seg Neutrophils % Seg Neuts % (Manual) Lymphocytes % (Manual) Nucleated RBC % Seg Neutrophils # Seg Neutrophils # Man Lymphocytes # (Manual) Monocytes # (Manual) PT INR POC ABG pH POC ABG pCO2 POC ABG pO2 Sodium Potassium 6.4 H* 6.7 H* Chloride 95.9 L Carbon Dioxide 21 L 19 L BUN 109 H 111 H Creatinine 10.5 H 10.1 H Glucose 133 H 178 H POC Glucose Lactic Acid Calcium Phosphorus Ammonia CK-MB (CK-2) Rel Index Troponin T NT-Pro-B Natriuret Pep 01161 H Total Protein Albumin Cholesterol LDL Cholesterol Direct HDL Cholesterol Crossmatch 09/06/16 09/06/16 09/06/16 15:57 19:06 19:06 WBC RBC Hgb 6.3 L Hct 19.3 L* RDW Plt Count Lymph % (Auto) [place] % (Auto) Lymph # [place] # Seg Neutrophils % Seg Neuts % (Manual) Lymphocytes % (Manual) Nucleated RBC % Seg Neutrophils # Seg Neutrophils # Man Lymphocytes # (Manual) Monocytes # (Manual) PT INR POC ABG pH POC ABG pCO2 POC ABG pO2 Sodium Potassium 3.3 L D Chloride 96.0 L Carbon Dioxide BUN 30 H Creatinine 2.8 H D Glucose 154 H POC Glucose Lactic Acid 2.80 H* Calcium Phosphorus Ammonia CK-MB (CK-2) Rel Index Troponin T NT-Pro-B Natriuret Pep Total Protein Albumin Cholesterol LDL Cholesterol Direct HDL Cholesterol Crossmatch 09/06/16 09/06/16 09/06/16 Unknown Unknown Unknown WBC RBC Hgb Hct RDW Plt Count Lymph % (Auto) [place] % (Auto) Lymph # [place] # Seg Neutrophils % Seg Neuts % (Manual) Lymphocytes % (Manual) Nucleated RBC % Seg Neutrophils # Seg Neutrophils # Man Lymphocytes # (Manual) Monocytes # (Manual) PT INR POC ABG pH POC ABG pCO2 POC ABG pO2 Sodium Potassium 6.4 H* Chloride 93.0 L Carbon Dioxide 21 L BUN 109 H Creatinine 10.4 H Glucose 197 H POC Glucose Lactic Acid 6.20 H* Calcium Phosphorus 5.20 H Ammonia CK-MB (CK-2) Rel Index 7.5 H Troponin T 0.210 H* NT-Pro-B Natriuret Pep 84775 H Total Protein 5.3 L Albumin 2.8 L Cholesterol 37 L LDL Cholesterol Direct 14 L HDL Cholesterol 16 L Crossmatch 09/06/16 09/07/16 09/07/16 Unknown 00:13 05:30 WBC RBC Hgb Hct RDW Plt Count Lymph % (Auto) [place] % (Auto) Lymph # [place] # Seg Neutrophils % Seg Neuts % (Manual) Lymphocytes % (Manual) Nucleated RBC % Seg Neutrophils # Seg Neutrophils # Man Lymphocytes # (Manual) Monocytes # (Manual) PT 31.0 H INR 2.96 H POC ABG pH 7.570 H POC ABG pCO2 31.7 L POC ABG pO2 183 H Sodium Potassium Chloride Carbon Dioxide BUN Creatinine Glucose POC Glucose Lactic Acid Calcium Phosphorus Ammonia 102.0 H CK-MB (CK-2) Rel Index Troponin T NT-Pro-B Natriuret Pep Total Protein Albumin Cholesterol LDL Cholesterol Direct HDL Cholesterol Crossmatch 09/07/16 09/07/16 09/07/16 05:50 11:02 11:02 WBC 25.7 H RBC 2.83 L Hgb 8.5 L Hct 26.0 L D RDW 17.5 H Plt Count Lymph % (Auto) [place] % (Auto) Lymph # [place] # Seg Neutrophils % Seg Neuts % (Manual) 96.0 H Lymphocytes % (Manual) 2.0 L Nucleated RBC % 1.0 H Seg Neutrophils # Seg Neutrophils # Man 24.7 H Lymphocytes # (Manual) 0.5 L Monocytes # (Manual) PT INR POC ABG pH POC ABG pCO2 POC ABG pO2 Sodium Potassium Chloride Carbon Dioxide BUN 54 H Creatinine 5.6 H D Glucose 138 H POC Glucose 149 H Lactic Acid Calcium Phosphorus Ammonia CK-MB (CK-2) Rel Index Troponin T NT-Pro-B Natriuret Pep Total Protein Albumin Cholesterol LDL Cholesterol Direct HDL Cholesterol Crossmatch 09/07/16 09/07/16 09/07/16 11:02 14:02 17:01 WBC RBC Hgb Hct RDW Plt Count Lymph % (Auto) [place] % (Auto) Lymph # [place] # Seg Neutrophils % Seg Neuts % (Manual) Lymphocytes % (Manual) Nucleated RBC % Seg Neutrophils # Seg Neutrophils # Man Lymphocytes # (Manual) Monocytes # (Manual) PT 19.9 H INR 1.69 H POC ABG pH POC ABG pCO2 POC ABG pO2 Sodium Potassium Chloride Carbon Dioxide BUN Creatinine Glucose POC Glucose 149 H Lactic Acid Calcium Phosphorus Ammonia CK-MB (CK-2) Rel Index Troponin T 0.190 H* NT-Pro-B Natriuret Pep Total Protein Albumin Cholesterol LDL Cholesterol Direct HDL Cholesterol Crossmatch 09/07/16 09/07/16 09/08/16 17:50 23:50 05:19 WBC RBC Hgb Hct RDW Plt Count Lymph % (Auto) [place] % (Auto) Lymph # [place] # Seg Neutrophils % Seg Neuts % (Manual) Lymphocytes % (Manual) Nucleated RBC % Seg Neutrophils # Seg Neutrophils # Man Lymphocytes # (Manual) Monocytes # (Manual) PT INR POC ABG pH 7.530 H POC ABG pCO2 32.2 L POC ABG pO2 Sodium Potassium Chloride Carbon Dioxide BUN Creatinine Glucose POC Glucose 126 H 128 H Lactic Acid Calcium Phosphorus Ammonia CK-MB (CK-2) Rel Index Troponin T NT-Pro-B Natriuret Pep Total Protein Albumin Cholesterol LDL Cholesterol Direct HDL Cholesterol Crossmatch 09/08/16 09/08/16 09/08/16 05:25 07:35 07:35 WBC 26.6 H RBC 2.79 L Hgb 8.3 L Hct 25.9 L RDW 18.0 H Plt Count 139 L Lymph % (Auto) [place] % (Auto) Lymph # [place] # Seg Neutrophils % Seg Neuts % (Manual) 93.0 H Lymphocytes % (Manual) 5.0 L Nucleated RBC % Seg Neutrophils # Seg Neutrophils # Man 24.7 H Lymphocytes # (Manual) Monocytes # (Manual) PT INR POC ABG pH POC ABG pCO2 POC ABG pO2 Sodium Potassium Chloride Carbon Dioxide BUN 65 H Creatinine 6.7 H Glucose 120 H POC Glucose 130 H Lactic Acid Calcium Phosphorus Ammonia CK-MB (CK-2) Rel Index Troponin T NT-Pro-B Natriuret Pep Total Protein 5.2 L Albumin 2.7 L Cholesterol LDL Cholesterol Direct HDL Cholesterol Crossmatch 09/08/16 09/08/16 09/09/16 11:47 18:10 05:27 WBC RBC Hgb Hct RDW Plt Count Lymph % (Auto) [place] % (Auto) Lymph # [place] # Seg Neutrophils % Seg Neuts % (Manual) Lymphocytes % (Manual) Nucleated RBC % Seg Neutrophils # Seg Neutrophils # Man Lymphocytes # (Manual) Monocytes # (Manual) PT INR POC ABG pH POC ABG pCO2 POC ABG pO2 Sodium Potassium Chloride Carbon Dioxide BUN Creatinine Glucose POC Glucose 141 H 139 H 152 H Lactic Acid Calcium Phosphorus Ammonia CK-MB (CK-2) Rel Index Troponin T NT-Pro-B Natriuret Pep Total Protein Albumin Cholesterol LDL Cholesterol Direct HDL Cholesterol Crossmatch 09/09/16 09/09/16 09/09/16 05:28 05:30 05:30 WBC 22.3 H RBC 2.66 L Hgb 7.8 L Hct 24.6 L RDW 19.1 H Plt Count 118 L Lymph % (Auto) [place] % (Auto) Lymph # [place] # Seg Neutrophils % Seg Neuts % (Manual) 89.0 H Lymphocytes % (Manual) 5.0 L Nucleated RBC % Seg Neutrophils # Seg Neutrophils # Man 19.8 H Lymphocytes # (Manual) 1.1 L Monocytes # (Manual) 1.3 H PT INR POC ABG pH 7.560 H POC ABG pCO2 34.2 L POC ABG pO2 Sodium Potassium 3.2 L D Chloride Carbon Dioxide BUN 34 H Creatinine 4.3 H Glucose 144 H POC Glucose Lactic Acid Calcium 8.0 L Phosphorus Ammonia CK-MB (CK-2) Rel Index Troponin T NT-Pro-B Natriuret Pep Total Protein Albumin Cholesterol LDL Cholesterol Direct HDL Cholesterol Crossmatch 09/09/16 09/09/16 09/09/16 12:01 14:56 15:30 WBC RBC Hgb Hct RDW Plt Count Lymph % (Auto) [place] % (Auto) Lymph # [place] # Seg Neutrophils % Seg Neuts % (Manual) Lymphocytes % (Manual) Nucleated RBC % Seg Neutrophils # Seg Neutrophils # Man Lymphocytes # (Manual) Monocytes # (Manual) PT INR POC ABG pH 7.582 H 7.543 H POC ABG pCO2 32.1 L POC ABG pO2 42 L Sodium Potassium Chloride Carbon Dioxide BUN Creatinine Glucose POC Glucose 178 H Lactic Acid Calcium Phosphorus Ammonia CK-MB (CK-2) Rel Index Troponin T NT-Pro-B Natriuret Pep Total Protein Albumin Cholesterol LDL Cholesterol Direct HDL Cholesterol Crossmatch 09/09/16 09/09/16 09/10/16 18:08 23:36 03:00 WBC 19.9 H RBC 2.73 L Hgb 8.0 L Hct 25.4 L RDW 19.0 H Plt Count 89 L Lymph % (Auto) 4.9 L [place] % (Auto) Lymph # 1.0 L [place] # 1.1 H Seg Neutrophils % 88.9 H Seg Neuts % (Manual) Lymphocytes % (Manual) Nucleated RBC % Seg Neutrophils # 17.7 H Seg Neutrophils # Man Lymphocytes # (Manual) Monocytes # (Manual) PT INR POC ABG pH POC ABG pCO2 POC ABG pO2 Sodium Potassium Chloride Carbon Dioxide BUN Creatinine Glucose POC Glucose 147 H 173 H Lactic Acid Calcium Phosphorus Ammonia CK-MB (CK-2) Rel Index Troponin T NT-Pro-B Natriuret Pep Total Protein Albumin Cholesterol LDL Cholesterol Direct HDL Cholesterol Crossmatch 09/10/16 09/10/16 09/10/16 03:00 04:29 10:00 WBC RBC 2.55 L Hgb 7.6 L Hct 23.7 L RDW 18.9 H Plt Count 84 L Lymph % (Auto) [place] % (Auto) Lymph # [place] # Seg Neutrophils % Seg Neuts % (Manual) Lymphocytes % (Manual) Nucleated RBC % Seg Neutrophils # Seg Neutrophils # Man Lymphocytes # (Manual) Monocytes # (Manual) PT INR POC ABG pH 7.521 H POC ABG pCO2 POC ABG pO2 Sodium Potassium 3.4 L Chloride 95.9 L Carbon Dioxide BUN 46 H Creatinine 5.9 H Glucose POC Glucose Lactic Acid Calcium Phosphorus Ammonia CK-MB (CK-2) Rel Index Troponin T NT-Pro-B Natriuret Pep Total Protein Albumin Cholesterol LDL Cholesterol Direct HDL Cholesterol Crossmatch 09/10/16 09/10/16 09/10/16 10:09 12:06 17:58 WBC RBC Hgb 7.7 L Hct 23.4 L RDW Plt Count Lymph % (Auto) [place] % (Auto) Lymph # [place] # Seg Neutrophils % Seg Neuts % (Manual) Lymphocytes % (Manual) Nucleated RBC % Seg Neutrophils # Seg Neutrophils # Man Lymphocytes # (Manual) Monocytes # (Manual) PT INR POC ABG pH POC ABG pCO2 POC ABG pO2 Sodium Potassium Chloride Carbon Dioxide BUN Creatinine Glucose POC Glucose 112 H 165 H Lactic Acid Calcium Phosphorus Ammonia CK-MB (CK-2) Rel Index Troponin T NT-Pro-B Natriuret Pep Total Protein Albumin Cholesterol LDL Cholesterol Direct HDL Cholesterol Crossmatch 09/11/16 09/11/16 09/11/16 00:01 05:13 05:28 WBC RBC Hgb Hct RDW Plt Count Lymph % (Auto) [place] % (Auto) Lymph # [place] # Seg Neutrophils % Seg Neuts % (Manual) Lymphocytes % (Manual) Nucleated RBC % Seg Neutrophils # Seg Neutrophils # Man Lymphocytes # (Manual) Monocytes # (Manual) PT INR POC ABG pH 7.565 H POC ABG pCO2 32.4 L POC ABG pO2 126 H Sodium Potassium Chloride Carbon Dioxide BUN Creatinine Glucose POC Glucose 196 H 187 H Lactic Acid Calcium Phosphorus Ammonia CK-MB (CK-2) Rel Index Troponin T NT-Pro-B Natriuret Pep Total Protein Albumin Cholesterol LDL Cholesterol Direct HDL Cholesterol Crossmatch 09/11/16 09/11/16 09/11/16 07:07 07:07 11:50 WBC 19.9 H RBC 2.61 L Hgb 7.6 L Hct 24.4 L RDW 18.4 H Plt Count 97 L Lymph % (Auto) 4.8 L [place] % (Auto) Lymph # 0.9 L [place] # 1.3 H Seg Neutrophils % 87.4 H Seg Neuts % (Manual) Lymphocytes % (Manual) Nucleated RBC % Seg Neutrophils # 17.4 H Seg Neutrophils # Man Lymphocytes # (Manual) Monocytes # (Manual) PT INR POC ABG pH POC ABG pCO2 POC ABG pO2 Sodium Potassium 3.3 L Chloride Carbon Dioxide BUN 32 H Creatinine 4.2 H Glucose 196 H POC Glucose 229 H Lactic Acid Calcium 8.0 L Phosphorus Ammonia CK-MB (CK-2) Rel Index Troponin T NT-Pro-B Natriuret Pep Total Protein Albumin Cholesterol LDL Cholesterol Direct HDL Cholesterol Crossmatch 09/11/16 09/11/16 09/12/16 18:13 23:48 04:22 WBC RBC Hgb Hct RDW Plt Count Lymph % (Auto) [place] % (Auto) Lymph # [place] # Seg Neutrophils % Seg Neuts % (Manual) Lymphocytes % (Manual) Nucleated RBC % Seg Neutrophils # Seg Neutrophils # Man Lymphocytes # (Manual) Monocytes # (Manual) PT INR POC ABG pH 7.527 H POC ABG pCO2 33.6 L POC ABG pO2 128 H Sodium Potassium Chloride Carbon Dioxide BUN Creatinine Glucose POC Glucose 216 H 135 H Lactic Acid Calcium Phosphorus Ammonia CK-MB (CK-2) Rel Index Troponin T NT-Pro-B Natriuret Pep Total Protein Albumin Cholesterol LDL Cholesterol Direct HDL Cholesterol Crossmatch 09/12/16 09/12/16 09/12/16 06:00 06:00 11:53 WBC 15.9 H RBC 2.34 L Hgb 6.8 L Hct 21.5 L RDW 18.4 H Plt Count 101 L Lymph % (Auto) 5.6 L [place] % (Auto) 8.4 H Lymph # 0.9 L [place] # 1.3 H Seg Neutrophils % 84.5 H Seg Neuts % (Manual) Lymphocytes % (Manual) Nucleated RBC % Seg Neutrophils # 13.5 H Seg Neutrophils # Man Lymphocytes # (Manual) Monocytes # (Manual) PT INR POC ABG pH POC ABG pCO2 POC ABG pO2 Sodium Potassium Chloride 97.5 L Carbon Dioxide BUN 46 H Creatinine 5.4 H Glucose 192 H POC Glucose 181 H Lactic Acid Calcium 7.8 L Phosphorus Ammonia CK-MB (CK-2) Rel Index Troponin T NT-Pro-B Natriuret Pep Total Protein Albumin Cholesterol LDL Cholesterol Direct HDL Cholesterol Crossmatch 09/12/16 09/12/16 09/12/16 12:18 16:56 23:33 WBC RBC Hgb Hct RDW Plt Count Lymph % (Auto) [place] % (Auto) Lymph # [place] # Seg Neutrophils % Seg Neuts % (Manual) Lymphocytes % (Manual) Nucleated RBC % Seg Neutrophils # Seg Neutrophils # Man Lymphocytes # (Manual) Monocytes # (Manual) PT INR POC ABG pH POC ABG pCO2 POC ABG pO2 Sodium Potassium Chloride Carbon Dioxide BUN Creatinine Glucose POC Glucose 204 H 175 H Lactic Acid Calcium Phosphorus Ammonia CK-MB (CK-2) Rel Index Troponin T NT-Pro-B Natriuret Pep Total Protein Albumin Cholesterol LDL Cholesterol Direct HDL Cholesterol Crossmatch See Detail 09/13/16 09/13/16 09/13/16 00:01 04:06 04:59 WBC 17.6 H RBC 2.80 L Hgb 8.4 L Hct 25.6 L RDW 17.1 H Plt Count 103 L Lymph % (Auto) 6.2 L [place] % (Auto) 8.4 H Lymph # 1.1 L [place] # 1.5 H Seg Neutrophils % 83.7 H Seg Neuts % (Manual) Lymphocytes % (Manual) Nucleated RBC % Seg Neutrophils # 14.8 H Seg Neutrophils # Man Lymphocytes # (Manual) Monocytes # (Manual) PT INR POC ABG pH 7.504 H POC ABG pCO2 32.7 L POC ABG pO2 Sodium Potassium Chloride Carbon Dioxide BUN Creatinine Glucose POC Glucose 239 H Lactic Acid Calcium Phosphorus Ammonia CK-MB (CK-2) Rel Index Troponin T NT-Pro-B Natriuret Pep Total Protein Albumin Cholesterol LDL Cholesterol Direct HDL Cholesterol Crossmatch 09/13/16 09/13/16 09/13/16 06:45 09:31 11:39 WBC RBC Hgb Hct RDW Plt Count Lymph % (Auto) [place] % (Auto) Lymph # [place] # Seg Neutrophils % Seg Neuts % (Manual) Lymphocytes % (Manual) Nucleated RBC % Seg Neutrophils # Seg Neutrophils # Man Lymphocytes # (Manual) Monocytes # (Manual) PT INR POC ABG pH 7.466 H POC ABG pCO2 POC ABG pO2 Sodium 136 L Potassium Chloride 93.8 L Carbon Dioxide BUN 65 H Creatinine 6.9 H Glucose 205 H POC Glucose 218 H Lactic Acid Calcium Phosphorus Ammonia CK-MB (CK-2) Rel Index Troponin T NT-Pro-B Natriuret Pep Total Protein Albumin Cholesterol LDL Cholesterol Direct HDL Cholesterol Crossmatch 09/13/16 09/13/16 09/13/16 16:55 18:02 22:23 WBC RBC Hgb Hct RDW Plt Count Lymph % (Auto) [place] % (Auto) Lymph # [place] # Seg Neutrophils % Seg Neuts % (Manual) Lymphocytes % (Manual) Nucleated RBC % Seg Neutrophils # Seg Neutrophils # Man Lymphocytes # (Manual) Monocytes # (Manual) PT INR POC ABG pH 7.553 H POC ABG pCO2 33.8 L POC ABG pO2 Sodium Potassium Chloride Carbon Dioxide BUN Creatinine Glucose POC Glucose 178 H 204 H Lactic Acid Calcium Phosphorus Ammonia CK-MB (CK-2) Rel Index Troponin T NT-Pro-B Natriuret Pep Total Protein Albumin Cholesterol LDL Cholesterol Direct HDL Cholesterol Crossmatch 09/14/16 09/14/16 09/14/16 00:10 00:18 02:18 WBC RBC Hgb Hct RDW Plt Count Lymph % (Auto) [place] % (Auto) Lymph # [place] # Seg Neutrophils % Seg Neuts % (Manual) Lymphocytes % (Manual) Nucleated RBC % Seg Neutrophils # Seg Neutrophils # Man Lymphocytes # (Manual) Monocytes # (Manual) PT INR POC ABG pH 7.503 H 7.524 H POC ABG pCO2 34.5 L POC ABG pO2 47 L 157 H Sodium Potassium Chloride Carbon Dioxide BUN Creatinine Glucose POC Glucose 172 H Lactic Acid Calcium Phosphorus Ammonia CK-MB (CK-2) Rel Index Troponin T NT-Pro-B Natriuret Pep Total Protein Albumin Cholesterol LDL Cholesterol Direct HDL Cholesterol Crossmatch 09/14/16 09/14/16 09/14/16 05:30 05:30 06:00 WBC 17.5 H RBC 2.67 L Hgb 7.9 L Hct 24.3 L RDW 17.3 H Plt Count 122 L Lymph % (Auto) [place] % (Auto) Lymph # [place] # Seg Neutrophils % Seg Neuts % (Manual) Lymphocytes % (Manual) Nucleated RBC % Seg Neutrophils # Seg Neutrophils # Man Lymphocytes # (Manual) Monocytes # (Manual) PT INR POC ABG pH POC ABG pCO2 POC ABG pO2 Sodium Potassium Chloride 96.9 L Carbon Dioxide BUN 38 H Creatinine 4.6 H Glucose 200 H POC Glucose 212 H Lactic Acid Calcium 8.3 L Phosphorus Ammonia CK-MB (CK-2) Rel Index Troponin T NT-Pro-B Natriuret Pep Total Protein Albumin Cholesterol LDL Cholesterol Direct HDL Cholesterol Crossmatch 09/14/16 09/14/16 09/14/16 07:24 12:22 17:22 WBC RBC Hgb Hct RDW Plt Count Lymph % (Auto) [place] % (Auto) Lymph # [place] # Seg Neutrophils % Seg Neuts % (Manual) Lymphocytes % (Manual) Nucleated RBC % Seg Neutrophils # Seg Neutrophils # Man Lymphocytes # (Manual) Monocytes # (Manual) PT INR POC ABG pH POC ABG pCO2 POC ABG pO2 Sodium Potassium Chloride Carbon Dioxide BUN Creatinine Glucose POC Glucose 190 H 181 H 251 H Lactic Acid Calcium Phosphorus Ammonia CK-MB (CK-2) Rel Index Troponin T NT-Pro-B Natriuret Pep Total Protein Albumin Cholesterol LDL Cholesterol Direct HDL Cholesterol Crossmatch 09/15/16 09/15/16 09/15/16 00:15 05:36 06:00 WBC 24.9 H RBC 3.12 L Hgb 9.2 L Hct 28.4 L RDW 17.8 H Plt Count Lymph % (Auto) [place] % (Auto) Lymph # [place] # Seg Neutrophils % Seg Neuts % (Manual) Lymphocytes % (Manual) Nucleated RBC % Seg Neutrophils # Seg Neutrophils # Man Lymphocytes # (Manual) Monocytes # (Manual) PT INR POC ABG pH POC ABG pCO2 POC ABG pO2 Sodium Potassium Chloride Carbon Dioxide BUN Creatinine Glucose POC Glucose 231 H 229 H Lactic Acid Calcium Phosphorus Ammonia CK-MB (CK-2) Rel Index Troponin T NT-Pro-B Natriuret Pep Total Protein Albumin Cholesterol LDL Cholesterol Direct HDL Cholesterol Crossmatch
[2016-09-15 08:38] LABS: ISTAT Base Excess 2; ISTAT HCO3 25.8; ISTAT PCO2 33.9 (35-45); ISTAT PH 7.489 (7.35-7.45); ISTAT PO2 341 (80-105); ISTAT SO2 100; ISTAT TCO2 27
--- NOTE | 2016-09-15 08:47 | Progress Note ---
Assessment and Plan Impression: * End stage renal disease on HD MWF * Cdiff colitis * Hypotension requiring vasopressors * Severe anemia secondary to ABL * GI bleed * Atrial fibrillation * s/p Acute respiratory failure requiring mechanical ventilation; extubated * Coagulopathy - resolved * Chronic anticoagulation - previously on Eliquis 5mg BID as outpatient Plan: * Hemodialysis MWF. UF as tolerated * Antibiotics per ID * Consider abd/pelvis CT in light of abdominal distention * Pressors prn MAP>65 * Dose medications for renal function Subjective Date of service: 09/15/16 Principal diagnosis: GI bleed Interval history: No acute events overnight Objective - Vital Signs Vital signs: Vital Signs - 12hr 09/14/16 09/14/16 09/14/16 21:00 22:00 22:01 Temperature Pulse Rate 70 72 70 Respiratory 28 H 12 Rate Respiratory 27 H Rate [ Generalized] Blood Pressure 105/54 157/63 O2 Sat by Pulse 100 Oximetry 09/14/16 09/14/16 09/14/16 22:27 23:00 23:15 Temperature Pulse Rate 70 70 70 Respiratory 22 30 H 28 H Rate Respiratory Rate [ Generalized] Blood Pressure 146/63 143/61 160/63 O2 Sat by Pulse 100 100 98 Oximetry 09/14/16 09/15/16 09/15/16 23:34 00:00 00:01 Temperature 99.0 F Pulse Rate 70 Respiratory 34 H 31 H Rate Respiratory Rate [ Generalized] Blood Pressure 154/58 O2 Sat by Pulse 100 Oximetry 09/15/16 09/15/16 09/15/16 00:34 01:00 02:01 Temperature Pulse Rate 70 70 Respiratory 19 29 H 33 H Rate Respiratory Rate [ Generalized] Blood Pressure 127/58 125/52 O2 Sat by Pulse 100 99 Oximetry 09/15/16 09/15/16 09/15/16 03:01 04:00 04:01 Temperature 99.3 F Pulse Rate 70 70 Respiratory 35 H 31 H Rate Respiratory Rate [ Generalized] Blood Pressure 136/53 132/54 O2 Sat by Pulse 99 97 Oximetry 09/15/16 09/15/16 05:01 06:01 Temperature Pulse Rate 70 Respiratory 30 H 30 H Rate Respiratory Rate [ Generalized] Blood Pressure 129/60 O2 Sat by Pulse 90 Oximetry - General Appearance General appearance: well-developed, other (on bipap) Respiratory: Present: Clear to Ascultation Cardiology: regular, S1S2 Gastrointestinal: hypoactive bowel sounds, distended Integumentary: hyperpigmentation Musculoskeletal: other (no edema) Psychiatric: cooperative - Lab 09/15/16 06:00 09/15/16 08:28 Most recent lab results Calcium 8.3 mg/dL (8.4-10.2) L 09/14/16 05:30 Phosphorus 5.20 mg/dL (2.5-4.5) H 09/06/16 Unknown Magnesium 2.20 mg/dL (1.7-2.3) 09/06/16 Unknown
--- NOTE | 2016-09-15 08:54 | Progress Note ---
Assessment and Plan - Patient Problems (1) Clostridium difficile infection Current Visit: Yes Status: Acute Plan to address problem: 1. Continue enteral Vancomycin. Will add IV Flagyl as well given abd distention and increased WBC count. 2. Continue to monitor clinically. (2) Fever Current Visit: Yes Status: Acute Qualifiers: Fever type: unspecified Encounter type: E Qualified Code(s): R50.9 - Fever, unspecified Plan to address problem: Afebrile for > 48 hours. Continue to monitor. Subjective Date of service: 09/15/16 Principal diagnosis: GI bleed Interval history: Remains in ICU. No new events. Objective - Constitutional Vitals: Vital Signs Temp Pulse Resp BP Pulse Ox 98.7 F 70 30 H 129/60 90 09/15/16 08:00 09/15/16 05:01 09/15/16 06:01 09/15/16 05:01 09/15/16 05:01 Temperature -Last 24 Hours Temperature 98.7 F Temperature 99.3 F Temperature 99.0 F Temperature 98.9 F Temperature 98.7 F Temperature 99.0 F General appearance: Present: no acute distress, other (BiPAP mask, also Dobhoff tube in place) - Neck Neck: supple - Respiratory Respiratory: bilateral: rhonchi, negative: wheezing - Cardiovascular Rhythm: regular (paced) Extremities: abnormal (significant distal lower limb ischemia with areas of gangrene on R>L feet) - Gastrointestinal General gastrointestinal: Present: soft, non-tender, distended, hypoactive bowel sounds Rectal Exam: stool brown (rectal tube with watery brown stool) - Integumentary Integumentary: no rash - Neurologic Neurologic: moves all extremities - Labs CBC & Chem 7: 09/15/16 06:00 09/15/16 08:28 Labs: Abnormal lab results 09/14/16 09/14/16 09/15/16 Range/Units 12:22 17:22 00:15 WBC (4.5-11.0) K/mm3 RBC (3.65-5.03) M/mm3 Hgb (10.1-14.3) gm/dl Hct (30.3-42.9) % RDW (13.2-15.2) % POC ABG pH (7.35-7.45) POC ABG pCO2 (35-45) POC ABG pO2 (80-105) POC Glucose 181 H 251 H 231 H (70-105) 09/15/16 09/15/16 09/15/16 Range/Units 05:36 06:00 08:29 WBC 24.9 H (4.5-11.0) K/mm3 RBC 3.12 L (3.65-5.03) M/mm3 Hgb 9.2 L (10.1-14.3) gm/dl Hct 28.4 L (30.3-42.9) % RDW 17.8 H (13.2-15.2) % POC ABG pH 7.489 H (7.35-7.45) POC ABG pCO2 33.9 L (35-45) POC ABG pO2 341 H (80-105) POC Glucose 229 H (70-105) Microbiology 09/13/16 22:00 Stool C. difficile DNA Amplification - Final 09/12/16 11:45 Stool Stool Occult Blood (MOLLY) - Final 09/06/16 10:50 Peripheral/Venous Blood Culture - Final Coag Negative Staphylococcus 09/06/16 10:50 Peripheral/Venous Blood Culture - Final NO GROWTH AFTER 5 DAYS 09/06/16 Unknown Tracheal Aspirate Sputum Culture - Final
[2016-09-15 08:56] LABS: Basophils % (Manual) 0 % (0.0-1.8); Blastocytes % (Manual) 0 %; Eosinophils % (Manual) 0 % (0.0-4.3)
[2016-09-15 08:57] LABS: Anisocytosis 1+; Macrocytosis 1+; Poikilocytosis 1+; Tear Drop Cells Rare
[2016-09-15 08:58] LABS: Diff Status Complete; Helmet Cells Rare; Ovalocytes Rare; Platelet Estimate Consistent w Auto
[2016-09-15] MEDS ORDERED: NACL 0.9% 1000 ML 2,000 ML ONE (09:04)
[2016-09-15 09:23] LABS: BUN/Creatinine Ratio 9.47; Calcium 9.1 mg/dL (8.4-10.2); Chloride 97.7 mmol/L (98-107); Potassium 4.3 mmol/L (3.6-5.0)
[2016-09-15] MEDS: FLAGYL 500 MG/100 ML 500 MG/100 ML BAG IV SCH ×3 (10:00→21:56)
[2016-09-15] MEDS ORDERED: LEVEMIR SUB-Q SCH (10:00)
[2016-09-15] MEDS: PEPCID PO SCH (14:44)
--- NOTE | 2016-09-15 17:51 | Progress Note ---
Assessment and Plan Assessment and plan: Severe c.diff, with abdominal distention - Patient is on IV flagyl and PO vancomycin - Stop to feeding Acute respiratory failure - Resolving patient is on IN mask, but patient is tachypneic Septic shock - Holding her blood pressure but patient has been spiking fever and still has leukocytosis - ID consulted - Could be due to C. difficile Severe anemia secondary GI bleed/CKD - Hemoglobin this morning is 9.2, stable - GI was consulted and doesn't want to do any intervention at this time Hyperkalemia (resolved) Lactic acidosis (resolved) End-stage disease on hemodialysis - Nephrology is on board and continue hemodialysis per nephrology Diabetes mellitus type 2 - Continue sliding scale, Accu-Chek Thrombocytopenia - Increasing and today platelet count is 220 Gangrene of bilateral feet - Vascular surgery was consulted and will do angiography once the patient is extubated and patient may need amputation Prognosis: Guarded DVT Prophylaxis - SCD Disposition - Continue ICU care The high probability of a clinically significant, sudden or life threatening deterioration of the [CV, Neurology, reneal] system(s) required my full and direct attention, intervention and personal management. The aggregate critical care time was [31] minutes. This time is in addition to time spent performing reported procedures but includes the following: [x] Data Review and interpretation [x] Patient assessment and monitoring of vital signs [x] Documentation [x] Medication orders and management. History Interval history: Patient was seen and evaluated this morning, she was on IN o2 and tachypnic. Hospitalist Physical - Physical exam Narrative exam: patient is awake and on non rebreather mask. The patient appeared well nourished and normally developed. Vital signs as documented. Head exam is unremarkable. No scleral icterus . Neck is without jugular venous distension, thyromegaly, or carotid bruits. Lungs are clear to auscultation. Cardiac exam reveals regular rate and Rhythm. Abdominal exam reveals distension. 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 CONVEYOR MAN: Alert. - Constitutional Vitals: Temp Pulse Resp BP Pulse Ox 98.6 F 70 39 H 136/68 100 09/15/16 12:37 09/15/16 17:01 09/15/16 17:01 09/15/16 17:01 09/15/16 17:01 General appearance: Present: no acute distress, other (BiPAP mask, also Dobhoff tube in place) Results - Labs CBC & Chem 7: 09/15/16 06:00 09/15/16 08:28 Labs: Laboratory Last Values WBC 24.9 K/mm3 (4.5-11.0) H 09/15/16 06:00 RBC 3.12 M/mm3 (3.65-5.03) L 09/15/16 06:00 Hgb 9.2 gm/dl (10.1-14.3) L 09/15/16 06:00 Hct 28.4 % (30.3-42.9) L 09/15/16 06:00 MCV 91 fl (79-97) 09/15/16 06:00 MCH 30 pg (28-32) 09/15/16 06:00 MCHC 33 % (30-34) 09/15/16 06:00 RDW 17.8 % (13.2-15.2) H 09/15/16 06:00 Plt Count 205 K/mm3 (140-440) 09/15/16 06:00 Lymph % (Auto) 6.2 % (13.4-35.0) L 09/13/16 00:01 Vance % (Auto) 8.4 % (0.0-7.3) H 09/13/16 00:01 Eos % (Auto) 1.5 % (0.0-4.3) 09/13/16 00:01 Baso % (Auto) 0.2 % (0.0-1.8) 09/13/16 00:01 Lymph # 1.1 K/mm3 (1.2-5.4) L 09/13/16 00:01 Vance # 1.5 K/mm3 (0.0-0.8) H 09/13/16 00:01 Eos # 0.3 K/mm3 (0.0-0.4) 09/13/16 00:01 Baso # 0.0 K/mm3 (0.0-0.1) 09/13/16 00:01 Add Manual Diff Complete 09/15/16 06:00 Total Counted 100 09/15/16 06:00 Seg Neutrophils % 83.7 % (40.0-70.0) H 09/13/16 00:01 Seg Neuts % (Manual) 83.0 % (40.0-70.0) H 09/15/16 06:00 Band Neutrophils % 3.0 % 09/15/16 06:00 Lymphocytes % (Manual) 5.0 % (13.4-35.0) L 09/15/16 06:00 Reactive Lymphs % (Man) 0 % 09/15/16 06:00 Monocytes % (Manual) 9.0 % (0.0-7.3) H 09/15/16 06:00 Eosinophils % (Manual) 0 % (0.0-4.3) 09/15/16 06:00 Basophils % (Manual) 0 % (0.0-1.8) 09/15/16 06:00 Metamyelocytes % 0 % 09/15/16 06:00 Myelocytes % 0 % 09/15/16 06:00 Promyelocytes % 0 % 09/15/16 06:00 Blast Cells % 0 % 09/15/16 06:00 Nucleated RBC % Not Reportable 09/15/16 06:00 Seg Neutrophils # 14.8 K/mm3 (1.8-7.7) H 09/13/16 00:01 Seg Neutrophils # Man 20.7 K/mm3 (1.8-7.7) H 09/15/16 06:00 Band Neutrophils # 0.7 K/mm3 09/15/16 06:00 Lymphocytes # (Manual) 1.2 K/mm3 (1.2-5.4) 09/15/16 06:00 Abs React Lymphs (Man) 0.0 K/mm3 09/15/16 06:00 Monocytes # (Manual) 2.2 K/mm3 (0.0-0.8) H 09/15/16 06:00 Eosinophils # (Manual) 0.0 K/mm3 (0.0-0.4) 09/15/16 06:00 Basophils # (Manual) 0.0 K/mm3 (0.0-0.1) 09/15/16 06:00 Metamyelocytes # 0.0 K/mm3 09/15/16 06:00 Myelocytes # 0.0 K/mm3 09/15/16 06:00 Promyelocytes # 0.0 K/mm3 09/15/16 06:00 Blast Cells # 0.0 K/mm3 09/15/16 06:00 WBC Morphology Not Reportable 09/15/16 06:00 Hypersegmented Neuts Not Reportable 09/15/16 06:00 Hyposegmented Neuts Not Reportable 09/15/16 06:00 Hypogranular Neuts Not Reportable 09/15/16 06:00 Smudge Cells Not Reportable 09/15/16 06:00 Toxic Granulation Not Reportable 09/15/16 06:00 Toxic Vacuolation Not Reportable 09/15/16 06:00 Dohle Bodies Not Reportable 09/15/16 06:00 Pelger-Huet Anomaly Not Reportable 09/15/16 06:00 Juan Rods Not Reportable 09/15/16 06:00 Platelet Estimate Consistent w auto 09/15/16 06:00 Clumped Platelets Not Reportable 09/15/16 06:00 Plt Clumps, EDTA Not Reportable 09/15/16 06:00 Large Platelets Not Reportable 09/15/16 06:00 Giant Platelets Not Reportable 09/15/16 06:00 Platelet Satelliting Not Reportable 09/15/16 06:00 Plt Morphology Comment Not Reportable 09/15/16 06:00 RBC Morphology Not Reportable 09/15/16 06:00 Dimorphic RBCs Not Reportable 09/15/16 06:00 Polychromasia Not Reportable 09/15/16 06:00 Hypochromasia Not Reportable 09/15/16 06:00 Poikilocytosis 1+ 09/15/16 06:00 Anisocytosis 1+ 09/15/16 06:00 Microcytosis Not Reportable 09/15/16 06:00 Macrocytosis 1+ 09/15/16 06:00 Spherocytes Not Reportable 09/15/16 06:00 Pappenheimer Bodies Not Reportable 09/15/16 06:00 Sickle Cells Not Reportable 09/15/16 06:00 Target Cells Not Reportable 09/15/16 06:00 Tear Drop Cells Rare 09/15/16 06:00 Ovalocytes Rare 09/15/16 06:00 Stomatocytes Few 09/08/16 07:35 Helmet Cells Rare 09/15/16 06:00 Dominguez-Gholson Bodies Not Reportable 09/15/16 06:00 York Rings Not Reportable 09/15/16 06:00 Bernabe Cells Not Reportable 09/15/16 06:00 Bite Cells Not Reportable 09/15/16 06:00 Crenated Cell Not Reportable 09/15/16 06:00 Elliptocytes Not Reportable 09/15/16 06:00 Acanthocytes (Spur) Not Reportable 09/15/16 06:00 Rouleaux Not Reportable 09/15/16 06:00 Hemoglobin C Crystals Not Reportable 09/15/16 06:00 Schistocytes Not Reportable 09/15/16 06:00 Malaria parasites Not Reportable 09/15/16 06:00 Yair Bodies Not Reportable 09/15/16 06:00 Hem Pathologist Commnt No 09/15/16 06:00 PT 19.9 Sec. (12.2-14.9) H 09/07/16 11:02 INR 1.69 (0.87-1.13) H 09/07/16 11:02 Heparin Anti-Xa, Unfract Negative (Negative) 09/10/16 10:00 POC ABG pH 7.489 (7.35-7.45) H 09/15/16 08:29 POC ABG pCO2 33.9 (35-45) L 09/15/16 08:29 POC ABG pO2 341 (80-105) H 09/15/16 08:29 POC ABG HCO3 25.8 09/15/16 08:29 POC ABG Total CO2 27 09/15/16 08:29 POC ABG O2 Sat 100 09/15/16 08:29 POC ABG Base Excess 2 09/15/16 08:29 VBG pH 7.418 (7.320-7.420) 09/06/16 Unknown FiO2 100 % 09/15/16 08:29 Sodium 140 mmol/L (137-145) 09/15/16 08:28 Potassium 4.3 mmol/L (3.6-5.0) 09/15/16 08:28 Chloride 97.7 mmol/L (98-107) L 09/15/16 08:28 Carbon Dioxide 22 mmol/L (22-30) 09/15/16 08:28 Anion Gap 25 mmol/L 09/15/16 08:28 BUN 54 mg/dL (7-17) H 09/15/16 08:28 Creatinine 5.7 mg/dL (0.7-1.2) H 09/15/16 08:28 Estimated GFR 9 ml/min 09/15/16 08:28 BUN/Creatinine Ratio 9.47 % 09/15/16 08:28 Glucose 217 mg/dL (65-100) H 09/15/16 08:28 POC Glucose 157 (70-105) H 09/15/16 11:43 Lactic Acid 1.00 mmol/L (0.7-2.0) 09/07/16 17:01 Calcium 9.1 mg/dL (8.4-10.2) 09/15/16 08:28 Phosphorus 5.20 mg/dL (2.5-4.5) H 09/06/16 Unknown Magnesium 2.20 mg/dL (1.7-2.3) 09/06/16 Unknown Total Bilirubin 1.10 mg/dL (0.1-1.2) 09/08/16 07:35 AST 25 units/L (5-40) 09/08/16 07:35 ALT 15 units/L (7-56) 09/08/16 07:35 Alkaline Phosphatase 77 units/L (35-129) 09/08/16 07:35 Ammonia 102.0 umol/L (25-60) H 09/06/16 Unknown Total Creatine Kinase 40 units/L (30-135) 09/06/16 Unknown CK-MB (CK-2) 3.0 ng/mL (0.0-4.0) 09/06/16 Unknown CK-MB (CK-2) Rel Index 7.5 (0-4) H 09/06/16 Unknown Troponin T 0.190 ng/mL (0.00-0.029) H* 09/07/16 17:01 NT-Pro-B Natriuret Pep 19521 pg/mL (0-900) H 09/06/16 Unknown Total Protein 5.2 g/dL (6.3-8.2) L 09/08/16 07:35 Albumin 2.7 g/dL (3.9-5) L 09/08/16 07:35 Albumin/Globulin Ratio 1.1 % 09/08/16 07:35 Triglycerides 38 mg/dL (2-149) 09/06/16 Unknown Cholesterol 37 mg/dL (50-199) L 09/06/16 Unknown LDL Cholesterol Direct 14 mg/dL (50-130) L 09/06/16 Unknown HDL Cholesterol 16 mg/dL (40-59) L 09/06/16 Unknown Cholesterol/HDL Ratio 2.31 % 09/06/16 Unknown Random Vancomycin 10.9 ug/mL (0-40.0) 09/08/16 07:35 Heparin-induced Plt Ab Negative (Negative) 09/10/16 10:00 UF Heparin High Dose 0 % Release 09/10/16 10:00 ANKUR UFH Low Dose 0.1 0 % Release 09/10/16 10:00 ANKUR UFH Low Dose 0.5 0 % Release 09/10/16 10:00 Blood Type A POSITIVE 09/12/16 12:18 Antibody Screen TNR 09/12/16 12:18 JOSEFA Antibody Screen Negative 09/12/16 12:18 Crossmatch See Detail 09/12/16 12:18
[2016-09-16] MEDS: NOVOLOG SUB-Q SCH ×4 (01:10→18:24)
[2016-09-16] MEDS: NORCO 5/325 PO PRN ×2 (01:32→17:29)
[2016-09-16] MEDS: VANCOMYCIN PO FEEDTUBE SCH ×4 (01:34→17:29)
[2016-09-16] MEDS: FLAGYL 500 MG/100 ML 500 MG/100 ML BAG IV SCH ×2 (05:30→13:45)
[2016-09-16 05:53] LABS: Hematocrit 28.8 % (30.3-42.9); Hemoglobin 9.1 gm/dl (10.1-14.3); Mean Corpuscular HGB Conc 32 % (30-34); Mean Corpuscular Hemoglobin 29 pg (28-32); Mean Corpuscular Volume 93 fl (79-97); Platelet Count 190 K/mm3 (140-440); Red Blood Count 3.11 M/mm3 (3.65-5.03); Red Cell Distribution Width 17.8 % (13.2-15.2)
[2016-09-16 05:55] LABS: White Blood Count 21.3 K/mm3 (4.5-11.0)
[2016-09-16] MEDS: SIMPLE SYRUP FEEDTUBE PRN (06:06)
[2016-09-16 06:18] LABS: BUN/Creatinine Ratio 8.97; Calcium 9.3 mg/dL (8.4-10.2)
[2016-09-16 06:19] LABS: Potassium 4.6 mmol/L (3.6-5.0)
[2016-09-16] MEDS ORDERED: [UNRECOGNIZED DRUG - OTHER] IV ONE (06:43)
[2016-09-16] MEDS ORDERED: DEXTROSE IV ONE (06:43)
[2016-09-16] MEDS: D50W (25GM) IV PRN ×2 (06:58→13:45)
--- NOTE | 2016-09-16 07:59 | XRay Report ---
SUPINE KUB: History: Abdominal distention Multiple mildly dilated and edematous loops of small bowel have developed since 09/08/16 exam. The stomach appears mildly dilated. Gas is identified in the right hemicolon. A feeding tube terminates in the duodenal bulb. Small left pleural effusion and borderline mild cardiomegaly are noted. IMPRESSION: Mildly dilated loops of bowel have developed in the abdomen. Further evaluation with CT with IV and oral contrast is recommended.
[2016-09-16 08:27] LABS: Anisocytosis 1+; Basophils % (Manual) 0 % (0.0-1.8); Blastocytes % (Manual) 0 %; Eosinophils % (Manual) 0 % (0.0-4.3); Macrocytosis 1+; Ovalocytes Rare; Poikilocytosis 1+; Total Cells Counted Percent 0
[2016-09-16 08:28] LABS: Diff Status Complete; Helmet Cells Rare; Platelet Estimate Consistent w Auto; Tear Drop Cells Rare
--- NOTE | 2016-09-16 08:50 | Progress Note ---
Assessment and Plan - Patient Problems (1) Clostridium difficile infection Current Visit: Yes Status: Acute Plan to address problem: 1. Continue dual therapy of enteral Vancomycin and IV Flagyl. Add probiotics. 2. Avoid unnecessary/ broad antimicrobials. 3. WBC count is slightly improved today. (2) Fever Current Visit: Yes Status: Acute Qualifiers: Fever type: unspecified Encounter type: E Qualified Code(s): R50.9 - Fever, unspecified Plan to address problem: Resolved. Subjective Date of service: 09/16/16 Principal diagnosis: Cdiff Colitis Interval history: No new events. Remains in ICU, on and off pressors. Objective - Constitutional Vitals: Vital Signs Temp Pulse Resp BP Pulse Ox 99.9 F H 70 39 H 151/123 100 09/16/16 04:00 09/16/16 04:01 09/16/16 04:01 09/16/16 04:01 09/16/16 08:42 Temperature -Last 24 Hours Temperature 99.9 F Temperature 98.8 F Temperature 98.6 F Temperature 98.6 F Temperature 98.6 F Temperature 98.6 F General appearance: Present: no acute distress, other (awake) - EENT Eyes: no scleral icterus ENT: other (Dobhoff, on supplemental nasal cannula O2) - Respiratory Respiratory effort: normal Respiratory: bilateral: CTA, negative: rales - Cardiovascular Rhythm: regular (paced rhythm) Extremity abnormal: black (distal lower limb gangrenous changes) - Gastrointestinal General gastrointestinal: Present: soft, tender, distended, hypoactive bowel sounds - Integumentary Integumentary: clear, no rash - Neurologic Neurologic: moves all extremities - Labs CBC & Chem 7: 09/16/16 05:30 09/16/16 05:30 Labs: Abnormal lab results 09/15/16 09/15/16 09/15/16 Range/Units 06:00 08:28 11:43 WBC (4.5-11.0) K/mm3 RBC (3.65-5.03) M/mm3 Hgb (10.1-14.3) gm/dl Hct (30.3-42.9) % RDW (13.2-15.2) % Seg Neuts % (Manual) 83.0 H (40.0-70.0) % Lymphocytes % (Manual) 5.0 L (13.4-35.0) % Monocytes % (Manual) 9.0 H (0.0-7.3) % Seg Neutrophils # Man 20.7 H (1.8-7.7) K/mm3 Lymphocytes # (Manual) (1.2-5.4) K/mm3 Monocytes # (Manual) 2.2 H (0.0-0.8) K/mm3 Chloride 97.7 L (98-107) mmol/L Carbon Dioxide (22-30) mmol/L BUN 54 H (7-17) mg/dL Creatinine 5.7 H (0.7-1.2) mg/dL Glucose 217 H (65-100) mg/dL POC Glucose 157 H (70-105) 09/15/16 09/16/16 09/16/16 Range/Units 17:32 05:30 05:30 WBC 21.3 H (4.5-11.0) K/mm3 RBC 3.11 L (3.65-5.03) M/mm3 Hgb 9.1 L (10.1-14.3) gm/dl Hct 28.8 L (30.3-42.9) % RDW 17.8 H (13.2-15.2) % Seg Neuts % (Manual) (40.0-70.0) % Lymphocytes % (Manual) 4.0 L (13.4-35.0) % Monocytes % (Manual) (0.0-7.3) % Seg Neutrophils # Man 9.2 H (1.8-7.7) K/mm3 Lymphocytes # (Manual) 0.9 L (1.2-5.4) K/mm3 Monocytes # (Manual) (0.0-0.8) K/mm3 Chloride 97.0 L (98-107) mmol/L Carbon Dioxide 21 L (22-30) mmol/L BUN 35 H (7-17) mg/dL Creatinine 3.9 H (0.7-1.2) mg/dL Glucose 59 L (65-100) mg/dL POC Glucose 141 H (70-105) 09/16/16 09/16/16 Range/Units 05:55 06:40 WBC (4.5-11.0) K/mm3 RBC (3.65-5.03) M/mm3 Hgb (10.1-14.3) gm/dl Hct (30.3-42.9) % RDW (13.2-15.2) % Seg Neuts % (Manual) (40.0-70.0) % Lymphocytes % (Manual) (13.4-35.0) % Monocytes % (Manual) (0.0-7.3) % Seg Neutrophils # Man (1.8-7.7) K/mm3 Lymphocytes # (Manual) (1.2-5.4) K/mm3 Monocytes # (Manual) (0.0-0.8) K/mm3 Chloride (98-107) mmol/L Carbon Dioxide (22-30) mmol/L BUN (7-17) mg/dL Creatinine (0.7-1.2) mg/dL Glucose (65-100) mg/dL POC Glucose < 40 L < 40 L (70-105) - Imaging and cardiology Abdominal x-ray: report reviewed (dilated loops of bowel)
--- NOTE | 2016-09-16 10:54 | Progress Note ---
Assessment and Plan 71 y/o female with severe anemia, etiology unknown, coagulopathy, renal failure and acute respiratory failure with altered sensorium and GPC's in pairs. 1. C. Diff, with possible colitis. Currently on IV and PO abx for this. Has some abdominal distention, tenderness to touch. Will discuss with IMS about CT of abdomen pelvis. If safe for transfer, will obtain CT with contrast. Already in renal failure. 2. HD done yesterday, none scheduled for today. 3. Long discussion with son over phone. He understands overall clinical state. States that mother has been sick for several months. He also understands that legs are worse and that could have severe colitis of abdomen. He understands quality of life vs quanity and at this time would like for her to be a full DNR. He may change his mind about intubation but right now full DNR. 4. C.Diff, precautions and abx therapy per ID 5. Overal prognosis is guarded. CCT 31 minutes. Subjective Date of service: 09/16/16 Principal diagnosis: Cdiff Colitis Interval history: Currently on HFNC, stable but tachypnic. this is not new. IMS ordered KUB yesterday secondary to abdominal distention. Reviewed read this am. On exam, patient not verbal, not following commands. [place] with touch of abdomen. Objective Vital Signs - 12hr 09/15/16 09/16/16 09/16/16 23:01 00:00 00:01 Temperature 98.8 F Pulse Rate 70 70 Respiratory 40 H 40 H Rate Blood Pressure 106/78 74/21 O2 Sat by Pulse 97 100 Oximetry 09/16/16 09/16/16 09/16/16 00:48 01:01 02:00 Temperature Pulse Rate 70 70 Respiratory 30 H 40 H Rate Blood Pressure 130/90 94/66 O2 Sat by Pulse 100 100 98 Oximetry 09/16/16 09/16/16 09/16/16 03:01 04:00 04:01 Temperature 99.9 F H Pulse Rate 70 70 Respiratory 45 H 39 H Rate Blood Pressure 66/16 151/123 O2 Sat by Pulse 100 100 Oximetry 09/16/16 09/16/16 09/16/16 05:01 06:01 07:01 Temperature Pulse Rate 71 70 70 Respiratory 14 39 H 39 H Rate Blood Pressure 96/25 70/44 162/121 O2 Sat by Pulse 100 100 100 Oximetry 09/16/16 09/16/16 09/16/16 08:00 08:42 09:01 Temperature 98.9 F Pulse Rate 70 70 Respiratory 34 H 41 H Rate Blood Pressure 94/37 90/39 O2 Sat by Pulse 100 100 100 Oximetry Constitutional: alert ENT: other (orally intubated) Neck: supple Ascultation: Bilateral: clear (anteriorly), rhonchi (bilateral this am) Percussion: Bilateral: not dull Cardiovascular: regular rate and rhythm, other (100% paced at this moment ) Gastrointestinal: normoactive bowel sounds Neurologic: non-focal exam Psychiatric: mood appropriate CBC and BMP: 09/16/16 05:30 09/16/16 05:30 ABG, PT/INR, D-dimer: ABG POC ABG pH 7.489 (7.35-7.45) H 09/15/16 08:29 POC ABG pCO2 33.9 (35-45) L 09/15/16 08:29 POC ABG pO2 341 (80-105) H 09/15/16 08:29 POC ABG HCO3 25.8 09/15/16 08:29 POC ABG Total CO2 27 09/15/16 08:29 POC ABG O2 Sat 100 09/15/16 08:29 PT/INR, D-dimer PT 19.9 Sec. (12.2-14.9) H 09/07/16 11:02 INR 1.69 (0.87-1.13) H 09/07/16 11:02 Abnormal lab findings: Abnormal Labs 09/06/16 09/06/16 09/06/16 12:51 12:51 15:57 WBC RBC Hgb Hct RDW Plt Count Lymph % (Auto) [place] % (Auto) Lymph # [place] # Seg Neutrophils % Seg Neuts % (Manual) Lymphocytes % (Manual) Monocytes % (Manual) Nucleated RBC % Seg Neutrophils # Seg Neutrophils # Man Lymphocytes # (Manual) Monocytes # (Manual) PT INR POC ABG pH POC ABG pCO2 POC ABG pO2 Sodium Potassium 6.4 H* 6.7 H* Chloride 95.9 L Carbon Dioxide 21 L 19 L BUN 109 H 111 H Creatinine 10.5 H 10.1 H Glucose 133 H 178 H POC Glucose Lactic Acid Calcium Phosphorus Ammonia CK-MB (CK-2) Rel Index Troponin T NT-Pro-B Natriuret Pep 24400 H Total Protein Albumin Cholesterol LDL Cholesterol Direct HDL Cholesterol Crossmatch 09/06/16 09/06/16 09/06/16 15:57 19:06 19:06 WBC RBC Hgb 6.3 L Hct 19.3 L* RDW Plt Count Lymph % (Auto) [place] % (Auto) Lymph # [place] # Seg Neutrophils % Seg Neuts % (Manual) Lymphocytes % (Manual) Monocytes % (Manual) Nucleated RBC % Seg Neutrophils # Seg Neutrophils # Man Lymphocytes # (Manual) Monocytes # (Manual) PT INR POC ABG pH POC ABG pCO2 POC ABG pO2 Sodium Potassium 3.3 L D Chloride 96.0 L Carbon Dioxide BUN 30 H Creatinine 2.8 H D Glucose 154 H POC Glucose Lactic Acid 2.80 H* Calcium Phosphorus Ammonia CK-MB (CK-2) Rel Index Troponin T NT-Pro-B Natriuret Pep Total Protein Albumin Cholesterol LDL Cholesterol Direct HDL Cholesterol Crossmatch 09/06/16 09/06/16 09/06/16 Unknown Unknown Unknown WBC RBC Hgb Hct RDW Plt Count Lymph % (Auto) [place] % (Auto) Lymph # [place] # Seg Neutrophils % Seg Neuts % (Manual) Lymphocytes % (Manual) Monocytes % (Manual) Nucleated RBC % Seg Neutrophils # Seg Neutrophils # Man Lymphocytes # (Manual) Monocytes # (Manual) PT INR POC ABG pH POC ABG pCO2 POC ABG pO2 Sodium Potassium 6.4 H* Chloride 93.0 L Carbon Dioxide 21 L BUN 109 H Creatinine 10.4 H Glucose 197 H POC Glucose Lactic Acid 6.20 H* Calcium Phosphorus 5.20 H Ammonia CK-MB (CK-2) Rel Index 7.5 H Troponin T 0.210 H* NT-Pro-B Natriuret Pep 27965 H Total Protein 5.3 L Albumin 2.8 L Cholesterol 37 L LDL Cholesterol Direct 14 L HDL Cholesterol 16 L Crossmatch 09/06/16 09/07/16 09/07/16 Unknown 00:13 05:30 WBC RBC Hgb Hct RDW Plt Count Lymph % (Auto) [place] % (Auto) Lymph # [place] # Seg Neutrophils % Seg Neuts % (Manual) Lymphocytes % (Manual) Monocytes % (Manual) Nucleated RBC % Seg Neutrophils # Seg Neutrophils # Man Lymphocytes # (Manual) Monocytes # (Manual) PT 31.0 H INR 2.96 H POC ABG pH 7.570 H POC ABG pCO2 31.7 L POC ABG pO2 183 H Sodium Potassium Chloride Carbon Dioxide BUN Creatinine Glucose POC Glucose Lactic Acid Calcium Phosphorus Ammonia 102.0 H CK-MB (CK-2) Rel Index Troponin T NT-Pro-B Natriuret Pep Total Protein Albumin Cholesterol LDL Cholesterol Direct HDL Cholesterol Crossmatch 09/07/16 09/07/16 09/07/16 05:50 11:02 11:02 WBC 25.7 H RBC 2.83 L Hgb 8.5 L Hct 26.0 L D RDW 17.5 H Plt Count Lymph % (Auto) [place] % (Auto) Lymph # [place] # Seg Neutrophils % Seg Neuts % (Manual) 96.0 H Lymphocytes % (Manual) 2.0 L Monocytes % (Manual) Nucleated RBC % 1.0 H Seg Neutrophils # Seg Neutrophils # Man 24.7 H Lymphocytes # (Manual) 0.5 L Monocytes # (Manual) PT INR POC ABG pH POC ABG pCO2 POC ABG pO2 Sodium Potassium Chloride Carbon Dioxide BUN 54 H Creatinine 5.6 H D Glucose 138 H POC Glucose 149 H Lactic Acid Calcium Phosphorus Ammonia CK-MB (CK-2) Rel Index Troponin T NT-Pro-B Natriuret Pep Total Protein Albumin Cholesterol LDL Cholesterol Direct HDL Cholesterol Crossmatch 09/07/16 09/07/16 09/07/16 11:02 14:02 17:01 WBC RBC Hgb Hct RDW Plt Count Lymph % (Auto) [place] % (Auto) Lymph # [place] # Seg Neutrophils % Seg Neuts % (Manual) Lymphocytes % (Manual) Monocytes % (Manual) Nucleated RBC % Seg Neutrophils # Seg Neutrophils # Man Lymphocytes # (Manual) Monocytes # (Manual) PT 19.9 H INR 1.69 H POC ABG pH POC ABG pCO2 POC ABG pO2 Sodium Potassium Chloride Carbon Dioxide BUN Creatinine Glucose POC Glucose 149 H Lactic Acid Calcium Phosphorus Ammonia CK-MB (CK-2) Rel Index Troponin T 0.190 H* NT-Pro-B Natriuret Pep Total Protein Albumin Cholesterol LDL Cholesterol Direct HDL Cholesterol Crossmatch 09/07/16 09/07/16 09/08/16 17:50 23:50 05:19 WBC RBC Hgb Hct RDW Plt Count Lymph % (Auto) [place] % (Auto) Lymph # [place] # Seg Neutrophils % Seg Neuts % (Manual) Lymphocytes % (Manual) Monocytes % (Manual) Nucleated RBC % Seg Neutrophils # Seg Neutrophils # Man Lymphocytes # (Manual) Monocytes # (Manual) PT INR POC ABG pH 7.530 H POC ABG pCO2 32.2 L POC ABG pO2 Sodium Potassium Chloride Carbon Dioxide BUN Creatinine Glucose POC Glucose 126 H 128 H Lactic Acid Calcium Phosphorus Ammonia CK-MB (CK-2) Rel Index Troponin T NT-Pro-B Natriuret Pep Total Protein Albumin Cholesterol LDL Cholesterol Direct HDL Cholesterol Crossmatch 09/08/16 09/08/16 09/08/16 05:25 07:35 07:35 WBC 26.6 H RBC 2.79 L Hgb 8.3 L Hct 25.9 L RDW 18.0 H Plt Count 139 L Lymph % (Auto) [place] % (Auto) Lymph # [place] # Seg Neutrophils % Seg Neuts % (Manual) 93.0 H Lymphocytes % (Manual) 5.0 L Monocytes % (Manual) Nucleated RBC % Seg Neutrophils # Seg Neutrophils # Man 24.7 H Lymphocytes # (Manual) Monocytes # (Manual) PT INR POC ABG pH POC ABG pCO2 POC ABG pO2 Sodium Potassium Chloride Carbon Dioxide BUN 65 H Creatinine 6.7 H Glucose 120 H POC Glucose 130 H Lactic Acid Calcium Phosphorus Ammonia CK-MB (CK-2) Rel Index Troponin T NT-Pro-B Natriuret Pep Total Protein 5.2 L Albumin 2.7 L Cholesterol LDL Cholesterol Direct HDL Cholesterol Crossmatch 09/08/16 09/08/16 09/09/16 11:47 18:10 05:27 WBC RBC Hgb Hct RDW Plt Count Lymph % (Auto) [place] % (Auto) Lymph # [place] # Seg Neutrophils % Seg Neuts % (Manual) Lymphocytes % (Manual) Monocytes % (Manual) Nucleated RBC % Seg Neutrophils # Seg Neutrophils # Man Lymphocytes # (Manual) Monocytes # (Manual) PT INR POC ABG pH POC ABG pCO2 POC ABG pO2 Sodium Potassium Chloride Carbon Dioxide BUN Creatinine Glucose POC Glucose 141 H 139 H 152 H Lactic Acid Calcium Phosphorus Ammonia CK-MB (CK-2) Rel Index Troponin T NT-Pro-B Natriuret Pep Total Protein Albumin Cholesterol LDL Cholesterol Direct HDL Cholesterol Crossmatch 09/09/16 09/09/16 09/09/16 05:28 05:30 05:30 WBC 22.3 H RBC 2.66 L Hgb 7.8 L Hct 24.6 L RDW 19.1 H Plt Count 118 L Lymph % (Auto) [place] % (Auto) Lymph # [place] # Seg Neutrophils % Seg Neuts % (Manual) 89.0 H Lymphocytes % (Manual) 5.0 L Monocytes % (Manual) Nucleated RBC % Seg Neutrophils # Seg Neutrophils # Man 19.8 H Lymphocytes # (Manual) 1.1 L Monocytes # (Manual) 1.3 H PT INR POC ABG pH 7.560 H POC ABG pCO2 34.2 L POC ABG pO2 Sodium Potassium 3.2 L D Chloride Carbon Dioxide BUN 34 H Creatinine 4.3 H Glucose 144 H POC Glucose Lactic Acid Calcium 8.0 L Phosphorus Ammonia CK-MB (CK-2) Rel Index Troponin T NT-Pro-B Natriuret Pep Total Protein Albumin Cholesterol LDL Cholesterol Direct HDL Cholesterol Crossmatch 09/09/16 09/09/16 09/09/16 12:01 14:56 15:30 WBC RBC Hgb Hct RDW Plt Count Lymph % (Auto) [place] % (Auto) Lymph # [place] # Seg Neutrophils % Seg Neuts % (Manual) Lymphocytes % (Manual) Monocytes % (Manual) Nucleated RBC % Seg Neutrophils # Seg Neutrophils # Man Lymphocytes # (Manual) Monocytes # (Manual) PT INR POC ABG pH 7.582 H 7.543 H POC ABG pCO2 32.1 L POC ABG pO2 42 L Sodium Potassium Chloride Carbon Dioxide BUN Creatinine Glucose POC Glucose 178 H Lactic Acid Calcium Phosphorus Ammonia CK-MB (CK-2) Rel Index Troponin T NT-Pro-B Natriuret Pep Total Protein Albumin Cholesterol LDL Cholesterol Direct HDL Cholesterol Crossmatch 09/09/16 09/09/16 09/10/16 18:08 23:36 03:00 WBC 19.9 H RBC 2.73 L Hgb 8.0 L Hct 25.4 L RDW 19.0 H Plt Count 89 L Lymph % (Auto) 4.9 L [place] % (Auto) Lymph # 1.0 L [place] # 1.1 H Seg Neutrophils % 88.9 H Seg Neuts % (Manual) Lymphocytes % (Manual) Monocytes % (Manual) Nucleated RBC % Seg Neutrophils # 17.7 H Seg Neutrophils # Man Lymphocytes # (Manual) Monocytes # (Manual) PT INR POC ABG pH POC ABG pCO2 POC ABG pO2 Sodium Potassium Chloride Carbon Dioxide BUN Creatinine Glucose POC Glucose 147 H 173 H Lactic Acid Calcium Phosphorus Ammonia CK-MB (CK-2) Rel Index Troponin T NT-Pro-B Natriuret Pep Total Protein Albumin Cholesterol LDL Cholesterol Direct HDL Cholesterol Crossmatch 09/10/16 09/10/16 09/10/16 03:00 04:29 10:00 WBC RBC 2.55 L Hgb 7.6 L Hct 23.7 L RDW 18.9 H Plt Count 84 L Lymph % (Auto) [place] % (Auto) Lymph # [place] # Seg Neutrophils % Seg Neuts % (Manual) Lymphocytes % (Manual) Monocytes % (Manual) Nucleated RBC % Seg Neutrophils # Seg Neutrophils # Man Lymphocytes # (Manual) Monocytes # (Manual) PT INR POC ABG pH 7.521 H POC ABG pCO2 POC ABG pO2 Sodium Potassium 3.4 L Chloride 95.9 L Carbon Dioxide BUN 46 H Creatinine 5.9 H Glucose POC Glucose Lactic Acid Calcium Phosphorus Ammonia CK-MB (CK-2) Rel Index Troponin T NT-Pro-B Natriuret Pep Total Protein Albumin Cholesterol LDL Cholesterol Direct HDL Cholesterol Crossmatch 09/10/16 09/10/16 09/10/16 10:09 12:06 17:58 WBC RBC Hgb 7.7 L Hct 23.4 L RDW Plt Count Lymph % (Auto) [place] % (Auto) Lymph # [place] # Seg Neutrophils % Seg Neuts % (Manual) Lymphocytes % (Manual) Monocytes % (Manual) Nucleated RBC % Seg Neutrophils # Seg Neutrophils # Man Lymphocytes # (Manual) Monocytes # (Manual) PT INR POC ABG pH POC ABG pCO2 POC ABG pO2 Sodium Potassium Chloride Carbon Dioxide BUN Creatinine Glucose POC Glucose 112 H 165 H Lactic Acid Calcium Phosphorus Ammonia CK-MB (CK-2) Rel Index Troponin T NT-Pro-B Natriuret Pep Total Protein Albumin Cholesterol LDL Cholesterol Direct HDL Cholesterol Crossmatch 09/11/16 09/11/16 09/11/16 00:01 05:13 05:28 WBC RBC Hgb Hct RDW Plt Count Lymph % (Auto) [place] % (Auto) Lymph # [place] # Seg Neutrophils % Seg Neuts % (Manual) Lymphocytes % (Manual) Monocytes % (Manual) Nucleated RBC % Seg Neutrophils # Seg Neutrophils # Man Lymphocytes # (Manual) Monocytes # (Manual) PT INR POC ABG pH 7.565 H POC ABG pCO2 32.4 L POC ABG pO2 126 H Sodium Potassium Chloride Carbon Dioxide BUN Creatinine Glucose POC Glucose 196 H 187 H Lactic Acid Calcium Phosphorus Ammonia CK-MB (CK-2) Rel Index Troponin T NT-Pro-B Natriuret Pep Total Protein Albumin Cholesterol LDL Cholesterol Direct HDL Cholesterol Crossmatch 09/11/16 09/11/16 09/11/16 07:07 07:07 11:50 WBC 19.9 H RBC 2.61 L Hgb 7.6 L Hct 24.4 L RDW 18.4 H Plt Count 97 L Lymph % (Auto) 4.8 L [place] % (Auto) Lymph # 0.9 L [place] # 1.3 H Seg Neutrophils % 87.4 H Seg Neuts % (Manual) Lymphocytes % (Manual) Monocytes % (Manual) Nucleated RBC % Seg Neutrophils # 17.4 H Seg Neutrophils # Man Lymphocytes # (Manual) Monocytes # (Manual) PT INR POC ABG pH POC ABG pCO2 POC ABG pO2 Sodium Potassium 3.3 L Chloride Carbon Dioxide BUN 32 H Creatinine 4.2 H Glucose 196 H POC Glucose 229 H Lactic Acid Calcium 8.0 L Phosphorus Ammonia CK-MB (CK-2) Rel Index Troponin T NT-Pro-B Natriuret Pep Total Protein Albumin Cholesterol LDL Cholesterol Direct HDL Cholesterol Crossmatch 09/11/16 09/11/16 09/12/16 18:13 23:48 04:22 WBC RBC Hgb Hct RDW Plt Count Lymph % (Auto) [place] % (Auto) Lymph # [place] # Seg Neutrophils % Seg Neuts % (Manual) Lymphocytes % (Manual) Monocytes % (Manual) Nucleated RBC % Seg Neutrophils # Seg Neutrophils # Man Lymphocytes # (Manual) Monocytes # (Manual) PT INR POC ABG pH 7.527 H POC ABG pCO2 33.6 L POC ABG pO2 128 H Sodium Potassium Chloride Carbon Dioxide BUN Creatinine Glucose POC Glucose 216 H 135 H Lactic Acid Calcium Phosphorus Ammonia CK-MB (CK-2) Rel Index Troponin T NT-Pro-B Natriuret Pep Total Protein Albumin Cholesterol LDL Cholesterol Direct HDL Cholesterol Crossmatch 09/12/16 09/12/16 09/12/16 06:00 06:00 11:53 WBC 15.9 H RBC 2.34 L Hgb 6.8 L Hct 21.5 L RDW 18.4 H Plt Count 101 L Lymph % (Auto) 5.6 L [place] % (Auto) 8.4 H Lymph # 0.9 L [place] # 1.3 H Seg Neutrophils % 84.5 H Seg Neuts % (Manual) Lymphocytes % (Manual) Monocytes % (Manual) Nucleated RBC % Seg Neutrophils # 13.5 H Seg Neutrophils # Man Lymphocytes # (Manual) Monocytes # (Manual) PT INR POC ABG pH POC ABG pCO2 POC ABG pO2 Sodium Potassium Chloride 97.5 L Carbon Dioxide BUN 46 H Creatinine 5.4 H Glucose 192 H POC Glucose 181 H Lactic Acid Calcium 7.8 L Phosphorus Ammonia CK-MB (CK-2) Rel Index Troponin T NT-Pro-B Natriuret Pep Total Protein Albumin Cholesterol LDL Cholesterol Direct HDL Cholesterol Crossmatch 09/12/16 09/12/16 09/12/16 12:18 16:56 23:33 WBC RBC Hgb Hct RDW Plt Count Lymph % (Auto) [place] % (Auto) Lymph # [place] # Seg Neutrophils % Seg Neuts % (Manual) Lymphocytes % (Manual) Monocytes % (Manual) Nucleated RBC % Seg Neutrophils # Seg Neutrophils # Man Lymphocytes # (Manual) Monocytes # (Manual) PT INR POC ABG pH POC ABG pCO2 POC ABG pO2 Sodium Potassium Chloride Carbon Dioxide BUN Creatinine Glucose POC Glucose 204 H 175 H Lactic Acid Calcium Phosphorus Ammonia CK-MB (CK-2) Rel Index Troponin T NT-Pro-B Natriuret Pep Total Protein Albumin Cholesterol LDL Cholesterol Direct HDL Cholesterol Crossmatch See Detail 09/13/16 09/13/16 09/13/16 00:01 04:06 04:59 WBC 17.6 H RBC 2.80 L Hgb 8.4 L Hct 25.6 L RDW 17.1 H Plt Count 103 L Lymph % (Auto) 6.2 L [place] % (Auto) 8.4 H Lymph # 1.1 L [place] # 1.5 H Seg Neutrophils % 83.7 H Seg Neuts % (Manual) Lymphocytes % (Manual) Monocytes % (Manual) Nucleated RBC % Seg Neutrophils # 14.8 H Seg Neutrophils # Man Lymphocytes # (Manual) Monocytes # (Manual) PT INR POC ABG pH 7.504 H POC ABG pCO2 32.7 L POC ABG pO2 Sodium Potassium Chloride Carbon Dioxide BUN Creatinine Glucose POC Glucose 239 H Lactic Acid Calcium Phosphorus Ammonia CK-MB (CK-2) Rel Index Troponin T NT-Pro-B Natriuret Pep Total Protein Albumin Cholesterol LDL Cholesterol Direct HDL Cholesterol Crossmatch 09/13/16 09/13/16 09/13/16 06:45 09:31 11:39 WBC RBC Hgb Hct RDW Plt Count Lymph % (Auto) [place] % (Auto) Lymph # [place] # Seg Neutrophils % Seg Neuts % (Manual) Lymphocytes % (Manual) Monocytes % (Manual) Nucleated RBC % Seg Neutrophils # Seg Neutrophils # Man Lymphocytes # (Manual) Monocytes # (Manual) PT INR POC ABG pH 7.466 H POC ABG pCO2 POC ABG pO2 Sodium 136 L Potassium Chloride 93.8 L Carbon Dioxide BUN 65 H Creatinine 6.9 H Glucose 205 H POC Glucose 218 H Lactic Acid Calcium Phosphorus Ammonia CK-MB (CK-2) Rel Index Troponin T NT-Pro-B Natriuret Pep Total Protein Albumin Cholesterol LDL Cholesterol Direct HDL Cholesterol Crossmatch 09/13/16 09/13/16 09/13/16 16:55 18:02 22:23 WBC RBC Hgb Hct RDW Plt Count Lymph % (Auto) [place] % (Auto) Lymph # [place] # Seg Neutrophils % Seg Neuts % (Manual) Lymphocytes % (Manual) Monocytes % (Manual) Nucleated RBC % Seg Neutrophils # Seg Neutrophils # Man Lymphocytes # (Manual) Monocytes # (Manual) PT INR POC ABG pH 7.553 H POC ABG pCO2 33.8 L POC ABG pO2 Sodium Potassium Chloride Carbon Dioxide BUN Creatinine Glucose POC Glucose 178 H 204 H Lactic Acid Calcium Phosphorus Ammonia CK-MB (CK-2) Rel Index Troponin T NT-Pro-B Natriuret Pep Total Protein Albumin Cholesterol LDL Cholesterol Direct HDL Cholesterol Crossmatch 09/14/16 09/14/16 09/14/16 00:10 00:18 02:18 WBC RBC Hgb Hct RDW Plt Count Lymph % (Auto) [place] % (Auto) Lymph # [place] # Seg Neutrophils % Seg Neuts % (Manual) Lymphocytes % (Manual) Monocytes % (Manual) Nucleated RBC % Seg Neutrophils # Seg Neutrophils # Man Lymphocytes # (Manual) Monocytes # (Manual) PT INR POC ABG pH 7.503 H 7.524 H POC ABG pCO2 34.5 L POC ABG pO2 47 L 157 H Sodium Potassium Chloride Carbon Dioxide BUN Creatinine Glucose POC Glucose 172 H Lactic Acid Calcium Phosphorus Ammonia CK-MB (CK-2) Rel Index Troponin T NT-Pro-B Natriuret Pep Total Protein Albumin Cholesterol LDL Cholesterol Direct HDL Cholesterol Crossmatch 09/14/16 09/14/16 09/14/16 05:30 05:30 06:00 WBC 17.5 H RBC 2.67 L Hgb 7.9 L Hct 24.3 L RDW 17.3 H Plt Count 122 L Lymph % (Auto) [place] % (Auto) Lymph # [place] # Seg Neutrophils % Seg Neuts % (Manual) Lymphocytes % (Manual) Monocytes % (Manual) Nucleated RBC % Seg Neutrophils # Seg Neutrophils # Man Lymphocytes # (Manual) Monocytes # (Manual) PT INR POC ABG pH POC ABG pCO2 POC ABG pO2 Sodium Potassium Chloride 96.9 L Carbon Dioxide BUN 38 H Creatinine 4.6 H Glucose 200 H POC Glucose 212 H Lactic Acid Calcium 8.3 L Phosphorus Ammonia CK-MB (CK-2) Rel Index Troponin T NT-Pro-B Natriuret Pep Total Protein Albumin Cholesterol LDL Cholesterol Direct HDL Cholesterol Crossmatch 09/14/16 09/14/16 09/14/16 07:24 12:22 17:22 WBC RBC Hgb Hct RDW Plt Count Lymph % (Auto) [place] % (Auto) Lymph # [place] # Seg Neutrophils % Seg Neuts % (Manual) Lymphocytes % (Manual) Monocytes % (Manual) Nucleated RBC % Seg Neutrophils # Seg Neutrophils # Man Lymphocytes # (Manual) Monocytes # (Manual) PT INR POC ABG pH POC ABG pCO2 POC ABG pO2 Sodium Potassium Chloride Carbon Dioxide BUN Creatinine Glucose POC Glucose 190 H 181 H 251 H Lactic Acid Calcium Phosphorus Ammonia CK-MB (CK-2) Rel Index Troponin T NT-Pro-B Natriuret Pep Total Protein Albumin Cholesterol LDL Cholesterol Direct HDL Cholesterol Crossmatch 09/15/16 09/15/16 09/15/16 00:15 05:36 06:00 WBC 24.9 H RBC 3.12 L Hgb 9.2 L Hct 28.4 L RDW 17.8 H Plt Count Lymph % (Auto) [place] % (Auto) Lymph # [place] # Seg Neutrophils % Seg Neuts % (Manual) 83.0 H Lymphocytes % (Manual) 5.0 L Monocytes % (Manual) 9.0 H Nucleated RBC % Seg Neutrophils # Seg Neutrophils # Man 20.7 H Lymphocytes # (Manual) Monocytes # (Manual) 2.2 H PT INR POC ABG pH POC ABG pCO2 POC ABG pO2 Sodium Potassium Chloride Carbon Dioxide BUN Creatinine Glucose POC Glucose 231 H 229 H Lactic Acid Calcium Phosphorus Ammonia CK-MB (CK-2) Rel Index Troponin T NT-Pro-B Natriuret Pep Total Protein Albumin Cholesterol LDL Cholesterol Direct HDL Cholesterol Crossmatch 09/15/16 09/15/16 09/15/16 08:28 08:29 11:43 WBC RBC Hgb Hct RDW Plt Count Lymph % (Auto) [place] % (Auto) Lymph # [place] # Seg Neutrophils % Seg Neuts % (Manual) Lymphocytes % (Manual) Monocytes % (Manual) Nucleated RBC % Seg Neutrophils # Seg Neutrophils # Man Lymphocytes # (Manual) Monocytes # (Manual) PT INR POC ABG pH 7.489 H POC ABG pCO2 33.9 L POC ABG pO2 341 H Sodium Potassium Chloride 97.7 L Carbon Dioxide BUN 54 H Creatinine 5.7 H Glucose 217 H POC Glucose 157 H Lactic Acid Calcium Phosphorus Ammonia CK-MB (CK-2) Rel Index Troponin T NT-Pro-B Natriuret Pep Total Protein Albumin Cholesterol LDL Cholesterol Direct HDL Cholesterol Crossmatch 09/15/16 09/16/16 09/16/16 17:32 05:30 05:30 WBC 21.3 H RBC 3.11 L Hgb 9.1 L Hct 28.8 L RDW 17.8 H Plt Count Lymph % (Auto) [place] % (Auto) Lymph # [place] # Seg Neutrophils % Seg Neuts % (Manual) Lymphocytes % (Manual) 4.0 L Monocytes % (Manual) Nucleated RBC % Seg Neutrophils # Seg Neutrophils # Man 9.2 H Lymphocytes # (Manual) 0.9 L Monocytes # (Manual) PT INR POC ABG pH POC ABG pCO2 POC ABG pO2 Sodium Potassium Chloride 97.0 L Carbon Dioxide 21 L BUN 35 H Creatinine 3.9 H Glucose 59 L POC Glucose 141 H Lactic Acid Calcium Phosphorus Ammonia CK-MB (CK-2) Rel Index Troponin T NT-Pro-B Natriuret Pep Total Protein Albumin Cholesterol LDL Cholesterol Direct HDL Cholesterol Crossmatch 09/16/16 09/16/16 05:55 06:40 WBC RBC Hgb Hct RDW Plt Count Lymph % (Auto) [place] % (Auto) Lymph # [place] # Seg Neutrophils % Seg Neuts % (Manual) Lymphocytes % (Manual) Monocytes % (Manual) Nucleated RBC % Seg Neutrophils # Seg Neutrophils # Man Lymphocytes # (Manual) Monocytes # (Manual) PT INR POC ABG pH POC ABG pCO2 POC ABG pO2 Sodium Potassium Chloride Carbon Dioxide BUN Creatinine Glucose POC Glucose < 40 L < 40 L Lactic Acid Calcium Phosphorus Ammonia CK-MB (CK-2) Rel Index Troponin T NT-Pro-B Natriuret Pep Total Protein Albumin Cholesterol LDL Cholesterol Direct HDL Cholesterol Crossmatch
[2016-09-16] MEDS ORDERED: LACTINEX FEEDTUBE SCH (11:00)
[2016-09-16] MEDS: PEPCID PO SCH (11:34)
--- NOTE | 2016-09-16 12:34 | Progress Note ---
Assessment and Plan Impression: * End stage renal disease on HD MWF * Cdiff colitis * Hypotension requiring vasopressors * Severe anemia secondary to ABL * GI bleed * Atrial fibrillation * s/p Acute respiratory failure requiring mechanical ventilation; extubated * Coagulopathy - resolved * Chronic anticoagulation - previously on Eliquis 5mg BID as outpatient Plan: * Hemodialysis MWF. UF as tolerated * Antibiotics per ID * strict i/os * uf with hd as tolerated * Pressors prn MAP>65 * Dose medications for renal function Subjective Date of service: 09/16/16 Principal diagnosis: Cdiff Colitis Interval history: resting well in bed today, no acute events Objective - Exam Narrative Exam: General appearance: well-developed, other (on bipap) Respiratory: Present: Clear to Ascultation Cardiology: regular, S1S2 Gastrointestinal: hypoactive bowel sounds, distended Integumentary: hyperpigmentation Musculoskeletal: other (no edema) Psychiatric: cooperative - Vital Signs Vital signs: Vital Signs - 12hr 09/16/16 09/16/16 09/16/16 00:48 01:01 02:00 Temperature Pulse Rate 70 70 Respiratory 30 H 40 H Rate Blood Pressure 130/90 94/66 O2 Sat by Pulse 100 100 98 Oximetry 09/16/16 09/16/16 09/16/16 03:01 04:00 04:01 Temperature 99.9 F H Pulse Rate 70 70 Respiratory 45 H 39 H Rate Blood Pressure 66/16 151/123 O2 Sat by Pulse 100 100 Oximetry 09/16/16 09/16/16 09/16/16 05:01 06:01 07:01 Temperature Pulse Rate 71 70 70 Respiratory 14 39 H 39 H Rate Blood Pressure 96/25 70/44 162/121 O2 Sat by Pulse 100 100 100 Oximetry 09/16/16 09/16/16 09/16/16 08:00 08:42 09:01 Temperature 98.9 F Pulse Rate 70 70 Respiratory 34 H 41 H Rate Blood Pressure 94/37 90/39 O2 Sat by Pulse 100 100 100 Oximetry - Lab 09/16/16 05:30 09/16/16 05:30 Most recent lab results Calcium 9.3 mg/dL (8.4-10.2) 09/16/16 05:30 Phosphorus 5.20 mg/dL (2.5-4.5) H 09/06/16 Unknown Magnesium 2.20 mg/dL (1.7-2.3) 09/06/16 Unknown
[2016-09-16] MEDS ORDERED: D5W 1,000 ML IV SCH (13:00)
[2016-09-16] MEDS: LEVOPHED DRIP 4 MG/NS 250 ML 4 MG/250 ML BAG IV SCH ×4 (15:00→20:50)
--- NOTE | 2016-09-16 19:05 | Progress Note ---
Assessment and Plan Assessment and plan: Severe c.diff, with abdominal distention, with peritonitis - Patient is on IV flagyl and PO vancomycin - Plan was to do CT abdomen and pelvis is contrast but radiology said we'll do when the patient is going to have hemodialysis likely tomorrow - Intensity was discussed with the son, and patient is DO NOT RESUSCITATE now Acute respiratory failure - Resolving patient is on nonrebreather mask, but patient is tachypneic Septic shock - Holding her blood pressure but patient has been spiking fever and still has leukocytosis - ID consulted - Could be due to C. difficile, peritonitis Severe anemia secondary GI bleed/CKD - GI was consulted and doesn't want to do any intervention at this time - Patient doesn't need any intervention at this time Hyperkalemia (resolved) Lactic acidosis (resolved) End-stage disease on hemodialysis - Nephrology is on board and continue hemodialysis per nephrology Diabetes mellitus type 2 - Continue sliding scale, Accu-Chek Thrombocytopenia - Increasing and today platelet count is 220 Gangrene of bilateral feet - Agent is DO NOT RESUSCITATE and doesn't need amputation at this time Prognosis: Guarded DVT Prophylaxis - SCD Disposition - Continue ICU care Prognosis -Poor CODE STATUS -DO NOT RESUSCITATE The high probability of a clinically significant, sudden or life threatening deterioration of the [CV, Neurology, reneal] system(s) required my full and direct attention, intervention and personal management. The aggregate critical care time was [31] minutes. This time is in addition to time spent performing reported procedures but includes the following: [x] Data Review and interpretation [x] Patient assessment and monitoring of vital signs [x] Documentation [x] Medication orders and management. History Interval history: Patient was seen and evaluated this morning, she was on nonrebreather mask and tachypnic. Hospitalist Physical - Physical exam Narrative exam: patient is awake and on non rebreather mask. The patient appeared well nourished and normally developed. Vital signs as documented. Head exam is unremarkable. No scleral icterus . Neck is without jugular venous distension, thyromegaly, or carotid bruits. Lungs are clear to auscultation. Cardiac exam reveals regular rate and Rhythm. Abdominal exam reveals distension and generalized tenderness. 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 SOFTWARE RELEASE MANAGER: Alert. - Constitutional Vitals: Temp Pulse Resp BP Pulse Ox 98.6 F 70 39 H 100/43 100 07/13/17 16:00 09/16/16 18:01 09/16/16 18:01 09/16/16 18:01 09/16/16 18:01 General appearance: Present: no acute distress, other (awake) Results - Labs CBC & Chem 7: 09/16/16 05:30 09/16/16 05:30 Labs: Laboratory Last Values WBC 21.3 K/mm3 (4.5-11.0) H 09/16/16 05:30 RBC 3.11 M/mm3 (3.65-5.03) L 09/16/16 05:30 Hgb 9.1 gm/dl (10.1-14.3) L 09/16/16 05:30 Hct 28.8 % (30.3-42.9) L 09/16/16 05:30 MCV 93 fl (79-97) 09/16/16 05:30 MCH 29 pg (28-32) 09/16/16 05:30 MCHC 32 % (30-34) 09/16/16 05:30 RDW 17.8 % (13.2-15.2) H 09/16/16 05:30 Plt Count 190 K/mm3 (140-440) 09/16/16 05:30 Lymph % (Auto) 6.2 % (13.4-35.0) L 09/13/16 00:01 [place] % (Auto) 8.4 % (0.0-7.3) H 09/13/16 00:01 Eos % (Auto) 1.5 % (0.0-4.3) 09/13/16 00:01 Baso % (Auto) 0.2 % (0.0-1.8) 09/13/16 00:01 Lymph # 1.1 K/mm3 (1.2-5.4) L 09/13/16 00:01 [place] # 1.5 K/mm3 (0.0-0.8) H 09/13/16 00:01 Eos # 0.3 K/mm3 (0.0-0.4) 09/13/16 00:01 Baso # 0.0 K/mm3 (0.0-0.1) 09/13/16 00:01 Add Manual Diff Complete 09/16/16 05:30 Total Counted 100 09/16/16 05:30 Seg Neutrophils % 83.7 % (40.0-70.0) H 09/13/16 00:01 Seg Neuts % (Manual) 43.0 % (40.0-70.0) 09/16/16 05:30 Band Neutrophils % 53.0 % 09/16/16 05:30 Lymphocytes % (Manual) 4.0 % (13.4-35.0) L 09/16/16 05:30 Reactive Lymphs % (Man) 0 % 09/16/16 05:30 Monocytes % (Manual) 0 % (0.0-7.3) 09/16/16 05:30 Eosinophils % (Manual) 0 % (0.0-4.3) 09/16/16 05:30 Basophils % (Manual) 0 % (0.0-1.8) 09/16/16 05:30 Metamyelocytes % 0 % 09/16/16 05:30 Myelocytes % 0 % 09/16/16 05:30 Promyelocytes % 0 % 09/16/16 05:30 Blast Cells % 0 % 09/16/16 05:30 Nucleated RBC % Not Reportable 09/16/16 05:30 Seg Neutrophils # 14.8 K/mm3 (1.8-7.7) H 09/13/16 00:01 Seg Neutrophils # Man 9.2 K/mm3 (1.8-7.7) H 09/16/16 05:30 Band Neutrophils # 11.3 K/mm3 09/16/16 05:30 Lymphocytes # (Manual) 0.9 K/mm3 (1.2-5.4) L 09/16/16 05:30 Abs React Lymphs (Man) 0.0 K/mm3 09/16/16 05:30 Monocytes # (Manual) 0.0 K/mm3 (0.0-0.8) 09/16/16 05:30 Eosinophils # (Manual) 0.0 K/mm3 (0.0-0.4) 09/16/16 05:30 Basophils # (Manual) 0.0 K/mm3 (0.0-0.1) 09/16/16 05:30 Metamyelocytes # 0.0 K/mm3 09/16/16 05:30 Myelocytes # 0.0 K/mm3 09/16/16 05:30 Promyelocytes # 0.0 K/mm3 09/16/16 05:30 Blast Cells # 0.0 K/mm3 09/16/16 05:30 WBC Morphology Not Reportable 09/16/16 05:30 Hypersegmented Neuts Not Reportable 09/16/16 05:30 Hyposegmented Neuts Not Reportable 09/16/16 05:30 Hypogranular Neuts Not Reportable 09/16/16 05:30 Smudge Cells Not Reportable 09/16/16 05:30 Toxic Granulation Not Reportable 09/16/16 05:30 Toxic Vacuolation Not Reportable 09/16/16 05:30 Dohle Bodies Not Reportable 09/16/16 05:30 Pelger-Huet Anomaly Not Reportable 09/16/16 05:30 Juan Rods Not Reportable 09/16/16 05:30 Platelet Estimate Consistent w auto 09/16/16 05:30 Clumped Platelets Not Reportable 09/16/16 05:30 Plt Clumps, EDTA Not Reportable 09/16/16 05:30 Large Platelets Not Reportable 09/16/16 05:30 Giant Platelets Not Reportable 09/16/16 05:30 Platelet Satelliting Not Reportable 09/16/16 05:30 Plt Morphology Comment Not Reportable 09/16/16 05:30 RBC Morphology Not Reportable 09/16/16 05:30 Dimorphic RBCs Not Reportable 09/16/16 05:30 Polychromasia Not Reportable 09/16/16 05:30 Hypochromasia Not Reportable 09/16/16 05:30 Poikilocytosis 1+ 09/16/16 05:30 Anisocytosis 1+ 09/16/16 05:30 Microcytosis Not Reportable 09/16/16 05:30 Macrocytosis 1+ 09/16/16 05:30 Spherocytes Not Reportable 09/16/16 05:30 Pappenheimer Bodies Not Reportable 09/16/16 05:30 Sickle Cells Not Reportable 09/16/16 05:30 Target Cells Not Reportable 09/16/16 05:30 Tear Drop Cells Rare 09/16/16 05:30 Ovalocytes Rare 09/16/16 05:30 Stomatocytes Few 09/08/16 07:35 Helmet Cells Rare 09/16/16 05:30 Dominguez-Haskell Bodies Not Reportable 09/16/16 05:30 [place] Rings Not Reportable 09/16/16 05:30 Bernabe Cells Not Reportable 09/16/16 05:30 Bite Cells Not Reportable 09/16/16 05:30 Crenated Cell Not Reportable 09/16/16 05:30 Elliptocytes Not Reportable 09/16/16 05:30 Acanthocytes (Spur) Not Reportable 09/16/16 05:30 Rouleaux Not Reportable 09/16/16 05:30 Hemoglobin C Crystals Not Reportable 09/16/16 05:30 Schistocytes Not Reportable 09/16/16 05:30 Malaria parasites Not Reportable 09/16/16 05:30 Yair Bodies Not Reportable 09/16/16 05:30 Hem Pathologist Commnt No 09/16/16 05:30 PT 19.9 Sec. (12.2-14.9) H 09/07/16 11:02 INR 1.69 (0.87-1.13) H 09/07/16 11:02 Heparin Anti-Xa, Unfract Negative (Negative) 09/10/16 10:00 POC ABG pH 7.489 (7.35-7.45) H 09/15/16 08:29 POC ABG pCO2 33.9 (35-45) L 09/15/16 08:29 POC ABG pO2 341 (80-105) H 09/15/16 08:29 POC ABG HCO3 25.8 09/15/16 08:29 POC ABG Total CO2 27 09/15/16 08:29 POC ABG O2 Sat 100 09/15/16 08:29 POC ABG Base Excess 2 09/15/16 08:29 VBG pH 7.418 (7.320-7.420) 09/06/16 Unknown FiO2 100 % 09/15/16 08:29 Sodium 141 mmol/L (137-145) 09/16/16 05:30 Potassium 4.6 mmol/L (3.6-5.0) 09/16/16 05:30 Chloride 97.0 mmol/L (98-107) L 09/16/16 05:30 Carbon Dioxide 21 mmol/L (22-30) L 09/16/16 05:30 Anion Gap 28 mmol/L 09/16/16 05:30 BUN 35 mg/dL (7-17) H 09/16/16 05:30 Creatinine 3.9 mg/dL (0.7-1.2) H 09/16/16 05:30 Estimated GFR 14 ml/min 09/16/16 05:30 BUN/Creatinine Ratio 8.97 % 09/16/16 05:30 Glucose 59 mg/dL (65-100) L 09/16/16 05:30 POC Glucose 112 (70-105) H 09/16/16 09:12 Lactic Acid 1.00 mmol/L (0.7-2.0) 09/07/16 17:01 Calcium 9.3 mg/dL (8.4-10.2) 09/16/16 05:30 Phosphorus 5.20 mg/dL (2.5-4.5) H 09/06/16 Unknown Magnesium 2.20 mg/dL (1.7-2.3) 09/06/16 Unknown Total Bilirubin 1.10 mg/dL (0.1-1.2) 09/08/16 07:35 AST 25 units/L (5-40) 09/08/16 07:35 ALT 15 units/L (7-56) 09/08/16 07:35 Alkaline Phosphatase 77 units/L (35-129) 09/08/16 07:35 Ammonia 102.0 umol/L (25-60) H 09/06/16 Unknown Total Creatine Kinase 40 units/L (30-135) 09/06/16 Unknown CK-MB (CK-2) 3.0 ng/mL (0.0-4.0) 09/06/16 Unknown CK-MB (CK-2) Rel Index 7.5 (0-4) H 09/06/16 Unknown Troponin T 0.190 ng/mL (0.00-0.029) H* 09/07/16 17:01 NT-Pro-B Natriuret Pep 68509 pg/mL (0-900) H 09/06/16 Unknown Total Protein 5.2 g/dL (6.3-8.2) L 09/08/16 07:35 Albumin 2.7 g/dL (3.9-5) L 09/08/16 07:35 Albumin/Globulin Ratio 1.1 % 09/08/16 07:35 Triglycerides 38 mg/dL (2-149) 09/06/16 Unknown Cholesterol 37 mg/dL (50-199) L 09/06/16 Unknown LDL Cholesterol Direct 14 mg/dL (50-130) L 09/06/16 Unknown HDL Cholesterol 16 mg/dL (40-59) L 09/06/16 Unknown Cholesterol/HDL Ratio 2.31 % 09/06/16 Unknown Random Vancomycin 10.9 ug/mL (0-40.0) 09/08/16 07:35 Heparin-induced Plt Ab Negative (Negative) 09/10/16 10:00 UF Heparin High Dose 0 % Release 09/10/16 10:00 ANKUR UFH Low Dose 0.1 0 % Release 09/10/16 10:00 ANKUR UFH Low Dose 0.5 0 % Release 09/10/16 10:00 Blood Type A POSITIVE 09/12/16 12:18 Antibody Screen TNR 09/12/16 12:18 JOSEFA Antibody Screen Negative 09/12/16 12:18 Crossmatch See Detail 09/12/16 12:18
[2016-09-17] MEDS: LEVOPHED DRIP 4 MG/NS 250 ML 4 MG/250 ML BAG IV SCH (00:14)
[2016-09-17] MEDS: NOVOLOG SUB-Q SCH (00:17)
[2016-09-17] MEDS: SIMPLE SYRUP FEEDTUBE PRN (00:24)
[2016-09-17] MEDS: VANCOMYCIN PO FEEDTUBE SCH (00:29)
[2016-09-17] MEDS: D50W (25GM) IV PRN ×2 (01:04→01:41)
[2016-09-17] MEDS ORDERED: D10W IV PRN (01:48)
--- NOTE | 2016-09-17 03:01 | Event Note ---
Date: 09/17/16 I was called to,come and evaluated patient suspected to have , On examination patient was lying lifeless on her bed with no spontaneous respiration and no movement. Pupils where fixed and dilated bilaterally. Chest auscultation shows no movement, auscultation of the heart shows no cardiac impulses Patient was pronounced at 2:45 AM.
[2016-09-17 03:37] VITALS: BP 94/33
--- NOTE | 2016-09-17 08:16 | Death Summary ---
Summary - Providers Date of service: 09/17/16 Consults: 09/06/16 12:20 PICC Line Placement [Consult to PICC Line RN] [CONS] Stat Reason For Exam: access Type Line:: PICC 09/06/16 13:00 Consult to Physician [CONS] Urgent Consulting Provider: NICOLE ANAAY Reason For Exam: ARF on Chronic hemodial Notified:: yes 09/06/16 13:01 Consult to Physician [CONS] Stat Consulting Provider: DAVID HERNANDEZ Reason For Exam: MODS Notified:: yes 09/06/16 19:04 Consult to Physician [CONS] Routine Consulting Provider: DENZEL WATERS Reason For Exam: Melena. Hemoglobin 4.[address] consult to:: Dr. Pinto Notified:: yes Phone number called:: [phone] Time called:: 19:25 09/08/16 11:30 Consult to Wound/ET Nurse [CONS] Routine Reason For Exam: wound eval-B/L toes, R calf, gluteal folds. 09/09/16 11:39 Consult to Physician [CONS] Urgent Consulting Provider: ADRIANA SYLVESTER Reason For Exam: bilateral foor gangrene Place consult to:: Rick Nelson Notified:: Rick Nelson Phone number called:: verbal Was contact made?: Yes If yes, spoke with:: Rick Nelson Time called:: 11:44 09/13/16 14:27 Consult to Physician [CONS] Routine Consulting Provider: CARLOS SALMERON Reason For Exam: ?sepsis Place consult to:: Jaron HOUSE Notified:: Dr. Salmeron Phone number called:: in person on 09-14-16 Was contact made?: Yes If yes, spoke with:: Dr. Salmeron Time called:: 08:55 Attending: CHING BASILIO MD - summary Date of admission: 09/06/16 12:19 Date of : 09/17/16 Reason for admission: septic shock, Acute hypoxic respiratory failure, ESRD on HD Significant findings: Patient is admitted for septic shock, and decision disease on hemodialysis, acute hypoxic respiratory failure. Patient was intubated and was treated for sepsis. Patient showed improvement. Hemodialysis continued. Subsequently the patient developed C. difficile peritonitis that complicated her condition. We called her son and explained the situation. Her son made a decision to DNR/DNI and the patient of asystole. Procedures/treatments rendered: She was treated with IV antibiotics, intubated, continued hemodialysis. Pertinent studies: CT head, chest x-ray, C. difficile - Final diagnosis (1) Peritonitis (acute) generalized Note: Final diagnosis: (2) Acute respiratory failure Qualifiers: Respiratory failure complication: hypoxia Qualified Code(s): J96.01 - Acute respiratory failure with hypoxia Note: Final diagnosis: (3) C. difficile colitis Note: Final diagnosis: (4) GI bleeding Qualifiers: GI bleed type/associated pathology: melena Gastritis type: G Qualified Code(s): K92.1 - Melena Note: Final diagnosis: (5) Gangrene associated with diabetes mellitus Note: Final diagnosis: (6) Hyperkalemia Note: Final diagnosis: (7) Lactic acidosis Note: Final diagnosis: (8) Metabolic acidosis Note: Final diagnosis: (9) Sepsis Qualifiers: Sepsis type: sepsis due to unspecified organism Qualified Code(s): A41.9 - Sepsis, unspecified organism Note: Final diagnosis: (10) Thrombocytopenia Note: Final diagnosis: (11) Uremia Note: Final diagnosis: (12) Anemia in CKD (chronic kidney disease) Qualifiers: Chronic kidney disease stage: C Note: Final diagnosis: (13) End stage renal disease on dialysis Note: Final diagnosis: (14) HTN (hypertension) Qualifiers: Hypertension type: H Note: Final diagnosis: (15) Malnutrition Note: Final diagnosis: (16) T2DM (type 2 diabetes mellitus) Qualifiers: Diabetes mellitus complication status: D Diabetes mellitus complication detail: with chronic kidney disease Diabetic retinopathy severity: D Proliferative retinopathy type: P Diabetes mellitus macular edema: D Diabetes mellitus group home insulin use: D Laterality: L Chronic kidney disease stage: C Note: Final diagnosis:
== END 2016-09-17 02:45 | DRG 870 ==
LOC: ED 09:55 → CC1 12:19
PROVIDERS: ADMIT Internal Medicine; ATTEND Internal Medicine
PROC: 5A1955Z Respiratory Ventilation, Greater than 96 Consecutive Hours (ICD-10-PCS; principal; 2016-09-07)
PROC: 30233N1 Transfusion of Nonautologous Red Blood Cells into Peripheral Vein, Percutaneous Approach (ICD-10-PCS; 2016-09-07)
PROC: 30233K1 Transfusion of Nonautologous Frozen Plasma into Peripheral Vein, Percutaneous Approach (ICD-10-PCS; 2016-09-07)
PROC: 30233L1 Transfusion of Nonautologous Fresh Plasma into Peripheral Vein, Percutaneous Approach (ICD-10-PCS; 2016-09-07)
PROC: 4A033R1 Measurement of Arterial Saturation, Peripheral, Percutaneous Approach (ICD-10-PCS; 2016-09-07)
PROC: 5A1D60Z (ICD-10-PCS; 2016-09-07)
PROC: 5A09457 Assistance with Respiratory Ventilation, 24-96 Consecutive Hours, Continuous Positive Airway Pressure (ICD-10-PCS; 2016-09-07)
PROC: 0BH17EZ Insertion of Endotracheal Airway into Trachea, Via Natural or Artificial Opening (ICD-10-PCS; 2016-09-07)
PROC: 0DJ08ZZ Inspection of Upper Intestinal Tract, Via Natural or Artificial Opening Endoscopic (ICD-10-PCS; 2016-09-07)
PROC: 02HV33Z Insertion of Infusion Device into Superior Vena Cava, Percutaneous Approach (ICD-10-PCS; 2016-09-07)
PROC: B5181ZA Fluoroscopy of Superior Vena Cava using Low Osmolar Contrast, Guidance (ICD-10-PCS; 2016-09-07)
DX: A41.9 Sepsis, unspecified organism (principal); N18.6 End stage renal disease; J96.01 Acute respiratory failure with hypoxia; R65.21 Severe sepsis with septic shock; K65.9 Peritonitis, unspecified; I12.0 Hypertensive chronic kidney disease with stage 5 chronic kidney disease or end stage renal disease; K92.2 Gastrointestinal hemorrhage, unspecified; D68.9 Coagulation defect, unspecified; E11.52 Type 2 diabetes mellitus with diabetic peripheral angiopathy with gangrene; D62 Acute posthemorrhagic anemia; A04.7 Enterocolitis due to Clostridium difficile; E46 Unspecified protein-calorie malnutrition; E87.5 Hyperkalemia; I48.91 Unspecified atrial fibrillation; E11.22 Type 2 diabetes mellitus with diabetic chronic kidney disease; D69.6 Thrombocytopenia, unspecified; D63.1 Anemia in chronic kidney disease; Z99.2 Dependence on renal dialysis; Z95.1 Presence of aortocoronary bypass graft; Z68.25 Body mass index [BMI] 25.0-25.9, adult
CPT/HCPCS: 36415; 36430; 36600; 71010; 74000; 80048; 80053; 80061; 80202; 82140; 82270; 82550; 82553; 82803; 82805; 82962; 83735; 83880; 84100; 84484; 85007; 85014; 85018; 85025; 85027; 85610; 86022; 86850; 86900; 86901; 86920; 87040; 87205; 87493; 93005; 93010; 93925; 94002; 94003; 94660; 94760; 96365; 96366; 96375; 96376; C9113; J0461; J0610; J1815; J1818; J2250; J2543; J2704; J3370; J7030; J7040; J7070; P9016; P9017